=== PATIENT | male | born 1975 | race American Indian/Alaskan Native ===

== ENCOUNTER 2016-06-18 02:22 | Emergency (ER) | payer MEDICAID ==
[2016-06-18 02:50] VITALS: BP 146/101
[2016-06-18] MEDS ORDERED: BENADRYL PO ONE (02:50)
[2016-06-18] MEDS ORDERED: MORPHINE ONE (09:57)
[2016-06-18] MEDS ORDERED: ZOFRAN ONE (09:57)
[2016-06-18] MEDS ORDERED: NACL 0.9% 1000 ML 1,000 ML ONE (09:57)
--- NOTE | 2016-06-19 18:13 | ED Elopement Review ---
ED Pt Elopement review - Call Back decision Pt Call Back Decision: No action required
== END 2016-06-18 16:20 | disposition left against medical advice (07) ==
LOC: ED 02:22
DX: R07.9 Chest pain, unspecified (principal); L29.9 Pruritus, unspecified; Z53.21 Procedure and treatment not carried out due to patient leaving prior to being seen by health care provider
CPT/HCPCS: 93005; 93010; J2270; J2405; J7030

== ENCOUNTER 2016-07-05 02:45 | Inpatient (IN) | payer MEDICAID ==
[2016-07-05 03:46] LABS: Eosinophils % (Auto) 3.3 % (0.0-4.3); Hematocrit 22.4 % (35.5-45.6); Hemoglobin 7.4 gm/dl (11.8-15.2); Mean Corpuscular HGB Conc 33 % (32-34); Mean Corpuscular Hemoglobin 31 pg (28-32); Mean Corpuscular Volume 93 fl (84-94); Platelet Count 126 K/mm3 (140-440); Red Blood Count 2.41 M/mm3 (3.65-5.03); White Blood Count 7.5 K/mm3 (4.5-11.0)
[2016-07-05 03:52] LABS: Red Cell Distribution Width 21.1 % (13.2-15.2)
[2016-07-05 04:12] LABS: Albumin 3.9 g/dL (3.9-5); Albumin/Globulin Ratio 1.5 %; BUN/Creatinine Ratio 4.38; Bilirubin,Total 0.4 mg/dL (0.1-1.2); Calcium 9.3 mg/dL (8.4-10.2); Chloride 104.6 mmol/L (98-107); Potassium 4.4 mmol/L (3.6-5.0); Total Protein 6.5 g/dL (6.3-8.2)
[2016-07-05] MEDS ORDERED: MORPHINE IV ONE ×2 (04:21→05:06)
[2016-07-05] MEDS ORDERED: ZOFRAN ONE (04:32)
[2016-07-05] MEDS ORDERED: ZOFRAN IV ONE (04:41)
[2016-07-05 05:09] LABS: Anisocytosis 1+; Blastocytes % (Manual) 0 %; Eosinophils % (Manual) 0 % (0.0-4.3)
[2016-07-05 05:10] LABS: Microcytosis 2+
[2016-07-05 05:11] LABS: Diff Status Complete; Platelet Estimate Consistent w Auto; Tear Drop Cells 1+
--- NOTE | 2016-07-05 05:11 | Emergency Department Report ---
ED General Adult HPI - General Chief complaint: Dyspnea/Respdistress Stated complaint: CHEST PAIN Time Seen by Provider: 07/05/16 03:49 Source: patient, EMS Mode of arrival: Stretcher Limitations: Physical Limitation - History of Present Illness Initial comments: Patient reports missing dialysis on Wednesday. He states the last time he was dialyzed was on Wednesday. He reports feeling puffy and his legs. He describes pressure in his chest as well. Mostly on the right side. He denies cough he denies fever he states he tried to tough it out at home until Wednesday when he was supposed to be dialyzed again but feels that he cannot make it until Wednesday. Patient reports he still does produce some urine with going to the restroom approximately twice daily. Onset/Timin -: Gradual, days(s) Location: chest Radiation: non-radiation Severity scale (0 -10): 10 Quality: aching Consistency: constant Improves with: none Worsens with: none Associated Symptoms: other (edema) Treatments Prior to Arrival: none - Related Data Home Medications Medication Instructions Recorded Confirmed Last Taken Minoxidil [Loniten] 2.5 mg PO BID 05/20/16 05/20/16 1 Day Ago 2.5 Previous Rx's Medication Instructions Recorded Last Taken Type Carvedilol [Coreg] 25 mg PO BID #60 tablet 02/17/16 1 Day Ago Rx 25 cloNIDine [Catapres] 0.2 mg PO Q8HR #90 tablet 02/17/16 1 Day Ago Rx 0.2 hydrALAZINE [Apresoline TAB] 100 mg PO TID #90 tab 02/17/16 1 Day Ago Rx 100 Allergies Allergy/AdvReac Type Severity Reaction Status Date / Time No Known Allergies Allergy Unverified 05/26/15 13:53 ED Review of Systems ROS: Stated complaint: CHEST PAIN Other details as noted in HPI Constitutional: denies: chills, fever Eyes: denies: eye pain, eye discharge, vision change ENT: denies: ear pain, throat pain Respiratory: denies: cough, shortness of breath, wheezing Cardiovascular: chest pain, dyspnea on exertion. denies: palpitations Endocrine: no symptoms reported Gastrointestinal: denies: abdominal pain, nausea, diarrhea Genitourinary: denies: urgency, dysuria Musculoskeletal: denies: back pain, joint swelling, arthralgia Skin: denies: rash, lesions Neurological: denies: headache, weakness, paresthesias Psychiatric: denies: anxiety, depression Hematological/Lymphatic: denies: easy bleeding, easy bruising ED Past Medical Hx - Past Medical History Previous Medical History?: Yes Hx Hypertension: Yes Hx Congestive Heart Failure: No Hx Diabetes: No Hx Renal Disease: Yes (dialysis) Hx Asthma: No Hx COPD: No - Surgical History Past Surgical History?: Yes Additional Surgical History: Hernia, vas cath - Social History Smoking Status: Current Some Day Smoker Substance Use Type: Marijuana - Medications Home Medications: Home Medications Medication Instructions Recorded Confirmed Last Taken Type Carvedilol [Coreg] 25 mg PO BID #60 tablet 02/17/16 05/20/16 1 Day Ago Rx 25 cloNIDine [Catapres] 0.2 mg PO Q8HR #90 tablet 02/17/16 05/20/16 1 Day Ago Rx 0.2 hydrALAZINE [Apresoline TAB] 100 mg PO TID #90 tab 02/17/16 05/20/16 1 Day Ago Rx 100 Minoxidil [Loniten] 2.5 mg PO BID 05/20/16 05/20/16 1 Day Ago History 2.5 ED Physical Exam - General Limitations: Physical Limitation General appearance: alert, in distress (mild) - Head Head exam: Present: atraumatic, normocephalic - Eye Eye exam: Present: normal appearance, PERRL - ENT ENT exam: Present: normal orophraynx, mucous membranes moist - Neck Neck exam: Present: normal inspection. Absent: meningismus, lymphadenopathy - Respiratory Respiratory exam: Present: wheezes (mild occasional), decreased breath sounds ( mild diffusely). Absent: respiratory distress, rhonchi - Cardiovascular Cardiovascular Exam: Present: regular rate, normal rhythm. Absent: systolic murmur, diastolic murmur, rubs, gallop - GI/Abdominal GI/Abdominal exam: Present: soft, normal bowel sounds. Absent: tenderness - Rectal Rectal exam: Present: deferred - Extremities Exam Extremities exam: Present: normal inspection, pedal edema (1+ bilat. Equal distal pedal pulses bilat.) - Back Exam Back exam: Present: normal inspection. Absent: tenderness, muscle spasm - Neurological Exam Neurological exam: Present: alert, oriented X3 - Psychiatric Psychiatric exam: Present: normal affect, normal mood - Skin Skin exam: Present: warm, dry, intact, normal color. Absent: rash ED Course Vital Signs 07/05/16 03:16 Temperature 98.8 F Pulse Rate 83 Respiratory 20 Rate Blood Pressure 181/124 [Left] O2 Sat by Pulse 100 Oximetry - Reevaluation(s) Reevaluation #1: 07/05/16 05:17 Patient noted to be somewhat uncomfortable appearing here. His main pain is in his right chest area he feels inspiration. X-ray do not appreciate any specific Pathology. He does have some mild vascular congestion and clear cardiomegaly noted. ECG does not demonstrate anything that appears acute despite his coronary syndrome. Suspect either. The to be edematous and somewhat diffusely. His condition is consistent with azotemia. I do feel he needs urgent/emergent dialysis. I do not feel it would be safe for him to try to wait until Wednesday to accomplish this. Labs are noted. Will admit to the hospitalist service with likely nephrology consultation for dialysis today. ED Medical Decision Making - Lab Data Result diagrams: 07/05/16 03:35 07/05/16 03:35 - EKG Data -: EKG Interpreted by Me (left axis deviation nonspecific ST and T waves noted similar to prior ecg ) EKG shows normal: sinus rhythm Rate: normal - Radiology Data Radiology results: image reviewed interpreted by me: Cardiomegaly with mild vascular congestion. Right-sided dialysis catheter noted. Critical care attestation.: If time is entered above; I have spent that time in minutes in the direct care of this critically ill patient, excluding procedure time. ED Disposition Clinical Impression: Renal azotemia, Pedal edema Chest pain Qualifiers: Chest pain type: pleurodynia Qualified Code(s): R07.81 - Pleurodynia Dyspnea Qualifiers: Dyspnea type: unspecified Qualified Code(s): R06.00 - Dyspnea, unspecified Disposition: OP ADMITTED IP TO THIS HOSP Is pt being admited?: Yes Does the pt Need Aspirin: No Condition: Stable Instructions: Chest Pain (ED) Referrals: PRIMARY CARE, [Primary Care Provider] - 3-5 Days
[2016-07-05] MEDS ORDERED: BENADRYL ONE (06:26)
[2016-07-05] MEDS ORDERED: BENADRYL IV ONE (07:05)
--- NOTE | 2016-07-05 08:32 | History and Physical Report ---
History of Present Illness Date of admission: 07/05/16 05:14 Medications and Allergies Allergies Allergy/AdvReac Type Severity Reaction Status Date / Time No Known Allergies Allergy Unverified 05/26/15 13:53 Home Medications Medication Instructions Recorded Confirmed Last Taken Type Carvedilol [Coreg] 25 mg PO BID #60 tablet 02/17/16 07/05/16 1 Day Ago Rx 25 cloNIDine [Catapres] 0.2 mg PO Q8HR #90 tablet 02/17/16 07/05/16 1 Day Ago Rx 0.2 hydrALAZINE [Apresoline TAB] 100 mg PO TID #90 tab 02/17/16 07/05/16 1 Day Ago Rx 100 Minoxidil [Loniten] 2.5 mg PO BID 05/20/16 07/05/16 1 Day Ago History 2.5 Exam - Constitutional Vitals: Temp Pulse Resp BP Pulse Ox 98.8 F 83 21 176/119 98 07/05/16 03:16 07/05/16 08:21 07/05/16 08:21 07/05/16 08:21 07/05/16 08:21 Results - Labs CBC & Chem 7: 07/05/16 03:35 07/05/16 03:35
[2016-07-05] MEDS ORDERED: ZOFRAN IV PRN (08:33)
[2016-07-05] MEDS ORDERED: DUONEB 0.5 MG-3 MG/3 ML SOLN IH PRN (08:33)
[2016-07-05] MEDS ORDERED: DULCOLAX PR PRN (08:33)
[2016-07-05] MEDS ORDERED: MILK OF MAGNESIA PO PRN (08:33)
[2016-07-05] MEDS ORDERED: TYLENOL PO PRN (08:33)
[2016-07-05] MEDS ORDERED: APRESOLINE IV PRN (08:37)
[2016-07-05] MEDS ORDERED: PROVENTIL IH PRN (09:02)
--- NOTE | 2016-07-05 09:14 | XRay Report ---
Single view chest: History: Shortness of breath. Findings: Marked cardiomegaly. Trachea is midline. Stable right large bore venous catheter. Pulmonary vascular congestion. No consolidation or pleural effusion. Impression: Probable early CHF.
[2016-07-05] MEDS: PERCOCET 5/325 PO PRN ×2 (09:17→18:09)
[2016-07-05] MEDS: LONITEN PO SCH ×2 (10:31→22:07)
[2016-07-05] MEDS: BENADRYL PO PRN ×2 (10:31→20:21)
[2016-07-05] MEDS: COREG PO SCH ×2 (10:31→22:07)
[2016-07-05] MEDS ORDERED: PROCRIT IV PRN (13:25)
[2016-07-05] MEDS ORDERED: NACL 0.9% 1000 ML 100 ML IV PRN (13:25)
[2016-07-05] MEDS: CATAPRES PO SCH ×4 (16:00→22:07)
[2016-07-05] MEDS: APRESOLINE PO SCH ×2 (16:00→20:21)
[2016-07-05] MEDS ORDERED: APRESOLINE ONE (16:06)
--- NOTE | 2016-07-05 16:09 | History and Physical Report ---
History of Present Illness Date of examination: 07/05/16 Date of admission: 07/05/16 05:14 Chief complaint: Shortness of breath, chest pain - 1 day History of present illness: Patient that 10-year-old gentleman who has a history of hypertension and end- stage renal disease on hemodialysis on Wednesdays and Fridays, missed his dialysis on Wednesday which was 2 days ago. Started having shortness of breath orthopnea proximal nocturnal dyspnea and also this morning I. Has associated dull chest pain with cough. Cough is dry and. Nonproductive. Denies any fever. Denies any diaphoresis. Chest pain is nonradiating. Came to the emergency department where he was found to be 50 and creatinine was 11.4. H&H she is able to was 7.4 hematocrit was 22.4. Blood pressure was 176/ 119 in the emergency department. Chest x-ray shows pulmonary congestion mild cardiomegaly and aearly congestive heart failure. Admission was therefore requested. [employer] consulted by the emergency room doctor who is arranging for hemodialysis. Past History Past Medical History: ESRD, hypertension Past Surgical History: Other (AV fistula for hemodialysis) Social history: smoking, alcohol abuse. denies: prescription drug abuse, IV drug use Family history: hypertension Medications and Allergies Allergies Allergy/AdvReac Type Severity Reaction Status Date / Time No Known Allergies Allergy Unverified 05/26/15 13:53 Home Medications Medication Instructions Recorded Confirmed Last Taken Type Carvedilol [Coreg] 25 mg PO BID #60 tablet 02/17/16 07/05/16 1 Day Ago Rx 25 cloNIDine [Catapres] 0.2 mg PO Q8HR #90 tablet 02/17/16 07/05/16 1 Day Ago Rx 0.2 hydrALAZINE [Apresoline TAB] 100 mg PO TID #90 tab 02/17/16 07/05/16 1 Day Ago Rx 100 Minoxidil [Loniten] 2.5 mg PO BID 05/20/16 07/05/16 1 Day Ago History 2.5 Active Meds: Active Medications Acetaminophen (Tylenol) 650 mg PO Q4H PRN PRN Reason: Pain MILD(1-3)/Fever >100.5/WOOD Albuterol (Proventil) 2.5 mg IH Q4HRT PRN PRN Reason: Shortness Of Breath Bisacodyl (Dulcolax) 10 mg DC QDAY PRN PRN Reason: Constipation unrelieved by MOM Carvedilol (Coreg) 25 mg PO BID [facility] Last Admin: 07/05/16 10:31 Dose: 25 mg Clonidine HCl (Catapres) 0.2 mg PO Q8HR [facility] Last Admin: 07/05/16 16:01 Dose: Not Given Diphenhydramine HCl (Benadryl) 25 mg PO Q6H PRN PRN Reason: Itching Last Admin: 07/05/16 10:31 Dose: 25 mg Epoetin Michael (Procrit) 10,000 unit IV SYLVAIN PRN PRN Reason: hemodialysis Heparin Sodium (Porcine) (Heparin) 5,000 unit IV SYLVAIN PRN PRN Reason: hemodialysis Hydralazine HCl (Apresoline) 100 mg PO TID [facility] Last Admin: 07/05/16 16:00 Dose: Not Given Hydralazine HCl (Apresoline) 10 mg IV Q6HR PRN PRN Reason: Hypertension Sodium Chloride (Nacl 0.9% 1000 Ml) 100 mls @ 999 mls/hr IV SYLVAIN PRN PRN Reason: Hypotension Magnesium Hydroxide (Milk Of Magnesia) 30 ml PO Q4H PRN PRN Reason: Constipation Minoxidil (Loniten) 2.5 mg PO BID [facility] Last Admin: 07/05/16 10:31 Dose: 2.5 mg Ondansetron HCl (Zofran) 4 mg IV Q8H PRN PRN Reason: N/V unrelieved by Reglan Oxycodone/Acetaminophen (Percocet 5/325) 1 tab PO Q6H PRN PRN Reason: Pain, Moderate (4-6) Last Admin: 07/05/16 09:17 Dose: 1 tab Review of system Constitutional: Well Nouridhed and Well developed. Head: NC/ AT Eyes: Denies any visual impairments. No discharge from the eyes Nose: Denies any rhinorrhea or epistaxis Throats: Denies any post nasal drainage. Ears: Denies any hearing deficits Cardiovascular system: Has chest pain, shortness of breath, orthopnea, paroxysmal nocturnal dyspnea. Respiratory system: Denies any cough, difficulty breathing, wheezing, pleuritic chest pain, Gastrointestinal system: Denies any abdominal pain, nausea vomiting, hematemesis or melena. Neurological system: Denies any headache, slurred speech, facial droop, lateralizing weakness Genitalia system: Denies any dysuria, urinary frequency or urgency, urethral discharge Skin: No rashes, hyperpigmented spots. Hematological: Denies any cervical tenderness hemorrhages or petechia. Immunological: Denies any multiple septic spots, Lymphatic: Denies any generalized lymphadenopathy. Endocrine: Denies any polyuria, polydipsia, polyphagia. No heat or cold intolerance. Exam - Constitutional Vitals: Temp Pulse Resp BP Pulse Ox 97.7 F 70 24 164/106 99 07/05/16 13:55 07/05/16 14:33 07/05/16 13:55 07/05/16 14:33 07/05/16 13:00 General appearance: Present: no acute distress, well-nourished - EENT Eyes: Present: PERRL ENT: hearing intact, clear oral mucosa - Neck Neck: Present: supple, normal ROM - Respiratory Respiratory effort: normal Respiratory: bilateral: CTA - Cardiovascular Heart Sounds: Present: S1 & S2. Absent: rub, click - Extremities Extremities: pulses symmetrical, No edema Peripheral Pulses: within normal limits - Abdominal General gastrointestinal: Present: soft, non-tender, non-distended, normal bowel sounds Male genitourinary: Present: normal - Integumentary Integumentary: Present: clear, warm, dry - Musculoskeletal Musculoskeletal: gait normal, strength equal bilaterally - Psychiatric Psychiatric: appropriate mood/affect, intact judgment & insight - Neurologic Neurologic: CNII-XII intact, moves all extremities Results - Labs CBC & Chem 7: 07/05/16 03:35 07/05/16 03:35 Assessment and Plan 1. Shortness of breath was likely secondary to acute pulmonary edema from missed dialysis. Anticipate resolution with hemodialysis. 2. End-stage renal disease hemodialysis Wednesdays and Fridays: [employer] Dr. Araujo already consulted. He has seen patient and ordered hemodialysis. 3. Anemia of chronic disease from chronic renal failure: And that workup with iron TIBC B12 folic acid. 4. Accelerated hypertension: Optimize blood pressure control with 80s beta yasmin. 5. Tobacco use disorder: Smoking cessation counseling done for 3 minutes. 6. DVT prophylaxis weights Lovenox, GI Proflex with omeprazole. Spent 32 minutes in direct patient care, elevation laboratory and radiological data as well as explanation of management plan to the patient during this admission process
[2016-07-05] MEDS: HEPARIN IV PRN (16:16)
[2016-07-05] MEDS ORDERED: CATAPRES ONE (16:23)
[2016-07-05] MEDS ORDERED: BENADRYL IV PRN (23:01)
[2016-07-06] MEDS: CATAPRES PO SCH ×2 (05:38→18:29)
--- NOTE | 2016-07-06 09:21 | Consultation ---
History of Present Illness - Reason for Consult Consult date: 07/06/16 - History of Present Illness pt was seen and examined. consult dictated Past History Past Medical History: ESRD, hypertension Past Surgical History: Other (AV fistula for hemodialysis) Social history: smoking, alcohol abuse. denies: prescription drug abuse, IV drug use Family history: hypertension Medications and Allergies Allergies Allergy/AdvReac Type Severity Reaction Status Date / Time No Known Allergies Allergy Unverified 05/26/15 13:53 Home Medications Medication Instructions Recorded Confirmed Last Taken Type Carvedilol [Coreg] 25 mg PO BID #60 tablet 02/17/16 07/05/16 1 Day Ago Rx 25 cloNIDine [Catapres] 0.2 mg PO Q8HR #90 tablet 02/17/16 07/05/16 1 Day Ago Rx 0.2 hydrALAZINE [Apresoline TAB] 100 mg PO TID #90 tab 02/17/16 07/05/16 1 Day Ago Rx 100 Minoxidil [Loniten] 2.5 mg PO BID 05/20/16 07/05/16 1 Day Ago History 2.5 oxyCODONE /ACETAMINOPHEN [Percocet 1 tab PO Q6HR PRN #10 tablet 07/06/16 Unknown Rx 5/325] Active Meds: Active Medications Acetaminophen (Tylenol) 650 mg PO Q4H PRN PRN Reason: Pain MILD(1-3)/Fever >100.5/WOOD Albuterol (Proventil) 2.5 mg IH Q4HRT PRN PRN Reason: Shortness Of Breath Bisacodyl (Dulcolax) 10 mg DC QDAY PRN PRN Reason: Constipation unrelieved by MOM Carvedilol (Coreg) 25 mg PO BID [facility] Last Admin: 07/05/16 22:07 Dose: 25 mg Clonidine HCl (Catapres) 0.2 mg PO Q8HR [facility] Last Admin: 07/06/16 05:38 Dose: 0.2 mg Diphenhydramine HCl (Benadryl) 25 mg IV Q6H PRN PRN Reason: Itching Last Admin: 07/05/16 23:17 Dose: 25 mg Epoetin Michael (Procrit) 10,000 unit IV SYLVAIN PRN PRN Reason: hemodialysis Heparin Sodium (Porcine) (Heparin) 5,000 unit IV SYLVAIN PRN PRN Reason: hemodialysis Last Admin: 07/05/16 16:16 Dose: 5,000 unit Hydralazine HCl (Apresoline) 100 mg PO TID [facility] Last Admin: 07/05/16 20:21 Dose: 100 mg Hydralazine HCl (Apresoline) 10 mg IV Q6HR PRN PRN Reason: Hypertension Last Admin: 07/05/16 16:00 Dose: 10 mg Sodium Chloride (Nacl 0.9% 1000 Ml) 100 mls @ 999 mls/hr IV SYLVAIN PRN PRN Reason: Hypotension Magnesium Hydroxide (Milk Of Magnesia) 30 ml PO Q4H PRN PRN Reason: Constipation Minoxidil (Loniten) 2.5 mg PO BID [facility] Last Admin: 07/05/16 22:07 Dose: 2.5 mg Ondansetron HCl (Zofran) 4 mg IV Q8H PRN PRN Reason: N/V unrelieved by Reglan Oxycodone/Acetaminophen (Percocet 5/325) 1 tab PO Q6H PRN PRN Reason: Pain, Moderate (4-6) Last Admin: 07/05/16 18:09 Dose: 1 tab Exam - Constitutional Vitals: Temp Pulse Resp BP Pulse Ox 98.4 F 73 18 164/96 98 07/06/16 06:28 07/06/16 06:28 07/06/16 06:28 07/06/16 06:28 07/06/16 06:28 Results - Labs CBC & Chem 7: 07/05/16 03:35 07/05/16 03:35
--- NOTE | 2016-07-06 09:53 | Admit Criteria Form ---
Admission Criteria Documentation: RENAL FAILURE, CHRONIC Clinical Indications for Admission to Inpatient Care (Place 'X' for any and all applicable criteria): Admission is indicated for ANY ONE of the following (1)(2)(3)(4)(5): [X]I. Inpatient admission required rather than observation care (Use Renal Failure, Chronic: Observation Care Criteria as appropriate) because of ANY ONE of the following: [X]a) Volume overload or uremic symptoms (eg, clinically significant pulmonary edema, hypertension, pericarditis, acidosis) too severe for, or not responsive (eg, for over 24 hours) to emergency department or observation care dialysis or treatment regimen (11) [ ]b) Hemodynamic instability that is severe or persistent []c) Respiratory distress that is severe or persistent (11) [ ]d) Clinically significant electrolyte abnormality that requires inpatient care (eg,hyperkalemia with severe ECG findings)[B] [X]e) Supplement O2 or respiratory therapy for over 24hrs that is performable only in acute inpatient setting [ ]f) Continuous IV infusion of anticoagulation, platelet inhibitor, vasoactive, or Antiarrhythmic medication (15), [ ]g) Pulmonary artery catheter monitoring [ ]h) Temporary pacemaker placement [ ]i) Emergent pericardiocentesis [X]j) Other condition, treatment or monitoring requiring inpatient admission [ ]II. Unexplained syncope [A] [ ]III. Recurrent seizures [ ]IV. Severe infections not treatable in outpatient setting (eg, peritonitis)(9 ) [ ]V. Cardiac arrhythmias of immediate concern [ ]. Encephalopathy [ ]VII.Bleeding abnormalities (eg, platelet dysfunction) with active (eg, gastrointestinal) bleeding Extended stay beyond goal length of stay may be needed for (3)(4)(35)(36): [ ]a) Continuing uremic complications [ ]b) Comorbidities or complications The original [employer] content created by [employer] has been revised. The portions of the content which have been revised are identified through the use of italic text or in bold, and [email or web address] has neither reviewed nor approved the modified material. All other unmodified content is copyright [employer]. Please see references footnoted in the original [email or web address] edition 2016 Admission Criteria Met: Yes
[2016-07-06] MEDS: LONITEN PO SCH ×2 (10:15→13:29)
[2016-07-06] MEDS: PERCOCET 5/325 PO PRN ×2 (10:15→18:34)
[2016-07-06] MEDS: COREG PO SCH ×2 (10:16→11:00)
[2016-07-06] MEDS: APRESOLINE PO SCH ×3 (10:17→13:35)
[2016-07-06] MEDS ORDERED: NACL 0.9% 500 ML 500 ML IV ONE (11:36)
[2016-07-06] MEDS ORDERED: APRESOLINE IV PRN (12:00)
[2016-07-06] MEDS: HEPARIN IV PRN (17:14)
[2016-07-06 18:34] VITALS: BP 175/107
--- NOTE | 2016-07-06 19:54 | Discharge Summary ---
Providers - Providers Date of Admission: 07/05/16 05:14 Attending physician: FLOYD FISHER 07/05/16 07:26 Consult to Physician [CONS] Routine Consulting Provider: SHENG CHERRY Reason For Exam: ESRD Place consult to:: answering service Notified:: yes Phone number called:: [phone] Was contact made?: Yes If yes, spoke with:: Patience Time called:: 11:21 Primary care physician: WELLNESS ASSISTANT Hospitalization Condition: Stable Disposition: STILL A PATIENT Core Measure Documentation - Palliative Care Palliative Care/ Comfort Measures: Not Applicable Exam - Constitutional Vitals: Temp Pulse Resp BP Pulse Ox 98.7 F 74 20 175/107 100 07/06/16 17:30 07/06/16 17:30 07/06/16 17:30 07/06/16 18:29 07/06/16 09:40 Plan Follow up with: [facility] [Outside] - 07/21/16 10:30 am PRIMARY CARE, [Primary Care Provider] - 3-5 Days Prescriptions: oxyCODONE /ACETAMINOPHEN [Percocet 5/325] 1 tab PO Q6HR PRN #10 tablet PRN Reason: Pain
--- NOTE | 2016-07-07 02:01 | Consultation ---
REASON FOR CONSULTATION: Renal failure and accelerated hypertension. HISTORY OF PRESENT ILLNESS: This 40-year-old -[place] male with end-stage renal disease, hypertension, presented to the Emergency Room for having chest pain and shortness of breath. He was noted to have a blood pressure of 176/119 in the ER. Chest x-ray was reported to have probable early CHF. He underwent a short dialysis treatment following admission. [facility], and Wednesday. He was reported to have missed his dialysis treatment on Wednesday. PAST MEDICAL HISTORY: End-stage renal disease, hypertension, on hemodialysis for about 1-1/2 years. PERSONAL HISTORY: Denies alcohol or drug abuse. The patient gives history of smoking cigarettes. FAMILY HISTORY: Most of the family members have high blood pressure. No family history of kidney failure. ALLERGIES: None. HOME MEDICATIONS: Carvedilol 25 mg twice a day, clonidine 0.2 mg 3 times a day, hydralazine 100 mg 3 times a day, minoxidil 2.5 mg twice a day. REVIEW OF SYSTEMS: The patient complains of headache, complains of soreness in the chest, not radiating, not associated with nausea or vomiting, requests pain medication, complaints of itching. Denies abdomen pain, nausea, vomiting, or diarrhea. Denies GI bleeding. Denies dysuria or hematuria. Complains of swelling around the ankles. Other review of systems reviewed and negative. PHYSICAL EXAMINATION: GENERAL: The patient is alert, oriented, well nourished male, not in acute distress. VITAL SIGNS: Blood pressure 170/100, pulse 75, afebrile. EYES: Pupils reactive. Lips noncyanotic. NECK: No JVD. No thyroid enlargement. No carotid bruit. LUNGS: Diminished breath sounds in bases. HEART: S1, S2 regular. No pericardial rub. No palpable thrills. ABDOMEN: Soft, bowel sounds present, nontender. No abdomen bruit. No masses palpable. EXTREMITIES: 1+ edema. The patient has right internal jugular Perm-A-Cath in place. Able to move all extremities. LABORATORY DATA: WBC 7.5, hemoglobin 7.4, hematocrit 22.4, platelets 126,000. Sodium 146, potassium 4.4, chloride 104, CO2 25, BUN 50, creatinine 11.4, glucose 86, albumin 3.9. ASSESSMENT AND PLAN: 1. End-stage renal disease. 2. Atypical chest pain. 3. Shortness of breath with fluid overload, reported to be missing dialysis treatments and nonadherence to medications. 3. Accelerated hypertension. 4. Anemia with chronic kidney disease. 5. History of smoking. Hemodialysis as ordered. Ultrafiltration as tolerated. Renal diet and fluid restriction emphasized. Optimize blood pressure medications. The patient is unable to get Epogen with dialysis as his blood pressures are high. Consider packed RBC transfusion. Adjust medications per renal function. Thank you for the consultation. JOB# [id number] MARÍA/NTS
--- NOTE | 2016-07-09 08:20 | Query- General ---
Wanda Ramsay Date:_07/09/16 Rail Switchman/CDS:Jeff/ Romaine Myers Phone#:_[phone] Exercise your independent professional judgment when responding to this query. Questions asked do not imply a particular answer is desired or expected. We greatly appreciate your clarification on this issue. Clinical Documentation States: 40 Y/O male admitted on 07/05/16 with history of HTN and ESRD missed dialysis 2 days ago, presenting with increasing shortness of breath. Alcohol abuse in the history Clinical Findings Show (include reference to source document): Counseled on tobacco dependancy per H&P Given the above clinical scenario can you please provide an appropriate diagnosis based on your knowledge of the patient: PHYSICIAN RESPONSE: [ x ] Counseled on Alcohol use [ ] Other [ ] Unable to determine Present on Admission: [x ] Yes (Y) [ ] Clinically undeterminable (W) [ ]No(N) Please also document response in your Progress Notes and/or Discharge Summary and indicate if the condition was present on admission. MOLINAD
== END 2016-07-06 19:05 | disposition home or self-care (01) | DRG 682 ==
LOC: ED 02:45 → 4A 05:14
PROVIDERS: ADMIT Internal Medicine; ATTEND Internal Medicine
PROC: 5A1D60Z (ICD-10-PCS; principal; 2016-07-05)
PROC: HZ34ZZZ Individual Counseling for Substance Abuse Treatment, Interpersonal (ICD-10-PCS; principal; 2016-07-05)
DX: I12.0 Hypertensive chronic kidney disease with stage 5 chronic kidney disease or end stage renal disease (principal); J81.0 Acute pulmonary edema; N18.6 End stage renal disease; E87.70 Fluid overload, unspecified; D63.1 Anemia in chronic kidney disease; E11.22 Type 2 diabetes mellitus with diabetic chronic kidney disease; R07.81 Pleurodynia; F17.200 Nicotine dependence, unspecified, uncomplicated; F10.10 Alcohol abuse, uncomplicated; F12.90 Cannabis use, unspecified, uncomplicated; Z99.2 Dependence on renal dialysis; Z82.49 Family history of ischemic heart disease and other diseases of the circulatory system; Z71.6 Tobacco abuse counseling; Z91.15 Patient's noncompliance with renal dialysis; Z91.14 Patient's other noncompliance with medication regimen; Z71.41 Alcohol abuse counseling and surveillance of alcoholic
CPT/HCPCS: 36415; 71010; 80053; 84484; 85007; 85025; 86850; 86900; 86901; 86920; 93005; 93010; 94760; 96374; 96375; 96376; 99406; J0360; J0885; J1200; J1644; J2270; J2405; J7030

== ENCOUNTER 2016-10-12 01:58 | Inpatient (IN) | payer MEDICAID ==
[2016-10-12 03:10] LABS: Basophils % (Auto) 0.4 % (0.0-1.8); Eosinophils % (Auto) 3.4 % (0.0-4.3); Hematocrit 28.6 % (35.5-45.6); Hemoglobin 9.5 gm/dl (11.8-15.2); Mean Corpuscular HGB Conc 33 % (32-34); Mean Corpuscular Hemoglobin 30 pg (28-32); Mean Corpuscular Volume 90 fl (84-94); Platelet Count 152 K/mm3 (140-440); Red Blood Count 3.18 M/mm3 (3.65-5.03); White Blood Count 8.5 K/mm3 (4.5-11.0)
[2016-10-12 03:23] LABS: BUN/Creatinine Ratio 3.87; Calcium 10.1 mg/dL (8.4-10.2); Chloride 99.3 mmol/L (98-107); Potassium 3.9 mmol/L (3.6-5.0)
--- NOTE | 2016-10-12 07:18 | XRay Report ---
Chest 2 views: Compared to 07/05/16. History: Shortness of breath. Findings: Cardiomegaly. Trachea is midline. Stable support system and no consolidation, pneumothorax or pleural effusion. Impression: Cardiomegaly. No definite acute lung changes.
[2016-10-12] MEDS ORDERED: ZOFRAN IV ONE (08:45)
[2016-10-12] MEDS ORDERED: MORPHINE IV ONE (08:45)
--- NOTE | 2016-10-12 08:53 | Emergency Department Report ---
HPI - General Chief Complaint: Chest Pain Time Seen by Provider: 10/12/16 08:38 - HPI HPI: Room 6 The patient is a 40-year-old male presenting with a chief complaint of chest pain. The patient states he awakened last night at 23:00 with coughing. The patient states he went bathroom and felt hemoptysis. Patient states he then developed left chest pain described as a tightness associated with shortness of breath and nausea. Patient denies vomiting. The patient states she had a stress test and cardiac catheterization several months ago [facility] however when [facility] was contacted there is no history of a cardiac catheterization being performed only a stress test. Location: Left chest Duration: Constant since 23:00 Quality: Tightness Severity: Moderate Modifying factors: [see above] Context: [see above] Mode of transportation: [not driving] ED Past Medical Hx - Past Medical History Previous Medical History?: Yes Hx Hypertension: Yes Hx Renal Disease: Yes (dialysis MWF) - Surgical History Past Surgical History?: Yes Additional Surgical History: Hernia, vas cath - Family History Family history: no significant - Social History Smoking Status: Current Every Day Smoker (1/2) Substance Use Type: Marijuana - Medications Home Medications: Home Medications Medication Instructions Recorded Confirmed Last Taken Type Carvedilol [Coreg] 25 mg PO BID #60 tablet 02/17/16 07/05/16 1 Day Ago Rx 25 cloNIDine [Catapres] 0.2 mg PO Q8HR #90 tablet 02/17/16 07/05/16 1 Day Ago Rx 0.2 hydrALAZINE [Apresoline TAB] 100 mg PO TID #90 tab 02/17/16 07/05/16 1 Day Ago Rx 100 Ibuprofen [Advil 100 MG tab] 200 mg PO Q6H PRN 10/12/16 10/12/16 10/11/16 History ED Review of Systems ROS: Stated complaint: CHEST PAIN Other details as noted in HPI Comment: All other systems reviewed and negative Constitutional: denies: chills, fever Eyes: denies: eye pain, eye discharge, vision change ENT: denies: ear pain, throat pain Respiratory: shortness of breath, other (hemoptysis) Cardiovascular: chest pain Endocrine: no symptoms reported Gastrointestinal: nausea. denies: vomiting Genitourinary: denies: urgency, dysuria Musculoskeletal: denies: back pain, joint swelling, arthralgia Skin: denies: rash, lesions Neurological: denies: headache, weakness, paresthesias Psychiatric: denies: anxiety, depression Hematological/Lymphatic: denies: easy bleeding, easy bruising Physical Exam - Physical Exam Vital Signs: Vital Signs 10/12/16 02:05 Temperature 98.3 F Pulse Rate 87 Respiratory 22 Rate Blood Pressure 166/110 O2 Sat by Pulse 98 Oximetry Physical Exam: GENERAL: The patient is well-developed well-nourished male lying on stretcher not appearing to be in acute distress. [] HEENT: Normocephalic. Atraumatic. Extraocular motions are intact. Patient has moist mucous membranes. NECK: Supple. No meningitic signs are noted. There is no adenopathy noted. CHEST/LUNGS: Clear to auscultation. There is no respiratory distress noted. HEART/CARDIOVASCULAR: Regular. There is no tachycardia. There is no gallop rub or murmur. ABDOMEN: Abdomen is soft, mild discomfort to palpation of the left upper quadrant. There is no rebound or guarding. Patient has normal bowel sounds. There is no abdominal distention. SKIN: There is no rash. There is no edema. There is no diaphoresis. NEURO: The patient is awake, alert, and oriented. The patient is cooperative. The patient has normal speech MUSCULOSKELETAL: There is no evidence of acute injury. ED Course Vital Signs 10/12/16 02:05 Temperature 98.3 F Pulse Rate 87 Respiratory 22 Rate Blood Pressure 166/110 O2 Sat by Pulse 98 Oximetry ED Medical Decision Making - Lab Data Result diagrams: 10/12/16 02:39 10/12/16 02:39 Laboratory Tests 10/12/16 10/12/16 10/12/16 02:39 02:39 02:39 WBC 8.5 RBC 3.18 L Hgb 9.5 L Hct 28.6 L MCV 90 MCH 30 MCHC 33 RDW 18.0 H Plt Count 152 Lymph % (Auto) 6.8 L [place] % (Auto) 7.9 H Eos % (Auto) 3.4 Baso % (Auto) 0.4 Lymph # 0.6 L [place] # 0.7 Eos # 0.3 Baso # 0.0 Seg Neutrophils % 81.5 H Seg Neutrophils # 6.9 Sodium 142 Potassium 3.9 Chloride 99.3 Carbon Dioxide 24 Anion Gap 23 BUN 50 H Creatinine 12.9 H Estimated GFR 5 BUN/Creatinine Ratio 3.87 Glucose 99 Calcium 10.1 Troponin T 0.047 H NT-Pro-B Natriuret Pep 06423 H Triglycerides 73 Cholesterol 109 LDL Cholesterol Direct 38 L HDL Cholesterol 57 Cholesterol/HDL Ratio 1.91 10/12/16 05:02 WBC RBC Hgb Hct MCV MCH MCHC RDW Plt Count Lymph % (Auto) [place] % (Auto) Eos % (Auto) Baso % (Auto) Lymph # [place] # Eos # Baso # Seg Neutrophils % Seg Neutrophils # Sodium Potassium Chloride Carbon Dioxide Anion Gap BUN Creatinine Estimated GFR BUN/Creatinine Ratio Glucose Calcium Troponin T 0.055 H NT-Pro-B Natriuret Pep Triglycerides Cholesterol LDL Cholesterol Direct HDL Cholesterol Cholesterol/HDL Ratio - EKG Data -: EKG Interpreted by Me EKG shows normal: sinus rhythm Rate: normal - EKG Data When compared to previous EKG there are: no significant change Interpretation: unchanged when compared t (07/05/2016) - Radiology Data Radiology results: report reviewed (VQ scan), image reviewed (chest x-ray, VQ scan) interpreted by me: Chest x-ray-no definite focal infiltrates, no pneumothorax VQ scan (read by radiologist)-normal study - Differential Diagnosis ACS, PE, pericarditis, GERD Critical care attestation.: If time is entered above; I have spent that time in minutes in the direct care of this critically ill patient, excluding procedure time. ED Disposition Clinical Impression: Chest pain, Hemoptysis, unspecified, ESRD (end stage renal disease) Disposition: OP ADMITTED IP TO THIS HOSP Is pt being admited?: Yes Does the pt Need Aspirin: Yes Condition: Fair Instructions: Chest Pain (ED) Referrals: PRIMARY CARE, [Primary Care Provider] - 3-5 Days Time of Disposition: 10:32 (hospitalist paged)
--- NOTE | 2016-10-12 09:51 | Nuclear Medicine Report ---
LUNG SCAN, VENTILATION AND PERFUSION: History: Chest pain, hemoptysis. Findings: Inhalation of Xenon gas demonstrates a normal distribution of the activity throughout both lungs. The wash out phases show no focal retention of activity. After injection of Technetium 99m macroaggregated albumin gamma camera imaging of the lungs in multiple projections demonstrates normal pulmonary contours with a homogeneous distribution of activity. No focal areas of perfusion deficiency are identified. IMPRESSION: Normal study.
[2016-10-12] MEDS ORDERED: CATAPRES PO ONE (10:35)
[2016-10-12] MEDS ORDERED: ASPIRIN PO ONE (10:37)
--- NOTE | 2016-10-12 10:49 | Admit Criteria Form ---
Admission Criteria Documentation: CHEST PAIN Clinical Indications for Admission to Inpatient Care (Place 'X' for any and all applicable criteria): Admission is indicated for chest pain and ANY ONE of the following(1)(2)(3)(4)(5 ): [ ]I. Angina with acute coronary syndrome (Also use Myocardial Infarction or Angina guideline) [ ]II. Hemodynamic instability [X ]III. Angina needing acute intervention as indicated by ALL of the following (11)(12): [X ]a) Unstable angina is present as indicated by angina that is ANY ONE of the following: [ ]i) New onset [ X]ii) Nocturnal [ ]iii) Prolonged at rest [ ]iv) Progressive [X ]b) Angina warrants acute intervention as indicated by ANY ONE of the following: [ ]i) Recurrent angina (e.g, not responding as previously to treatment) [ ]ii) Angina at rest or with low-level activities despite initial medical therapy [ ]iii) New or presumably new ST-segment depression on ECG [ ]iv) Signs or symptoms of heart failure (eg, dyspnea, pulmonary edema) [ ]v) New or worsening mitral regurgitation [ ]vi) Hemodynamic instability [ ]vii) Dangerous arrhythmia (eg, sustained ventricular tachycardia) [ ]viii) History of percutaneous coronary intervention within 6 months [ ]ix) History of coronary artery bypass graft surgery [ ]x) SANDEEP risk score of 2 or greater[A] [ ]xi) History of Diabetes(14) [ ]xii) High-risk cardiac ischemia findings on noninvasive testing (e.g, echocardiogram, treadmill testing, nuclear scan) [X ]xiii) Chronic renal insufficiency (ie, estimated GFR less than 60 mL/min/1.732m) [ ]xiv) Left ventricular ejection fraction less than 40% [ ]IV. Evidence of LA (eg, cardiac biomarkers positive, ST-segment elevation on ECG) also use Myocardial Infarction Criteria Form. [ ]V. Pulmonary edema [ ]. Respiratory distress [ ]VII. Chest pain indicative of serious diagnosis other than coronary artery disease (eg, aortic dissection) [ ]VIII. Contraindications and/or Inappropriate clinical situations for Observational Care in patients with Chest Pain, when ANY ONE of the following is required: [ ]a) Patient with risk factor for pulmonary embolism, acute coronary syndrome and myocardial infarction (18) [ ]b) Patient with Pulmonary embolism require an average LOS of 4.3 days, therefore emergency department observation management is inappropriate 18,23 [ ]c) Painful condition/s in the elderly, have the highest rate of recidivism after emergency department observation management (10.8%) 20,21,22 [ ]d) Elevated cardiac biomarker requires intensive and exhaustive care (19) [X ]IX. General contraindications and/or Inappropriate clinical situations for Observational Care in patients with Chest Pain, when ANY ONE of the following is required: [ X]a) Prediction of prolongation of LOS based on ANY ONE of the following may be considered as a contraindication for observational care 2, 3, 4, 5, 6, 7, 8, 9, 10, 11 [ ]i) Age > 65 yrs. [X ]ii) Patient arriving by ambulance [ ]iii) Patient with high acuity [ ]iv) Patient requiring vital sign monitoring [ ]v) Patient on IV medication [ ]b) Systolic blood pressures 180mmHg 3,12 [ ]c) Patient with altered mental status including delirium and other alteration of consciousness, (3) [ ]d) Patient whose discharge disposition will be to a [facility] home or rehabilitation home should not be managed in Emergency Department Observation Unit. CMS rule requires 3 days hospital stay before such placement. 3,13 [ ]e) Patient with failure to thrive due to broad array of etiologies 3,16,17 [ ]f) Inability to ambulate 3,14 Extended stay beyond goal length of stay may be needed for (1)(28): [ ]a) Specific condition diagnosed after evaluation (eg, pulmonary embolism, aortic dissection) [ ]b) Unstable angina [ ]c) Continued suspicion of acute coronary syndrome with inability to complete needed cardiac evaluation (eg, patient clinically unable to undergo stress testing) [ ]d) Myocardial infarction (Contents from ANGINA and CHEST PAIN clinical indications for admission to inpatient care have been integrated in this form) The original [employer] content created by [employer] has been revised. The portions of the content which have been revised are identified through the use of italic text or in bold, and [email or web address] has neither reviewed nor approved the modified material. All other unmodified content is copyright [id number]. Please see references footnoted in the original [id number] edition 2016 Admission Criteria Met: Yes
[2016-10-12] MEDS ORDERED: NORMODYNE PO SCH (14:00)
[2016-10-12] MEDS ORDERED: DULCOLAX PR PRN (14:00)
[2016-10-12] MEDS ORDERED: TYLENOL PO PRN (14:00)
[2016-10-12] MEDS: MORPHINE IV PRN ×3 (14:07→22:38)
[2016-10-12] MEDS: ASPIRIN PO SCH (14:07)
[2016-10-12] MEDS: PROCARDIA XL PO SCH ×2 (14:52→22:30)
[2016-10-12] MEDS: NORMODYNE PO SCH ×5 (14:52→21:17)
[2016-10-12] MEDS: NITRO-BID 2% TP SCH (14:52)
[2016-10-12] MEDS ORDERED: MILK OF MAGNESIA PO PRN (15:00)
[2016-10-12] MEDS: HYDROMET PO PRN ×3 (15:29→21:16)
[2016-10-12] MEDS ORDERED: APRESOLINE IV PRN (15:51)
[2016-10-12] MEDS: ZOFRAN IV PRN ×2 (17:36→20:12)
[2016-10-12] MEDS: COREG PO SCH (22:39)
[2016-10-12] MEDS: CATAPRES PO SCH (22:39)
[2016-10-12] MEDS: APRESOLINE PO SCH (22:39)
--- NOTE | 2016-10-12 23:46 | History and Physical Report ---
History of Present Illness Date of examination: 10/12/16 Date of admission: 10/12/16 10:36 Chief complaint: Chest pain, history of hypertension. History of present illness: Patient is a 40-year-old gentleman was a history of end stage renal disease hemodialysis on Wednesday was as of Fridays started having left-sided chest pain today at rest after a bout of cough at about 2300 hours yesterday. Endorses shortness of breath. Denies any diaphoresis. Pain was nonradiating, intermittent, with the severity of 7/10. Patient had some slight blood stained sputum. Denies any fever. No no chills. No weight loss. No prior history of hemoptysis or any positive contact. Patient denies any headache. No blurred vision. Admission to the emergency department, blood pressure was found to be 166/110. Troponin was elevated. BUN was 50, crit was 2.9. Troponin T was 0.047. ProBNP was 35,000. Patient stated that he had had cardiac workup at [facility] however on contacting them systolic patient had a stress test. No cardiac catheterization. Admission was therefore requested for further evaluation and treatment Past History Past Medical History: ESRD, hypertension Past Surgical History: Other (AV fistula in the left arm) Social history: smoking, other (marijuana). denies: alcohol abuse Family history: no significant family history Medications and Allergies Allergies Allergy/AdvReac Type Severity Reaction Status Date / Time No Known Allergies Allergy Unverified 05/26/15 13:53 Home Medications Medication Instructions Recorded Confirmed Last Taken Type Carvedilol [Coreg] 25 mg PO BID #60 tablet 02/17/16 10/12/16 10/11/16 Rx cloNIDine [Catapres] 0.2 mg PO Q8HR #90 tablet 02/17/16 10/12/16 10/11/16 Rx hydrALAZINE [Apresoline TAB] 100 mg PO TID #90 tab 02/17/16 10/12/16 10/11/16 Rx Ibuprofen [Advil 100 MG tab] 200 mg PO Q6H PRN 10/12/16 10/12/16 10/11/16 History Active Meds: Active Medications Acetaminophen (Tylenol) 650 mg PO Q4H PRN PRN Reason: Pain MILD(1-3)/Fever >100.5/WOOD Aspirin (Aspirin) 325 mg PO QDAY JOANN Last Admin: 10/12/16 14:07 Dose: 325 mg Bisacodyl (Dulcolax) 10 mg [place] QDAY PRN PRN Reason: Constipation unrelieved by MOM Carvedilol (Coreg) 25 mg PO BID [facility] Last Admin: 10/12/16 22:39 Dose: 25 mg Clonidine HCl (Catapres) 0.2 mg PO Q8HR [facility] Last Admin: 10/12/16 22:39 Dose: 0.2 mg Hydralazine HCl (Apresoline) 10 mg IV Q6H PRN PRN Reason: Blood Pressure SYS>170 Last Admin: 10/12/16 16:05 Dose: 10 mg Hydralazine HCl (Apresoline) 100 mg PO TID [facility] Last Admin: 10/12/16 22:39 Dose: 100 mg Hydrocodone Bit/Homatropine Methylb (Hydromet) 5 ml PO BID PRN PRN Reason: Cough Last Admin: 10/12/16 21:16 Dose: 5 ml Magnesium Hydroxide (Milk Of Magnesia) 30 ml PO Q4H PRN PRN Reason: Constipation Morphine Sulfate (Morphine) 2 mg IV Q4H PRN PRN Reason: Pain, Moderate (4-6) Last Admin: 10/12/16 22:38 Dose: 2 mg Nifedipine (Procardia Xl) 60 mg PO Q12HR [facility] Last Admin: 10/12/16 22:30 Dose: Not Given Nitroglycerin (Nitro-Bid 2%) 1 inch TP DAILY [facility] PRN Reason: Protocol Last Admin: 10/12/16 14:52 Dose: 1 inch Ondansetron HCl (Zofran) 4 mg IV Q8H PRN PRN Reason: N/V unrelieved by Reglan Last Admin: 10/12/16 20:12 Dose: 4 mg Review of systems Constitutional: Well Nouridhed and Well developed. Head: NC/ AT Eyes: Denies any visual impairments. No discharge from the eyes Nose: Denies any rhinorrhea or epistaxis Throats: Denies any post nasal drainage. Ears: Denies any hearing deficits Cardiovascular system: Has chest pain, shortness of breath, orthopnea, paroxysmal nocturnal dyspnea, or palpitation. Respiratory system: Denies any cough, difficulty breathing, wheezing, pleuritic chest pain, Gastrointestinal system: Denies any abdominal pain, nausea vomiting, hematemesis or melena. Neurological system: Denies any headache, slurred speech, facial droop, lateralizing weakness Genitalia system: Denies any dysuria, urinary frequency or urgency, urethral discharge Skin: No rashes, hyperpigmented spots. Hematological: Denies any cervical tenderness hemorrhages or petechia. Immunological: Denies any multiple septic spots, Lymphatic: Denies any generalized lymphadenopathy. Endocrine: Denies any polyuria, polydipsia, polyphagia. No heat or cold intolerance. Musculoskeletal system: No joint pain or swelling. Psych: No visual, tactile, auditory or hallucination Exam - Constitutional Vitals: Temp Pulse Resp BP Pulse Ox 98.2 F 108 H 18 187/97 95 10/12/16 21:06 10/12/16 22:39 10/12/16 21:06 10/12/16 22:39 10/12/16 21:06 General appearance: Present: no acute distress, well-nourished - EENT Eyes: Present: PERRL ENT: hearing intact, clear oral mucosa - Neck Neck: Present: supple, normal ROM - Respiratory Respiratory effort: normal Respiratory: bilateral: CTA - Cardiovascular Heart Sounds: Present: S1 & S2. Absent: rub, click - Extremities Extremities: pulses symmetrical, No edema Peripheral Pulses: within normal limits - Abdominal General gastrointestinal: Present: soft, non-tender, non-distended, normal bowel sounds - Integumentary Integumentary: Present: clear, warm, dry - Musculoskeletal Musculoskeletal: gait normal, strength equal bilaterally - Psychiatric Psychiatric: appropriate mood/affect, intact judgment & insight - Neurologic Neurologic: CNII-XII intact, moves all extremities Results - Labs CBC & Chem 7: 10/12/16 02:39 10/12/16 02:39 Assessment and Plan Assessment Chest pain likely secondary to pleurisy Elevated cardiac enzymes from end-stage renal disease. However will worked up to rule out any cardiac origin. Cardiology consult Malignant hypertension End-stage renal disease hemodialysis Tobacco abuse Anemia of chronic disease Plan Serial cardiac enzymes, commence patient on oxygen nitroglycerin aspirin and morphine. Nephrology consult to continue with hemodialysis Optimize blood pressure control with increased beta yasmin dose Anemia workup Tobacco cessation counseling done DVT prophylaxis with heparin and GI with Pepcid Spent 35 minutes and his admission process
[2016-10-13] MEDS: TESSALON PERLES PO PRN ×2 (00:53→13:54)
[2016-10-13] MEDS: MORPHINE IV PRN ×5 (05:28→23:32)
[2016-10-13] MEDS: CATAPRES PO SCH ×3 (05:28→21:24)
--- NOTE | 2016-10-13 09:28 | Progress Note ---
Assessment and Plan Patient is a 40-year-old gentleman was a history of end stage renal disease on hemodialysis MWF presented with left-sided chest pain. In the emergency department, blood pressure was found to be 166/110. Troponin was elevated. BUN was 50, Cr was 2.9. Troponin T was 0.047. ProBNP was 35,000. Patient stated that he had had cardiac workup at [facility] however on contacting them showed patient had a stress test. No h/o cardiac catheterization. Chest pain with elevated troponin - trend troponin - get 2d echo - cont aspirin, statin and beta yasmin - consulted cardiology Malignant hypertension - better control today - cont current meds End-stage renal disease hemodialysis - nephrology following Tobacco abuse - counselled for cessation Anemia of chronic disease - monitor H and H - likely due to ESRD and underlying vit and iron deficiency - replace iron, b12 and folate Subjective Date of service: 10/13/16 Interval history: Patient seen and examined. Medical records and medication list reviewed. No acute event overnight noted by the RN. Patient denies any chest pain or difficulty breathing. Patient is tolerating diet. Discussed plan of care at bedside with patient. Objective - Exam Narrative Exam: GENERAL: well-developed and well-nourished lying on bed appeared to be in no discomfort. HEENT: Normocephalic. Atraumatic. No conjunctival congestion or icterus. Patient has moist mucous membranes. NECK: Supple. Trachea midline. CHEST/LUNGS: Clear to auscultated bilaterally, breathing nonlabored. No wheezes crackles or rhonchi. HEART/CARDIOVASCULAR: Regular in rate and rhythm. S1 and S2 positive. ABDOMEN: Abdomen is soft, nontender. Patient has normal bowel sounds. SKIN: There is no rash. Warm and dry. NEURO: No focal motor deficit. Follows command. MUSCULOSKELETAL: No joint effusion or tenderness. EXTRIMITY: No edema, no cyanosis or clubbing. PSYCH: Cooperative. - Constitutional Vitals: Vital Signs - 12hr 10/12/16 10/13/16 10/13/16 22:39 01:39 05:28 Temperature 100.2 F H Pulse Rate 108 H Pulse Rate [ 111 H Right Radial] Respiratory 16 Rate Blood Pressure 187/97 172/103 Blood Pressure 199/113 [Right Arm] O2 Sat by Pulse 91 Oximetry 10/13/16 10/13/16 06:19 09:00 Temperature 98.8 F Pulse Rate Pulse Rate [ 107 H Right Radial] Respiratory 16 Rate Blood Pressure Blood Pressure 172/103 [Right Arm] O2 Sat by Pulse 95 Oximetry - Labs CBC & Chem 7: 10/13/16 20:33 10/13/16 20:33
[2016-10-13] MEDS: ASPIRIN PO SCH (09:43)
[2016-10-13] MEDS: NITRO-BID 2% TP SCH (09:44)
[2016-10-13] MEDS: APRESOLINE PO SCH ×2 (09:44→13:52)
[2016-10-13] MEDS: PROCARDIA XL PO SCH ×2 (09:44→21:25)
[2016-10-13] MEDS: COREG PO SCH ×2 (09:44→21:25)
[2016-10-13] MEDS ORDERED: PEPCID IV SCH (10:00)
--- NOTE | 2016-10-13 11:43 | Consultation ---
History of Present Illness - Reason for Consult Consult date: 10/13/16 end stage renal disease, accelerated hypertension Requesting physician: DILIP FIGUEREDO - History of Present Illness Patient is a 40-year-old gentleman was a history of end stage renal disease hemodialysis on Wednesday WED Fridays started having left-sided chest pain. Endorses shortness of breath. Denies any diaphoresis. Pain was nonradiating, intermittent, with the severity of 7/10. Patient had some slight blood stained sputum. Denies any fever. No no chills. No weight loss. No prior history of hemoptysis or any positive contact. Patient denies any headache. No blurred vision. Admission to the emergency department, blood pressure was found to be 166/110. Troponin was elevated Troponin T was 0.047. ProBNP was 35,000. Patient stated that he had had cardiac workup at [facility] however on contacting them systolic patient had a stress test. No cardiac catheterization. Past History Past Medical History: anemia, dialysis, ESRD, hypertension, renal failure Past Surgical History: Other (AV fistula in the left arm) Social history: smoking, other (marijuana). denies: alcohol abuse Family history: hypertension Medications and Allergies Allergies Allergy/AdvReac Type Severity Reaction Status Date / Time No Known Allergies Allergy Unverified 05/26/15 13:53 Home Medications Medication Instructions Recorded Confirmed Last Taken Type Carvedilol [Coreg] 25 mg PO BID #60 tablet 02/17/16 10/12/16 10/11/16 Rx cloNIDine [Catapres] 0.2 mg PO Q8HR #90 tablet 02/17/16 10/12/16 10/11/16 Rx hydrALAZINE [Apresoline TAB] 100 mg PO TID #90 tab 02/17/16 10/12/16 10/11/16 Rx Ibuprofen [Advil 100 MG tab] 200 mg PO Q6H PRN 10/12/16 10/12/16 10/11/16 History Active Meds: Active Medications Acetaminophen (Tylenol) 650 mg PO Q4H PRN PRN Reason: Pain MILD(1-3)/Fever >100.5/WOOD Aspirin (Aspirin) 325 mg PO QDAY JOANN Last Admin: 10/13/16 09:43 Dose: 325 mg Atorvastatin Calcium (Lipitor) 20 mg PO QHS JOANN Benzonatate (Tessalon Perles) 100 mg PO Q6H PRN PRN Reason: Cough Last Admin: 10/13/16 00:53 Dose: 100 mg Bisacodyl (Dulcolax) 10 mg [place] QDAY PRN PRN Reason: Constipation unrelieved by MOM Carvedilol (Coreg) 25 mg PO BID [facility] Last Admin: 10/13/16 09:44 Dose: 25 mg Clonidine HCl (Catapres) 0.2 mg PO Q8HR [facility] Last Admin: 10/13/16 05:28 Dose: 0.2 mg Famotidine (Pepcid) 20 mg PO QDAY [facility] Hydralazine HCl (Apresoline) 10 mg IV Q6H PRN PRN Reason: Blood Pressure SYS>170 Last Admin: 10/12/16 16:05 Dose: 10 mg Hydralazine HCl (Apresoline) 100 mg PO TID [facility] Last Admin: 10/13/16 09:44 Dose: 100 mg Hydrocodone Bit/Homatropine Methylb (Hydromet) 5 ml PO BID PRN PRN Reason: Cough Last Admin: 10/12/16 21:16 Dose: 5 ml Magnesium Hydroxide (Milk Of Magnesia) 30 ml PO Q4H PRN PRN Reason: Constipation Morphine Sulfate (Morphine) 2 mg IV Q4H PRN PRN Reason: Pain, Moderate (4-6) Last Admin: 10/13/16 09:41 Dose: 2 mg Nifedipine (Procardia Xl) 60 mg PO Q12HR [facility] Last Admin: 10/13/16 09:44 Dose: 60 mg Nitroglycerin (Nitro-Bid 2%) 1 inch TP DAILY [facility] PRN Reason: Protocol Last Admin: 10/13/16 09:44 Dose: Not Given Ondansetron HCl (Zofran) 4 mg IV Q8H PRN PRN Reason: N/V unrelieved by Reglan Last Admin: 10/12/16 20:12 Dose: 4 mg Review of Systems Constitutional: fatigue, weakness, malaise Cardiovascular: chest pain, shortness of breath, dyspnea on exertion, paroxysmal nocturnal dyspnea Respiratory: cough, cough with sputum, shortness of breath, dyspnea on exertion Exam - Vital Signs Vital signs: Vital Signs Temp Pulse Resp BP Pulse Ox 98.3 F 87 22 166/110 98 10/12/16 02:05 10/12/16 02:05 10/12/16 02:05 10/12/16 02:05 10/12/16 02:05 - Physical Exam Narrative exam: General appearance: Present: no acute distress, well-nourished - EENT Eyes: Present: PERRL ENT: hearing intact, clear oral mucosa - Neck Neck: Present: supple, normal ROM - Respiratory Respiratory effort: normal Respiratory: bilateral: CTA - Cardiovascular Heart Sounds: Present: S1 & S2. Absent: rub, click - Extremities Extremities: pulses symmetrical, No edema Peripheral Pulses: within normal limits - Abdominal General gastrointestinal: Present: soft, non-tender, non-distended, normal bowel sounds - Integumentary Integumentary: Present: clear, warm, dry - Musculoskeletal Musculoskeletal: gait normal, strength equal bilaterally - Psychiatric Psychiatric: appropriate mood/affect, intact judgment & insight - Neurologic Neurologic: CNII-XII intact, moves all extremities Results - Lab Results 10/12/16 02:39 10/12/16 02:39 Most recent lab results Calcium 10.1 mg/dL (8.4-10.2) 10/12/16 02:39 Assessment and Plan Assessment: * End stage renal disease on HD MWF * Accelerated hypertension * chest pain * Anemia secondary to ESRD * Secondary hyperparathyroidism * volume overload Plan: * Hemodialysis MWF and today * Continue current BP medication regimen * stress compliance with hemodialysis and medical regimen * Aggressive ultrafiltration with dialysis today * Renal diet * Epogen with dialysis
[2016-10-13] MEDS ORDERED: NACL 0.9% 100 ML IV PRN (13:03)
--- NOTE | 2016-10-13 17:03 | Consultation ---
History of Present Illness Consult date: 10/13/16 Consult reason: chest pain, elevated troponin History of present illness: 40yr old man with a history of ESRD on dialysis, Hypertension and Anemia. Patient reports he had cardiac workup at [facility] 4 months ago with a stress thallium he reports as normal. An echocardiogram done a year ago shows a normal systolic function, EF 50-55%. He presented with chest pain. He also complains of shortness of breath and lower extremity edema. His presenting ECG shows a sinus rhythm with nonspecific Twave abnormality. Pulmonary perfusion scan negative for pulmonary embolism. Labs notable for a proBNP of 35,000. Mild elevated troponin of 0.04 likely in the setting of renal disease. Creatinine of 12.9. Cardiology consultation requested for further evaluation. Past History Past Medical History: anemia, dialysis, ESRD, hypertension, renal failure Past Surgical History: Other (AV fistula in the left arm) Social history: smoking, other (marijuana). denies: alcohol abuse Family history: hypertension Medications and Allergies Allergies Allergy/AdvReac Type Severity Reaction Status Date / Time No Known Allergies Allergy Unverified 05/26/15 13:53 Home Medications Medication Instructions Recorded Confirmed Last Taken Type Carvedilol [Coreg] 25 mg PO BID #60 tablet 02/17/16 10/12/16 10/11/16 Rx cloNIDine [Catapres] 0.2 mg PO Q8HR #90 tablet 02/17/16 10/12/16 10/11/16 Rx hydrALAZINE [Apresoline TAB] 100 mg PO TID #90 tab 02/17/16 10/12/16 10/11/16 Rx Ibuprofen [Advil 100 MG tab] 200 mg PO Q6H PRN 10/12/16 10/12/16 10/11/16 History Active Meds: Active Medications Acetaminophen (Tylenol) 650 mg PO Q4H PRN PRN Reason: Pain MILD(1-3)/Fever >100.5/WOOD Aspirin (Aspirin) 325 mg PO QDAY JOANN Last Admin: 10/13/16 09:43 Dose: 325 mg Atorvastatin Calcium (Lipitor) 20 mg PO QHS JOANN Benzonatate (Tessalon Perles) 100 mg PO Q6H PRN PRN Reason: Cough Last Admin: 10/13/16 13:54 Dose: 100 mg Bisacodyl (Dulcolax) 10 mg [place] QDAY PRN PRN Reason: Constipation unrelieved by MOM Carvedilol (Coreg) 25 mg PO BID [facility] Last Admin: 10/13/16 09:44 Dose: 25 mg Clonidine HCl (Catapres) 0.2 mg PO Q8HR [facility] Last Admin: 10/13/16 13:53 Dose: 0.2 mg Famotidine (Pepcid) 20 mg PO QDAY [facility] Hydralazine HCl (Apresoline) 10 mg IV Q6H PRN PRN Reason: Blood Pressure SYS>170 Last Admin: 10/12/16 16:05 Dose: 10 mg Hydralazine HCl (Apresoline) 100 mg PO TID [facility] Last Admin: 10/13/16 13:52 Dose: 100 mg Hydrocodone Bit/Homatropine Methylb (Hydromet) 5 ml PO BID PRN PRN Reason: Cough Last Admin: 10/12/16 21:16 Dose: 5 ml Sodium Chloride (Nacl 0.9%) 100 mls @ 999 mls/hr IV SYLVAIN PRN PRN Reason: Hypotension Magnesium Hydroxide (Milk Of Magnesia) 30 ml PO Q4H PRN PRN Reason: Constipation Morphine Sulfate (Morphine) 2 mg IV Q4H PRN PRN Reason: Pain, Moderate (4-6) Last Admin: 10/13/16 13:54 Dose: 2 mg Nifedipine (Procardia Xl) 60 mg PO Q12HR [facility] Last Admin: 10/13/16 09:44 Dose: 60 mg Nitroglycerin (Nitro-Bid 2%) 1 inch TP DAILY [facility] PRN Reason: Protocol Last Admin: 10/13/16 09:44 Dose: Not Given Ondansetron HCl (Zofran) 4 mg IV Q8H PRN PRN Reason: N/V unrelieved by Reglan Last Admin: 10/12/16 20:12 Dose: 4 mg Physical Examination Vital Signs Temp Pulse Resp BP Pulse Ox 98.3 F 87 22 166/110 98 10/12/16 02:05 10/12/16 02:05 10/12/16 02:05 10/12/16 02:05 10/12/16 02:05 General appearance: no acute distress HEENT: Positive: PERRL Neck: Positive: trachea midline Cardiac: Positive: Reg Rate and Rhythm Lungs: Positive: Decreased Breath Sounds Results 10/12/16 02:39 10/12/16 02:39 Assessment and Plan CHF with preserved EF 50-55% on echo 2015 ESRD on HD Hypertension Anemia Nonspecific elevated troponin Recommendations: Obtain recent cardiac records from [facility] [place]. Optimal BP control. IV diuresis, afterload reduction and beta yasmin for heart failure with a preserved EF.
[2016-10-13 21:10] LABS: Basophils % (Auto) 0.4 % (0.0-1.8); Eosinophils % (Auto) 2.5 % (0.0-4.3); Hematocrit 25.6 % (35.5-45.6); Hemoglobin 8.6 gm/dl (11.8-15.2); Mean Corpuscular HGB Conc 34 % (32-34); Mean Corpuscular Hemoglobin 30 pg (28-32); Mean Corpuscular Volume 90 fl (84-94); Platelet Count 107 K/mm3 (140-440); Red Blood Count 2.86 M/mm3 (3.65-5.03); Red Cell Distribution Width 18.1 % (13.2-15.2); White Blood Count 10.3 K/mm3 (4.5-11.0)
[2016-10-13] MEDS: DIOVAN PO SCH (21:25)
[2016-10-13 21:32] LABS: Creatine Kinase 96 units/L (55-170)
[2016-10-13 21:38] LABS: Creatine Kinase MB < 1.0 ng/mL (0.0-4.0)
[2016-10-13 21:58] LABS: Albumin/Globulin Ratio 1.4 %; BUN/Creatinine Ratio 4.14; Bilirubin,Total 1.3 mg/dL (0.1-1.2); Calcium 9.4 mg/dL (8.4-10.2); Chloride 93.2 mmol/L (98-107); Potassium 3.6 mmol/L (3.6-5.0); Total Protein 6.8 g/dL (6.3-8.2)
[2016-10-13 21:59] LABS: Iron 13 ug/dL (49-181); Total Iron Binding Capacity 160 mcg/dL (250-450)
[2016-10-13] MEDS ORDERED: APRESOLINE PO SCH (22:11)
--- NOTE | 2016-10-14 09:41 | Discharge Summary ---
Providers - Providers Date of Admission: 10/12/16 10:36 Date of discharge: 10/14/16 Attending physician: BENNY SAAVEDRA 10/12/16 13:18 Consult to Physician [CONS] Routine Consulting Provider: SHENG CHERRY Reason For Exam: ESRD Notified:: PLEASE CALL MD IN AM 10/12/16 14:50 Physical Therapy Evaluation and Treat [CONS] Routine Comment: Reason For Exam: SKILL LEVEL FOR SNF 10/13/16 00:50 Consult to Physician [CONS] Routine Consulting Provider: BERTHA ELY Reason For Exam: chest pain and elevated cardiac enzymes Place consult to:: Shikha Notified:: PLEASE CALL MD IN AM Phone number called:: no Was contact made?: No Primary care physician: [employer] Hospitalization Condition: Fair Hospital course: Patient is a 40-year-old gentleman was a history of end stage renal disease on hemodialysis MWF presented with left-sided chest pain. In the emergency department, blood pressure was found to be 166/110. Troponin was elevated. BUN was 50, Cr was 2.9. Troponin T was 0.047. ProBNP was 35,000. Patient stated that he had had cardiac workup at [facility] however on contacting them showed patient had a stress test which was normal. No h/o cardiac catheterization. Cardiology was consulted for further evaluation and recommended no further intervention. Her symptom improved after HD. She was discharged home in stable condition. Discharge Diagnosis: Chest pain with elevated troponin - likely from volume overload - trended troponin - continued aspirin, statin and beta yasmin - consulted cardiology - Well-preserved left ventricular systolic function, ejection fraction 50-55% on echocardiogram 08/2015. - A recent thallium stress test at [facility] was also reported negative. Malignant hypertension - cont current meds End-stage renal disease on hemodialysis - nephrology following for HD Tobacco abuse - counselled for cessation Anemia of chronic disease - monitored H and H - likely due to ESRD and underlying vit and iron deficiency - started replacement for iron, b12 and folate Disposition: DISCHARGED TO HOME OR SELFCARE Time spent for discharge: 32 minutes Core Measure Documentation - Palliative Care Palliative Care/ Comfort Measures: Not Applicable - Core Measures Any of the following diagnoses?: none Exam - Physical Exam Narrative exam: GENERAL: well-developed male lying on bed appeared to be in no discomfort. HEENT: Normocephalic. Atraumatic. No conjunctival congestion or icterus. Patient has moist mucous membranes. NECK: Supple. Trachea midline. CHEST/LUNGS: Clear to auscultated bilaterally, breathing nonlabored. No wheezes crackles or rhonchi. HEART/CARDIOVASCULAR: Regular in rate and rhythm. S1 and S2 positive. ABDOMEN: Abdomen is soft, nontender. Patient has normal bowel sounds. SKIN: There is no rash. Warm and dry. NEURO: No focal motor deficit. Follows command. MUSCULOSKELETAL: No joint effusion or tenderness. EXTRIMITY: No edema, no cyanosis or clubbing. PSYCH: Cooperative. - Constitutional Vitals: Temp Pulse Resp BP Pulse Ox 98.8 F 78 20 127/80 96 10/14/16 08:15 10/14/16 08:15 10/14/16 08:15 10/14/16 08:15 10/14/16 08:46 Plan Activity: advance as tolerated Weight Bearing Status: Weight Bear as Tolerated Diet: renal Follow up with: PRIMARY CAREMD [Primary Care Provider] - 3-5 Days
[2016-10-14] MEDS: PROCARDIA XL PO SCH (09:56)
[2016-10-14] MEDS: ASPIRIN PO SCH (09:56)
[2016-10-14] MEDS: COREG PO SCH (09:57)
[2016-10-14] MEDS: DIOVAN PO SCH (09:57)
[2016-10-14] MEDS: MORPHINE IV PRN (09:58)
[2016-10-14] MEDS: NITRO-BID 2% TP SCH (09:58)
[2016-10-14] MEDS ORDERED: FEOSOL PO SCH (10:00)
[2016-10-14] MEDS ORDERED: VITAMIN B-12 PO SCH (10:00)
[2016-10-14] MEDS ORDERED: FOLVITE PO SCH (10:00)
[2016-10-14] MEDS ORDERED: PEPCID PO SCH (10:00)
[2016-10-14 10:30] LABS: Basophils % (Auto) 0.5 % (0.0-1.8); Eosinophils % (Auto) 4.1 % (0.0-4.3); Hematocrit 25.1 % (35.5-45.6); Hemoglobin 8.3 gm/dl (11.8-15.2); Mean Corpuscular HGB Conc 33 % (32-34); Mean Corpuscular Hemoglobin 30 pg (28-32); Mean Corpuscular Volume 90 fl (84-94); Platelet Count 105 K/mm3 (140-440); Red Cell Distribution Width 17.6 % (13.2-15.2); White Blood Count 6.6 K/mm3 (4.5-11.0)
--- NOTE | 2016-10-14 11:29 | Progress Note ---
Assessment and Plan Volume overload low probability for PE by V\Q scan CHF with preserved EF 50-55% on echo 2015 ESRD on HD Hypertension Anemia Nonspecific elevated troponin Well-preserved left ventricular systolic function, ejection fraction 50-55% on echocardiogram 08/2015. A recent thallium stress test at [facility] was also reported negative. Recommendations: Hemodialysis for fluid management. Restricted salt diet. Optimal control of patient's blood pressure. Subjective Date of service: 10/14/16 Interval history: Patient is resting in bed comfortably. No reported cardiac events overnight. Objective Vital Signs Temp Pulse Pulse Resp BP BP Pulse Ox 10/14/16 09:58 20 10/14/16 08:46 96 10/14/16 08:15 98.8 F 78 20 127/80 95 10/14/16 01:10 101.9 F H 99 H 23 162/83 97 10/13/16 22:29 99.1 F 105 H 20 158/92 93 10/13/16 21:25 99 H 161/88 10/13/16 21:24 99 H 161/88 10/13/16 20:24 95 10/13/16 19:40 20 10/13/16 17:56 99.2 F 91 H 20 154/85 10/13/16 17:30 91 H 152/88 10/13/16 17:15 90 151/83 10/13/16 17:00 90 145/84 10/13/16 16:45 92 H 137/87 10/13/16 16:30 92 H 130/80 10/13/16 16:15 92 H 148/77 10/13/16 16:00 92 H 129/75 10/13/16 15:45 92 H 127/80 10/13/16 15:30 94 H 136/80 10/13/16 15:23 98.2 F 93 H 18 160/95 10/13/16 15:15 94 H 139/87 10/13/16 15:00 95 H 145/93 10/13/16 14:45 96 H 147/96 10/13/16 14:30 95 H 150/96 10/13/16 14:15 91 H 158/94 10/13/16 14:05 91 H 154/91 10/13/16 12:00 95 H - Physical Examination General: No Apparent Distress HEENT: Positive: PERRL Neck: Positive: trachea midline Cardiac: Positive: Reg Rate and Rhythm, S4, Gallop Lungs: Positive: Decreased Breath Sounds - Labs and Meds Cardiac Enzymes 10/13/16 10/13/16 Range/Units 20:33 20:33 AST 14 (5-40) units/L CK-MB (CK-2) < 1.0 (0.0-4.0) ng/mL CBC 10/13/16 Range/Units 20:33 WBC 10.3 (4.5-11.0) K/mm3 RBC 2.86 L (3.65-5.03) M/mm3 Hgb 8.6 L (11.8-15.2) gm/dl Hct 25.6 L (35.5-45.6) % Plt Count 107 L (140-440) K/mm3 Lymph # 0.2 L (1.2-5.4) K/mm3 Murray # 0.7 (0.0-0.8) K/mm3 Eos # 0.3 (0.0-0.4) K/mm3 Baso # 0.0 (0.0-0.1) K/mm3 Comprehensive Metabolic Panel 10/13/16 Range/Units 20:33 Sodium 136 L (137-145) mmol/L Potassium 3.6 (3.6-5.0) mmol/L Chloride 93.2 L (98-107) mmol/L Carbon Dioxide 26 (22-30) mmol/L BUN 29 H (9-20) mg/dL Creatinine 7.0 H (0.8-1.5) mg/dL Glucose 116 H (75-100) mg/dL Calcium 9.4 (8.4-10.2) mg/dL AST 14 (5-40) units/L ALT 9 (7-56) units/L Alkaline Phosphatase 61 (35-129) units/L Total Protein 6.8 (6.3-8.2) g/dL Albumin 4.0 (3.9-5) g/dL
--- NOTE | 2016-10-14 11:30 | Progress Note ---
Assessment and Plan physical examination General; no acute distress HEENT: Mild pallor no icterus oral mucosa moist Neck: Supple soft no jugular venous distention Chest: Bilateral clear to auscultation anteriorly posteriorly a few faint basilar crackles at the lung bases no wheezes Cardiovascular: S1-S2 heart no S3-S4 Abdomen: Soft nontender no voluntary guarding rigidity rebound no organomegaly no masses no suprapubic fullness no CVA tenderness Extremity: Minimal edema dry skin no tenderness Derm: Dry skin ESRD , doing ok HD 2 hour to keep on schedule ,At this time Hb dropped in my opinion patient may benefit from GI evaluation, did discuss with nurse to inform the hospital medicine the patient may benefit from GI evaluation nurse assured me that she is going to talk with Dr arelis FRANK MWF, normally was dialyzed here already May need EGD freq GI bleed known to me for quite some time non compliant patient , he was to leave the hospital and wants to see gastroenterology in outpatient setting I've advised him to use Prilosec [id number] 20 mg twice a day and to use any form of nonsteroidal drugs Subjective Interval history: seen today for follow-up feels much better no complaints and abdominal pain nausea vomiting or chest pain Patient normally dialyzes on Wednesday Say that occasionally he does cough up blood but currently doing well Objective - Vital Signs Vital signs: Vital Signs - 12hr 10/14/16 10/14/16 10/14/16 01:10 08:15 08:46 Temperature 101.9 F H 98.8 F Pulse Rate [ 99 H 78 Right Radial] Respiratory 23 20 Rate Blood Pressure 162/83 127/80 [Right Arm] O2 Sat by Pulse 97 95 96 Oximetry 10/14/16 09:58 Temperature Pulse Rate [ Right Radial] Respiratory 20 Rate Blood Pressure [Right Arm] O2 Sat by Pulse Oximetry - Lab 10/14/16 08:26 10/14/16 08:26 Most recent lab results Calcium 9.4 mg/dL (8.4-10.2) 10/13/16 20:33
[2016-10-14 11:35] LABS: Albumin 3.4 g/dL (3.9-5); Albumin/Globulin Ratio 1.3 %; BUN/Creatinine Ratio 4.36; Calcium 9.1 mg/dL (8.4-10.2); Chloride 96.5 mmol/L (98-107); Potassium 3.7 mmol/L (3.6-5.0); Total Protein 6.1 g/dL (6.3-8.2)
[2016-10-14] MEDS ORDERED: NACL 0.9% 100 ML IV PRN (12:00)
[2016-10-14 13:31] VITALS: BP 135/76
[2016-10-14 14:25] LABS: Bilirubin,Total 1.1 mg/dL (0.1-1.2)
== END 2016-10-14 13:57 | disposition home or self-care (01) | DRG 291 ==
LOC: ED 01:58 → 4A 10:36
PROVIDERS: ADMIT Family Medicine; ATTEND Internal Medicine
PROC: 5A1D60Z (ICD-10-PCS; principal; 2016-10-13)
DX: I13.2 Hypertensive heart and chronic kidney disease with heart failure and with stage 5 chronic kidney disease, or end stage renal disease (principal); N18.6 End stage renal disease; F17.200 Nicotine dependence, unspecified, uncomplicated; F12.10 Cannabis abuse, uncomplicated; N25.81 Secondary hyperparathyroidism of renal origin; E87.70 Fluid overload, unspecified; I50.9 Heart failure, unspecified; Z71.6 Tobacco abuse counseling; Z82.49 Family history of ischemic heart disease and other diseases of the circulatory system; Z91.19 Patient's noncompliance with other medical treatment and regimen; D63.1 Anemia in chronic kidney disease
CPT/HCPCS: 36415; 71020; 78582; 80048; 80053; 80061; 82550; 82553; 82607; 82747; 83550; 83880; 84484; 85025; 87040; 93005; 93010; 94760; 96374; 96375; A9270-GY; A9540; A9558; J0360; J2270; J2405

== ENCOUNTER 2016-10-28 11:14 | Inpatient (IN) | payer MEDICAID ==
[2016-10-28 11:52] LABS: Basophils % (Auto) 0.7 % (0.0-1.8); Eosinophils % (Auto) 2.1 % (0.0-4.3); Hematocrit 22.4 % (35.5-45.6); Hemoglobin 7.4 gm/dl (11.8-15.2); Mean Corpuscular HGB Conc 33 % (32-34); Mean Corpuscular Hemoglobin 30 pg (28-32); Mean Corpuscular Volume 91 fl (84-94); Platelet Count 147 K/mm3 (140-440); Red Blood Count 2.46 M/mm3 (3.65-5.03); White Blood Count 8.6 K/mm3 (4.5-11.0)
[2016-10-28 11:53] LABS: Red Cell Distribution Width 20.1 % (13.2-15.2)
[2016-10-28 12:03] LABS: Urine Drugs of Abuse Note Disclamer
[2016-10-28 12:04] LABS: BUN/Creatinine Ratio 4.78; Calcium 9.7 mg/dL (8.4-10.2); Chloride 98.6 mmol/L (98-107); Potassium 5.3 mmol/L (3.6-5.0)
--- NOTE | 2016-10-28 12:14 | XRay Report ---
AP CHEST: HISTORY: Chest pain, shortness of breath There is increased cardiomegaly and pulmonary venous congestion since 10/17/16. Trace bilateral pleural effusions have developed. No consolidation or pneumothorax. Right IJ dialysis catheter remains in good position terminating in the cavoatrial junction. IMPRESSION: CHF.
[2016-10-28 12:15] LABS: Bilirubin,Urine NEG (Negative); Blood,Urine SM (Negative); Ketones,Urine TR mg/dL (Negative); Leukocyte Esterase,Urine NEG (Negative); Nitrite,Urine NEG (Negative); Urobilinogen,Urine < 2.0 mg/dL (<2.0)
[2016-10-28] MEDS ORDERED: ZOFRAN IV ONE (12:29)
[2016-10-28] MEDS ORDERED: NACL 0.9% 500 ML 500 ML IV ONE (12:29)
[2016-10-28] MEDS ORDERED: MORPHINE IV ONE (12:29)
[2016-10-28] MEDS ORDERED: TORADOL IV ONE (12:29)
--- NOTE | 2016-10-28 12:36 | Emergency Department Report ---
ED Abdominal Pain HPI - General Chief Complaint: Chest Pain Stated Complaint: ABD PAIN/VOMITING BLOOD Time Seen by Provider: 10/28/16 11:35 Source: patient, EMS Mode of arrival: Stretcher Limitations: No Limitations - History of Present Illness MD Complaint: abdominal pain -: Gradual Location: diffuse Radiation: none Severity: moderate Severity scale (0 -10): 5 Quality: cramping, fullness, sharp Consistency: constant Improves With: nothing Worsens With: nothing Associated Symptoms: nausea. denies: vomiting, diarrhea, fever, constipation, dysuria, hematemesis, melena, hematuria, anorexia - Related Data Home Medications Medication Instructions Recorded Confirmed Last Taken hydrALAZINE [Apresoline TAB] 100 mg PO TID 10/28/16 10/28/16 Unknown Previous Rx's Medication Instructions Recorded Last Taken Type Carvedilol [Coreg] 25 mg PO BID tablet 10/14/16 Unknown Rx cloNIDine [Catapres] 0.3 mg PO Q8HR 30 Days 10/21/16 Unknown Rx Allergies Allergy/AdvReac Type Severity Reaction Status Date / Time No Known Allergies Allergy Unverified 05/26/15 13:53 ED Review of Systems ROS: Stated complaint: ABD PAIN/VOMITING BLOOD Other details as noted in HPI Comment: All other systems reviewed and negative ED Past Medical Hx - Past Medical History Previous Medical History?: Yes Hx Hypertension: Yes Hx Congestive Heart Failure: No Hx Diabetes: No Hx Renal Disease: Yes (HD today through right permacath) Hx Seizures: No Hx Asthma: No Hx COPD: No Hx HIV: No - Surgical History Past Surgical History?: Yes Additional Surgical History: Hernia, vas cath - Social History Smoking Status: Current Every Day Smoker Substance Use Type: None - Medications Home Medications: Home Medications Medication Instructions Recorded Confirmed Last Taken Type Carvedilol [Coreg] 25 mg PO BID tablet 10/14/16 10/17/16 Unknown Rx cloNIDine [Catapres] 0.3 mg PO Q8HR 30 Days 10/21/16 Unknown Rx hydrALAZINE [Apresoline TAB] 100 mg PO TID 10/28/16 10/28/16 Unknown History ED Physical Exam - General Limitations: No Limitations General appearance: alert, in no apparent distress - Head Head exam: Present: atraumatic, normocephalic - Eye Eye exam: Present: normal appearance, PERRL, EOMI - ENT ENT exam: Present: mucous membranes moist - Neck Neck exam: Present: normal inspection - Respiratory Respiratory exam: Present: normal lung sounds bilaterally, rales (lower bases). Absent: respiratory distress, wheezes - Cardiovascular Cardiovascular Exam: Present: regular rate, normal rhythm, other (he has a vasc cath in right chest). Absent: systolic murmur, diastolic murmur, rubs, gallop - GI/Abdominal GI/Abdominal exam: Present: soft, normal bowel sounds - Rectal Rectal exam: Present: deferred - Extremities Exam Extremities exam: Present: normal inspection - Back Exam Back exam: Present: normal inspection - Neurological Exam Neurological exam: Present: alert, oriented X3 - Psychiatric Psychiatric exam: Present: normal affect, normal mood - Skin Skin exam: Present: warm, dry, intact, normal color. Absent: rash ED Course Vital Signs 10/28/16 10/28/16 11:42 14:34 Temperature 98.4 F Pulse Rate 102 H 103 H Respiratory 20 26 H Rate Blood Pressure 195/117 183/113 [Right] O2 Sat by Pulse 93 93 Oximetry ED Medical Decision Making - Lab Data Result diagrams: 10/28/16 11:30 10/28/16 11:30 - EKG Data -: EKG Interpreted by Me EKG shows normal: sinus rhythm - EKG Data When compared to previous EKG there are: no significant change - Radiology Data Radiology results: report reviewed, image reviewed - Medical Decision Making patieht with florid pulmonary edema on ESRD, missing dialysis, will need admission for this issue, chest pain is resolved at this time spoke to hospitalist and agree with plan for admission. Critical care attestation.: If time is entered above; I have spent that time in minutes in the direct care of this critically ill patient, excluding procedure time. ED Disposition Clinical Impression: Hypertension, ESRD (end stage renal disease), Pulmonary edema Disposition: OP ADMITTED IP TO THIS HOSP Is pt being admited?: Yes Does the pt Need Aspirin: No Condition: Good Instructions: Hypertension (ED), Pulmonary Edema (ED) Referrals: PRIMARY CARE, [Primary Care Provider] - 3-5 Days Time of Disposition: 16:43
--- NOTE | 2016-10-28 13:57 | Admit Criteria Form ---
Admission Criteria Documentation: PULMONARY EDEMA Clinical Indications for Admission to Inpatient Care (Place 'X' for any and all applicable criteria): Admission is indicated by ANY ONE of the following(1)(2)(3)(4): [ ]I. Severe electrolyte abnormalities requiring inpatient care(9) [ ]II. Hemodynamic instability [ ]III. Anasarca [ ]IV. Acute cardiac ischemia causing or associated with failure (Also use Angina or Myocardial Infarction as appropriate) [ ]V. Cardiac arrhythmias of immediate concern [ ]. Precipitating cause for acute decompensation (eg, pneumonia, pulmonary embolism) requires inpatient care [ ]VII. Pulmonary edema that is very severe (eg, mechanical ventilation needed, imminent or likely, need for 100% oxygen to keep oxygen saturation above 90%) [X ]VIII. Inpatient admission required rather than observation care (Also use Heart Failure: Observation Care as appropriate) because of ANY ONE of the following: [ ]a) Pulmonary edema that is severe or worsening as indicated by ALL of the following: [ ]i) New need for oxygen therapy to keep oxygen saturation above 90% (or increased FiO2 need from baseline) [ ]ii) Has not improved sufficiently with emergency department or observation care IV diuretics or other heart failure treatments[C] [ ]b) Cognitive impairment that is severe or persistent [ ]c) Increased creatinine (new on laboratory test) with reduction of more than 50% in estimated glomerular filtration rate from baseline. [ ]d) Acute renal insufficiency (progressively (ongoing) rising creatinine (known from past laboratory test) with reduction of more than 25% in estimated glomerular filtration rate from baseline) [ ]e) Acute peripheral ischemia (eg, pulseless, cool, mottled, or cyanotic extremity) [ ]f) Acute renal failure [ ]g) Supplemental O2 or respiratory treatment for >24 hr that are performable only in acute inpatient setting [ ]h) Pulmonary artery catheter monitoring [X ]i) Other condition, treatment or monitoring requiring inpatient admission Extended stay beyond goal length of stay may be needed for(1)(3)(21)(25): [ ]a) Cardiac ischemia, confirmed or suspected as precipitant [ ]b) Cardiogenic shock or refractory pulmonary edema [ ]c) Acute kidney injury or renal failure [ ]d) Respiratory failure (eg, need for noninvasive or invasive mechanical ventilation) (23) [ ]e) Concomitant pneumonia or significant electrolyte abnormality (eg, severe hyponatremia) [ ]f) Newly diagnosed (new onset) atrial fibrillation [ ]g) Stage IV chronic kidney disease (estimated glomerular filtration rate of less than 30 mL/min/1.73m2 (0.50 mL/sec/1.73m2), and not previously on chronic dialysis (Contents from HEART FAILURE clinical indications for admission to inpatient care have been integrated in this form) The original [facility] content created by [facility] has been revised. The portions of the content which have been revised are identified through the use of italic text or in bold, and [facility] has neither reviewed nor approved the modified material. All other unmodified content is copyright [facility] Please see references footnoted in the original [facility] edition 2016 Admission Criteria Met: Yes
[2016-10-28 14:16] LABS: Albumin 4.1 g/dL (3.9-5); Albumin/Globulin Ratio 1.4 %; BUN/Creatinine Ratio 4.55; Bilirubin,Total 1.1 mg/dL (0.1-1.2); Calcium 9.8 mg/dL (8.4-10.2); Chloride 100.8 mmol/L (98-107); Potassium 5.3 mmol/L (3.6-5.0); Total Protein 7.1 g/dL (6.3-8.2)
[2016-10-28] MEDS ORDERED: DILAUDID ONE (15:51)
[2016-10-28] MEDS ORDERED: DILAUDID IV ONE (16:12)
--- NOTE | 2016-10-28 16:22 | Cat Scan Report ---
CT ABDOMEN AND PELVIS WITHOUT CONTRAST INDICATION: Abdominal pain. COMPARISON: 02/15/2016 FINDINGS: Noncontrast abdomen and pelvis CT performed. LUNG BASES: Cardiomegaly again noted. Small pericardial effusion with maximum thickness of approximately 1 cm adjacent to the right heart as on axial image 2, series 2. Anemia suspected. New small right pleural effusion and bibasilar hazy opacities/infiltrates. Subtle left pleural fluid also not entirely excluded. Right hemidiaphragm now slightly elevated. Nonspecific distal esophageal wall prominence/thickening, not excluded for gastroesophageal reflux and/or hiatal hernia, amongst others. ABDOMEN: Please note that sensitivity to detect small visceral lesions is limited due to the absence of intravenous or oral contrast. Approximately 1.6 cm right upper renal cortical cyst now slightly hyperdense/hemorrhagic. Otherwise stable nonhydronephrotic kidneys with renal lengths approximately 8 cm on the right and 9.3 cm on the left. No radiopaque renal or gallbladder calculi. Some motion artifact. Right hepatic lobe again approximately 18 cm in midclavicular length. Otherwise grossly unremarkable unenhanced liver, spleen, pancreas, adrenals, nonaneurysmal abdominal aorta with few atherosclerotic calcifications and IVC. No ascites or significant adenopathy. Nonopacified GI tract evaluation limited, though grossly nonobstructive. Normal appendix. Mild colonic stool/possible constipation. Small fat containing umbilical hernia with a transverse neck of approximately 1 cm again noted. PELVIS: Subtle pelvic fat haziness/edema not entirely excluded without significant free fluid clearly identified. Grossly unremarkable non-opacified urinary bladder, seminal vesicles, prostate and rectosigmoid. Unremarkable bones. CONCLUSION: 1. New bibasilar opacities and small pleural effusions/CHF. Cardiomegaly again noted with few other lung base findings, as described. 2. No acute significant abdomen or pelvic CT abnormality with few incidental findings, including interval right upper renal cortical cyst hemorrhagic transformation, possible constipation and stable fat containing umbilical hernia, amongst others, as above. Thank you for the opportunity to participate in this patient's care.
[2016-10-28] MEDS ORDERED: TYLENOL PO PRN (16:56)
[2016-10-28] MEDS ORDERED: DUONEB 0.5 MG-3 MG/3 ML SOLN IH PRN (16:56)
--- NOTE | 2016-10-28 16:56 | History and Physical Report ---
History of Present Illness Chief complaint: I missed my dialysis History of present illness: 40 YO Male ESRD on HD(M,W,F) HTN, Nicotine Dependence, Respiratory Failure with recurrent hemoptysis presents to ED for evaluation. Pt states that he missed dialysis today because he was feeling sick. Pt acknowledges shortness of breath for the past 2 days with worsening symptoms over the past 6 hours, and productive cough of blood tinged sputum. Pt denies fever, chills, CP, Palpitations, NVD, Hematemesis, BRBPR, melena, hematuria, unintentional weight loss, night sweats, calf pain, leg swelling, prolonged immobility/travel, individual/family history of DVT/PE. Past History Past Medical History: ESRD, hypertension Past Surgical History: hernia repair, Other (Vas cath placement) Social history: single, smoking Family history: diabetes, hypertension Medications and Allergies Allergies Allergy/AdvReac Type Severity Reaction Status Date / Time No Known Allergies Allergy Unverified 05/26/15 13:53 Home Medications Medication Instructions Recorded Confirmed Last Taken Type Carvedilol [Coreg] 25 mg PO BID tablet 10/14/16 10/28/16 Unknown Rx cloNIDine [Catapres] 0.3 mg PO Q8HR 30 Days 10/21/16 10/28/16 Unknown Rx hydrALAZINE [Apresoline TAB] 100 mg PO TID 10/28/16 10/28/16 Unknown History Review of Systems All systems: negative Respiratory: cough with sputum, shortness of breath Exam - Constitutional Vitals: Temp Pulse Resp BP Pulse Ox 98.4 F 103 H 26 H 183/113 93 10/28/16 11:42 10/28/16 14:34 10/28/16 14:34 10/28/16 14:34 10/28/16 14:34 General appearance: Present: no acute distress, well-nourished - EENT Eyes: Present: PERRL ENT: hearing intact, clear oral mucosa - Neck Neck: Present: supple, normal ROM - Respiratory Respiratory effort: normal Respiratory: bilateral: CTA - Cardiovascular Heart Sounds: Present: S1 & S2. Absent: rub, click - Extremities Extremities: pulses symmetrical, No edema Peripheral Pulses: within normal limits - Abdominal General gastrointestinal: Present: soft, non-tender, non-distended, normal bowel sounds Male genitourinary: Present: normal - Integumentary Integumentary: Present: clear, warm, dry - Musculoskeletal Musculoskeletal: gait normal, strength equal bilaterally - Psychiatric Psychiatric: appropriate mood/affect, intact judgment & insight - Neurologic Neurologic: CNII-XII intact, moves all extremities Results - Labs CBC & Chem 7: 10/28/16 11:30 10/28/16 11:30 Labs: Abnormal lab results 10/28/16 10/28/16 10/28/16 Range/Units 11:30 11:30 11:30 RBC 2.46 L (3.65-5.03) M/mm3 Hgb 7.4 L (11.8-15.2) gm/dl Hct 22.4 L (35.5-45.6) % RDW 20.1 H (13.2-15.2) % Lymph % (Auto) 5.3 L (13.4-35.0) % Lymph # 0.5 L (1.2-5.4) K/mm3 Seg Neutrophils % 84.9 H (40.0-70.0) % Potassium 5.3 H (3.6-5.0) mmol/L Carbon Dioxide 19 L (22-30) mmol/L BUN 67 H (9-20) mg/dL Creatinine 14.0 H (0.8-1.5) mg/dL Troponin T 0.044 H (0.00-0.029) ng/mL NT-Pro-B Natriuret Pep 76165 H (0-450) pg/mL LDL Cholesterol Direct 49 L (50-130) mg/dL Urine pH (5.0-7.0) 10/28/16 10/28/16 10/28/16 Range/Units 11:30 12:01 15:13 RBC (3.65-5.03) M/mm3 Hgb (11.8-15.2) gm/dl Hct (35.5-45.6) % RDW (13.2-15.2) % Lymph % (Auto) (13.4-35.0) % Lymph # (1.2-5.4) K/mm3 Seg Neutrophils % (40.0-70.0) % Potassium 5.3 H (3.6-5.0) mmol/L Carbon Dioxide 20 L (22-30) mmol/L BUN 66 H (9-20) mg/dL Creatinine 14.5 H (0.8-1.5) mg/dL Troponin T 0.045 H (0.00-0.029) ng/mL NT-Pro-B Natriuret Pep (0-450) pg/mL LDL Cholesterol Direct (50-130) mg/dL Urine pH 8.0 H (5.0-7.0) Assessment and Plan - Patient Problems (1) ESRD (end stage renal disease) Current Visit: Yes Status: Chronic Plan to address problem: Dialysis as per renal service. (2) Accelerated hypertension Current Visit: Yes Status: Acute Plan to address problem: resume home medication, monitor BP q shift, hydralazine prn (3) Acute respiratory failure with hypoxia Current Visit: No Status: Acute Plan to address problem: supplemental oxygen, nebs, aspiration precautions, supportive care, dialysis today as per renal service. (4) Fluid overload Current Visit: No Status: Acute Qualifiers: Hypervolemia type: H Plan to address problem: Nephrology consulted in ED for dialysis (5) DVT prophylaxis Current Visit: No Status: Acute
[2016-10-28] MEDS ORDERED: APRESOLINE ONE (17:44)
[2016-10-28] MEDS ORDERED: APRESOLINE IV ONE (17:49)
[2016-10-28] MEDS: APRESOLINE IV PRN (20:12)
[2016-10-28] MEDS: MORPHINE IV PRN (23:04)
[2016-10-28] MEDS: ROBITUSSIN DM PO PRN (23:06)
[2016-10-28] MEDS: CATAPRES PO SCH (23:07)
[2016-10-28] MEDS: APRESOLINE PO SCH (23:09)
[2016-10-28] MEDS: BENADRYL PO PRN (23:10)
[2016-10-29] MEDS: APRESOLINE IV PRN (02:45)
[2016-10-29] MEDS: MORPHINE IV PRN ×3 (06:19→18:42)
[2016-10-29] MEDS: ZOFRAN IV PRN ×2 (06:19→18:42)
[2016-10-29] MEDS: APRESOLINE PO SCH ×3 (07:12→21:00)
[2016-10-29] MEDS: ROBITUSSIN DM PO PRN ×2 (07:46→21:01)
--- NOTE | 2016-10-29 08:16 | Progress Note ---
Assessment and Plan Assessment and plan: --Malignant hypertension Resume home antihypertensives, when necessary medications, hemodialysis --End-stage renal disease on hemodialysis; Noncompliant with HD, stat hemodialysis, nephrology following --Acute on chronic hypoxic respiratory failure Secondary to fluid overload, secondary to missed hemodialysis Stat hemodialysis nephrology following --Chronic anemia secondary to end-stage renal disease; Closely monitor H&H transfuse as needed, Epogen during dialysis when necessary --Medical noncompliance; Counseling done patient strongly advised to adhere to the treatment and dialysis Verbalized understanding --DVT prophylaxis; with heparin --Ongoing tobacco use :smoking cessation counseling done strongly advised to quit tobacco use Advised nicotine patch as needed; closely monitor the patient and adjust the management as needed Disposition possible discharge in 1-2 days if stable On of care discussed with the patient as well as his nurse History Interval history: Patient seen and evaluated in his room this morning medical records reviewed Patient complaints of shortness of breath secondary to fluid overload Blood pressure is uncontrolled Denies chest pain or palpitations Alert awake oriented 3 not in acute distress Vital signs reviewed Hospitalist Physical - Constitutional Vitals: Temp Pulse Resp BP Pulse Ox 98.3 F 106 H 20 182/112 100 10/29/16 08:08 10/29/16 08:08 10/29/16 08:08 10/29/16 08:08 10/29/16 08:08 General appearance: Present: no acute distress, well-nourished - EENT Eyes: Present: PERRL, EOM intact - Neck Neck: Present: supple, normal ROM - Respiratory Respiratory effort: normal Respiratory: bilateral: diminished, rales, negative: rhonchi, wheezing - Cardiovascular Rhythm: regular Heart Sounds: Present: S1 & S2 - Extremities Extremities: no ischemia, pulses intact, pulses symmetrical Extremity abnormal: edema - Abdominal General gastrointestinal: soft, non-tender, non-distended, normal bowel sounds - Integumentary Integumentary: Present: clear, warm - Psychiatric Psychiatric: appropriate mood/affect, cooperative - Neurologic Neurologic: CNII-XII intact, moves all extremities Results - Labs CBC & Chem 7: 10/28/16 11:30 10/28/16 11:30 Labs: Laboratory Last Values WBC 8.6 K/mm3 (4.5-11.0) 10/28/16 11:30 RBC 2.46 M/mm3 (3.65-5.03) L 10/28/16 11:30 Hgb 7.4 gm/dl (11.8-15.2) L 10/28/16 11:30 Hct 22.4 % (35.5-45.6) L 10/28/16 11:30 MCV 91 fl (84-94) 10/28/16 11:30 MCH 30 pg (28-32) 10/28/16 11:30 MCHC 33 % (32-34) 10/28/16 11:30 RDW 20.1 % (13.2-15.2) H 10/28/16 11:30 Plt Count 147 K/mm3 (140-440) 10/28/16 11:30 Lymph % (Auto) 5.3 % (13.4-35.0) L 10/28/16 11:30 [place] % (Auto) 7.0 % (0.0-7.3) 10/28/16 11:30 Eos % (Auto) 2.1 % (0.0-4.3) 10/28/16 11:30 Baso % (Auto) 0.7 % (0.0-1.8) 10/28/16 11:30 Lymph # 0.5 K/mm3 (1.2-5.4) L 10/28/16 11:30 [place] # 0.6 K/mm3 (0.0-0.8) 10/28/16 11:30 Eos # 0.2 K/mm3 (0.0-0.4) 10/28/16 11:30 Baso # 0.1 K/mm3 (0.0-0.1) 10/28/16 11:30 Seg Neutrophils % 84.9 % (40.0-70.0) H 10/28/16 11:30 Seg Neutrophils # 7.3 K/mm3 (1.8-7.7) 10/28/16 11:30 Sodium 141 mmol/L (137-145) 10/28/16 11:30 Potassium 5.3 mmol/L (3.6-5.0) H 10/28/16 11:30 Chloride 100.8 mmol/L (98-107) 10/28/16 11:30 Carbon Dioxide 20 mmol/L (22-30) L 10/28/16 11:30 Anion Gap 26 mmol/L 10/28/16 11:30 BUN 66 mg/dL (9-20) H 10/28/16 11:30 Creatinine 14.5 mg/dL (0.8-1.5) H 10/28/16 11:30 Estimated GFR 5 ml/min 10/28/16 11:30 BUN/Creatinine Ratio 4.55 % 10/28/16 11:30 Glucose 84 mg/dL (75-100) 10/28/16 11:30 Calcium 9.8 mg/dL (8.4-10.2) 10/28/16 11:30 Total Bilirubin 1.10 mg/dL (0.1-1.2) 10/28/16 11:30 AST 17 units/L (5-40) 10/28/16 11:30 ALT 10 units/L (7-56) 10/28/16 11:30 Alkaline Phosphatase 65 units/L (35-129) 10/28/16 11:30 Troponin T 0.040 ng/mL (0.00-0.029) H 10/28/16 17:00 NT-Pro-B Natriuret Pep 60632 pg/mL (0-450) H 10/28/16 11:30 Total Protein 7.1 g/dL (6.3-8.2) 10/28/16 11:30 Albumin 4.1 g/dL (3.9-5) 10/28/16 11:30 Albumin/Globulin Ratio 1.4 % 10/28/16 11:30 Triglycerides 71 mg/dL (2-149) 10/28/16 11:30 Cholesterol 114 mg/dL (50-199) 10/28/16 11:30 LDL Cholesterol Direct 49 mg/dL (50-130) L 10/28/16 11:30 HDL Cholesterol 51 mg/dL (40-59) 10/28/16 11:30 Cholesterol/HDL Ratio 2.23 % 10/28/16 11:30 Urine Color Straw (Yellow) 10/28/16 12:01 Urine Turbidity Clear (Clear) 10/28/16 12:01 Urine pH 8.0 (5.0-7.0) H 10/28/16 12:01 Ur Specific [place] 1.010 (1.003-1.030) 10/28/16 12:01 Urine Protein 100 mg/dl mg/dL (Negative) 10/28/16 12:01 Urine Glucose (UA) 150 mg/dL (Negative) 10/28/16 12:01 Urine Ketones Tr mg/dL (Negative) 10/28/16 12:01 Urine Blood Sm (Negative) 10/28/16 12:01 Urine Nitrite Neg (Negative) 10/28/16 12:01 Urine Bilirubin Neg (Negative) 10/28/16 12:01 Urine Urobilinogen < 2.0 mg/dL (<2.0) 10/28/16 12:01 Ur Leukocyte Esterase Neg (Negative) 10/28/16 12:01 Urine WBC (Auto) 2.0 /HPF (0.0-6.0) 10/28/16 12:01 Urine RBC (Auto) 4.0 /HPF (0.0-6.0) 10/28/16 12:01 Urine Opiates Screen Presumptive negative 10/28/16 11:56 Urine Methadone Screen Presumptive negative 10/28/16 11:56 Ur Barbiturates Screen Presumptive negative 10/28/16 11:56 Ur Phencyclidine Scrn Presumptive negative 10/28/16 11:56 Ur Amphetamines Screen Presumptive negative 10/28/16 11:56 U Benzodiazepines Scrn Presumptive negative 10/28/16 11:56 Urine Cocaine Screen Presumptive negative 10/28/16 11:56 U Marijuana (THC) Screen Presumptive negative 10/28/16 11:56 Drugs of Abuse Note Disclamer 10/28/16 11:56
[2016-10-29] MEDS: CATAPRES PO SCH ×2 (09:21→21:01)
[2016-10-29] MEDS ORDERED: NACL 0.9% 100 ML IV PRN (12:46)
--- NOTE | 2016-10-29 13:13 | Consultation ---
History of Present Illness - Reason for Consult Consult date: 10/29/16 - History of Present Illness pt was seen and examined during dialysis. Alert, oriented. Last HD last Wednesday. BP-170/101,P-93 , afebrile on dialysis. Lungs- diminished breath sounds in bases , Heart- regular S1,S2, 2/6 syst murmur,no rub. Ext- no edema. Optimise BP meds. UF as tolerated with dialysis. Hb-low-but hold Epogen till BP is controlled. Past History Past Medical History: ESRD, hypertension Past Surgical History: hernia repair, Other (Vas cath placement) Social history: single, smoking Family history: diabetes, hypertension Medications and Allergies Allergies Allergy/AdvReac Type Severity Reaction Status Date / Time No Known Allergies Allergy Unverified 05/26/15 13:53 Home Medications Medication Instructions Recorded Confirmed Last Taken Type Carvedilol [Coreg] 25 mg PO BID tablet 10/14/16 10/28/16 Unknown Rx cloNIDine [Catapres] 0.3 mg PO Q8HR 30 Days 10/21/16 10/28/16 Unknown Rx hydrALAZINE [Apresoline TAB] 100 mg PO TID 10/28/16 10/28/16 Unknown History Active Meds: Active Medications Acetaminophen (Tylenol) 650 mg PO Q4H PRN PRN Reason: Pain MILD(1-3)/Fever >100.5/WOOD Last Admin: 10/29/16 07:46 Dose: 650 mg Albuterol/Ipratropium (Duoneb 0.5 Mg-3 Mg/3 Ml Soln) 1 ampul IH Q6HRT PRN PRN Reason: Wheezing Carvedilol (Coreg) 25 mg PO BID JOANN Clonidine HCl (Catapres) 0.3 mg PO Q12HR JOANN Last Admin: 10/29/16 09:21 Dose: 0.3 mg Diphenhydramine HCl (Benadryl) 25 mg PO Q6H PRN PRN Reason: Itching Last Admin: 10/28/16 23:10 Dose: 25 mg Guaifenesin (Robitussin Dm) 10 ml PO Q4H PRN PRN Reason: Cough Last Admin: 10/29/16 07:46 Dose: 10 ml Heparin Sodium (Porcine) (Heparin) 5,000 unit IV SYLVAIN PRN PRN Reason: hemodialysis Hydralazine HCl (Apresoline) 10 mg IV Q4HR PRN PRN Reason: HTN SYS >150 Last Admin: 10/29/16 02:45 Dose: 10 mg Hydralazine HCl (Apresoline) 100 mg PO TID JOANN Last Admin: 10/29/16 07:12 Dose: 100 mg Sodium Chloride (Nacl 0.9%) 100 mls @ 999 mls/hr IV SYLVAIN PRN PRN Reason: Hypotension Morphine Sulfate (Morphine) 2 mg IV Q4H PRN PRN Reason: Pain, Moderate (4-6) Last Admin: 10/29/16 12:08 Dose: 2 mg Ondansetron HCl (Zofran) 4 mg IV Q8H PRN PRN Reason: N/V unrelieved by [place] Last Admin: 10/29/16 06:19 Dose: 4 mg Exam - Constitutional Vitals: Temp Pulse Resp BP Pulse Ox 98.1 F 94 H 20 167/94 99 10/29/16 12:48 10/29/16 12:48 10/29/16 12:48 10/29/16 12:48 10/29/16 12:48 Results - Labs CBC & Chem 7: 10/28/16 11:30 10/28/16 11:30 Labs: Abnormal lab results 10/28/16 Range/Units 17:00 Troponin T 0.040 H (0.00-0.029) ng/mL
[2016-10-29] MEDS: HEPARIN IV PRN (16:45)
[2016-10-29] MEDS: COREG PO SCH (23:14)
[2016-10-30] MEDS: MORPHINE IV PRN ×4 (03:26→20:05)
[2016-10-30] MEDS: ZOFRAN IV PRN (03:26)
--- NOTE | 2016-10-30 08:20 | Progress Note ---
Assessment and Plan Assessment and plan: --Severe anemia/acute on chronic Secondary to end-stage renal disease, type and cross transfuse 2 units of PRBC during dialysis Rule out GI causes, in view of patient's alcohol history, stool for occult blood --Malignant hypertension Resume home antihypertensives, when necessary medications, hemodialysis --End-stage renal disease on hemodialysis; Noncompliant with HD, stat hemodialysis, nephrology following --Acute on chronic hypoxic respiratory failure Secondary to fluid overload, secondary to missed hemodialysis Stat hemodialysis nephrology following --Chronic anemia secondary to end-stage renal disease; Closely monitor H&H transfuse as needed, Epogen during dialysis when necessary --Medical noncompliance; Counseling done patient strongly advised to adhere to the treatment and dialysis Verbalized understanding --DVT prophylaxis; with heparin --Ongoing tobacco use :smoking cessation counseling done strongly advised to quit tobacco use Advised nicotine patch as needed; closely monitor the patient and adjust the management as needed Consults recommendations noted and appreciated Plan of care discussed with the patient is nurse and the case management History Interval history: Patient seen and evaluated medical records reviewed Complains of generalized weakness, denies chest pain or shortness of breath Significant drop in H&H, no external evidence of bleeding Alert awake oriented 3 not in acute distress Vital signs reviewed Hospitalist Physical - Constitutional Vitals: Temp Pulse Resp BP Pulse Ox 99.7 F H 96 H 18 173/90 98 10/29/16 23:58 10/29/16 23:58 10/29/16 23:58 10/29/16 23:58 10/29/16 23:58 General appearance: Present: no acute distress, well-nourished - EENT Eyes: Present: PERRL, EOM intact - Neck Neck: Present: supple, normal ROM - Respiratory Respiratory effort: normal Respiratory: bilateral: diminished, negative: rales, rhonchi, wheezing - Cardiovascular Rhythm: regular Heart Sounds: Present: S1 & S2 - Extremities Extremities: no ischemia, pulses intact, pulses symmetrical Peripheral Pulses: within normal limits - Abdominal General gastrointestinal: soft, non-tender, non-distended, normal bowel sounds - Integumentary Integumentary: Present: clear, warm - Psychiatric Psychiatric: appropriate mood/affect, cooperative - Neurologic Neurologic: CNII-XII intact, moves all extremities Results - Labs CBC & Chem 7: 10/30/16 07:51 10/30/16 07:51 Labs: Laboratory Last Values WBC 8.6 K/mm3 (4.5-11.0) 10/28/16 11:30 RBC 2.46 M/mm3 (3.65-5.03) L 10/28/16 11:30 Hgb 7.4 gm/dl (11.8-15.2) L 10/28/16 11:30 Hct 22.4 % (35.5-45.6) L 10/28/16 11:30 MCV 91 fl (84-94) 10/28/16 11:30 MCH 30 pg (28-32) 10/28/16 11:30 MCHC 33 % (32-34) 10/28/16 11:30 RDW 20.1 % (13.2-15.2) H 10/28/16 11:30 Plt Count 147 K/mm3 (140-440) 10/28/16 11:30 Lymph % (Auto) 5.3 % (13.4-35.0) L 10/28/16 11:30 [place] % (Auto) 7.0 % (0.0-7.3) 10/28/16 11:30 Eos % (Auto) 2.1 % (0.0-4.3) 10/28/16 11:30 Baso % (Auto) 0.7 % (0.0-1.8) 10/28/16 11:30 Lymph # 0.5 K/mm3 (1.2-5.4) L 10/28/16 11:30 [place] # 0.6 K/mm3 (0.0-0.8) 10/28/16 11:30 Eos # 0.2 K/mm3 (0.0-0.4) 10/28/16 11:30 Baso # 0.1 K/mm3 (0.0-0.1) 10/28/16 11:30 Seg Neutrophils % 84.9 % (40.0-70.0) H 10/28/16 11:30 Seg Neutrophils # 7.3 K/mm3 (1.8-7.7) 10/28/16 11:30 Sodium 141 mmol/L (137-145) 10/28/16 11:30 Potassium 5.3 mmol/L (3.6-5.0) H 10/28/16 11:30 Chloride 100.8 mmol/L (98-107) 10/28/16 11:30 Carbon Dioxide 20 mmol/L (22-30) L 10/28/16 11:30 Anion Gap 26 mmol/L 10/28/16 11:30 BUN 66 mg/dL (9-20) H 10/28/16 11:30 Creatinine 14.5 mg/dL (0.8-1.5) H 10/28/16 11:30 Estimated GFR 5 ml/min 10/28/16 11:30 BUN/Creatinine Ratio 4.55 % 10/28/16 11:30 Glucose 84 mg/dL (75-100) 10/28/16 11:30 Calcium 9.8 mg/dL (8.4-10.2) 10/28/16 11:30 Total Bilirubin 1.10 mg/dL (0.1-1.2) 10/28/16 11:30 AST 17 units/L (5-40) 10/28/16 11:30 ALT 10 units/L (7-56) 10/28/16 11:30 Alkaline Phosphatase 65 units/L (35-129) 10/28/16 11:30 Troponin T 0.040 ng/mL (0.00-0.029) H 10/28/16 17:00 NT-Pro-B Natriuret Pep 72843 pg/mL (0-450) H 10/28/16 11:30 Total Protein 7.1 g/dL (6.3-8.2) 10/28/16 11:30 Albumin 4.1 g/dL (3.9-5) 10/28/16 11:30 Albumin/Globulin Ratio 1.4 % 10/28/16 11:30 Triglycerides 71 mg/dL (2-149) 10/28/16 11:30 Cholesterol 114 mg/dL (50-199) 10/28/16 11:30 LDL Cholesterol Direct 49 mg/dL (50-130) L 10/28/16 11:30 HDL Cholesterol 51 mg/dL (40-59) 10/28/16 11:30 Cholesterol/HDL Ratio 2.23 % 10/28/16 11:30 Urine Color Straw (Yellow) 10/28/16 12:01 Urine Turbidity Clear (Clear) 10/28/16 12:01 Urine pH 8.0 (5.0-7.0) H 10/28/16 12:01 Ur Specific [place] 1.010 (1.003-1.030) 10/28/16 12:01 Urine Protein 100 mg/dl mg/dL (Negative) 10/28/16 12:01 Urine Glucose (UA) 150 mg/dL (Negative) 10/28/16 12:01 Urine Ketones Tr mg/dL (Negative) 10/28/16 12:01 Urine Blood Sm (Negative) 10/28/16 12:01 Urine Nitrite Neg (Negative) 10/28/16 12:01 Urine Bilirubin Neg (Negative) 10/28/16 12:01 Urine Urobilinogen < 2.0 mg/dL (<2.0) 10/28/16 12:01 Ur Leukocyte Esterase Neg (Negative) 10/28/16 12:01 Urine WBC (Auto) 2.0 /HPF (0.0-6.0) 10/28/16 12:01 Urine RBC (Auto) 4.0 /HPF (0.0-6.0) 10/28/16 12:01 Urine Opiates Screen Presumptive negative 10/28/16 11:56 Urine Methadone Screen Presumptive negative 10/28/16 11:56 Ur Barbiturates Screen Presumptive negative 10/28/16 11:56 Ur Phencyclidine Scrn Presumptive negative 10/28/16 11:56 Ur Amphetamines Screen Presumptive negative 10/28/16 11:56 U Benzodiazepines Scrn Presumptive negative 10/28/16 11:56 Urine Cocaine Screen Presumptive negative 10/28/16 11:56 U Marijuana (THC) Screen Presumptive negative 10/28/16 11:56 Drugs of Abuse Note Disclamer 10/28/16 11:56
[2016-10-30 08:23] LABS: Basophils % (Auto) 0.5 % (0.0-1.8); Eosinophils % (Auto) 5.5 % (0.0-4.3); Hemoglobin 6.2 gm/dl (11.8-15.2); Mean Corpuscular HGB Conc 33 % (32-34); Mean Corpuscular Hemoglobin 30 pg (28-32); Mean Corpuscular Volume 90 fl (84-94); Red Blood Count 2.06 M/mm3 (3.65-5.03)
[2016-10-30 08:27] LABS: Hematocrit 18.5 % (35.5-45.6); Platelet Count 93 K/mm3 (140-440); Red Cell Distribution Width 20.2 % (13.2-15.2)
[2016-10-30 08:28] LABS: BUN/Creatinine Ratio 3.93; Calcium 8.9 mg/dL (8.4-10.2); Chloride 100.8 mmol/L (98-107); Potassium 4.8 mmol/L (3.6-5.0)
[2016-10-30] MEDS: BENADRYL PO PRN ×3 (08:40→20:04)
[2016-10-30] MEDS: APRESOLINE PO SCH ×2 (08:48→20:04)
[2016-10-30] MEDS ORDERED: NACL 0.9% 500 ML 500 ML IV ONE (10:58)
[2016-10-30] MEDS: CATAPRES PO SCH ×2 (12:23→23:11)
[2016-10-30] MEDS: COREG PO SCH ×2 (12:24→23:11)
[2016-10-30] MEDS ORDERED: NACL 0.9% 100 ML IV PRN (12:46)
--- NOTE | 2016-10-30 12:46 | Progress Note ---
Assessment and Plan Impression * End-stage renal disease on maintenance hemodialysis * Congestive heart failure * severe anemia * Hypertension * Abdominal pain * Diabetes Recommendations * Patient clinically still appears to be volume overloaded * Shall dialyze him today and remove fluid as tolerated * His outpatient dialysis days are also Mondays, Wednesdays and Fridays * His blood pressure is under better control today * Hold binders for now because of his abdominal pain * Procrit with dialysis * Transfuse packed RBC with dialysis today Subjective Date of service: 10/30/16 Interval history: Shall still complains of a cough and shortness of breath. Requesting another dialysis treatment today. He did have a dialysis session yesterday, however he had missed dialysis for almost a week prior to that. Continues to have some abdominal pain. Objective - Vital Signs Vital signs: Vital Signs - 12hr 10/30/16 10/30/16 08:00 09:12 Temperature 98.9 F Pulse Rate [ 83 Right Radial] Respiratory 19 Rate Blood Pressure 137/81 [Right Arm] O2 Sat by Pulse 99 98 Oximetry - General Appearance General appearance: well-developed, well-nourished, appears stated age EENT: PERRL, mucous membranes moist Neck: no JVD, no thyromegaly, no carotid bruit, supple, other (right IJ PermCath in place) Respiratory: Present: Rales (bibasal crackles) Cardiology: regular, normal heart rate Gastrointestinal: normoactive bowel sounds, tenderness (mild diffuse tenderness) Integumentary: no rash, other (no edema. AV fistula in his left upper arm. Not mature yet) - Lab 10/30/16 07:51 10/30/16 07:51 Most recent lab results Calcium 8.9 mg/dL (8.4-10.2) 10/30/16 07:51
[2016-10-30] MEDS ORDERED: NACL 0.9 (PRIMING MACHINE ONLY DIALYSIS) MC ONE (15:33)
[2016-10-30] MEDS: HEPARIN IV PRN (18:52)
[2016-10-31] MEDS: MORPHINE IV PRN ×4 (00:12→18:21)
[2016-10-31] MEDS: BENADRYL PO PRN ×2 (06:20→18:21)
[2016-10-31] MEDS: CATAPRES PO SCH (06:20)
--- NOTE | 2016-10-31 10:42 | Progress Note ---
Assessment and Plan Assessment and plan: --Malignant hypertension Well-controlled, continue Coreg and clonidine hydralazine And when necessary hydralazine --Severe anemia/acute on chronic Secondary to end-stage renal disease, s/p 2 units of PRBC infusion , mild improvement in H&H Epogen during dialysis ,Rule out GI causes, in view of patient's alcohol history , stool for occult blood --End-stage renal disease on hemodialysis; Noncompliant with HD, hemodialysis per scheduled ,nephrology following --Acute on chronic hypoxic respiratory failure Secondary to fluid overload, secondary to missed hemodialysis, Improved --Medical noncompliance; Counseling done patient strongly advised to adhere to the treatment and dialysis Verbalized understanding --DVT prophylaxis; with heparin --Ongoing tobacco use :smoking cessation counseling done strongly advised to quit tobacco use Advised nicotine patch as needed; closely monitor the patient and adjust the management as needed Consults recommendations noted and appreciated Plan of care discussed with 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 is nurse and the case management History Interval history: Patient seen and evaluated medical records reviewed Patient feels better no new complaints Scheduled for hemodialysis today Alert awake oriented 3 not in acute distress Vital signs reviewed Hospitalist Physical - Constitutional Vitals: Temp Pulse Resp BP Pulse Ox 99.5 F 71 15 146/90 96 10/31/16 07:45 10/31/16 07:45 10/31/16 07:45 10/31/16 07:45 10/31/16 07:45 General appearance: Present: no acute distress, well-nourished - EENT Eyes: Present: PERRL, EOM intact - Neck Neck: Present: supple, normal ROM - Respiratory Respiratory effort: normal Respiratory: bilateral: diminished, negative: rales, rhonchi, wheezing - Cardiovascular Rhythm: regular Heart Sounds: Present: S1 & S2 - Extremities Extremities: no ischemia, pulses intact, pulses symmetrical Peripheral Pulses: within normal limits - Abdominal General gastrointestinal: soft, non-tender, non-distended, normal bowel sounds - Integumentary Integumentary: Present: clear, warm - Psychiatric Psychiatric: appropriate mood/affect, cooperative - Neurologic Neurologic: CNII-XII intact, moves all extremities Results - Labs CBC & Chem 7: 10/31/16 12:30 10/31/16 12:30 Labs: Laboratory Last Values WBC 7.0 K/mm3 (4.5-11.0) 10/30/16 07:51 RBC 2.06 M/mm3 (3.65-5.03) L 10/30/16 07:51 Hgb 6.2 gm/dl (11.8-15.2) L 10/30/16 07:51 Hct 18.5 % (35.5-45.6) L* 10/30/16 07:51 MCV 90 fl (84-94) 10/30/16 07:51 MCH 30 pg (28-32) 10/30/16 07:51 MCHC 33 % (32-34) 10/30/16 07:51 RDW 20.2 % (13.2-15.2) H 10/30/16 07:51 Plt Count 93 K/mm3 (140-440) L 10/30/16 07:51 Lymph % (Auto) 7.3 % (13.4-35.0) L 10/30/16 07:51 [place] % (Auto) 7.8 % (0.0-7.3) H 10/30/16 07:51 Eos % (Auto) 5.5 % (0.0-4.3) H 10/30/16 07:51 Baso % (Auto) 0.5 % (0.0-1.8) 10/30/16 07:51 Lymph # 0.5 K/mm3 (1.2-5.4) L 10/30/16 07:51 [place] # 0.5 K/mm3 (0.0-0.8) 10/30/16 07:51 Eos # 0.4 K/mm3 (0.0-0.4) 10/30/16 07:51 Baso # 0.0 K/mm3 (0.0-0.1) 10/30/16 07:51 Seg Neutrophils % 78.9 % (40.0-70.0) H 10/30/16 07:51 Seg Neutrophils # 5.5 K/mm3 (1.8-7.7) 10/30/16 07:51 Sodium 139 mmol/L (137-145) 10/30/16 07:51 Potassium 4.8 mmol/L (3.6-5.0) 10/30/16 07:51 Chloride 100.8 mmol/L (98-107) 10/30/16 07:51 Carbon Dioxide 27 mmol/L (22-30) D 10/30/16 07:51 Anion Gap 16 mmol/L 10/30/16 07:51 BUN 37 mg/dL (9-20) H 10/30/16 07:51 Creatinine 9.4 mg/dL (0.8-1.5) H 10/30/16 07:51 Estimated GFR 8 ml/min 10/30/16 07:51 BUN/Creatinine Ratio 3.93 % 10/30/16 07:51 Glucose 90 mg/dL (75-100) 10/30/16 07:51 Calcium 8.9 mg/dL (8.4-10.2) 10/30/16 07:51 Total Bilirubin 1.10 mg/dL (0.1-1.2) 10/28/16 11:30 AST 17 units/L (5-40) 10/28/16 11:30 ALT 10 units/L (7-56) 10/28/16 11:30 Alkaline Phosphatase 65 units/L (35-129) 10/28/16 11:30 Troponin T 0.040 ng/mL (0.00-0.029) H 10/28/16 17:00 NT-Pro-B Natriuret Pep 36790 pg/mL (0-450) H 10/28/16 11:30 Total Protein 7.1 g/dL (6.3-8.2) 10/28/16 11:30 Albumin 4.1 g/dL (3.9-5) 10/28/16 11:30 Albumin/Globulin Ratio 1.4 % 10/28/16 11:30 Triglycerides 71 mg/dL (2-149) 10/28/16 11:30 Cholesterol 114 mg/dL (50-199) 10/28/16 11:30 LDL Cholesterol Direct 49 mg/dL (50-130) L 10/28/16 11:30 HDL Cholesterol 51 mg/dL (40-59) 10/28/16 11:30 Cholesterol/HDL Ratio 2.23 % 10/28/16 11:30 Urine Color Straw (Yellow) 10/28/16 12:01 Urine Turbidity Clear (Clear) 10/28/16 12:01 Urine pH 8.0 (5.0-7.0) H 10/28/16 12:01 Ur Specific [place] 1.010 (1.003-1.030) 10/28/16 12:01 Urine Protein 100 mg/dl mg/dL (Negative) 10/28/16 12:01 Urine Glucose (UA) 150 mg/dL (Negative) 10/28/16 12:01 Urine Ketones Tr mg/dL (Negative) 10/28/16 12:01 Urine Blood Sm (Negative) 10/28/16 12:01 Urine Nitrite Neg (Negative) 10/28/16 12:01 Urine Bilirubin Neg (Negative) 10/28/16 12:01 Urine Urobilinogen < 2.0 mg/dL (<2.0) 10/28/16 12:01 Ur Leukocyte Esterase Neg (Negative) 10/28/16 12:01 Urine WBC (Auto) 2.0 /HPF (0.0-6.0) 10/28/16 12:01 Urine RBC (Auto) 4.0 /HPF (0.0-6.0) 10/28/16 12:01 Urine Opiates Screen Presumptive negative 10/28/16 11:56 Urine Methadone Screen Presumptive negative 10/28/16 11:56 Ur Barbiturates Screen Presumptive negative 10/28/16 11:56 Ur Phencyclidine Scrn Presumptive negative 10/28/16 11:56 Ur Amphetamines Screen Presumptive negative 10/28/16 11:56 U Benzodiazepines Scrn Presumptive negative 10/28/16 11:56 Urine Cocaine Screen Presumptive negative 10/28/16 11:56 U Marijuana (THC) Screen Presumptive negative 10/28/16 11:56 Drugs of Abuse Note Disclamer 10/28/16 11:56 Blood Type O POSITIVE 10/30/16 12:45 Antibody Screen TNR 10/30/16 12:45 MACARIO Antibody Screen Negative 10/30/16 12:45 Crossmatch See Detail 10/30/16 12:45
[2016-10-31] MEDS ORDERED: NACL 0.9% 100 ML IV PRN (11:35)
--- NOTE | 2016-10-31 11:35 | Progress Note ---
Assessment and Plan Impression * End-stage renal disease on maintenance hemodialysis * Congestive heart failure * severe anemia * Hypertension * Abdominal pain * Diabetes Recommendations * Patient clinically still appears to be volume overloaded but much improved * Shall dialyze him today and remove fluid as tolerated * His outpatient dialysis days are also Mondays, Wednesdays and Fridays * His blood pressure is under better control today * Hold binders for now because of his abdominal pain * Procrit with dialysis * Patient received 2 units of packed RBC with dialysis yesterday. Need to check his labs again today Subjective Date of service: 10/31/16 Interval history: Patient's cough is better. He still has some shortness of breath. Denies any nausea or vomiting Objective - Vital Signs Vital signs: Vital Signs - 12hr 10/31/16 10/31/16 10/31/16 00:12 00:42 06:20 Temperature Pulse Rate 71 Pulse Rate [ Right Radial] Respiratory 16 16 Rate Blood Pressure 153/92 Blood Pressure [Right Arm] O2 Sat by Pulse Oximetry 10/31/16 10/31/16 10/31/16 06:21 06:51 07:45 Temperature 99.5 F Pulse Rate Pulse Rate [ 71 Right Radial] Respiratory 17 4 L 15 Rate Blood Pressure Blood Pressure 146/90 [Right Arm] O2 Sat by Pulse 96 Oximetry 10/31/16 10:00 Temperature Pulse Rate Pulse Rate [ Right Radial] Respiratory Rate Blood Pressure Blood Pressure [Right Arm] O2 Sat by Pulse 98 Oximetry - General Appearance General appearance: well-developed, well-nourished, appears stated age EENT: PERRL, mucous membranes moist Neck: no JVD, no thyromegaly, no carotid bruit, supple, other (IJ PermCath on the right side) Respiratory: Present: Rales (fine basal crackles) Cardiology: regular, normal heart rate Gastrointestinal: normoactive bowel sounds, tenderness (mild diffuse tenderness. No rebound or guarding) Integumentary: no rash, other (AV fistula in his left upper arm. Good bruit and thrill. Not mature yet) - Lab 10/30/16 07:51 10/30/16 07:51 Most recent lab results Calcium 8.9 mg/dL (8.4-10.2) 10/30/16 07:51
[2016-10-31] MEDS: COREG PO SCH (11:45)
[2016-10-31 12:55] LABS: Eosinophils % (Auto) 6.1 % (0.0-4.3); Hematocrit 23.9 % (35.5-45.6); Hemoglobin 8.1 gm/dl (11.8-15.2); Mean Corpuscular HGB Conc 34 % (32-34); Mean Corpuscular Hemoglobin 30 pg (28-32); Mean Corpuscular Volume 90 fl (84-94); Platelet Count 103 K/mm3 (140-440); Red Blood Count 2.66 M/mm3 (3.65-5.03); Red Cell Distribution Width 18.8 % (13.2-15.2); White Blood Count 6.1 K/mm3 (4.5-11.0)
[2016-10-31] MEDS ORDERED: NACL 0.9 (PRIMING MACHINE ONLY DIALYSIS) MC ONE (13:28)
[2016-10-31 13:43] LABS: BUN/Creatinine Ratio 3.47; Calcium 9.3 mg/dL (8.4-10.2); Chloride 98.5 mmol/L (98-107); Potassium 4.1 mmol/L (3.6-5.0)
[2016-10-31] MEDS: HEPARIN IV PRN (15:05)
[2016-10-31 18:45] VITALS: BP 123/72
[2016-10-31] MEDS: APRESOLINE PO SCH (21:10)
[2016-10-31] MEDS ORDERED: COLACE PO SCH (22:00)
--- NOTE | 2016-11-01 07:20 | Discharge Summary ---
Providers - Providers Date of Admission: 10/28/16 16:56 Date of discharge: 10/31/16 Attending physician: ASYA ALVARES 10/28/16 16:59 Consult to Physician [CONS] Routine Consulting Provider: MIGUEL LIVINGSTON Reason For Exam: ESRD on HD Place consult to:: Nephrology Notified:: Y Was contact made?: Yes If yes, spoke with:: A/S Time called:: 17:20 Primary care physician: HEIDE ENAMORADO MD Hospitalization Condition: Good Disposition: LEFT AGAINST MEDICAL ADVICE Exam - Constitutional Vitals: Temp Pulse Resp BP Pulse Ox 98.3 F 66 17 123/72 95 10/31/16 16:25 10/31/16 16:25 10/31/16 18:51 10/31/16 16:25 10/31/16 22:00 Plan Follow up with: HEIDE ENAMORADO MD [Primary Care Provider] - 3-5 Days
== END 2016-10-31 20:45 | disposition left against medical advice (07) | DRG 640 ==
LOC: ED 11:14 → 3A 16:56 → UNDODISIN 10-31 17:00
PROVIDERS: ADMIT Internal Medicine; ATTEND Internal Medicine
PROC: 5A1D60Z (ICD-10-PCS; 2016-10-29)
PROC: 30233N1 Transfusion of Nonautologous Red Blood Cells into Peripheral Vein, Percutaneous Approach (ICD-10-PCS; principal; 2016-10-30)
DX: E87.70 Fluid overload, unspecified (principal); N18.6 End stage renal disease; J96.21 Acute and chronic respiratory failure with hypoxia; F17.200 Nicotine dependence, unspecified, uncomplicated; R04.2 Hemoptysis; J81.1 Chronic pulmonary edema; D63.1 Anemia in chronic kidney disease; E11.22 Type 2 diabetes mellitus with diabetic chronic kidney disease; I50.9 Heart failure, unspecified; I13.2 Hypertensive heart and chronic kidney disease with heart failure and with stage 5 chronic kidney disease, or end stage renal disease; Z99.2 Dependence on renal dialysis; Z91.19 Patient's noncompliance with other medical treatment and regimen; Z82.49 Family history of ischemic heart disease and other diseases of the circulatory system; Z83.3 Family history of diabetes mellitus; Z91.15 Patient's noncompliance with renal dialysis; Z71.6 Tobacco abuse counseling
CPT/HCPCS: 36415; 71010; 74176; 80048; 80053; 80061; 80307; 81001; 83880; 84484; 85025; 86850; 86900; 86901; 86920; 93005; 93010; 94760; 96361; 96374; 96375; J0360; J0885; J1170; J1644; J1885; J2270; J2405; J7030; J7040; P9016

== ENCOUNTER 2016-12-11 09:53 | Inpatient (IN) | payer MEDICAID ==
[2016-12-11 10:42] LABS: Hematocrit 26.5 % (35.5-45.6); Hemoglobin 8.6 gm/dl (11.8-15.2); Mean Corpuscular HGB Conc 32 % (32-34); Mean Corpuscular Hemoglobin 30 pg (28-32); Mean Corpuscular Volume 93 fl (84-94); Platelet Count 112 K/mm3 (140-440); Red Blood Count 2.85 M/mm3 (3.65-5.03); Red Cell Distribution Width 18.1 % (13.2-15.2); White Blood Count 7.6 K/mm3 (4.5-11.0)
[2016-12-11 10:43] LABS: Basophils % (Auto) 0.6 % (0.0-1.8); Eosinophils % (Auto) 4.2 % (0.0-4.3)
[2016-12-11 10:46] LABS: BUN/Creatinine Ratio 4.55; Calcium 9.2 mg/dL (8.4-10.2); Chloride 100.5 mmol/L (98-107); Potassium 4.1 mmol/L (3.6-5.0)
--- NOTE | 2016-12-11 10:48 | XRay Report ---
PORTABLE CHEST INDICATION: Chest pain. COMPARISON: 10/28/2016 FINDINGS: Portable, frontal chest radiograph demonstrates interval right-sided dual-lumen catheter removal. Mild cardiomegaly and increased congestive bronchovascular haziness throughout both lungs again noted. No large pleural effusions however. Unremarkable bones. CONCLUSION: Cardiomegaly and pulmonary congestion with interval right-sided catheter removal, as described. Thank you for the opportunity to participate in this patient's care.
[2016-12-11] MEDS ORDERED: MORPHINE IV ONE (11:24)
[2016-12-11] MEDS ORDERED: APRESOLINE IV ONE (11:24)
--- NOTE | 2016-12-11 11:26 | Emergency Department Report ---
ED General Adult HPI - General Chief complaint: Chest Pain Stated complaint: CHEST PAIN/N/V Time Seen by Provider: 12/11/16 10:55 Source: patient, EMS (ems notes not available at time of chart dictation), RN notes reviewed, old records reviewed Mode of arrival: Stretcher Limitations: No Limitations - History of Present Illness Initial comments: This is a 40-year-old male. He is previously unknown to me. His pairer is Dr. Justice/Dr. Araujo. The patient typically has dialysis on Wednesday, Wednesday, Wednesday. His last dialysis was this past Wednesday. It was of normal length and duration. He reports that he had a vas cath removed from his right anterior thoracic chest wall yesterday. He comes to the ER today complaining of headache, hemoptysis, and right superior anterior chest wall pain. Headache is global and throbbing. It is not sudden or thunderclap in nature. It did not reach maximal intensity within an hour. There is no neck pain or neck stiffness. Hemoptysis is constant. No fevers. No chills. Positive chronic stress of breath. Patient has right superior anterior chest wall pain where his vas cath was removed. The chest pain is not related to the back, arms and neck. There is no vomiting or diaphoresis. -: Gradual Location: head, chest Severity scale (0 -10): 8 Quality: aching Consistency: constant Improves with: none Worsens with: movement Associated Symptoms: chest pain, headaches, loss of appetite, shortness of breath, weakness - Related Data Home Medications Medication Instructions Recorded Confirmed Last Taken hydrALAZINE [Apresoline TAB] 100 mg PO TID 10/28/16 12/11/16 12/11/16 Previous Rx's Medication Instructions Recorded Last Taken Type Carvedilol [Coreg] 25 mg PO BID tablet 10/14/16 12/11/16 Rx cloNIDine [Catapres] 0.3 mg PO Q8HR 30 Days 10/21/16 12/11/16 Rx Allergies Allergy/AdvReac Type Severity Reaction Status Date / Time No Known Allergies Allergy Unverified 05/26/15 13:53 ED Review of Systems ROS: Stated complaint: CHEST PAIN/N/V Other details as noted in HPI Constitutional: malaise, weakness. denies: fever Eyes: denies: vision change ENT: denies: epistaxis Respiratory: shortness of breath Cardiovascular: chest pain Gastrointestinal: denies: abdominal pain Genitourinary: as per HPI Musculoskeletal: myalgia Skin: denies: lesions Neurological: headache, weakness ED Past Medical Hx - Past Medical History Hx Hypertension: Yes Hx Congestive Heart Failure: No Hx Diabetes: No Hx Renal Disease: Yes (HD today through right permacath) Hx Seizures: No Hx Asthma: No Hx COPD: No Hx HIV: No - Surgical History Additional Surgical History: Hernia, vas cath - Social History Smoking Status: Never Smoker - Medications Home Medications: Home Medications Medication Instructions Recorded Confirmed Last Taken Type Carvedilol [Coreg] 25 mg PO BID tablet 10/14/16 12/11/16 12/11/16 Rx cloNIDine [Catapres] 0.3 mg PO Q8HR 30 Days 10/21/16 12/11/16 12/11/16 Rx hydrALAZINE [Apresoline TAB] 100 mg PO TID 10/28/16 12/11/16 12/11/16 History ED Physical Exam - General Limitations: No Limitations General appearance: alert, in distress - Head Head exam: Present: atraumatic, normocephalic - Eye Eye exam: Present: normal appearance, EOMI. Absent: nystagmus - ENT ENT exam: Present: normal exam, normal orophraynx, mucous membranes moist, normal external ear exam - Neck Neck exam: Present: normal inspection, full ROM - Respiratory Respiratory exam: Present: normal lung sounds bilaterally, chest wall tenderness (there is reproducible anterior superior chest wall tenderness where the Vas-Cath was extracted. There is a covering to the surgical site. There is no redness, pus or streaking). Absent: respiratory distress, wheezes, rales , rhonchi, stridor - Cardiovascular Cardiovascular Exam: Present: regular rate, normal rhythm, normal heart sounds. Absent: systolic murmur, diastolic murmur, rubs, gallop - GI/Abdominal GI/Abdominal exam: Present: soft, normal bowel sounds. Absent: distended, tenderness, guarding, rebound, rigid, pulsatile mass - Rectal Rectal exam: Present: deferred - Extremities Exam Extremities exam: Present: normal inspection, full ROM, normal capillary refill , other (there is a left upper extremity AV fistula with an appropriate thrill. There is no redness, pus or streaking). Absent: pedal edema, joint swelling, calf tenderness - Back Exam Back exam: Present: normal inspection, full ROM, CVA tenderness (L). Absent: muscle spasm, paraspinal tenderness, vertebral tenderness - Neurological Exam Neurological exam: Present: alert, oriented X3, other (Extraocular movements intact. Tongue midline. No facial droop. Facial sensation intact to light touch in the V1, V2, V3 distribution bilaterally. 5 and 5 strength in 4 extremities.. Sensation is intact to light touch in 4 extremities.). Absent: motor sensory deficit - Psychiatric Psychiatric exam: Present: normal affect, normal mood, anxious - Skin Skin exam: Present: warm, dry, intact, normal color. Absent: rash ED Course Vital Signs 12/11/16 12/11/16 12/11/16 10:31 11:00 11:14 Temperature 98.8 F Pulse Rate 90 85 Respiratory 22 14 16 Rate Blood Pressure Blood Pressure 194/122 [Left] O2 Sat by Pulse 97 98 Oximetry 12/11/16 12/11/16 12/11/16 11:31 12:00 12:01 Temperature Pulse Rate 91 H 87 Respiratory 13 12 16 Rate Blood Pressure 185/122 188/121 Blood Pressure [Left] O2 Sat by Pulse 100 Oximetry 12/11/16 12/11/16 12/11/16 12:30 12:31 13:01 Temperature Pulse Rate 99 H 112 H Respiratory 16 16 10 L Rate Blood Pressure 213/125 188/121 Blood Pressure [Left] O2 Sat by Pulse Oximetry 12/11/16 12/11/16 12/11/16 13:16 13:30 15:35 Temperature 99.0 F Pulse Rate 90 83 Respiratory 11 L 20 Rate Blood Pressure 213/125 176/111 206/119 Blood Pressure [Left] O2 Sat by Pulse Oximetry ED Medical Decision Making - Lab Data Result diagrams: 12/11/16 10:14 12/11/16 10:14 Vital Signs 12/11/16 12/11/16 12/11/16 10:31 11:00 11:14 Temperature 98.8 F Pulse Rate 90 85 Respiratory 22 14 16 Rate Blood Pressure Blood Pressure 194/122 [Left] O2 Sat by Pulse 97 98 Oximetry 12/11/16 12/11/16 12/11/16 11:31 12:00 12:01 Temperature Pulse Rate 91 H 87 Respiratory 13 12 16 Rate Blood Pressure 185/122 188/121 Blood Pressure [Left] O2 Sat by Pulse 100 Oximetry 12/11/16 12:30 Temperature Pulse Rate 99 H Respiratory 16 Rate Blood Pressure 213/125 Blood Pressure [Left] O2 Sat by Pulse Oximetry Lab Results 12/11/16 12/11/16 Range/Units 10:14 10:14 WBC 7.6 (4.5-11.0) K/mm3 RBC 2.85 L (3.65-5.03) M/mm3 Hgb 8.6 L (11.8-15.2) gm/dl Hct 26.5 L (35.5-45.6) % MCV 93 (84-94) fl MCH 30 (28-32) pg MCHC 32 (32-34) % RDW 18.1 H (13.2-15.2) % Plt Count 112 L (140-440) K/mm3 Lymph % (Auto) 3.7 L (13.4-35.0) % [place] % (Auto) 7.2 (0.0-7.3) % Eos % (Auto) 4.2 (0.0-4.3) % Baso % (Auto) 0.6 (0.0-1.8) % Lymph # 0.3 L (1.2-5.4) K/mm3 [place] # 0.5 (0.0-0.8) K/mm3 Eos # 0.3 (0.0-0.4) K/mm3 Baso # 0.0 (0.0-0.1) K/mm3 Seg Neutrophils % 84.3 H (40.0-70.0) % Seg Neutrophils # 6.4 (1.8-7.7) K/mm3 Sodium 142 (137-145) mmol/L Potassium 4.1 (3.6-5.0) mmol/L Chloride 100.5 (98-107) mmol/L Carbon Dioxide 24 (22-30) mmol/L Anion Gap 22 mmol/L BUN 46 H (9-20) mg/dL Creatinine 10.1 H (0.8-1.5) mg/dL Estimated GFR 7 ml/min BUN/Creatinine Ratio 4.55 % Glucose 108 H (75-100) mg/dL Calcium 9.2 (8.4-10.2) mg/dL Troponin T 0.017 (0.00-0.029) ng/mL - EKG Data -: EKG Interpreted by Me EKG shows normal: sinus rhythm - EKG Data When compared to previous EKG there are: changes noted 12/11/16 13:14 Normal sinus, 90 bpm, left axis deviation, atrial enlargement, T-wave inversions V5 and V6, abnormal EKG, not morphologically consistent with STEMI, QTC 421 ms, when compared to prior EKG from 10/28/2016, lateral T-wave inversions are new, otherwise appears unchanged - Radiology Data Radiology results: report reviewed, image reviewed Noncontrast CT scan of the brain is negative. X-ray demonstrates pulmonary vascular congestion, cardiomegaly. CT scan of the chest demonstrates ill-defined mass and confluent infiltrate, in the upper lobe, differential diagnosis includes bilateral diffuse pneumonia, pulmonary hemorrhage or pulmonary edema, among others - Medical Decision Making Differential diagnosis: Hypertensive urgency/emergency, congestive heart failure ,, pneumonitis, pneumothorax, hemothorax,, migraine headache, tension headache, cluster headache acute coronary syndrome Assessment and plan: The 89-year-old male who complains of generalized headache , has hypertension, chest wall pain were a Vas-Cath was recently removed, and a complaint of hemoptysis. He is afebrile with marked hypertension and required hydralazine and labetalol. He has a GCS of 15, with an NIH score of 0, and his clinical history and exam are not consistent with subarachnoid hemorrhage. A noncontrast CT scan of the brain was negative, EKG demonstrated nonspecific changes in the lateral leads. Has chronic anemia, and chronic renal insufficiency, with an appropriate potassium level. The case was discussed with the pairer on-call, Dr. Berger, who is going to arrange for emergent dialysis. The CT scan of the chest demonstrates pneumonitis versus pulmonary edema versus pneumonia. By clinical history and exam, I suspect the patient is volume overloaded, and I clinically do not suspect pneumonia at this time. The patient is going to get dialysis quite shortly, then he can be reexamined after his dialysis. The case was discussed with the hospital physician, Dr. Correa, who accepts the patient to his service. , Critical care attestation.: If time is entered above; I have spent that time in minutes in the direct care of this critically ill patient, excluding procedure time. ED Disposition Clinical Impression: ESRD (end stage renal disease), Accelerated hypertension, Fluid overload, T wave inversion in EKG, Headache Pulmonary edema Qualifiers: Chronicity: acute Qualified Code(s): J81.0 - Acute pulmonary edema Disposition: 09 OP ADMIT IP TO THIS HOSP Is pt being admited?: Yes Does the pt Need Aspirin: Yes Condition: Stable
--- NOTE | 2016-12-11 11:59 | Admit Criteria Form ---
Admission Criteria Documentation: HYPERTENSION Clinical Indications for Admission to Inpatient Care ( pitka's point/check or initial the applicable condition/criteria) Admission is indicated for 1 or more of the following(1)(2)(3)(4)(5)(6)(7)(8)(9) (10): [ X]I. Hypertensive emergency, with evidence of acute and progressing target organ disease as indicated by 1 or more of the following: [ ]a) Hypertensive encephalopathy (e.g., confusion, altered mental status) (11) [ ]b) Cerebral infarction [ ]c) Intracranial hemorrhage [ ]d) Myocardial ischemia or infarction [X ]e) Heart failure (eg. Pulmonary edema) [ ]f) Aortic dissection [ ]g) Increased creatinine (new) with reduction of more than 50% in estimated glomerular filtration rate from baseline [ ]h) Seizure [ ]i) Papilledema [ ]j) Retinal hemorrhage [ ]k) Microangiopathic hemolytic anemia [ ]l) Other significant finding secondary to hypertension [ ]II. Adrenergic or sympathomimetic crisis (e.g., severe hypertension due to pheochromocytoma crisis, cocaine, phencyclindine, or amphetamine intoxication, or clonidine withdrawal) [ ]III. Severe hypertension (SBP greater than 180 mmHg or DBP greater than 110 mmHg or greater than the 95th percentile for age, gender, and height in pediatric patients) that cannot be controlled (e.g., to SBP less than 160 mmHg and DBP less than 100 mmHg in adults) by treatment with oral medication in emergency department or observation care (12) Extended stay beyond goal length of staymay be needed for(21)(22): [ ]a) Persistent hypertensive encephalopathy [ ]b) Continuation of pulmonary edema [ ]c) Recurring or persistent severe hypertension [ ]d) Target organ damage (eg, angina, stroke, aortic dissection) The original [employer] content created by [employer] has been revised. The portions of the content which have been revised are identified through the use of italic text or in bold, and [employer] has neither reviewed nor approved the modified material. All other unmodified content is copyright [employer]. Please see references footnoted in the original [employer] edition 2016 Admission Criteria Met: Yes
--- NOTE | 2016-12-11 12:53 | Consultation ---
History of Present Illness - Reason for Consult Consult date: 12/11/16 end stage renal disease, hyperkalemia Requesting physician: TWIN IQBAL - History of Present Illness 40 yo with ESRD, HTN on hd q mwf presents to ed with SOB, [place], chest discomfort and discolored sputum Past History Past Medical History: anemia, dialysis, ESRD, hypertension, renal failure Past Surgical History: Other (dialysis access placement) Social history: denies: IV drug use Family history: hypertension Medications and Allergies Allergies Allergy/AdvReac Type Severity Reaction Status Date / Time No Known Allergies Allergy Unverified 05/26/15 13:53 Home Medications Medication Instructions Recorded Confirmed Last Taken Type Carvedilol [Coreg] 25 mg PO BID tablet 10/14/16 12/11/16 12/11/16 Rx cloNIDine [Catapres] 0.3 mg PO Q8HR 30 Days 10/21/16 12/11/16 12/11/16 Rx hydrALAZINE [Apresoline TAB] 100 mg PO TID 10/28/16 12/11/16 12/11/16 History Active Meds: Active Medications Sodium Chloride (Nacl 0.9%) 100 mls @ 999 mls/hr IV SYLVAIN PRN PRN Reason: Hypotension Review of Systems Constitutional: fatigue, weakness, malaise Respiratory: cough, cough with sputum, excessive sputum, hemoptysis, shortness of breath, dyspnea on exertion, congestion, pleurisy Exam - Vital Signs Vital signs: Vital Signs Temp Pulse Resp BP Pulse Ox 98.8 F 90 22 194/122 97 12/11/16 10:31 12/11/16 10:31 12/11/16 10:31 12/11/16 10:31 12/11/16 10:31 - Physical Exam Narrative exam: General appearance: well-developed, well-nourished, appears stated age EENT: PERRL, mucous membranes moist Neck: no JVD, no thyromegaly, no carotid bruit, supple Respiratory: Present: Rales (fine basal crackles) Cardiology: regular, normal heart rate Gastrointestinal: normoactive bowel sounds, tenderness (mild diffuse tenderness. No rebound or guarding) Integumentary: no rash, other (AV fistula in his left upper arm. Good bruit and thrill.) Results - Lab Results 12/11/16 10:12/11/16 10:14 Most recent lab results Calcium 9.2 mg/dL (8.4-10.2) 12/11/16 10:14 Assessment and Plan Assessment: * End stage renal disease on HD MWF * chest pain * sob * Pleurtic pain * Hypertension * Anemia secondary to ESRD * Secondary hyperparathyroidism Plan: * Continue hemodialysis MWF - UF as tolerated * Empiric abx; cough suppressant ordered * CXR reviewed--vascular congestion * Await blood cx * Resume home antiHTN medications * Renal diet * Epogen with dialysis
[2016-12-11] MEDS ORDERED: NACL 0.9% 100 ML IV PRN ×2 (13:00→17:01)
--- NOTE | 2016-12-11 13:05 | Cat Scan Report ---
CT HEAD WITHOUT CONTRAST INDICATION: Headache, hypertension. COMPARISON: 05/20/2016. FINDINGS: Noncontrast head CT demonstrates normal ventricles and sulci without acute or recent infarct, hemorrhage, mass effect or midline shift. 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 No abnormal extra-axial fluid collections. Posterior fossa structures and basilar cisterns appear within normal limits. Symmetric eye globes. Some motion artifact. Slight right maxillary and ethmoid sinus mucosal thickening. Clear remainder imaged paranasal sinuses and mastoid air cells. Intact calvarium. Normal overlying scalp soft tissues. CONCLUSION: No acute intracranial CT abnormality, as described. Thank you for the opportunity to participate in this patient's care.
[2016-12-11] MEDS ORDERED: ZOFRAN ONE (13:09)
[2016-12-11] MEDS ORDERED: ZOFRAN IV ONE (13:09)
[2016-12-11] MEDS ORDERED: NORMODYNE IV ONE ×2 (13:09)
--- NOTE | 2016-12-11 13:13 | Cat Scan Report ---
CT scan of chest without IV contrast: History: Chest pain. Findings: No endobronchial mass identified. No mediastinal mass or adenopathy. No pleural or precordial effusion. Pleural thickening bilaterally. There is ill-defined mass/confluent infiltrate measuring 2.7 cm in diameter noted at the left upper lobe. Seen in series 2 image 113. Bilateral diffuse groundglass lungs with patchy airspace opacities. Impression: Bilateral diffuse pneumonia, pulmonary hemorrhage or pulmonary edema among others.
[2016-12-11] MEDS ORDERED: BABY ASPIRIN PO ONE (13:18)
[2016-12-11] MEDS ORDERED: DILAUDID ONE (13:31)
[2016-12-11] MEDS ORDERED: DILAUDID IV ONE (13:54)
[2016-12-11] MEDS ORDERED: NACL 0.9 (PRIMING MACHINE ONLY DIALYSIS) MC ONE (16:40)
[2016-12-11] MEDS ORDERED: APRESOLINE IV PRN ×2 (16:54→17:37)
--- NOTE | 2016-12-11 17:18 | History and Physical Report ---
History of Present Illness Date of examination: 12/11/16 Date of admission: 12/11/16 13:18 Chief complaint: Blood in sputum Increasing SOB History of present illness: [place]: 40 y/o male comes in for Rt side chest pain increasing SOB and Blood in sputum which has resolved.No fwver or chills.Had HD on regular basis.Orthopnea present.Had vascath removed recently from Rt chest Past Medical Hx - Past Medical History Hx Hypertension: Yes Hx Congestive Heart Failure: No Hx Diabetes: No Hx Renal Disease: Yes (HD today through right permacath) Surgical History Additional Surgical History: Hernia, vas cath - Social History Smoking Status: Never Smoker Famm history Htn - Medications Home Medications: Home Medications Medication Instructions Recorded Confirmed Last Taken Type Carvedilol [Coreg] 25 mg PO BID tablet 10/14/16 12/11/16 12/11/16 Rx cloNIDine [Catapres] 0.3 mg PO Q8HR 30 Days 10/21/16 12/11/16 12/11/16 Rx hydrALAZINE [Apresoline TAB] 100 mg PO TID 10/28/16 12/11/16 12/11/16 History Past History Past Medical History: anemia, dialysis, ESRD, hypertension, renal failure Past Surgical History: Other (dialysis access placement) Social history: denies: IV drug use Family history: hypertension Medications and Allergies Allergies Allergy/AdvReac Type Severity Reaction Status Date / Time No Known Allergies Allergy Unverified 05/26/15 13:53 Home Medications Medication Instructions Recorded Confirmed Last Taken Type Carvedilol [Coreg] 25 mg PO BID tablet 10/14/16 12/11/16 12/11/16 Rx cloNIDine [Catapres] 0.3 mg PO Q8HR 30 Days 10/21/16 12/11/16 12/11/16 Rx hydrALAZINE [Apresoline TAB] 100 mg PO TID 10/28/16 12/11/16 12/11/16 History Active Meds: Active Medications Clonidine HCl (Catapres) 0.1 mg PO SYLVAIN ONE Stop: 12/11/16 18:01 Hydralazine HCl (Apresoline) 10 mg IV Q3H PRN PRN Reason: Hypertension Sodium Chloride (Nacl 0.9%) 100 mls @ 999 mls/hr IV SYLVAIN PRN PRN Reason: Hypotension Levofloxacin/Dextrose (Levaquin 250mg/50ml) 250 mg in 50 mls @ 50 mls/hr IV Q48H JOANN PRN Reason: Protocol Sodium Chloride (Nacl 0.9%) 100 mls @ 999 mls/hr IV SYLVAIN PRN PRN Reason: Hypotension Review of Systems All systems: negative Exam - Constitutional Vitals: Temp Pulse Resp BP Pulse Ox 99.0 F 78 20 189/112 100 12/11/16 15:35 12/11/16 17:00 12/11/16 16:00 12/11/16 17:00 12/11/16 11:31 General appearance: Present: no acute distress, well-nourished - EENT Eyes: Present: PERRL ENT: hearing intact, clear oral mucosa - Neck Neck: Present: supple, normal ROM - Respiratory Respiratory effort: normal Respiratory: bilateral: CTA - Cardiovascular Heart Sounds: Present: S1 & S2. Absent: rub, click - Extremities Extremities: pulses symmetrical, No edema Peripheral Pulses: within normal limits - Abdominal General gastrointestinal: Present: soft, non-tender, non-distended, normal bowel sounds Male genitourinary: Present: normal - Integumentary Integumentary: Present: clear, warm, dry - Musculoskeletal Musculoskeletal: gait normal, strength equal bilaterally - Psychiatric Psychiatric: appropriate mood/affect, intact judgment & insight - Neurologic Neurologic: CNII-XII intact, moves all extremities Results - Labs CBC & Chem 7: 12/11/16 10:14 12/11/16 10:14 Labs: Laboratory Last Values WBC 7.6 K/mm3 (4.5-11.0) 12/11/16 10:14 RBC 2.85 M/mm3 (3.65-5.03) L 12/11/16 10:14 Hgb 8.6 gm/dl (11.8-15.2) L 12/11/16 10:14 Hct 26.5 % (35.5-45.6) L 12/11/16 10:14 MCV 93 fl (84-94) 12/11/16 10:14 MCH 30 pg (28-32) 12/11/16 10:14 MCHC 32 % (32-34) 12/11/16 10:14 RDW 18.1 % (13.2-15.2) H 12/11/16 10:14 Plt Count 112 K/mm3 (140-440) L 12/11/16 10:14 Lymph % (Auto) 3.7 % (13.4-35.0) L 12/11/16 10:14 [place] % (Auto) 7.2 % (0.0-7.3) 12/11/16 10:14 Eos % (Auto) 4.2 % (0.0-4.3) 12/11/16 10:14 Baso % (Auto) 0.6 % (0.0-1.8) 12/11/16 10:14 Lymph # 0.3 K/mm3 (1.2-5.4) L 12/11/16 10:14 B[place] # 0.5 K/mm3 (0.0-0.8) 12/11/16 10:14 Eos # 0.3 K/mm3 (0.0-0.4) 12/11/16 10:14 Baso # 0.0 K/mm3 (0.0-0.1) 12/11/16 10:14 Seg Neutrophils % 84.3 % (40.0-70.0) H 12/11/16 10:14 Seg Neutrophils # 6.4 K/mm3 (1.8-7.7) 12/11/16 10:14 Sodium 142 mmol/L (137-145) 12/11/16 10:14 Potassium 4.1 mmol/L (3.6-5.0) 12/11/16 10:14 Chloride 100.5 mmol/L (98-107) 12/11/16 10:14 Carbon Dioxide 24 mmol/L (22-30) 12/11/16 10:14 Anion Gap 22 mmol/L 12/11/16 10:14 BUN 46 mg/dL (9-20) H 12/11/16 10:14 Creatinine 10.1 mg/dL (0.8-1.5) H 12/11/16 10:14 Estimated GFR 7 ml/min 12/11/16 10:14 BUN/Creatinine Ratio 4.55 % 12/11/16 10:14 Glucose 108 mg/dL (75-100) H 12/11/16 10:14 Calcium 9.2 mg/dL (8.4-10.2) 12/11/16 10:14 Troponin T 0.020 ng/mL (0.00-0.029) 12/11/16 15:40 NT-Pro-B Natriuret Pep 18299 pg/mL (0-450) H 12/11/16 10:14 Short CBC 12/11/16 Range/Units 10:14 WBC 7.6 (4.5-11.0) K/mm3 Hgb 8.6 L (11.8-15.2) gm/dl Hct 26.5 L (35.5-45.6) % Plt Count 112 L (140-440) K/mm3 BMP 12/11/16 10:14 Sodium 142 Potassium 4.1 Chloride 100.5 Carbon Dioxide 24 BUN 46 H Creatinine 10.1 H Glucose 108 H Calcium 9.2 Cardiac Enzymes 12/11/16 12/11/16 Range/Units 10:14 15:40 Troponin T 0.017 0.020 (0.00-0.029) ng/mL - Imaging and Cardiology EKG: report reviewed Chest x-ray: report reviewed (Pulmonary vascular congestion) Assessment and Plan Advance Directives: Yes (Full code) VTE prophylaxis?: Chemical Plan of care discussed with patient/family: Yes - Patient Problems (1) Hypertensive emergency Current Visit: Yes Status: Acute Plan to address problem: BP very high. Added Losartan 100 mg po qd Suspect Non compliance sec to excess fluid intake. PAtient to be counselled about Limited fluid intakeAlso IV Hydralazine 10 mg qh prn (2) Pulmonary edema Current Visit: Yes Status: Acute Qualifiers: Chronicity: acute Qualified Code(s): J81.0 - Acute pulmonary edema Plan to address problem: [place] sputum maybe explained [place] [id number] Will get ECHO for EF Also patient to limit his Fluid intake Increase ultrafiltration (3) ESRD (end stage renal disease) Current Visit: Yes Status: Chronic Plan to address problem: Cont HD (4) DVT prophylaxis Current Visit: Yes Status: Acute Plan to address problem: on heparin
[2016-12-11] MEDS ORDERED: DILAUDID IV PRN (17:24)
[2016-12-11] MEDS ORDERED: MILK OF MAGNESIA PO PRN (17:24)
[2016-12-11] MEDS ORDERED: TYLENOL PO PRN (17:24)
[2016-12-11] MEDS ORDERED: DULCOLAX PR PRN (17:24)
[2016-12-11] MEDS ORDERED: PERCOCET 5/325 PO PRN (17:24)
[2016-12-11] MEDS ORDERED: ZOFRAN IV PRN (17:24)
[2016-12-11] MEDS ORDERED: CATAPRES PO ONE (18:00)
[2016-12-11] MEDS ORDERED: APRESOLINE PO SCH (18:00)
[2016-12-11] MEDS: APRESOLINE PO SCH (19:42)
[2016-12-11] MEDS: CATAPRES PO SCH (19:42)
[2016-12-11] MEDS: LEVAQUIN 250MG/50ML 250 MG/50 ML BAG IV SCH (21:16)
[2016-12-11] MEDS: APRESOLINE IV PRN ×2 (21:17→23:26)
[2016-12-11] MEDS: DILAUDID IV PRN (21:17)
[2016-12-11] MEDS: COREG PO SCH (22:02)
[2016-12-11] MEDS: BENADRYL IV PRN (22:27)
[2016-12-12] MEDS: DILAUDID IV PRN ×4 (01:28→22:52)
[2016-12-12] MEDS: APRESOLINE IV PRN (01:29)
[2016-12-12] MEDS: BENADRYL IV PRN ×3 (04:41→22:52)
[2016-12-12] MEDS: CATAPRES PO SCH ×3 (06:23→22:51)
[2016-12-12] MEDS: APRESOLINE PO SCH ×3 (06:24→22:52)
--- NOTE | 2016-12-12 10:45 | Progress Note ---
Assessment and Plan Assessment: * End stage renal disease on HD MWF * chest pain * sob * Pleurtic pain * Hypertension * Anemia secondary to ESRD * Secondary hyperparathyroidism Plan: * Continue hemodialysis MWF - UF as tolerated * CXR reviewed--vascular congestion * hd again today * Resume home antiHTN medications * Renal diet * Epogen with dialysis Subjective Date of service: 12/12/16 Principal diagnosis: esrd Interval history: resting well in bed today Objective - Exam Narrative Exam: General appearance: well-developed, well-nourished, appears stated age EENT: PERRL, mucous membranes moist Neck: no JVD, no thyromegaly, no carotid bruit, supple Respiratory: Present: Rales (fine basal crackles) Cardiology: regular, normal heart rate Gastrointestinal: normoactive bowel sounds, tenderness (mild diffuse tenderness. No rebound or guarding) Integumentary: no rash, other (AV fistula in his left upper arm. Good bruit and thrill.) - Vital Signs Vital signs: Vital Signs - 12hr 12/11/16 12/11/16 12/12/16 23:26 23:51 03:03 Temperature 99.1 F 99.1 F Pulse Rate 87 Pulse Rate [ 70 80 Left] Respiratory 20 20 Rate Blood Pressure 195/124 Blood Pressure 196/124 186/113 [Left Arm] O2 Sat by Pulse 94 Oximetry 12/12/16 12/12/16 04:38 05:40 Temperature 98.8 F Pulse Rate 80 Pulse Rate [ 78 Left] Respiratory 18 Rate Blood Pressure Blood Pressure 165/97 [Left Arm] O2 Sat by Pulse 99 Oximetry - Lab 12/11/16 10:14 12/11/16 10:14 Most recent lab results Calcium 9.2 mg/dL (8.4-10.2) 12/11/16 10:14
[2016-12-12] MEDS: COREG PO SCH ×2 (13:23→22:51)
[2016-12-12] MEDS: COZAAR PO SCH ×2 (13:23→13:26)
--- NOTE | 2016-12-12 14:17 | Progress Note ---
Assessment and Plan Assessment and plan: Acute respiratory failure due to pulmonary edema, fluid overload from ESRD. Started on Oxygen. CT Chest shows pulmonary edema versus hemorrhage. questionable left upper lobe mass/infiltrate. Will consult [employer]. Oxygen saturation 98% on 2 L per minute oxygen Acute pulmonary edema/Fluid overload. ESRD on hemodialysis. Nephrology managing. Had dialysis here yesterday. Hemoptysis. may be due to pulmonary edema. Pulmonology consulted DVT prophylaxis with SCDs. No anticaogulation because of hemoptysis. Full code History Interval history: Shortness of breath Hemoptysis Hospitalist Physical - Physical exam Narrative exam: Gen Appearance: Not in acute distress, HEENT: normocephalic, atraumatic Neck: supple, no JVD Lungs: Bilateral crackles, no wheezes Heart: S1 and S2 regular, no murmurs or gallop Abdomen: Soft, non tender, non distended normal bowel sounds, Extremity: No edema, no clubbing or cyanosis Neuro : Awake,alert,oriented, moves all ext Psych : normal mood - Constitutional Vitals: Temp Pulse Resp BP Pulse Ox 99.0 F 76 20 178/113 98 12/12/16 12:00 12/12/16 12:00 12/12/16 12:00 12/12/16 12:00 12/12/16 12:00 General appearance: Present: no acute distress, well-nourished Results - Labs CBC & Chem 7: 12/11/16 10:14 12/11/16 10:14 Labs: Laboratory Last Values WBC 7.6 K/mm3 (4.5-11.0) 12/11/16 10:14 RBC 2.85 M/mm3 (3.65-5.03) L 12/11/16 10:14 Hgb 8.6 gm/dl (11.8-15.2) L 12/11/16 10:14 Hct 26.5 % (35.5-45.6) L 12/11/16 10:14 MCV 93 fl (84-94) 12/11/16 10:14 MCH 30 pg (28-32) 12/11/16 10:14 MCHC 32 % (32-34) 12/11/16 10:14 RDW 18.1 % (13.2-15.2) H 12/11/16 10:14 Plt Count 112 K/mm3 (140-440) L 12/11/16 10:14 Lymph % (Auto) 3.7 % (13.4-35.0) L 12/11/16 10:14 [place] % (Auto) 7.2 % (0.0-7.3) 12/11/16 10:14 Eos % (Auto) 4.2 % (0.0-4.3) 12/11/16 10:14 Baso % (Auto) 0.6 % (0.0-1.8) 12/11/16 10:14 Lymph # 0.3 K/mm3 (1.2-5.4) L 12/11/16 10:14 [place] # 0.5 K/mm3 (0.0-0.8) 12/11/16 10:14 Eos # 0.3 K/mm3 (0.0-0.4) 12/11/16 10:14 Baso # 0.0 K/mm3 (0.0-0.1) 12/11/16 10:14 Seg Neutrophils % 84.3 % (40.0-70.0) H 12/11/16 10:14 Seg Neutrophils # 6.4 K/mm3 (1.8-7.7) 12/11/16 10:14 Sodium 142 mmol/L (137-145) 12/11/16 10:14 Potassium 4.1 mmol/L (3.6-5.0) 12/11/16 10:14 Chloride 100.5 mmol/L (98-107) 12/11/16 10:14 Carbon Dioxide 24 mmol/L (22-30) 12/11/16 10:14 Anion Gap 22 mmol/L 12/11/16 10:14 BUN 46 mg/dL (9-20) H 12/11/16 10:14 Creatinine 10.1 mg/dL (0.8-1.5) H 12/11/16 10:14 Estimated GFR 7 ml/min 12/11/16 10:14 BUN/Creatinine Ratio 4.55 % 12/11/16 10:14 Glucose 108 mg/dL (75-100) H 12/11/16 10:14 Calcium 9.2 mg/dL (8.4-10.2) 12/11/16 10:14 Troponin T 0.020 ng/mL (0.00-0.029) 12/11/16 15:40 NT-Pro-B Natriuret Pep 96073 pg/mL (0-450) H 12/11/16 10:14
--- NOTE | 2016-12-12 15:54 | Consultation ---
History of Present Illness Consult date: 12/12/16 Requesting physician: TWIN ROJO Reason for consult: pneumonia, abnormal CXR/CT History of present illness: PULMONARY/CCM CONSULT NOTE (Full dictation # [id number]) Please see dictated notes for full details Past History Past Medical History: anemia, dialysis, ESRD, hypertension, renal failure Past Surgical History: Other (dialysis access placement) Social history: denies: IV drug use Family history: hypertension Medications and Allergies Allergies Allergy/AdvReac Type Severity Reaction Status Date / Time No Known Allergies Allergy Unverified 05/26/15 13:53 Home Medications Medication Instructions Recorded Confirmed Last Taken Type Carvedilol [Coreg] 25 mg PO BID #60 tablet 12/13/16 Unknown Rx Losartan [Cozaar] 100 mg PO QDAY #30 tablet 12/13/16 Unknown Rx cloNIDine [Catapres] 0.3 mg PO Q8HR 30 Days 12/13/16 Unknown Rx hydrALAZINE [Apresoline TAB] 100 mg PO TID #90 tab 12/13/16 Unknown Rx Active Meds: Active Medications Acetaminophen (Tylenol) 650 mg PO Q4H PRN PRN Reason: Pain MILD(1-3)/Fever >100.5/WOOD Bisacodyl (Dulcolax) 10 mg AK QDAY PRN PRN Reason: Constipation unrelieved by MOM Carvedilol (Coreg) 25 mg PO BID JOANN Last Admin: 12/12/16 13:23 Dose: 25 mg Clonidine HCl (Catapres) 0.3 mg PO Q8HR JOANN Last Admin: 12/12/16 13:23 Dose: 0.3 mg Diphenhydramine HCl (Benadryl) 25 mg IV Q6H PRN PRN Reason: Itching Last Admin: 12/12/16 09:25 Dose: 25 mg Hydralazine HCl (Apresoline) 100 mg PO Q8HR JOANN Last Admin: 12/12/16 13:23 Dose: 100 mg Hydralazine HCl (Apresoline) 10 mg IV Q2H PRN PRN Reason: Hypertension Last Admin: 12/12/16 01:29 Dose: 10 mg Hydromorphone HCl (Dilaudid) 1 mg IV Q3H PRN PRN Reason: Pain , Severe (7-10) Last Admin: 12/12/16 09:25 Dose: 1 mg Sodium Chloride (Nacl 0.9%) 100 mls @ 999 mls/hr IV SYLVAIN PRN PRN Reason: Hypotension Levofloxacin/Dextrose (Levaquin 250mg/50ml) 250 mg in 50 mls @ 50 mls/hr IV Q48H JOANN PRN Reason: Protocol Last Admin: 12/11/16 21:16 Dose: 50 mls/hr Sodium Chloride (Nacl 0.9%) 100 mls @ 999 mls/hr IV SYLVAIN PRN PRN Reason: Hypotension Losartan Potassium (Cozaar) 100 mg PO QDAY [facility] Last Admin: 12/12/16 13:26 Dose: Not Given Magnesium Hydroxide (Milk Of Magnesia) 30 ml PO Q4H PRN PRN Reason: Constipation Ondansetron HCl (Zofran) 4 mg IV Q8H PRN PRN Reason: N/V unrelieved by [place]win Last Admin: 12/11/16 22:37 Dose: 4 mg Oxycodone/Acetaminophen (Percocet 5/325) 1 tab PO Q6H PRN PRN Reason: Pain, Moderate (4-6) Last Admin: 12/11/16 19:58 Dose: 1 tab Physical Examination Vital signs: Vital Signs Temp Pulse Resp BP Pulse Ox 98.8 F 90 22 194/122 97 12/11/16 10:31 12/11/16 10:31 12/11/16 10:31 12/11/16 10:31 12/11/16 10:31 Results - Laboratory Findings CBC and BMP: 12/11/16 10:14 12/11/16 10:14
[2016-12-13] MEDS: CATAPRES PO SCH ×4 (05:16→22:20)
[2016-12-13] MEDS: APRESOLINE PO SCH ×3 (05:17→22:02)
--- NOTE | 2016-12-13 10:10 | XRay Report ---
AP CHEST: HISTORY: Shortness of breath, followup congestive changes. Pulmonary venous congestion has essentially resolved since 12/11/16. Mild to moderate cardiomegaly is stable. Pleural effusions have resolved or decreased in size. No evidence for pneumonia, CHF or pneumothorax. IMPRESSION: Persistent cardiomegaly. Resolved pulmonary venous congestion and small pleural effusions since the exam 2 days ago.
[2016-12-13] MEDS: COZAAR PO SCH (10:30)
[2016-12-13] MEDS: COREG PO SCH ×2 (10:31→22:01)
--- NOTE | 2016-12-13 11:11 | Discharge Summary ---
Providers - Providers Date of Admission: 12/11/16 13:18 Date of discharge: 12/13/16 Attending physician: MADISYN BAUGH MD 12/12/16 11:49 Consult to Physician [CONS] Routine Consulting Provider: DAVID DOW Reason For Exam: Shortness of brath, abnormal CT chest Place consult to:: Dr. Dow Notified:: Savita SALAZAR Phone number called:: Was contact made?: Yes If yes, spoke with:: Voicemail with consult infl left through automated service Time called:: 12:42 Primary care physician: FILM NUMBERER Hospitalization Reason for admission: SHORTNESS OF BREATH Condition: Stable Hospital course: Patient is a 40 y/o male comes in for Rt side chest pain increasing SOB and Blood in sputum which has resolved. Patient has had recent admissions for the same and on admission this time was also noted to have elevated blood pressure. I'll follow discussion with the patient reports that he has been out of his medication since Wednesday preceding the day of admission which is about 3 days he denied any fever, chills. He reports compliance with his hemodialysis. He did have orthopnea. Her Vas-Cath which was recently removed from the right chest. Imaging studies were concerning for pulmonary edema which following dialysis this resolved. There was also concern of possible hemorrhage about patient's clinical symptoms that improved significantly his hemoglobin has remained stable no other ptosis was noted. Pulmonary was consulted. There was no indication for cardiology consultation on echocardiogram is pending. 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 His symptoms are significantly improved and his stable for discharge. He reports resolution of chest pain. * Hypertensive emergency * Acute on chronic respiratory failure secondary to pulmonary edema * Pulmonary edema * Acute decompensation of diastolic congestive heart failure * Anemia of chronic kidney disease * Atypical chest pain * Secondary hyperparathyroidism Disposition: [id number] HOME UNDER [facility] Time spent for discharge: 35 MINS Core Measure Documentation - Palliative Care Palliative Care/ Comfort Measures: Not Applicable - Core Measures Any of the following diagnoses?: heart failure - VTE Discharge Requirements Deep Vein Thrombosis/Pulmonary Embolism Present on Admission: No - Heart Failure Discharge Requirements JOSE/ARB for LVSD if EF <40%: Yes Beta yasmin at discharge: Yes Exam - Physical Exam Narrative exam: VITAL SIGNS: Reviewed. GENERAL: The patient appeared well nourished and normally developed. Vital signs as documented. HEAD: No signs of head trauma. EYES: Pupils are equal. Extraocular motions intact. EARS: Hearing grossly intact. MOUTH: Oropharynx is normal. NECK: No adenopathy, no JVD. CHEST: Chest with diminished breath sounds bilaterally. No wheezes, rales, or rhonchi. CARDIAC: Regular rate and rhythm. S1 and S2, without murmurs, gallops, or rubs. VASCULAR: No Edema. Peripheral pulses normal and equal in all extremities. ABDOMEN: Soft, without detectable tenderness. No sign of distention. No rebound or guarding, and no masses palpated. Bowel Sounds normal. MUSCULOSKELETAL: Good range of motion of all major joints. Extremities without clubbing, cyanosis or edema. NEUROLOGIC EXAM: Alert and oriented x 3. No focal sensory or strength deficits. Speech normal. Follows commands. PSYCHIATRIC: Mood normal. SKIN: No rash or lesions. - Constitutional Vitals: Temp Pulse Resp BP Pulse Ox 99.1 F 72 20 144/92 100 12/13/16 10:04 12/13/16 10:04 12/13/16 10:04 12/13/16 10:04 12/13/16 10:56 Plan Activity: advance as tolerated, fall precautions Diet: low salt, renal Special Instructions: record daily BP diary, other (MUST BE COMPLIANT WITH MEDS) Additional Instructions: FOLLOW WITH PRIMARY TURNAROUND ENGINEER AND NO STRENOUS ACTIVITY UNTIL SEEN BY TURNAROUND ENGINEER Follow up with: KATIE PAIZ MD [Staff Physician] - 7 Days BASILIA DELGADO MD [Staff Physician] - 7 Days PRIMARY MD KELSEA [Primary Care Provider] - 3-5 Days BERTHA ELY MD [Staff Physician] - 7 Days Prescriptions: Carvedilol [Coreg] 25 mg PO BID #60 tablet cloNIDine [Catapres] 0.3 mg PO Q8HR 30 Days hydrALAZINE [Apresoline TAB] 100 mg PO TID #90 tab Losartan [Cozaar] 100 mg PO QDAY #30 tablet
--- NOTE | 2016-12-13 13:16 | Progress Note ---
Assessment and Plan Assessment: * End stage renal disease on HD MWF * chest pain * sob * Pleurtic pain * Hypertension * Anemia secondary to ESRD * Secondary hyperparathyroidism Plan: * Continue hemodialysis MWF - UF as tolerated * CXR reviewed--vascular congestion * Resume home antiHTN medications * Renal diet * Epogen with dialysis * ok to dc home from renal standpoint Subjective Date of service: 12/13/16 Principal diagnosis: esrd Interval history: resting well in bed today Objective - Exam Narrative Exam: General appearance: well-developed, well-nourished, appears stated age EENT: PERRL, mucous membranes moist Neck: no JVD, no thyromegaly, no carotid bruit, supple Respiratory: Present: Rales (fine basal crackles) Cardiology: regular, normal heart rate Gastrointestinal: normoactive bowel sounds, tenderness (mild diffuse tenderness. No rebound or guarding) Integumentary: no rash, other (AV fistula in his left upper arm. Good bruit and thrill.) - Vital Signs Vital signs: Vital Signs - 12hr 12/13/16 12/13/16 12/13/16 04:53 05:00 10:04 Temperature 99.7 F H 99.1 F Pulse Rate 60 Pulse Rate [ 73 72 Left] Respiratory 20 20 Rate Blood Pressure 150/73 144/92 [Left Arm] O2 Sat by Pulse 98 99 Oximetry 12/13/16 10:56 Temperature Pulse Rate Pulse Rate [ Left] Respiratory Rate Blood Pressure [Left Arm] O2 Sat by Pulse 100 Oximetry - Lab 12/11/16 10:14 12/11/16 10:14 Most recent lab results Calcium 9.2 mg/dL (8.4-10.2) 12/11/16 10:14
--- NOTE | 2016-12-13 15:31 | Progress Note ---
Subjective Date of service: 12/13/16 Principal diagnosis: esrd Interval history: Seen and examined at bedside; 24 hour events reviewed; nursing and respiratory care staff consulted; no adverse overnight events reported to me; Objective Vital Signs - 12hr 12/13/16 12/13/16 12/13/16 04:53 05:00 10:04 Temperature 99.7 F H 99.1 F Pulse Rate 60 Pulse Rate [ 73 72 Left] Respiratory 20 20 Rate Blood Pressure 150/73 144/92 [Left Arm] O2 Sat by Pulse 98 99 Oximetry 12/13/16 10:56 Temperature Pulse Rate Pulse Rate [ Left] Respiratory Rate Blood Pressure [Left Arm] O2 Sat by Pulse 100 Oximetry CBC and BMP: 12/11/16 10:14 12/11/16 10:14
[2016-12-13] MEDS: BENADRYL IV PRN ×2 (16:04→22:08)
[2016-12-13] MEDS: DILAUDID IV PRN ×2 (16:04→22:09)
[2016-12-13] MEDS: LEVAQUIN 250MG/50ML 250 MG/50 ML BAG IV SCH (16:24)
--- NOTE | 2016-12-13 17:27 | Progress Note ---
Assessment and Plan - Patient Problems (1) Acute on chronic respiratory failure with hypoxemia Current Visit: Yes Status: Acute Plan to address problem: - CXR and clinically much improved - continue HD/UF for control of pulmonary edema - send sputum for C&S - wean oxygen to keep O2 Sats > 94% - prn BIPAP (2) Bacteremia due to coagulase-negative Staphylococcus Current Visit: Yes Status: Acute Plan to address problem: - 1 of 2 bottles however in the setting of possible SBE and recent tona-cath removal as well as a CT chest that may suggest hematogenous spread we need to review CXR report - get ID opinion re: treatment - follow sputum culture result (3) End-stage renal disease on hemodialysis Onset Date: 09/04/15 Current Visit: No Status: Chronic Plan to address problem: - continue M/W/F and per technical professional - may benefit from pulling more fluid during sessions as he is retaining a lot of fluid in his lungs despite the absence of pulmonary edema Subjective Date of service: 12/13/16 Principal diagnosis: Acute on Chronic Hypoxemic Respiratory Failure; Hemoptysis Interval history: Seen and examined at bedside; 24 hour events reviewed; nursing and respiratory care staff consulted; no adverse overnight events reported to me; still appears a little uncomfortable but overall improved; denies acute chest pains or increased SOB but still with intermittent left upper chest wall pain Objective Vital Signs - 12hr 12/13/16 12/13/16 12/13/16 10:04 10:56 16:07 Temperature 99.1 F Pulse Rate 70 Pulse Rate [ 72 Left] Respiratory 20 Rate Blood Pressure 129/83 Blood Pressure 144/92 [Left Arm] O2 Sat by Pulse 99 100 Oximetry Constitutional: alert, appears uncomfortable Eyes: non-icteric ENT: oropharynx moist Neck: supple, no lymphadenopathy Effort: mildly labored Ascultation: Bilateral: rales (bases) Cardiovascular: regular rate and rhythm Gastrointestinal: normoactive bowel sounds, soft, non-tender, non-distended Integumentary: normal Extremities: no cyanosis, no edema, pulses normal, no ischemia or petechiae Neurologic: normal mental status, non-focal exam, pupils equal and round, motor strength normal and Psychiatric: mood appropriate, affect normal CBC and BMP: 12/11/16 10:14 12/11/16 10:14 Chest x-ray: image reviewed
--- NOTE | 2016-12-13 17:37 | Progress Note ---
Assessment and Plan Assessment and plan: Patient is a 40 y/o male comes in for Rt side chest pain increasing SOB and Blood in sputum which has resolved. Patient has had recent admissions for the same and on admission this time was also noted to have elevated blood pressure. I'll follow discussion with the patient reports that he has been out of his medication since Wednesday preceding the day of admission which is about 3 days he denied any fever, chills. He reports compliance with his hemodialysis. He did have orthopnea. His Vas-Cath which was recently removed from the right chest. Imaging studies were concerning for pulmonary edema which following dialysis this resolved. There was also concern of possible hemorrhage and also some hematogenous spreed and an ill defined mass, ID and pulmonary were consulted. Patient does not have any fever. echocardiogram is pending to ensure no endocarditis. 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 Plan was for discharge but after review by Pulmonary it was agreed that patient be monitored overnigt till we get the ECHO and ID consult His symptoms are significantly improved He reports resolution of chest pain. * Hypertensive emergency * Possible underlying Pneumonitis vs pulmonary mass * Acute on chronic respiratory failure secondary to pulmonary edema * Pulmonary edema * Acute decompensation of diastolic congestive heart failure * Anemia of chronic kidney disease * Atypical chest pain * Secondary hyperparathyroidism Plan Continue current treatment plan Continue abx Await ECHO ID consult dvt/gi PROPHY PLAN DISCUSSED WITH THE PATIENT. History Interval history: Patient seen and exmained, in no acute distress, no fever, no nausea or vomiting , reports improvement. Hospitalist Physical - Physical exam Narrative exam: VITAL SIGNS: Reviewed. GENERAL: The patient appeared well nourished and normally developed. Vital signs as documented. HEAD: No signs of head trauma. EYES: Pupils are equal. Extraocular motions intact. EARS: Hearing grossly intact. MOUTH: Oropharynx is normal. NECK: No adenopathy, no JVD. CHEST: Chest with diminished breath sounds bilaterally. No wheezes, rales, or rhonchi. CARDIAC: Regular rate and rhythm. S1 and S2, without murmurs, gallops, or rubs. VASCULAR: No Edema. Peripheral pulses normal and equal in all extremities. ABDOMEN: Soft, without detectable tenderness. No sign of distention. No rebound or guarding, and no masses palpated. Bowel Sounds normal. MUSCULOSKELETAL: Good range of motion of all major joints. Extremities without clubbing, cyanosis or edema. NEUROLOGIC EXAM: Alert and oriented x 3. No focal sensory or strength deficits. Speech normal. Follows commands. PSYCHIATRIC: Mood normal. SKIN: No rash or lesions. - Constitutional Vitals: Temp Pulse Resp BP Pulse Ox 99.1 F 70 20 129/83 100 12/13/16 10:04 12/13/16 16:07 12/13/16 10:04 12/13/16 16:07 12/13/16 10:56 General appearance: Present: no acute distress, well-nourished Results - Labs CBC & Chem 7: 12/11/16 10:14 12/11/16 10:14 Labs: Laboratory Last Values WBC 7.6 K/mm3 (4.5-11.0) 12/11/16 10:14 RBC 2.85 M/mm3 (3.65-5.03) L 12/11/16 10:14 Hgb 8.6 gm/dl (11.8-15.2) L 12/11/16 10:14 Hct 26.5 % (35.5-45.6) L 12/11/16 10:14 MCV 93 fl (84-94) 12/11/16 10:14 MCH 30 pg (28-32) 12/11/16 10:14 MCHC 32 % (32-34) 12/11/16 10:14 RDW 18.1 % (13.2-15.2) H 12/11/16 10:14 Plt Count 112 K/mm3 (140-440) L 12/11/16 10:14 Lymph % (Auto) 3.7 % (13.4-35.0) L 12/11/16 10:14 Catron % (Auto) 7.2 % (0.0-7.3) 12/11/16 10:14 Eos % (Auto) 4.2 % (0.0-4.3) 12/11/16 10:14 Baso % (Auto) 0.6 % (0.0-1.8) 12/11/16 10:14 Lymph # 0.3 K/mm3 (1.2-5.4) L 12/11/16 10:14 Catron # 0.5 K/mm3 (0.0-0.8) 12/11/16 10:14 Eos # 0.3 K/mm3 (0.0-0.4) 12/11/16 10:14 Baso # 0.0 K/mm3 (0.0-0.1) 12/11/16 10:14 Seg Neutrophils % 84.3 % (40.0-70.0) H 12/11/16 10:14 Seg Neutrophils # 6.4 K/mm3 (1.8-7.7) 12/11/16 10:14 Sodium 142 mmol/L (137-145) 12/11/16 10:14 Potassium 4.1 mmol/L (3.6-5.0) 12/11/16 10:14 Chloride 100.5 mmol/L (98-107) 12/11/16 10:14 Carbon Dioxide 24 mmol/L (22-30) 12/11/16 10:14 Anion Gap 22 mmol/L 12/11/16 10:14 BUN 46 mg/dL (9-20) H 12/11/16 10:14 Creatinine 10.1 mg/dL (0.8-1.5) H 12/11/16 10:14 Estimated GFR 7 ml/min 12/11/16 10:14 BUN/Creatinine Ratio 4.55 % 12/11/16 10:14 Glucose 108 mg/dL (75-100) H 12/11/16 10:14 Calcium 9.2 mg/dL (8.4-10.2) 12/11/16 10:14 Troponin T 0.020 ng/mL (0.00-0.029) 12/11/16 15:40 NT-Pro-B Natriuret Pep 58658 pg/mL (0-450) H 12/11/16 10:14 - Imaging and Cardiology Chest x-ray: image reviewed (IMPROVED Congestion)
[2016-12-14] MEDS: DILAUDID IV PRN ×4 (04:36→19:12)
[2016-12-14] MEDS: BENADRYL IV PRN ×3 (04:36→19:12)
[2016-12-14] MEDS: CATAPRES PO SCH ×2 (05:54→14:24)
[2016-12-14] MEDS: APRESOLINE PO SCH ×2 (05:54→14:24)
--- NOTE | 2016-12-14 09:40 | Progress Note ---
Assessment and Plan Assessment: * End stage renal disease on HD MWF * chest pain * sob * Pleurtic pain * Hypertension * Anemia secondary to ESRD * Secondary hyperparathyroidism Plan: * Continue hemodialysis MWF - UF as tolerated * CXR reviewed--vascular congestion * Resume home antiHTN medications * Renal diet * Epogen with dialysis * ok to dc home from renal standpoint Subjective Date of service: 12/14/16 Principal diagnosis: Acute on Chronic Hypoxemic Respiratory Failure; Hemoptysis Interval history: resting well in bed today Objective - Exam Narrative Exam: General appearance: well-developed, well-nourished, appears stated age EENT: PERRL, mucous membranes moist Neck: no JVD, no thyromegaly, no carotid bruit, supple Respiratory: Present: Rales (fine basal crackles) Cardiology: regular, normal heart rate Gastrointestinal: normoactive bowel sounds, tenderness (mild diffuse tenderness. No rebound or guarding) Integumentary: no rash, other (AV fistula in his left upper arm. Good bruit and thrill.) - Vital Signs Vital signs: Vital Signs - 12hr 12/13/16 12/13/16 12/14/16 22:01 22:16 00:33 Temperature 98.1 F Pulse Rate 65 65 Pulse Rate [ 69 Left] Respiratory 24 Rate Blood Pressure 135/80 135/80 Blood Pressure 139/65 [Left Arm] O2 Sat by Pulse 95 Oximetry 12/14/16 12/14/16 12/14/16 04:41 05:00 05:54 Temperature 98.4 F Pulse Rate 62 61 Pulse Rate [ 61 Left] Respiratory 20 Rate Blood Pressure 125/76 Blood Pressure 125/76 [Left Arm] O2 Sat by Pulse 100 Oximetry 12/14/16 12/14/16 08:39 08:53 Temperature 99.3 F Pulse Rate Pulse Rate [ 60 Left] Respiratory 18 Rate Blood Pressure Blood Pressure 136/77 [Left Arm] O2 Sat by Pulse 98 100 Oximetry - Lab 12/11/16 10:14 12/11/16 10:14 Most recent lab results Calcium 9.2 mg/dL (8.4-10.2) 12/11/16 10:14
[2016-12-14] MEDS: COREG PO SCH (10:40)
[2016-12-14] MEDS: COZAAR PO SCH (11:13)
--- NOTE | 2016-12-14 11:49 | Discharge Summary ---
Providers - Providers Date of Admission: 12/11/16 13:18 Date of discharge: 12/14/16 Attending physician: MADISYN BAUGH MD 12/12/16 11:49 Consult to Physician [CONS] Routine Consulting Provider: DAVID DOW Reason For Exam: Shortness of brath, abnormal CT chest Place consult to:: Dr. Dow Notified:: Savita SALAZAR Phone number called:: Was contact made?: Yes If yes, spoke with:: Voicemail with consult infl left through automated service Time called:: 12:42 12/13/16 17:29 Consult to Physician [CONS] Routine Consulting Provider: ALIYA MARTÍNEZ Reason For Exam: Pneumonia Place consult to:: Dr. 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 [employer] Hospitalization Condition: Stable Disposition: [id number]-06 HOME UNDER [facility] Time spent for discharge: 35 mins Core Measure Documentation - Palliative Care Palliative Care/ Comfort Measures: Not Applicable Exam - Constitutional Vitals: Temp Pulse Resp BP Pulse Ox 99.3 F 60 18 136/77 100 12/14/16 08:53 12/14/16 08:53 12/14/16 08:53 12/14/16 08:53 12/14/16 08:53 Plan Follow up with: KATIE PAIZ MD [Staff Physician] - 7 Days BERTHA ELY MD [Staff Physician] - 7 Days BASILIA DELGADO MD [Staff Physician] - 7 Days HEIDE ENAMORADO MD [Primary Care Provider] - 3-5 Days Prescriptions: Carvedilol [Coreg] 25 mg PO BID #60 tablet cloNIDine [Catapres] 0.3 mg PO Q8HR 30 Days hydrALAZINE [Apresoline TAB] 100 mg PO TID #90 tab Levofloxacin [Levaquin] 750 mg PO QDAY #7 tablet Losartan [Cozaar] 100 mg PO QDAY #30 tablet
--- NOTE | 2016-12-14 14:28 | Consultation ---
History of Present Illness - Reason for Consult Consult date: 12/14/16 Pneumonia Requesting physician: MADISYN BAUGH - History of Present Illness Mr. Shaikh is a 40-year-old man with ESRD on HD who presented with shortness of breath, cough and questionable hemoptysis. He says that he has had a right subclavian permcath since ~2014 and this was removed within the past 1-2 weeks. He is now dialyzed via a left arm AV fistula. He has no localizing symptoms to his right chest, but says he has had left-sided chest/ chest wall pain. A chest radiograph on admission showed diffuse infiltrates questionable for pneumonia vs. pulmonary edema or hemorrhage. He denies missed HD sessions. With dialysis and empiric Levaquin, his symptoms have improved and a repeat chest radiograph shows clearing of the previously seen infiltrates. A sputum sample was collected , but was discarded as being unsuitable for culture. He remains on oral Levaquin monotherapy. ID consultation is requested for further treatment recommendations. Past History Past Medical History: anemia, dialysis, ESRD, hypertension, renal failure Past Surgical History: Other (dialysis access placement) Social history: denies: IV drug use Family history: hypertension Medications and Allergies Allergies Allergy/AdvReac Type Severity Reaction Status Date / Time No Known Allergies Allergy Unverified 05/26/15 13:53 Home Medications Medication Instructions Recorded Confirmed Last Taken Type Carvedilol [Coreg] 25 mg PO BID #60 tablet 12/13/16 Unknown Rx Levofloxacin [Levaquin] 750 mg PO QDAY #7 tablet 12/13/16 Unknown Rx Losartan [Cozaar] 100 mg PO QDAY #30 tablet 12/13/16 Unknown Rx cloNIDine [Catapres] 0.3 mg PO Q8HR 30 Days 12/13/16 Unknown Rx hydrALAZINE [Apresoline TAB] 100 mg PO TID #90 tab 12/13/16 Unknown Rx Active Meds: Active Medications Acetaminophen (Tylenol) 650 mg PO Q4H PRN PRN Reason: Pain MILD(1-3)/Fever >100.5/WOOD Bisacodyl (Dulcolax) 10 mg [place] QDAY PRN PRN Reason: Constipation unrelieved by MOM Carvedilol (Coreg) 25 mg PO BID [facility] Last Admin: 12/14/16 10:40 Dose: 25 mg Clonidine HCl (Catapres) 0.3 mg PO Q8HR [facility] Last Admin: 12/14/16 05:54 Dose: Not Given Diphenhydramine HCl (Benadryl) 25 mg IV Q6H PRN PRN Reason: Itching Last Admin: 12/14/16 11:00 Dose: 25 mg Hydralazine HCl (Apresoline) 100 mg PO Q8HR [facility] Last Admin: 12/14/16 05:54 Dose: Not Given Hydralazine HCl (Apresoline) 10 mg IV Q2H PRN PRN Reason: Hypertension Last Admin: 12/12/16 01:29 Dose: 10 mg Hydromorphone HCl (Dilaudid) 1 mg IV Q3H PRN PRN Reason: Pain , Severe (7-10) Last Admin: 12/14/16 11:12 Dose: 1 mg Sodium Chloride (Nacl 0.9%) 100 mls @ 999 mls/hr IV SYLVAIN PRN PRN Reason: Hypotension Sodium Chloride (Nacl 0.9%) 100 mls @ 999 mls/hr IV SYLVAIN PRN PRN Reason: Hypotension Levofloxacin (Levaquin) 250 mg PO Q48H [facility] Losartan Potassium (Cozaar) 100 mg PO QDAY [facility] Last Admin: 12/14/16 11:13 Dose: Not Given Magnesium Hydroxide (Milk Of Magnesia) 30 ml PO Q4H PRN PRN Reason: Constipation Ondansetron HCl (Zofran) 4 mg IV Q8H PRN PRN Reason: N/V unrelieved by Reglan Last Admin: 12/11/16 22:37 Dose: 4 mg Oxycodone/Acetaminophen (Percocet 5/325) 1 tab PO Q6H PRN PRN Reason: Pain, Moderate (4-6) Last Admin: 12/11/16 19:58 Dose: 1 tab Review of Systems All systems: negative Constitutional: sweats, malaise, no fever, no chills Cardiovascular: chest pain, shortness of breath, no palpitations Respiratory: cough, cough with sputum, hemoptysis, no wheezing Gastrointestinal: no abdominal pain, no nausea, no vomiting, no diarrhea Integumentary: no rash, no pruritis Physical Examination - Constitutional Vitals: Vital Signs Temp Pulse Resp BP Pulse Ox 98.8 F 61 16 131/82 97 12/14/16 13:18 12/14/16 13:18 12/14/16 13:18 12/14/16 13:18 12/14/16 13:18 Temperature -Last 24 Hours Temperature 98.8 F Temperature 99.3 F Temperature 98.4 F Temperature 98.1 F Temperature 98.2 F Temperature 98.2 F General appearance: Present: no acute distress, well-nourished, other (watching TV in HD unit) - EENT Eyes: Absent: scleral icterus, conjunctival injection - Neck Neck: Present: supple - Respiratory Respiratory: bilateral: rales (trace), negative: rhonchi - Cardiovascular Rhythm: regular Heart Sounds: Present: S1 & S2 - Extremities Extremities: No edema - Abdominal General gastrointestinal: Present: soft, non-tender, non-distended - Integumentary Integumentary: Present: clear. Absent: rash - Psychiatric Psychiatric: appropriate mood/affect - Neurologic Neurologic: no focal deficits, moves all extremities Results - Labs CBC & Chem 7: 12/11/16 10:14 12/11/16 10:14 Labs: Microbiology 12/11/16 15:40 Peripheral/Venous Blood Culture - Final Coag Negative Staphylococcus - Imaging and Cardiology Chest x-ray: report reviewed (bilateral diffuse pneumonia vs. pulmonary hemorrhage vs. pulmonary edema) Assessment and Plan - Patient Problems (1) Pneumonia Current Visit: Yes Status: Acute Qualifiers: Pneumonia type: due to unspecified organism Aspiration pneumonia type: A Laterality: bilateral Lung location: unspecified part of lung Qualified Code (s): J18.9 - Pneumonia, unspecified organism Plan to address problem: 1. Possible pneumonia, but expect symptoms are related more to pulmonary edema. 2. Complete total 5-7 days of empiric Levaquin. 3. Will try to obtain a sputum sample for culture, which may help to guide any necessary treatment adjustments. (2) Positive blood culture Current Visit: Yes Status: Acute Plan to address problem: Specimen contaminant. No further treatment is recommended. (3) Pulmonary edema Current Visit: Yes Status: Acute Qualifiers: Chronicity: acute Qualified Code(s): J81.0 - Acute pulmonary edema Plan to address problem: 1. Improved with HD.
[2016-12-14] MEDS ORDERED: NACL 0.9 (PRIMING MACHINE ONLY DIALYSIS) MC ONE (16:56)
[2016-12-14 19:57] VITALS: BP 133/87
[2016-12-15] MEDS ORDERED: LEVAQUIN PO SCH (10:00)
== END 2016-12-14 19:56 | disposition home health service (06) | DRG 291 ==
LOC: ED 09:53 → 4A 13:18
PROVIDERS: ADMIT Internal Medicine; ATTEND Internal Medicine
PROC: 5A1D60Z (ICD-10-PCS; principal; 2016-12-11)
DX: I13.2 Hypertensive heart and chronic kidney disease with heart failure and with stage 5 chronic kidney disease, or end stage renal disease (principal); N18.6 End stage renal disease; J18.9 Pneumonia, unspecified organism; I50.33 Acute on chronic diastolic (congestive) heart failure; J96.21 Acute and chronic respiratory failure with hypoxia; I16.1 Hypertensive emergency; D63.1 Anemia in chronic kidney disease; B95.7 Other staphylococcus as the cause of diseases classified elsewhere; Z79.899 Other long term (current) drug therapy; Z82.49 Family history of ischemic heart disease and other diseases of the circulatory system; Z99.2 Dependence on renal dialysis
CPT/HCPCS: 36415; 70450; 71010; 71250; 80048; 83880; 84484; 85025; 87040; 93005; 93010; 93306; 94760; 96374; 96375; 99406; J0360; J1170; J1200; J1956; J2270; J2405; J7030

== ENCOUNTER 2017-01-04 12:46 | Inpatient (IN) | payer MEDICAID ==
--- NOTE | 2017-01-04 14:21 | Emergency Department Report ---
ED Chest Pain HPI - General Chief Complaint: Chest Pain Stated Complaint: CHEST PAIN Time Seen by Provider: 01/04/17 13:51 Source: EMS Mode of arrival: Stretcher Limitations: No Limitations - History of Present Illness Initial Comments: 41-year-old male with a history of end-stage renal disease presents to the emergency department with left arm and chest pain after having a stent placed in his dialysis access. Patient states he developed pain about 15 minutes after the procedure. Is now here with complaints of left arm and chest pain along with significant itching. -: Sudden Onset: other (15 minutes after procedure) Pain Location: left chest Pain Radiation: LUE, other (left chest) Severity: moderate Severity scale (0 -10): 10 Quality: tightness Consistency: constant Worsens With: movement Context: recent surgery re: denies: nausea, vomting, diaphoresis - Related Data Previous Rx's Medication Instructions Recorded Last Taken Type Carvedilol [Coreg] 25 mg PO BID #60 tablet 12/13/16 Unknown Rx Levofloxacin [Levaquin] 750 mg PO QDAY #7 tablet 12/13/16 Unknown Rx Losartan [Cozaar] 100 mg PO QDAY #30 tablet 12/13/16 Unknown Rx cloNIDine [Catapres] 0.3 mg PO Q8HR 30 Days 12/13/16 Unknown Rx hydrALAZINE [Apresoline TAB] 100 mg PO TID #90 tab 12/13/16 Unknown Rx Allergies Allergy/AdvReac Type Severity Reaction Status Date / Time No Known Allergies Allergy Unverified 05/26/15 13:53 Heart Score - HEART Score History: Slightly suspicious EKG: Non-specific Age: < 45 Risk factors: 1-2 risk factors Troponin: < normal limit HEART Score: 2 - Critical Actions Critical Actions: 0-3 pts:0.9-1.7%risk of adverse cardiac event.Candidate for discharge ED Review of Systems ROS: Stated complaint: CHEST PAIN Other details as noted in HPI Comment: All other systems reviewed and negative Constitutional: denies: chills, fever Eyes: denies: eye pain, eye discharge, vision change ENT: denies: ear pain, throat pain Respiratory: denies: cough, shortness of breath, wheezing Cardiovascular: chest pain. denies: palpitations Endocrine: no symptoms reported Gastrointestinal: denies: abdominal pain, nausea, diarrhea Genitourinary: denies: urgency, dysuria Musculoskeletal: other (left arm swelling). denies: back pain, joint swelling, arthralgia Skin: denies: rash, lesions Neurological: denies: headache, weakness, paresthesias Psychiatric: denies: anxiety, depression Hematological/Lymphatic: denies: easy bleeding, easy bruising ED Past Medical Hx - Past Medical History Hx Hypertension: Yes Hx Congestive Heart Failure: No Hx Diabetes: No Hx Renal Disease: Yes (HD today through right permacath) Hx Seizures: No Hx Asthma: No Hx COPD: No Hx HIV: No - Surgical History Additional Surgical History: Hernia, vas cath - Family History Family history: renal disease - Social History Smoking Status: Unknown if ever smoked Substance Use Type: None - Medications Home Medications: Home Medications Medication Instructions Recorded Confirmed Last Taken Type Carvedilol [Coreg] 25 mg PO BID #60 tablet 12/13/16 Unknown Rx Levofloxacin [Levaquin] 750 mg PO QDAY #7 tablet 12/13/16 Unknown Rx Losartan [Cozaar] 100 mg PO QDAY #30 tablet 12/13/16 Unknown Rx cloNIDine [Catapres] 0.3 mg PO Q8HR 30 Days 12/13/16 Unknown Rx hydrALAZINE [Apresoline TAB] 100 mg PO TID #90 tab 12/13/16 Unknown Rx ED Physical Exam - General Limitations: No Limitations General appearance: alert, in no apparent distress - Head Head exam: Present: atraumatic, normocephalic - Eye Eye exam: Present: normal appearance - ENT ENT exam: Present: mucous membranes moist - Neck Neck exam: Present: normal inspection - Respiratory Respiratory exam: Present: normal lung sounds bilaterally. Absent: respiratory distress - Cardiovascular Cardiovascular Exam: Present: regular rate, normal rhythm, other (left chest wall with tenderness and swelling). Absent: systolic murmur, diastolic murmur, rubs, gallop - GI/Abdominal GI/Abdominal exam: Present: soft, normal bowel sounds - Rectal Rectal exam: Present: deferred - Extremities Exam Extremities exam: Present: normal inspection, full ROM, other - Expanded Upper Extremity Exam Left Shoulder Exam: Present: normal inspection, tenderness, swelling Upper Arm exam: Present: tenderness, swelling, other (significant thrill in the left upper arm) Elbow exam: Present: normal inspection Forearm Wrist exam: Present: normal inspection Vascular: Present: normal capillary refill - Back Exam Back exam: Present: normal inspection - Neurological Exam Neurological exam: Present: alert, oriented X3 - Psychiatric Psychiatric exam: Present: normal affect, normal mood - Skin Skin exam: Present: warm, dry, intact, normal color. Absent: rash ED Course Vital Signs 01/04/17 01/04/17 01/04/17 13:28 13:30 13:44 Temperature 98.8 F Pulse Rate 74 72 Respiratory 16 18 Rate Blood Pressure 187/122 O2 Sat by Pulse 99 100 Oximetry 01/04/17 01/04/17 01/04/17 13:45 14:00 14:15 Temperature Pulse Rate 71 76 71 Respiratory 17 18 11 L Rate Blood Pressure 190/121 190/128 192/123 O2 Sat by Pulse 97 97 97 Oximetry 01/04/17 01/04/17 01/04/17 15:35 15:45 16:00 Temperature Pulse Rate 75 71 73 Respiratory 14 16 16 Rate Blood Pressure 192/123 192/123 195/124 O2 Sat by Pulse 100 100 100 Oximetry ED Medical Decision Making - Lab Data Result diagrams: 01/04/17 15:14 01/04/17 15:19 Laboratory Results - last 24 hr 01/04/17 01/04/17 01/04/17 15:14 15:19 15:19 WBC 5.9 RBC 2.76 L Hgb 8.7 L Hct 26.9 L MCV 97 H MCH 31 MCHC 32 RDW 20.0 H Plt Count 98 L Lymph % (Auto) 7.4 L [place] % (Auto) 6.0 Eos % (Auto) 5.2 H Baso % (Auto) 0.5 Lymph # 0.4 L [place] # 0.4 Eos # 0.3 Baso # 0.0 Seg Neutrophils % 80.9 H Seg Neutrophils # 4.8 PT 16.8 H INR 1.29 H Sodium 141 Potassium 5.1 H Chloride 103.4 Carbon Dioxide 20 L Anion Gap 23 BUN 72 H Creatinine 12.9 H Estimated GFR 5 BUN/Creatinine Ratio 5.58 Glucose 81 Calcium 9.3 Total Bilirubin 0.80 AST 24 ALT 26 Alkaline Phosphatase 70 Total Protein 6.9 Albumin 4.0 Albumin/Globulin Ratio 1.4 - EKG Data -: EKG Interpreted by Ia - EKG Data 01/04/17 14:21 Sinus 73 left axis deviation and T wave inversion in 1 and aVL and V6 no ST segment changes. - Medical Decision Making 41-year-old male with recent placement of stent in his dialysis access here with sudden onset of pain. He has some swelling and tenderness around the site. This is likely due to bleeding. He has palpable thrills my suspicion is that the axis is open. Plan to discuss case with IR or vascular and will reassess. Vascular surgery assessed patient and does not feel that he has an occlusion. The ultrasound finding is likely due to the device that was implanted itself. I discussed the case with the patient outpatient dialysis surgeon twice. He is comfortable with the plan. Dr. Love evaluated the patient in the emergency department. I discussed case with hospitalist and will admit the patient to the hospitalist service. Nephrology will be consulted. 6:01 PM discussed case with Dr. Ferguson from nephrology. I advised her that I do not feel the patient needs emergent dialysis. Although he requires some slight oxygen he is not clinically volume overloaded to the point that he needs emergent dialysis. Portions of this chart were dictated with dictation software. There may be dictation errors contained within this note. Critical care attestation.: If time is entered above; I have spent that time in minutes in the direct care of this critically ill patient, excluding procedure time. ED Disposition Clinical Impression: Hypertension, ESRD (end stage renal disease) Disposition: -09 OP ADMIT IP TO THIS HOSP Is pt being admited?: Yes Condition: Stable Instructions: Hypertension (ED) Referrals: PRIMARY CARE, [Primary Care Provider] - 3-5 Days
[2017-01-04] MEDS ORDERED: BENADRYL IV ONE (14:24)
[2017-01-04] MEDS ORDERED: MORPHINE IV ONE ×2 (14:24→18:25)
--- NOTE | 2017-01-04 15:29 | XRay Report ---
Portable chest: Chest pain. The heart is big. There is mild vascular congestion and what may represent mild perivascular edema in the right chest. There are no effusions and no infiltrates noted. Compared to prior study of December 13 the vascular pattern appears slightly more prominent. Impression: Probable mild CHF.
[2017-01-04 15:34] LABS: Hematocrit 26.9 % (35.5-45.6); Hemoglobin 8.7 gm/dl (11.8-15.2); Mean Corpuscular HGB Conc 32 % (32-34); Mean Corpuscular Hemoglobin 31 pg (28-32); Mean Corpuscular Volume 97 fl (84-94); Red Blood Count 2.76 M/mm3 (3.65-5.03); White Blood Count 5.9 K/mm3 (4.5-11.0)
[2017-01-04 15:37] LABS: Platelet Count 98 K/mm3 (140-440)
[2017-01-04 15:38] LABS: Eosinophils % (Auto) 5.2 % (0.0-4.3)
[2017-01-04 15:39] LABS: Basophils % (Auto) 0.5 % (0.0-1.8)
[2017-01-04 15:43] LABS: INR 1.29 (0.87-1.13)
[2017-01-04 15:49] LABS: Albumin/Globulin Ratio 1.4 %; BUN/Creatinine Ratio 5.58; Bilirubin,Total 0.8 mg/dL (0.1-1.2); Calcium 9.3 mg/dL (8.4-10.2); Total Protein 6.9 g/dL (6.3-8.2)
[2017-01-04 15:50] LABS: Chloride 103.4 mmol/L (98-107); Potassium 5.1 mmol/L (3.6-5.0)
[2017-01-04] MEDS ORDERED: VISTARIL ONE (16:00)
[2017-01-04] MEDS ORDERED: ATARAX PO ONE ×2 (16:05→17:00)
--- NOTE | 2017-01-04 17:44 | Consultation ---
History of Present Illness - Reason for Consult Consult date: 01/04/17 Chest pain after Fistulagram with stent Requesting physician: ROBIN ORTEGA - History of Present Illness The patient is a 41 yo male with a history of ESRD on HD through a Left Brachiocephalic AVF. He was having difficulty with access and underwent a fistulagram with stent placement in the cephalic arch. He states that he had pain at the site of the stent immediately after the procedure and was told that this would improve. He also complains of shortness of breath however he states that this was present prior to the procedure as he is on home oexygen and has not had dialysis in over 5 days. He has no other complaints at this time. Past History Past Medical History: COPD, ESRD, heart failure, hypertension Past Surgical History: Other (Left AVF, FGA, Permacath) Social history: no significant social history Family history: no significant family history Medications and Allergies Allergies Allergy/AdvReac Type Severity Reaction Status Date / Time No Known Allergies Allergy Unverified 05/26/15 13:53 Home Medications Medication Instructions Recorded Confirmed Last Taken Type Carvedilol [Coreg] 25 mg PO BID #60 tablet 12/13/16 Unknown Rx Levofloxacin [Levaquin] 750 mg PO QDAY #7 tablet 12/13/16 Unknown Rx Losartan [Cozaar] 100 mg PO QDAY #30 tablet 12/13/16 Unknown Rx cloNIDine [Catapres] 0.3 mg PO Q8HR 30 Days 12/13/16 Unknown Rx hydrALAZINE [Apresoline TAB] 100 mg PO TID #90 tab 12/13/16 Unknown Rx Review of Systems All systems: negative Exam - Constitutional Vitals: Temp Pulse Resp BP Pulse Ox 98.8 F 73 16 195/124 100 01/04/17 13:44 01/04/17 16:00 01/04/17 16:00 01/04/17 16:00 01/04/17 16:00 General appearance: Present: no acute distress - Neck Neck: Present: supple - Respiratory Respiratory effort: normal, other (on nasal cannula) - Cardiovascular Rhythm: regular - Extremities Extremities: no ischemia, pulses intact (palpable left radial pulse) Extremity abnormal: other (left avf with palpable thrill, no evidenceof pseudoaneurysm) - Abdominal General gastrointestinal: Present: soft, non-distended Male genitourinary: Present: deferred - Rectal Rectal Exam: deferred - Integumentary Integumentary: Present: clear - Musculoskeletal Musculoskeletal: strength equal bilaterally Results - Labs CBC & Chem 7: 01/04/17 15:14 01/04/17 15:19 Labs: Abnormal lab results 01/04/17 01/04/17 01/04/17 Range/Units 15:14 15:19 15:19 RBC 2.76 L (3.65-5.03) M/mm3 Hgb 8.7 L (11.8-15.2) gm/dl Hct 26.9 L (35.5-45.6) % MCV 97 H (84-94) fl RDW 20.0 H (13.2-15.2) % Plt Count 98 L (140-440) K/mm3 Lymph % (Auto) 7.4 L (13.4-35.0) % Eos % (Auto) 5.2 H (0.0-4.3) % Lymph # 0.4 L (1.2-5.4) K/mm3 Seg Neutrophils % 80.9 H (40.0-70.0) % PT 16.8 H (12.2-14.9) Sec. INR 1.29 H (0.87-1.13) Potassium 5.1 H (3.6-5.0) mmol/L Carbon Dioxide 20 L (22-30) mmol/L BUN 72 H (9-20) mg/dL Creatinine 12.9 H (0.8-1.5) mg/dL - Imaging and Cardiology Venous US: other (Fistula duplex reviewed) Assessment and Plan The patient presented with chest pain at the site of a recently deployed Stent Graft. Pain is likely due to the procedure and will improve with time. The ultrasound demonstrates adequate flow in the fistula. There appears to be a flow void in the cephalic arch however this is due to the placement of s stent graft that is covered with PTFE. The PTFE (polytetrafluoroethylene) graft in unable to transmit the transmit the ultrasound beam secondary to air within the wall of the material. Once this fills with blood the flow within the graft is detect. This typically takes about a week. The flow both proximal to and distal to the graft is normal suggesting that the stent graft is widely patent. The patient is able to continue to receive dialysis through his current AVF with complications.
--- NOTE | 2017-01-04 18:13 | Admit Criteria Form ---
Admission Criteria Documentation: CHEST PAIN Clinical Indications for Admission to Inpatient Care (Place 'X' for any and all applicable criteria): Admission is indicated for chest pain and ANY ONE of the following(1)(2)(3)(4)(5 ): [ ]I. Angina with acute coronary syndrome (Also use Myocardial Infarction or Angina guideline) [ ]II. Hemodynamic instability [ ]III. Angina needing acute intervention as indicated by ALL of the following( 11)(12): [ ]a) Unstable angina is present as indicated by angina that is ANY ONE of the following: [ ]i) New onset [ ]ii) Nocturnal [ ]iii) Prolonged at rest [ ]iv) Progressive [ ]b) Angina warrants acute intervention as indicated by ANY ONE of the following: [ ]i) Recurrent angina (e.g, not responding as previously to treatment) [ ]ii) Angina at rest or with low-level activities despite initial medical therapy [ ]iii) New or presumably new ST-segment depression on ECG [ ]iv) Signs or symptoms of heart failure (eg, dyspnea, pulmonary edema) [ ]v) New or worsening mitral regurgitation [ ]vi) Hemodynamic instability [ ]vii) Dangerous arrhythmia (eg, sustained ventricular tachycardia) [ ]viii) History of percutaneous coronary intervention within 6 months [ ]ix) History of coronary artery bypass graft surgery [ ]x) SANDEEP risk score of 2 or greater[A] [ ]xi) History of Diabetes(14) [ ]xii) High-risk cardiac ischemia findings on noninvasive testing (e.g, echocardiogram, treadmill testing, nuclear scan) [ ]xiii) Chronic renal insufficiency (ie, estimated GFR less than 60 mL/min/1.732m) [ ]xiv) Left ventricular ejection fraction less than 40% [ ]IV. Evidence of MN (eg, cardiac biomarkers positive, ST-segment elevation on ECG) also use Myocardial Infarction Criteria Form. [ ]V. Pulmonary edema [ ]. Respiratory distress [ ]VII. Chest pain indicative of serious diagnosis other than coronary artery disease (eg, aortic dissection) [ ]VIII. Contraindications and/or Inappropriate clinical situations for Observational Care in patients with Chest Pain, when ANY ONE of the following is required: [ ]a) Patient with risk factor for pulmonary embolism, acute coronary syndrome and myocardial infarction (18) [ ]b) Patient with Pulmonary embolism require an average LOS of 4.3 days, therefore emergency department observation management is inappropriate 18,23 [ ]c) Painful condition/s in the elderly, have the highest rate of recidivism after emergency department observation management (10.8%) 20,21,22 [ ]d) Elevated cardiac biomarker requires intensive and exhaustive care (19) [ X]IX. General contraindications and/or Inappropriate clinical situations for Observational Care in patients with Chest Pain, when ANY ONE of the following is required: [X ]a) Prediction of prolongation of LOS based on ANY ONE of the following may be considered as a contraindication for observational care 2, 3, 4, 5, 6, 7, 8, 9, 10, 11 [ ]i) Age > 65 yrs. [X ]ii) Patient arriving by ambulance [ ]iii) Patient with high acuity [ ]iv) Patient requiring vital sign monitoring [ ]v) Patient on IV medication [X ]b) Systolic blood pressures 180mmHg 3,12 [ ]c) Patient with altered mental status including delirium and other alteration of consciousness, (3) [ ]d) Patient whose discharge disposition will be to a group home home or rehabilitation home should not be managed in Emergency Department Observation Unit. CMS rule requires 3 days hospital stay before such placement. 3,13 [ ]e) Patient with failure to thrive due to broad array of etiologies 3,16,17 [ ]f) Inability to ambulate 3,14 Extended stay beyond goal length of stay may be needed for (1)(28): [ ]a) Specific condition diagnosed after evaluation (eg, pulmonary embolism, aortic dissection) [ ]b) Unstable angina [ ]c) Continued suspicion of acute coronary syndrome with inability to complete needed cardiac evaluation (eg, patient clinically unable to undergo stress testing) [ ]d) Myocardial infarction (Contents from ANGINA and CHEST PAIN clinical indications for admission to inpatient care have been integrated in this form) The original [employer] content created by [employer] has been revised. The portions of the content which have been revised are identified through the use of italic text or in bold, and [email or web address] has neither reviewed nor approved the modified material. All other unmodified content is copyright [employer]. Please see references footnoted in the original [facility] ([employer] Limited edition 2016 Admission Criteria Met: Yes
[2017-01-04] MEDS ORDERED: PROVENTIL IH PRN (18:21)
[2017-01-04] MEDS ORDERED: DULCOLAX PR PRN (18:21)
[2017-01-04] MEDS ORDERED: ZOFRAN IV PRN (18:21)
[2017-01-04] MEDS ORDERED: ZOFRAN ONE (18:22)
[2017-01-04] MEDS ORDERED: MORPHINE ONE (18:22)
[2017-01-04] MEDS ORDERED: ZOFRAN IV ONE (18:26)
--- NOTE | 2017-01-04 19:25 | History and Physical Report ---
History of Present Illness Date of admission: 01/04/17 18:21 Chief complaint: My chest hurts History of present illness: 41 YO Male with ESRD on HD, HTN, presents to ED for evaluation. Pt states that he has experienced pain in his arm and chest. Pt states that symptoms begin 15 minutes after having dialysis access stent placed. Pain is 10/10, localized to left chest, worse with movement or arm or chest wall, relieved with non movement. Pt denies fever, chills, CP, Palpitations, NVD, Syncope, recent ill contacts, arm weakness, Trauma, leg swelling, calf pain, prolonged travel/ immobility, individual/family history of DVT/PE. Past History Past Medical History: COPD, ESRD, heart failure, hypertension Past Surgical History: Other (Left AVF, FGA, Permacath) Social history: single. denies: smoking, alcohol abuse, prescription drug abuse Family history: other (renal disease) Medications and Allergies Allergies Allergy/AdvReac Type Severity Reaction Status Date / Time No Known Allergies Allergy Unverified 05/26/15 13:53 Home Medications Medication Instructions Recorded Confirmed Last Taken Type Carvedilol [Coreg] 25 mg PO BID #60 tablet 12/13/16 Unknown Rx Levofloxacin [Levaquin] 750 mg PO QDAY #7 tablet 12/13/16 Unknown Rx Losartan [Cozaar] 100 mg PO QDAY #30 tablet 12/13/16 Unknown Rx cloNIDine [Catapres] 0.3 mg PO Q8HR 30 Days 12/13/16 Unknown Rx hydrALAZINE [Apresoline TAB] 100 mg PO TID #90 tab 12/13/16 Unknown Rx Active Meds: Active Medications Acetaminophen (Tylenol) 650 mg PO Q4H PRN PRN Reason: Pain MILD(1-3)/Fever >100.5/WOOD Albuterol (Proventil) 2.5 mg IH Q4HRT PRN PRN Reason: Shortness Of Breath Bisacodyl (Dulcolax) 10 mg MI QDAY PRN PRN Reason: Constipation unrelieved by MOM Magnesium Hydroxide (Milk Of Magnesia) 30 ml PO Q4H PRN PRN Reason: Constipation Ondansetron HCl (Zofran) 4 mg IV Q8H PRN PRN Reason: N/V unrelieved by Reglan Review of Systems All systems: negative Constitutional: no weight loss, no weight gain Ears, nose, mouth and throat: no ear pain, no ear discharge Cardiovascular: chest pain, no syncope, no lightheadedness, no shortness of breath Respiratory: no cough, no cough with sputum, no excessive sputum Gastrointestinal: no abdominal pain, no nausea, no vomiting Genitourinary Male: no hematuria, no flank pain Rectal: no pain Musculoskeletal: no neck stiffness, no neck pain Integumentary: no rash Neurological: no head injury, no paralysis Psychiatric: no anxiety, no memory loss Endocrine: no cold intolerance, no heat intolerance Hematologic/Lymphatic: no easy bruising, no easy bleeding Allergic/Immunologic: no urticaria Exam - Constitutional Vitals: Temp Pulse Resp BP Pulse Ox 98.8 F 73 16 195/124 100 01/04/17 13:44 01/04/17 16:00 01/04/17 16:00 01/04/17 16:00 01/04/17 16:00 General appearance: Present: mild distress - EENT Eyes: Present: PERRL ENT: hearing intact, clear oral mucosa - Neck Neck: Present: supple, normal ROM - Respiratory Respiratory effort: normal Respiratory: bilateral: CTA - Cardiovascular Heart Sounds: Present: S1 & S2. Absent: rub, click - Extremities Extremities: pulses symmetrical, No edema Extremity abnormal: edema (LUE edema, palpable thrill) Peripheral Pulses: within normal limits - Abdominal General gastrointestinal: Present: soft, non-tender, non-distended, normal bowel sounds Male genitourinary: Present: normal - Integumentary Integumentary: Present: clear, warm, dry - Musculoskeletal Musculoskeletal: gait normal, strength equal bilaterally - Psychiatric Psychiatric: appropriate mood/affect, intact judgment & insight - Neurologic Neurologic: CNII-XII intact, moves all extremities Results - Labs CBC & Chem 7: 01/04/17 15:14 01/04/17 15:19 Assessment and Plan - Patient Problems (1) Acute respiratory failure Current Visit: Yes Status: Acute Qualifiers: Respiratory failure complication: R Plan to address problem: Supplemental oxygen, nebulizer therapy, aspiration precautions, pulmonary toilet , NIPPV as clinically indicated, (2) Metabolic acidosis Current Visit: Yes Status: Acute Plan to address problem: supportive care, dialysis as per renal team (3) Anemia in ESRD (end-stage renal disease) Current Visit: Yes Status: Acute Plan to address problem: Epogen as per renal team, (4) ESRD (end stage renal disease) on dialysis Current Visit: No Status: Acute Plan to address problem: Nephrology consulted for dialysis, s/p access evaluated by vascular surgery (5) Hypertensive urgency Current Visit: No Status: Acute Plan to address problem: Monitor BP q shift, resume home medication, hydralazine prn, goal systolic overnight 150-165 (6) DVT prophylaxis Current Visit: No Status: Acute
[2017-01-04] MEDS: PERCOCET 5/325 PO PRN (21:28)
[2017-01-04] MEDS ORDERED: APRESOLINE IV ONE (22:55)
[2017-01-04] MEDS: BENADRYL IV PRN (23:18)
[2017-01-05] MEDS ORDERED: CATAPRES PO ONE (01:30)
[2017-01-05] MEDS ORDERED: NITRO-BID 2% TP ONE (01:31)
[2017-01-05] MEDS ORDERED: MORPHINE IV ONE (02:58)
[2017-01-05] MEDS: TYLENOL PO PRN ×2 (08:07→17:25)
[2017-01-05] MEDS: PERCOCET 5/325 PO PRN (08:08)
[2017-01-05] MEDS: APRESOLINE IV PRN ×3 (08:08→15:10)
[2017-01-05] MEDS: BENADRYL IV PRN ×2 (08:09→18:23)
[2017-01-05] MEDS ORDERED: NACL 0.9% 100 ML IV PRN (08:40)
--- NOTE | 2017-01-05 08:40 | Consultation ---
History of Present Illness - Reason for Consult Consult date: 01/05/17 end stage renal disease - History of Present Illness Mr. Shaikh is a 41yo with ESRD on HD MWF via CESAR AVF who presented to the ED with left arm pain following fistulogram/stent placement. In addition, he also reported shortness of breath. He last dialyzed on Dec 30. Past History Past Medical History: COPD, ESRD, heart failure, hypertension Past Surgical History: Other (Left AVF, FGA, Permacath) Social history: single. denies: smoking, alcohol abuse, prescription drug abuse Family history: other (renal disease) Medications and Allergies Allergies Allergy/AdvReac Type Severity Reaction Status Date / Time No Known Allergies Allergy Unverified 05/26/15 13:53 Home Medications Medication Instructions Recorded Confirmed Last Taken Type Carvedilol [Coreg] 25 mg PO BID #60 tablet 12/13/16 01/04/17 Unknown Rx cloNIDine [Catapres] 0.3 mg PO Q8HR 30 Days 12/13/16 01/04/17 Unknown Rx hydrALAZINE [Apresoline TAB] 100 mg PO TID #90 tab 12/13/16 01/04/17 Unknown Rx Active Meds: Active Medications Acetaminophen (Tylenol) 650 mg PO Q4H PRN PRN Reason: Pain MILD(1-3)/Fever >100.5/WOOD Last Admin: 01/05/17 08:07 Dose: 650 mg Albuterol (Proventil) 2.5 mg IH Q4HRT PRN PRN Reason: Shortness Of Breath Bisacodyl (Dulcolax) 10 mg MD QDAY PRN PRN Reason: Constipation unrelieved by MOM Diphenhydramine HCl (Benadryl) 25 mg IV Q6H PRN PRN Reason: Itching Last Admin: 01/05/17 08:09 Dose: 25 mg Hydralazine HCl (Apresoline) 10 mg IV Q6HR PRN PRN Reason: Hypertension Last Admin: 01/05/17 08:08 Dose: 10 mg Magnesium Hydroxide (Milk Of Magnesia) 30 ml PO Q4H PRN PRN Reason: Constipation Ondansetron HCl (Zofran) 4 mg IV Q8H PRN PRN Reason: N/V unrelieved by Reglan Last Admin: 01/05/17 02:03 Dose: 4 mg Oxycodone/Acetaminophen (Percocet 5/325) 1 tab PO Q8H PRN PRN Reason: Pain, Moderate (4-6) Last Admin: 01/05/17 08:08 Dose: 1 tab Review of Systems Constitutional: no fever, no chills, no sweats Cardiovascular: chest pain, no orthopnea, no shortness of breath Respiratory: no cough, no shortness of breath, no dyspnea on exertion Gastrointestinal: no abdominal pain, no nausea, no vomiting, no diarrhea Integumentary: no rash Exam - Vital Signs Vital signs: Vital Signs Pulse Resp Pulse Ox 74 16 99 01/04/17 13:28 01/04/17 13:28 01/04/17 13:28 - General Appearance General appearance: well-developed, well-nourished EENT: ATNC Neck: Present: neck supple Respiratory: Clear to Ascultation Heart: regular, normal heart rate, S1S2 Gastrointestinal: Present: normal. Absent: tenderness, distended Integumentary: no rash Neurologic: alert and oriented x3 Musculoskeletal: Present: other (no edema) Psychiatric: cooperative Results - Lab Results 01/04/17 15:14 01/06/17 06:23 Most recent lab results Calcium 9.3 mg/dL (8.4-10.2) 01/04/17 15:19 Assessment and Plan Impression: * End stage renal disease * Malfunctioning AV access s/p fistulogram * Hypertension * Anemia secondary to ESRD * Secondary hyperparathryoidism Plan: * Hemodialysis today * Resume MWF schedule tomorrow * UF as tolerated * Continue home antiHTN medications * Pain management per primary team * Epogen for Hb 10-12 * Renal diet
[2017-01-05] MEDS ORDERED: CATAPRES PO PRN (10:54)
--- NOTE | 2017-01-05 10:56 | Vascular Lab Report ---
UPPER EXTREMITY ARTERIAL DUPLEX: REASON FOR EXAM: Peripheral arterial disease. COMMENTS ON THE LEFT: Monophasic waveforms are seen proximally. Monophasic waveforms are seen distally. No significant velocity gradients are identified. No significant plaque is identified. Findings are consistent with normal perfusion with patent dialysis graft. Poor Visualization of flow in the stent and graft. IMPRESSION: LEFT:Essentially normal arterial flow. Patent AV graft. Clinical correlation is recommended
[2017-01-05] MEDS: MORPHINE IV PRN ×3 (11:16→22:16)
--- NOTE | 2017-01-05 12:04 | Progress Note ---
Assessment and Plan Acute respiratory failure - likely from pulmonary edema - cont Supplemental oxygen as needed - improved following HD Metabolic acidosis - due to ESRD - dialysis as per renal team Anemia in ESRD (end-stage renal disease) - Epogen as per renal team, ESRD (end stage renal disease) on dialysis - Nephrology consulted for dialysis, s/p access evaluated by vascular surgery - s/p HD today hyperkalemia - cont to monitor, repeat BMP Hypertensive urgency - Monitor BP q shift, resume home medication, hydralazine prn, goal systolic overnight 150-165 - added procardia DVT prophylaxis Current Visit: No Status: Acute - heparin Subjective Date of service: 01/05/17 Interval history: Pt seen and examined after HD denies chest pain or SOB BP elevated following HD Objective - Exam Narrative Exam: General appearance: Present: mild distress - EENT Eyes: Present: PERRL ENT: hearing intact, clear oral mucosa - Neck Neck: Present: supple, normal ROM - Respiratory Respiratory effort: normal Respiratory: bilateral: CTA - Cardiovascular Heart Sounds: Present: S1 & S2. Absent: rub, click - Extremities Extremities: pulses symmetrical, No edema Extremity abnormal: edema (LUE edema, palpable thrill) Peripheral Pulses: within normal limits - Abdominal General gastrointestinal: Present: soft, non-tender, non-distended, normal bowel sounds Male genitourinary: Present: normal - Integumentary Integumentary: Present: clear, warm, dry - Musculoskeletal Musculoskeletal: gait normal, strength equal bilaterally - Psychiatric Psychiatric: appropriate mood/affect, intact judgment & insight - Neurologic Neurologic: CNII-XII intact, moves all extremities - Constitutional Vitals: Vital Signs - 12hr 01/05/17 01/05/17 01/05/17 01:52 01:53 08:05 Temperature 98.9 F Pulse Rate 81 81 74 Respiratory 16 Rate Blood Pressure 203/124 203/124 190/110 O2 Sat by Pulse 95 Oximetry O2 Sat by Pulse Oximetry [ Anterior Bilateral Throughout] 01/05/17 01/05/17 01/05/17 08:08 10:00 11:05 Temperature 99.1 F Pulse Rate 77 76 76 Respiratory 16 Rate Blood Pressure 190/110 170/106 177/116 O2 Sat by Pulse Oximetry O2 Sat by Pulse 2 L Oximetry [ Anterior Bilateral Throughout] 08/08/17 08/08/17 08/08/17 11:15 11:16 11:30 Temperature Pulse Rate 74 73 Respiratory 16 Rate Blood Pressure 179/116 187/119 O2 Sat by Pulse Oximetry O2 Sat by Pulse Oximetry [ Anterior Bilateral Throughout] - Labs CBC & Chem 7: 01/04/17 15:14 01/04/17 15:19
[2017-01-05] MEDS ORDERED: APRESOLINE ONE (14:20)
[2017-01-05] MEDS ORDERED: COREG ONE (14:40)
[2017-01-05] MEDS: CATAPRES PO SCH ×2 (14:46→21:42)
[2017-01-05] MEDS ORDERED: APRESOLINE IV PRN ×2 (15:14→15:36)
[2017-01-05] MEDS ORDERED: PROCARDIA XL PO ONE (15:42)
[2017-01-05] MEDS: COREG PO SCH ×2 (16:40→21:43)
[2017-01-05] MEDS: APRESOLINE PO SCH ×2 (16:41→20:31)
[2017-01-05] MEDS: PROCARDIA XL PO SCH (21:45)
[2017-01-06] MEDS: BENADRYL IV PRN ×3 (00:21→18:56)
[2017-01-06] MEDS: MORPHINE IV PRN ×4 (04:59→23:44)
[2017-01-06] MEDS: CATAPRES PO SCH ×3 (06:20→21:58)
[2017-01-06 07:06] LABS: BUN/Creatinine Ratio 5.8; Calcium 9.3 mg/dL (8.4-10.2); Chloride 100.1 mmol/L (98-107); Potassium 4.9 mmol/L (3.6-5.0)
[2017-01-06] MEDS: APRESOLINE PO SCH ×3 (08:04→20:38)
[2017-01-06] MEDS: TYLENOL PO PRN ×2 (08:15→22:04)
--- NOTE | 2017-01-06 09:46 | Progress Note ---
Assessment and Plan Impression: * End stage renal disease * Malfunctioning AV access s/p fistulogram/stent * Hypertension * Anemia secondary to ESRD * Secondary hyperparathryoidism Plan: * Patient is s/p HD yesterday. Resume MWF schedule today * UF as tolerated * Continue home antiHTN medications - increase Coreg to 25mg BID (takes this dose at home) * Pain management per primary team * Epogen for Hb 10-12 * Renal diet Subjective Date of service: 01/06/17 Interval history: Patient without complaint today. Objective - Vital Signs Vital signs: Vital Signs - 12hr 01/05/17 01/06/17 01/06/17 23:52 00:25 04:25 Temperature 98.6 F 98.0 F Pulse Rate 85 74 Respiratory 20 20 Rate Blood Pressure 181/113 162/103 O2 Sat by Pulse 100 97 95 Oximetry 01/06/17 01/06/17 06:20 08:00 Temperature 100.1 F H Pulse Rate 74 77 Respiratory 18 Rate Blood Pressure 162/103 163/101 O2 Sat by Pulse 98 Oximetry - General Appearance General appearance: well-developed, well-nourished EENT: ATNC Respiratory: Present: Clear to Ascultation Cardiology: regular, S1S2 Gastrointestinal: normal, no tenderness, no distended Integumentary: no rash, warm and dry Neurologic: no focal deficit Musculoskeletal: other (no edema) Psychiatric: cooperative - Lab 01/04/17 15:14 01/06/17 06:23 Most recent lab results Calcium 9.3 mg/dL (8.4-10.2) 01/06/17 06:23
[2017-01-06] MEDS ORDERED: NACL 0.9% 100 ML IV PRN (10:00)
[2017-01-06] MEDS: COREG PO SCH ×2 (10:39→22:04)
[2017-01-06] MEDS: PROCARDIA XL PO SCH ×2 (10:39→22:00)
[2017-01-06] MEDS: ROCEPHIN/NS 1 GM/50 ML 1 GM/50 ML BAG IV SCH (10:44)
--- NOTE | 2017-01-06 14:24 | Progress Note ---
Assessment and Plan Acute respiratory failure - likely from pulmonary edema - cont Supplemental oxygen as needed - improved following HD Metabolic acidosis - due to ESRD - dialysis as per renal team on MWF Anemia in ESRD (end-stage renal disease) - Epogen as per renal team, ESRD (end stage renal disease) on dialysis - Nephrology consulted for dialysis, s/p access evaluated by vascular surgery - tolerating HD Malfunctioning AV access s/p fistulogram/stent - s/p access evaluated by vascular surgery and cleared to use for HD hyperkalemia - cont to monitor, resolved with HD Hypertensive urgency - Monitor BP q shift, resumed home medication, hydralazine prn, goal systolic overnight 150-165 - improved with procardia, incresaed the dose of coreg Fever - will get blood cx, empiric abx DVT prophylaxis Current Visit: No Status: Acute - heparin Subjective Date of service: 01/06/17 Interval history: Pt seen and examined after HD denies chest pain or SOB BP still elevated today, spiked fever last night Objective - Exam Narrative Exam: General appearance: Present: mild distress - EENT Eyes: Present: PERRL ENT: hearing intact, clear oral mucosa - Neck Neck: Present: supple, normal ROM - Respiratory Respiratory effort: normal Respiratory: bilateral: CTA - Cardiovascular Heart Sounds: Present: S1 & S2. Absent: rub, click - Extremities Extremities: pulses symmetrical, No edema Extremity abnormal: edema (LUE edema, palpable thrill) Peripheral Pulses: within normal limits - Abdominal General gastrointestinal: Present: soft, non-tender, non-distended, normal bowel sounds Male genitourinary: Present: normal - Integumentary Integumentary: Present: clear, warm, dry - Musculoskeletal Musculoskeletal: gait normal, strength equal bilaterally - Psychiatric Psychiatric: appropriate mood/affect, intact judgment & insight - Neurologic Neurologic: CNII-XII intact, moves all extremities - Constitutional Vitals: Vital Signs - 12hr 01/06/17 01/06/17 01/06/17 04:25 06:20 08:00 Temperature 98.0 F 100.1 F H Pulse Rate 74 74 77 Respiratory 20 18 Rate Blood Pressure 162/103 162/103 163/101 O2 Sat by Pulse 95 98 Oximetry 01/06/17 01/06/17 01/06/17 10:00 10:39 13:00 Temperature 99.1 F Pulse Rate 64 Respiratory 18 Rate Blood Pressure 158/100 165/104 O2 Sat by Pulse 96 96 Oximetry 01/06/17 13:08 Temperature Pulse Rate Respiratory Rate Blood Pressure 165/104 O2 Sat by Pulse Oximetry - Labs CBC & Chem 7: 01/04/17 15:14 01/06/17 06:23 Labs: Abnormal lab results 01/06/17 Range/Units 06:23 BUN 58 H (9-20) mg/dL Creatinine 10.0 H (0.8-1.5) mg/dL Glucose 107 H (75-100) mg/dL
[2017-01-06] MEDS ORDERED: NACL 0.9 (PRIMING MACHINE ONLY DIALYSIS) MC ONE (15:03)
[2017-01-07] MEDS: BENADRYL IV PRN ×4 (01:58→22:21)
[2017-01-07] MEDS: CATAPRES PO SCH ×3 (05:47→22:19)
[2017-01-07] MEDS: MORPHINE IV PRN ×5 (05:51→23:22)
[2017-01-07] MEDS ORDERED: VANCOMYCIN/NS 1 GM/250 ML 1 GM/250 ML BAG IV ONE (08:47)
--- NOTE | 2017-01-07 08:48 | Progress Note ---
Assessment and Plan Impression: * End stage renal disease * Malfunctioning AV access s/p fistulogram/stent * Fever * Chest pain * Hypertension * Anemia secondary to ESRD * Secondary hyperparathryoidism Plan: * Blood cx pending * Will give empiric Vanco * CTA chest today w/ HD to follow * Continue HD MWF schedule * UF as tolerated * Continue home antiHTN medications * Pain management per primary team * Epogen for Hb 10-12 * Renal diet Subjective Date of service: 01/07/17 Interval history: Patient continues to c/o chest pain and SOB. Low grade fever persists. Objective - Vital Signs Vital signs: Vital Signs - 12hr 01/06/17 01/06/17 01/07/17 21:58 22:04 00:00 Temperature 100.7 F H Pulse Rate 77 77 74 Respiratory 20 Rate Blood Pressure 169/99 169/99 142/88 O2 Sat by Pulse 96 Oximetry 01/07/17 01/07/17 04:15 05:47 Temperature 98.8 F Pulse Rate 68 68 Respiratory 20 Rate Blood Pressure 147/89 148/79 O2 Sat by Pulse 97 Oximetry - General Appearance General appearance: well-developed, well-nourished EENT: ATNC Respiratory: Present: Decreased Breath Sounds Cardiology: regular, S1S2 Gastrointestinal: normal, no tenderness, no distended Integumentary: no rash Musculoskeletal: other (no edema) Psychiatric: cooperative - Lab 01/04/17 15:14 01/06/17 06:23 Most recent lab results Calcium 9.3 mg/dL (8.4-10.2) 01/06/17 06:23
[2017-01-07] MEDS: APRESOLINE PO SCH ×3 (09:22→20:39)
[2017-01-07] MEDS: ROCEPHIN/NS 1 GM/50 ML 1 GM/50 ML BAG IV SCH (09:23)
[2017-01-07] MEDS: PROCARDIA XL PO SCH ×2 (09:23→22:19)
[2017-01-07] MEDS: COREG PO SCH ×2 (10:14→22:20)
[2017-01-07] MEDS ORDERED: NACL 0.9% 100 ML IV PRN (11:39)
[2017-01-07] MEDS ORDERED: NACL ONE ×2 (15:06→15:18)
[2017-01-07] MEDS: TYLENOL PO PRN (15:14)
--- NOTE | 2017-01-07 16:06 | Progress Note ---
Assessment and Plan Acute respiratory failure - suspected from pulmonary edema on admission - cont Supplemental oxygen as needed - improved following HD - ordered HD Metabolic acidosis - due to ESRD - dialysis as per renal team on MWF Anemia in ESRD (end-stage renal disease) - Epogen as per renal team, ESRD (end stage renal disease) on dialysis - Nephrology consulted for dialysis, s/p access evaluated by vascular surgery - tolerating HD Malfunctioning AV access s/p fistulogram/stent - s/p access evaluated by vascular surgery and cleared to use for HD hyperkalemia - cont to monitor, resolved with HD Hypertensive urgency - Monitor BP q shift, resumed home medication, hydralazine prn, goal systolic overnight 150-165 - improved with procardia, incresaed the dose of coreg Fever - will follow blood cx report, cont empiric abx - CTA ordered will follow result DVT prophylaxis Current Visit: No Status: Acute - heparin Subjective Date of service: 01/07/17 Interval history: Pt seen and examined after HD denies any N/V BP improved today, still spiking fever Objective - Exam Narrative Exam: General appearance: Present: mild distress - EENT Eyes: Present: PERRL ENT: hearing intact, clear oral mucosa - Neck Neck: Present: supple, normal ROM - Respiratory Respiratory effort: normal Respiratory: bilateral: CTA - Cardiovascular Heart Sounds: Present: S1 & S2. Absent: rub, click - Extremities Extremities: pulses symmetrical, No edema Extremity abnormal: edema (LUE edema, palpable thrill) Peripheral Pulses: within normal limits - Abdominal General gastrointestinal: Present: soft, non-tender, non-distended, normal bowel sounds Male genitourinary: Present: normal - Integumentary Integumentary: Present: clear, warm, dry - Musculoskeletal Musculoskeletal: gait normal, strength equal bilaterally - Psychiatric Psychiatric: appropriate mood/affect, intact judgment & insight - Neurologic Neurologic: CNII-XII intact, moves all extremities - Constitutional Vitals: Vital Signs - 12hr 01/07/17 01/07/17 01/07/17 04:15 05:47 08:00 Temperature 98.8 F 98.2 F Pulse Rate 68 68 67 Respiratory 20 22 Rate Blood Pressure 147/89 148/79 144/88 O2 Sat by Pulse 97 99 Oximetry 01/07/17 01/07/17 01/07/17 12:00 14:55 15:00 Temperature 98.0 F 100.6 F H Pulse Rate 68 72 72 Respiratory 22 20 Rate Blood Pressure 138/87 157/94 157/94 O2 Sat by Pulse 99 98 Oximetry - Labs CBC & Chem 7: 01/04/17 15:14 01/06/17 06:23
--- NOTE | 2017-01-07 16:36 | Cat Scan Report ---
CTA chest: Fever, chest pain, shortness of breath. IV contrast was injected followed by transverse images through the chest according to PE protocol. Coronal and sagittal 2-D reformatted images are included as well as a 3-D MIPP image. Comparison is made to a noncontrasted CT on December 11, 2016. There is a large degree of collateral flow around the right shoulder and upper chest from the right-sided injection. There appears to be a subclavian stenosis. The pulmonary vessels are inhomogeneously opacified but there are no focal defects of suspicion are identified. The opacified cardiac chambers have no filling defects. The diameter of the ascending aorta is poor centimeters which is borderline enlarged. The diameter of the descending aorta is 2.9 cm which is also borderline enlarged. There is no hilar or mediastinal adenopathy appreciated. The central airways are patent. The upper lobes are well aerated and clear. There are bilateral pulmonary consolidations in both lower lobes. Air bronchograms are present. No significant pleural effusion identified. On the patient's prior scan there were diffuse pulmonary opacities throughout both lungs but no dense consolidations as currently noted. Impressions: 1. No pulmonary embolus identified. 2. Bilateral lower lobe pneumonia. 3. Right subclavian stenosis.
[2017-01-08] MEDS: MORPHINE IV PRN ×4 (03:38→19:55)
[2017-01-08] MEDS: CATAPRES PO SCH ×3 (05:43→22:26)
[2017-01-08] MEDS: PERCOCET 5/325 PO PRN ×3 (05:44→22:24)
[2017-01-08] MEDS: BENADRYL IV PRN ×3 (05:44→19:55)
[2017-01-08] MEDS: APRESOLINE PO SCH ×3 (08:17→22:26)
[2017-01-08] MEDS: PROCARDIA XL PO SCH ×2 (09:27→22:26)
[2017-01-08] MEDS: COREG PO SCH ×2 (09:27→22:26)
[2017-01-08] MEDS: ROCEPHIN/NS 1 GM/50 ML 1 GM/50 ML BAG IV SCH ×2 (09:27→14:59)
[2017-01-08] MEDS ORDERED: NACL 0.9 (PRIMING MACHINE ONLY DIALYSIS) MC ONE (11:54)
--- NOTE | 2017-01-08 13:51 | Progress Note ---
Assessment and Plan Impression: * End stage renal disease * Malfunctioning AV access s/p fistulogram/stent * Bilateral PNA * Hypertension * Anemia secondary to ESRD * Secondary hyperparathryoidism Plan: * Continue HD MWF schedule; patient refused HD after CTA yesterday * Continues to have low grade fever - change Rocephin to Levaquin * UF as tolerated * Continue home antiHTN medications * Pain management per primary team * Epogen for Hb 10-12 * Renal diet Subjective Date of service: 01/08/17 Interval history: No acute events overnight. Yesterday, patient refused HD after CT w/ contrast Objective - Vital Signs Vital signs: Vital Signs - 12hr 01/08/17 01/08/17 01/08/17 03:38 04:07 04:08 Temperature 98.6 F Pulse Rate 77 Respiratory 18 14 20 Rate Blood Pressure 152/102 O2 Sat by Pulse 98 Oximetry 01/08/17 01/08/17 01/08/17 05:43 05:44 07:00 Temperature 98.7 F Pulse Rate 77 80 Respiratory 20 20 Rate Blood Pressure 152/102 161/101 O2 Sat by Pulse 99 Oximetry 01/08/17 01/08/17 01/08/17 10:00 10:10 10:15 Temperature 98.4 F Pulse Rate 74 71 Respiratory 16 Rate Blood Pressure 142/72 139/76 O2 Sat by Pulse 97 Oximetry 01/08/17 01/08/17 01/08/17 10:30 10:45 11:00 Temperature Pulse Rate 70 71 71 Respiratory Rate Blood Pressure 126/74 141/78 128/84 O2 Sat by Pulse Oximetry 01/08/17 01/08/17 01/08/17 11:15 11:30 11:45 Temperature Pulse Rate 70 72 68 Respiratory Rate Blood Pressure 133/79 134/81 130/76 O2 Sat by Pulse Oximetry 01/08/17 01/08/17 01/08/17 12:00 12:15 12:30 Temperature Pulse Rate 67 68 69 Respiratory Rate Blood Pressure 132/80 135/75 136/89 O2 Sat by Pulse Oximetry 01/08/17 12:45 Temperature Pulse Rate 67 Respiratory Rate Blood Pressure 138/81 O2 Sat by Pulse Oximetry - General Appearance General appearance: well-developed, well-nourished EENT: ATNC Respiratory: Present: Decreased Breath Sounds Cardiology: regular, S1S2 Gastrointestinal: normal, no tenderness, no distended Integumentary: no rash Musculoskeletal: other (no edema) Psychiatric: cooperative - Lab 01/04/17 15:14 01/06/17 06:23 Most recent lab results Calcium 9.3 mg/dL (8.4-10.2) 01/06/17 06:23
--- NOTE | 2017-01-08 16:33 | Progress Note ---
Assessment and Plan Acute respiratory failure - likely from b/l PNA - suspected from pulmonary edema on admission - cont Supplemental oxygen as needed - improved following HD and abx B/L PNA - likely community acquired - will cont coverage for gm negative and possible MRSA as he is a chronic HD patient Metabolic acidosis - due to ESRD - dialysis as per renal team on MWF Anemia in ESRD (end-stage renal disease) - Epogen as per renal team, ESRD (end stage renal disease) on dialysis - Nephrology consulted for dialysis, s/p access evaluated by vascular surgery - tolerating HD Malfunctioning AV access s/p fistulogram/stent - s/p access evaluated by vascular surgery and cleared to use for HD hyperkalemia - cont to monitor, resolved with HD Hypertensive urgency - Monitor BP q shift, resumed home medication, hydralazine prn, goal systolic overnight 150-165 - improved with procardia, incresaed the dose of coreg Fever due to b/l PNA - will follow blood cx report, cont empiric abx to cover for gm negative and MRSA - CTA ordered showed b/l PNA Right subclavian stenosis - will reconsult vascular for any further intervention DVT prophylaxis - heparin Subjective Date of service: 01/08/17 Interval history: Pt seen and examined after HD denies any N/V BP improved today, CTA chest showed subclavian stenosis and b/l PNA Objective - Exam Narrative Exam: General appearance: Present: mild distress - EENT Eyes: Present: PERRL ENT: hearing intact, clear oral mucosa - Neck Neck: Present: supple, normal ROM - Respiratory Respiratory effort: normal Respiratory: bilateral: CTA - Cardiovascular Heart Sounds: Present: S1 & S2. Absent: rub, click - Extremities Extremities: pulses symmetrical, No edema Extremity abnormal: edema (LUE edema, palpable thrill) Peripheral Pulses: within normal limits - Abdominal General gastrointestinal: Present: soft, non-tender, non-distended, normal bowel sounds Male genitourinary: Present: normal - Integumentary Integumentary: Present: clear, warm, dry - Musculoskeletal Musculoskeletal: gait normal, strength equal bilaterally - Psychiatric Psychiatric: appropriate mood/affect, intact judgment & insight - Neurologic Neurologic: CNII-XII intact, moves all extremities - Constitutional Vitals: Vital Signs - 12hr 01/08/17 01/08/17 01/08/17 05:43 05:44 07:00 Temperature 98.7 F Pulse Rate 77 80 Respiratory 20 20 Rate Blood Pressure 152/102 161/101 O2 Sat by Pulse 99 Oximetry 01/08/17 01/08/17 01/08/17 10:00 10:10 10:15 Temperature 98.4 F Pulse Rate 74 71 Respiratory 16 Rate Blood Pressure 142/72 139/76 O2 Sat by Pulse 97 Oximetry 01/08/17 01/08/17 01/08/17 10:30 10:45 11:00 Temperature Pulse Rate 70 71 71 Respiratory Rate Blood Pressure 126/74 141/78 128/84 O2 Sat by Pulse Oximetry 01/08/17 01/08/17 01/08/17 11:15 11:30 11:45 Temperature Pulse Rate 70 72 68 Respiratory Rate Blood Pressure 133/79 134/81 130/76 O2 Sat by Pulse Oximetry 01/08/17 01/08/17 01/08/17 12:00 12:15 12:30 Temperature Pulse Rate 67 68 69 Respiratory Rate Blood Pressure 132/80 135/75 136/89 O2 Sat by Pulse Oximetry 01/08/17 01/08/17 01/08/17 12:45 13:00 13:15 Temperature Pulse Rate 67 66 66 Respiratory Rate Blood Pressure 138/81 129/80 134/79 O2 Sat by Pulse Oximetry 01/08/17 01/08/17 01/08/17 13:30 13:40 13:50 Temperature 98.6 F Pulse Rate 71 70 74 Respiratory 18 Rate Blood Pressure 129/79 126/72 125/70 O2 Sat by Pulse Oximetry 01/08/17 01/08/17 14:52 16:00 Temperature 100.1 F H Pulse Rate 81 73 Respiratory 20 Rate Blood Pressure 122/82 135/85 O2 Sat by Pulse Oximetry - Labs CBC & Chem 7: 01/04/17 15:14 01/06/17 06:23
[2017-01-08] MEDS ORDERED: LEVAQUIN 500MG/100ML 500 MG/100 ML BAG IV SCH (17:00)
--- NOTE | 2017-01-08 17:12 | Event Note ---
Date: 01/08/17 Patient has already been evaluated. He is status post intervention and stent placement on outpatient facility with resultant chest pain. CT scan reviewed. Subclavian stenosis noted in report. This would be subclavian vein stenosis and is chronic in nature.
[2017-01-09] MEDS: MILK OF MAGNESIA PO PRN (00:32)
[2017-01-09] MEDS: MORPHINE IV PRN ×5 (00:32→23:52)
[2017-01-09] MEDS: TYLENOL PO PRN (00:37)
[2017-01-09] MEDS: BENADRYL IV PRN ×4 (03:50→23:52)
[2017-01-09] MEDS: CATAPRES PO SCH ×2 (06:24→22:00)
[2017-01-09] MEDS: APRESOLINE PO SCH ×2 (08:24→19:52)
[2017-01-09] MEDS: COREG PO SCH ×2 (12:00→21:45)
[2017-01-09] MEDS: PROCARDIA XL PO SCH ×2 (12:00→21:45)
--- NOTE | 2017-01-09 12:37 | Progress Note ---
Assessment and Plan Impression: * End stage renal disease * Malfunctioning AV access s/p fistulogram/stent * Bilateral PNA * Persistent fever * Hypertension * Anemia secondary to ESRD * Secondary hyperparathryoidism Plan: * Continue HD MWF schedule * Recommend ID consult as patient w/ persistent fever despite abx * Will order UE ultrasound * UF as tolerated * Continue home antiHTN medications * Pain management per primary team * Epogen for Hb 10-12 * Renal diet Subjective Date of service: 01/09/17 Interval history: Patient continue to c/o left arm pain, swelling Objective - Vital Signs Vital signs: Vital Signs - 12hr 01/09/17 01/09/17 01/09/17 06:24 08:10 10:00 Temperature 98.7 F Pulse Rate 105 H 68 Respiratory 20 Rate Blood Pressure 139/81 132/83 O2 Sat by Pulse 100 100 Oximetry - General Appearance General appearance: well-developed, well-nourished EENT: ATNC Respiratory: Present: Clear to Ascultation Cardiology: regular, S1S2 Gastrointestinal: normal Integumentary: no rash Musculoskeletal: other (no LE edema; CESAR +edema) Psychiatric: cooperative - Lab 01/04/17 15:14 01/06/17 06:23 Most recent lab results Calcium 9.3 mg/dL (8.4-10.2) 01/06/17 06:23
--- NOTE | 2017-01-09 13:53 | Progress Note ---
Assessment and Plan Fever due to b/l PNA - will repeat blood cx, cont empiric abx to cover for gm negative and MRSA - CTA ordered showed b/l PNA - abx was changed to levaquin yesterday - will consult ID Acute respiratory failure - likely from b/l PNA - suspected from pulmonary edema on admission - cont Supplemental oxygen as needed - improved following HD and abx B/L PNA - likely community acquired - will cont coverage for gm negative and possible MRSA as he is a chronic HD patient Metabolic acidosis - due to ESRD - dialysis as per renal team on F Anemia in ESRD (end-stage renal disease) - Epogen as per renal team, ESRD (end stage renal disease) on dialysis - Nephrology consulted for dialysis, s/p access evaluated by vascular surgery - tolerating HD Malfunctioning AV access s/p fistulogram/stent - s/p access evaluated by vascular surgery and cleared to use for HD hyperkalemia - cont to monitor, resolved with HD Hypertensive urgency - Monitor BP q shift, resumed home medication, hydralazine prn, goal systolic overnight 150-165 - improved with procardia, incresaed the dose of coreg Right subclavian stenosis - He is status post intervention and stent placement on outpatient facility with resultant chest pain. - Subclavian stenosis is chronic in nature per vascular, no further intervention. DVT prophylaxis - heparin Subjective Date of service: 01/09/17 Interval history: Pt seen and examined denies any N/V persistently spiking fever Objective - Exam Narrative Exam: General appearance: Present: mild distress - EENT Eyes: Present: PERRL ENT: hearing intact, clear oral mucosa - Neck Neck: Present: supple, normal ROM - Respiratory Respiratory effort: normal Respiratory: bilateral: CTA - Cardiovascular Heart Sounds: Present: S1 & S2. Absent: rub, click - Extremities Extremities: pulses symmetrical, No edema Extremity abnormal: edema (LUE edema, palpable thrill) Peripheral Pulses: within normal limits - Abdominal General gastrointestinal: Present: soft, non-tender, non-distended, normal bowel sounds Male genitourinary: Present: normal - Integumentary Integumentary: Present: clear, warm, dry - Musculoskeletal Musculoskeletal: gait normal, strength equal bilaterally - Psychiatric Psychiatric: appropriate mood/affect, intact judgment & insight - Neurologic Neurologic: CNII-XII intact, moves all extremities - Constitutional Vitals: Vital Signs - 12hr 01/09/17 01/09/17 01/09/17 06:24 08:10 10:00 Temperature 98.7 F Pulse Rate 105 H 68 Respiratory 20 Rate Blood Pressure 139/81 132/83 O2 Sat by Pulse 100 100 Oximetry 01/09/17 12:00 Temperature 98.9 F Pulse Rate 70 Respiratory 20 Rate Blood Pressure 134/84 O2 Sat by Pulse 99 Oximetry - Labs CBC & Chem 7: 01/04/17 15:14 01/06/17 06:23
[2017-01-09 16:02] LABS: HIV-1 Antigen p24 Non React (Non React); HIVR-1/2 Ab Non React (Non React)
--- NOTE | 2017-01-09 19:41 | Consultation ---
History of Present Illness - Reason for Consult Consult date: 01/09/17 Fever Requesting physician: BENNY SAAVEDRA - History of Present Illness Mr. Shaikh is a 41-year-old man with ESRD on HD and HTN who is being treated for CAP. He had a fever over the past 24 hours to 101.2 deg F. A chest CTA showed no PE, but bilateral RLL pneumonia. He is on Levaquin empirically. HIV screening is negative. He describes recent interrogation and vascular stenting near his AV fistula at his left arm. He now complains of swelling over his AV fistula site, however doppler studies indicated patent access. He continues to have local pain in the area. He denies significant respiratory complaints. ID consultation is requested for further fever evaluation. Past History Past Medical History: COPD, ESRD, heart failure, hypertension Past Surgical History: Other (Left AVF, FGA, Permacath) Social history: single. denies: smoking, alcohol abuse, prescription drug abuse Family history: other (renal disease) Medications and Allergies Allergies Allergy/AdvReac Type Severity Reaction Status Date / Time No Known Allergies Allergy Unverified 05/26/15 13:53 Home Medications Medication Instructions Recorded Confirmed Last Taken Type Carvedilol [Coreg] 25 mg PO BID #60 tablet 12/13/16 01/04/17 Unknown Rx cloNIDine [Catapres] 0.3 mg PO Q8HR 30 Days 12/13/16 01/04/17 Unknown Rx hydrALAZINE [Apresoline TAB] 100 mg PO TID #90 tab 12/13/16 01/04/17 Unknown Rx Active Meds: Active Medications Acetaminophen (Tylenol) 650 mg PO Q4H PRN PRN Reason: Pain MILD(1-3)/Fever >100.5/WOOD Last Admin: 01/09/17 00:37 Dose: 650 mg Albuterol (Proventil) 2.5 mg IH Q4HRT PRN PRN Reason: Shortness Of Breath Bisacodyl (Dulcolax) 10 mg [place] QDAY PRN PRN Reason: Constipation unrelieved by MOM Carvedilol (Coreg) 25 mg PO BID [facility] Last Admin: 01/09/17 12:00 Dose: 25 mg Clonidine HCl (Catapres) 0.3 mg PO Q8HR [facility] Last Admin: 01/09/17 06:24 Dose: 0.3 mg Clonidine HCl (Catapres) 0.2 mg PO Q4H PRN PRN Reason: hemodialysis Last Admin: 01/05/17 12:07 Dose: 0.2 mg Diphenhydramine HCl (Benadryl) 25 mg IV Q6H PRN PRN Reason: Itching Last Admin: 01/09/17 17:57 Dose: 25 mg Epoetin Michael (Epogen) 20,000 unit IV SYLVAIN PRN PRN Reason: hemodialysis Last Admin: 01/08/17 12:18 Dose: 20,000 unit Hydralazine HCl (Apresoline) 100 mg PO TID JOANN Last Admin: 01/09/17 08:24 Dose: 100 mg Hydralazine HCl (Apresoline) 10 mg IV ONCE PRN PRN Reason: hemodialysis Hydralazine HCl (Apresoline) 5 mg IV Q30MIN PRN PRN Reason: Hypertension Last Admin: 01/07/17 23:40 Dose: 5 mg Sodium Chloride (Nacl 0.9%) 100 mls @ 999 mls/hr IV SYLVAIN PRN PRN Reason: Hypotension Levofloxacin/Dextrose (Levaquin 500mg/100ml) 500 mg in 100 mls @ 100 mls/hr IV Q48H JOANN PRN Reason: Protocol Magnesium Hydroxide (Milk Of Magnesia) 30 ml PO Q4H PRN PRN Reason: Constipation Last Admin: 01/09/17 00:32 Dose: 30 ml Morphine Sulfate (Morphine) 4 mg IV Q4H PRN PRN Reason: Pain , Severe (7-10) Last Admin: 01/09/17 13:36 Dose: 4 mg Nifedipine (Procardia Xl) 30 mg PO Q12HR [facility] Last Admin: 01/09/17 12:00 Dose: 30 mg Ondansetron HCl (Zofran) 4 mg IV Q8H PRN PRN Reason: N/V unrelieved by Reglan Last Admin: 01/05/17 02:03 Dose: 4 mg Oxycodone/Acetaminophen (Percocet 5/325) 1 tab PO Q8H PRN PRN Reason: Pain, Moderate (4-6) Last Admin: 01/08/17 22:24 Dose: 1 tab Review of Systems All systems: negative Constitutional: fever, no chills, no sweats Cardiovascular: chest pain, no shortness of breath Respiratory: cough, cough with sputum Gastrointestinal: no abdominal pain, no nausea, no vomiting, no diarrhea Integumentary: no rash, no pruritis Physical Examination - Constitutional Vitals: Vital Signs Temp Pulse Resp BP Pulse Ox 98.3 F 73 20 142/84 99 01/09/17 14:50 01/09/17 14:50 01/09/17 14:50 01/09/17 14:50 01/09/17 14:50 Temperature -Last 24 Hours Temperature 98.3 F Temperature 98.9 F Temperature 98.7 F Temperature 100.1 F Temperature 101.2 F General appearance: Present: mild distress (due to left arm pain), well- nourished - EENT Eyes: Absent: scleral icterus, conjunctival injection - Neck Neck: Present: supple - Respiratory Respiratory effort: normal Respiratory: bilateral: CTA, rales (lower lung tamayo), negative: rhonchi, wheezing - Cardiovascular Rhythm: regular Heart Sounds: Present: S1 & S2 - Extremities Extremity abnormal: edema (AV fistula at left arm with overlying erythema and cord-like induration at the left deltoid with increased warmth) - Abdominal General gastrointestinal: Present: soft, non-tender, non-distended - Integumentary Integumentary: Absent: jaundice, rash - Psychiatric Psychiatric: appropriate mood/affect - Neurologic Neurologic: no focal deficits Results - Labs CBC & Chem 7: 01/04/17 15:14 01/06/17 06:23 Labs: Microbiology 01/09/17 15:59 Peripheral/Venous Blood Culture - Preliminary Culture in Progress 01/09/17 16:04 Peripheral/Venous Blood Culture - Preliminary Culture in Progress 01/06/17 10:15 Peripheral/Venous Blood Culture - Preliminary NO GROWTH AFTER 72 HOURS 01/06/17 10:53 Peripheral/Venous Blood Culture - Preliminary NO GROWTH AFTER 72 HOURS - Imaging and Cardiology Chest x-ray: report reviewed (probable mild CHF) Assessment and Plan - Patient Problems (1) Fever Current Visit: Yes Status: Acute Qualifiers: Fever type: F Encounter type: E Plan to address problem: 1. Left arm septic thrombophlebitis vs. abscess vs. PNA (other pathogens) vs. drug fever. 2. Sputum culture, then will change Levaquin therapy to Cefepime/ Azithromycin. 3. CT left arm to rule out thrombus, etc. Will add empiric Vancomycin. 4. Follow outstanding blood cultures. (2) ESRD (end stage renal disease) on dialysis Current Visit: No Status: Acute
[2017-01-09] MEDS ORDERED: VANCOMYCIN/NS 1 GM/250 ML 1 GM/250 ML BAG IV ONE (21:00)
[2017-01-09] MEDS: ZITHROMAX 500 MG in NACL 0.9% 250ML 250 ML IV SCH (21:44)
[2017-01-09] MEDS: MAXIPIME 0.5 GM in NACL 0.9% 100 ML IV SCH (21:44)
[2017-01-10] MEDS: MORPHINE IV PRN ×4 (04:08→18:50)
[2017-01-10] MEDS: CATAPRES PO SCH ×3 (05:32→21:48)
[2017-01-10] MEDS: BENADRYL IV PRN ×3 (06:40→21:47)
[2017-01-10] MEDS ORDERED: NACL ONE (09:03)
[2017-01-10] MEDS: APRESOLINE PO SCH ×3 (09:41→20:57)
--- NOTE | 2017-01-10 10:03 | Progress Note ---
Assessment and Plan Impression: * End stage renal disease * Malfunctioning AV access s/p fistulogram/stent * Bilateral PNA * Persistent fever * Hypertension * Anemia secondary to ESRD * Secondary hyperparathryoidism Plan: * Continue HD MWF schedule * ID recommendations reviewed * Imaging studies pending * UF as tolerated * Continue home antiHTN medications * Pain management per primary team * Epogen for Hb 10-12 * Renal diet Subjective Date of service: 01/10/17 Interval history: Patient reports arm pain improved Objective - Vital Signs Vital signs: Vital Signs - 12hr 01/10/17 01/10/17 01/10/17 00:05 04:08 04:15 Temperature 99.9 F H 99.7 F H Pulse Rate 75 73 Respiratory 20 20 17 Rate Blood Pressure 147/95 136/87 O2 Sat by Pulse 100 92 Oximetry 01/10/17 01/10/17 05:32 08:00 Temperature 98.7 F Pulse Rate 76 70 Respiratory 20 Rate Blood Pressure 134/83 135/85 O2 Sat by Pulse 98 Oximetry - General Appearance General appearance: well-developed, well-nourished EENT: ATNC Neck: no JVD Respiratory: Present: Clear to Ascultation Cardiology: regular, S1S2 Gastrointestinal: normal, no tenderness, no distended Integumentary: no rash Musculoskeletal: other (no edema; left upper arm swelling) Psychiatric: cooperative - Lab 01/04/17 15:14 01/06/17 06:23 Most recent lab results Calcium 9.3 mg/dL (8.4-10.2) 01/06/17 06:23
--- NOTE | 2017-01-10 10:20 | Cat Scan Report ---
FINAL REPORT EXAM: CT UPPER EXTREM LT W CON HISTORY: Left Shoulder Pain; Fever; ESRD TECHNIQUE: CT scan of the left shoulder with IV contrast. Multiplanar reformations. PRIORS: None FINDINGS: Unfused acromion, a normal variant. Normal glenohumeral joint. No acute bone destruction. Venous limb of a forearm AV fistula shows a patent appearing stent in the axillary region. There is subcutaneous edema throughout the chest wall, axillary region, and visualized portions of the left arm, but no abscess is seen. Mild axillary adenopathy. IMPRESSION: 1. Subcutaneous edema may be related to cellulitis. Mild axillary adenopathy, clinical follow-up recommended. No abscess seen. No acute bone destruction.
[2017-01-10] MEDS: PROCARDIA XL PO SCH ×2 (11:16→21:49)
[2017-01-10] MEDS: COREG PO SCH ×2 (11:16→21:49)
--- NOTE | 2017-01-10 13:30 | Progress Note ---
Assessment and Plan Persistent Fever - likely Left arm septic thrombophlebitis vs. abscess vs. PNA (other pathogens) vs. drug fever - will follow repeat blood cx, cont empiric abx to cover for gm negative and MRSA - CTA ordered showed b/l PNA - consulted ID and recommended following: . Sputum culture, change Levaquin therapy to Cefepime/ Azithromycin. . CT left arm for possible thrombus, etc. added empiric Vancomycin. Acute respiratory failure - likely from b/l PNA - suspected from pulmonary edema on admission - cont Supplemental oxygen as needed - improved following HD and abx B/L PNA - likely community acquired - will cont coverage for gm negative and possible MRSA as he is a chronic HD patient Metabolic acidosis - due to ESRD - dialysis as per renal team on MWF Anemia in ESRD (end-stage renal disease) - Epogen as per renal team, ESRD (end stage renal disease) on dialysis - Nephrology consulted for dialysis, s/p access evaluated by vascular surgery - tolerating HD Malfunctioning AV access s/p fistulogram/stent - s/p access evaluated by vascular surgery and cleared to use for HD hyperkalemia - cont to monitor, resolved with HD Hypertensive urgency - Monitor BP q shift, resumed home medication, hydralazine prn, goal systolic overnight 150-165 - improved with procardia, incresaed the dose of coreg Right subclavian stenosis - He is status post intervention and stent placement on outpatient facility with resultant chest pain. - Subclavian stenosis is chronic in nature per vascular, no further intervention. DVT prophylaxis - heparin Subjective Date of service: 01/10/17 Interval history: Pt seen and examined denies any N/V having low grade fever Objective - Exam Narrative Exam: General appearance: Present: mild distress - EENT Eyes: Present: PERRL ENT: hearing intact, clear oral mucosa - Neck Neck: Present: supple, normal ROM - Respiratory Respiratory effort: normal Respiratory: bilateral: CTA - Cardiovascular Heart Sounds: Present: S1 & S2. Absent: rub, click - Extremities Extremities: pulses symmetrical, No edema Extremity abnormal: edema (LUE edema, tenderness, palpable thrill) Peripheral Pulses: within normal limits - Abdominal General gastrointestinal: Present: soft, non-tender, non-distended, normal bowel sounds Male genitourinary: Present: normal - Integumentary Integumentary: Present: clear, warm, dry - Musculoskeletal Musculoskeletal: gait normal, strength equal bilaterally - Psychiatric Psychiatric: appropriate mood/affect, intact judgment & insight - Neurologic Neurologic: CNII-XII intact, moves all extremities - Constitutional Vitals: Vital Signs - 12hr 01/10/17 01/10/17 01/10/17 04:08 04:15 05:32 Temperature 99.7 F H Pulse Rate 73 76 Respiratory 20 17 Rate Blood Pressure 136/87 134/83 O2 Sat by Pulse 92 Oximetry 01/10/17 08:00 Temperature 98.7 F Pulse Rate 70 Respiratory 20 Rate Blood Pressure 135/85 O2 Sat by Pulse 98 Oximetry - Labs CBC & Chem 7: 01/04/17 15:14 01/06/17 06:23
[2017-01-10] MEDS: PERCOCET 5/325 PO PRN (20:56)
[2017-01-10] MEDS: MAXIPIME 0.5 GM in NACL 0.9% 100 ML IV SCH (20:57)
[2017-01-10] MEDS: ZITHROMAX 500 MG in NACL 0.9% 250ML 250 ML IV SCH (21:47)
[2017-01-11 02:05] LABS: Hematocrit 26.7 % (35.5-45.6); Hemoglobin 8.8 gm/dl (11.8-15.2); Mean Corpuscular HGB Conc 33 % (32-34); Mean Corpuscular Hemoglobin 31 pg (28-32); Mean Corpuscular Volume 93 fl (84-94); Platelet Count 145 K/mm3 (140-440); Red Blood Count 2.88 M/mm3 (3.65-5.03)
[2017-01-11 02:28] LABS: BUN/Creatinine Ratio 4.95; Calcium 9.3 mg/dL (8.4-10.2); Chloride 94.4 mmol/L (98-107); Potassium 4.7 mmol/L (3.6-5.0)
[2017-01-11] MEDS: MORPHINE IV PRN ×4 (03:25→20:22)
[2017-01-11] MEDS: CATAPRES PO SCH ×3 (06:18→21:04)
[2017-01-11] MEDS: BENADRYL IV PRN ×3 (06:19→18:15)
--- NOTE | 2017-01-11 07:58 | Progress Note ---
Assessment and Plan Impression: * End stage renal disease * Malfunctioning AV access s/p fistulogram/stent * Bilateral PNA * Persistent fever * Hypertension * Anemia secondary to ESRD * Secondary hyperparathryoidism Plan: * Continue HD MWF schedule * ID recommendations reviewed * UF as tolerated * Continue home antiHTN medications * Pain management per primary team * Epogen for Hb 10-12 * Renal diet Subjective Date of service: 01/11/17 Principal diagnosis: esrd Interval history: resting in bed today Objective - Exam Narrative Exam: General appearance: well-developed, well-nourished EENT: ATNC Neck: no JVD Respiratory: Present: Clear to Ascultation Cardiology: regular, S1S2 Gastrointestinal: normal, no tenderness, no distended Integumentary: no rash Musculoskeletal: other (no edema; left upper arm swelling) Psychiatric: cooperativ - Vital Signs Vital signs: Vital Signs - 12hr 01/10/17 01/10/17 01/10/17 20:00 20:56 21:48 Temperature Pulse Rate 82 Respiratory 22 Rate Respiratory 18 Rate [Chest] Respiratory 18 Rate [headache] Blood Pressure 167/100 O2 Sat by Pulse Oximetry 01/10/17 01/10/17 01/10/17 21:49 21:56 23:25 Temperature 99.2 F Pulse Rate 82 88 Respiratory 18 20 Rate Respiratory Rate [Chest] Respiratory Rate [headache] Blood Pressure 167/100 135/70 O2 Sat by Pulse 98 Oximetry 01/11/17 01/11/17 01/11/17 03:25 03:55 04:00 Temperature 98.0 F Pulse Rate 74 Respiratory 17 17 20 Rate Respiratory Rate [Chest] Respiratory Rate [headache] Blood Pressure 144/98 O2 Sat by Pulse 100 Oximetry 01/11/17 06:18 Temperature Pulse Rate 74 Respiratory Rate Respiratory Rate [Chest] Respiratory Rate [headache] Blood Pressure 144/96 O2 Sat by Pulse Oximetry - Lab 01/11/17 01:25 01/11/17 01:25 Most recent lab results Calcium 9.3 mg/dL (8.4-10.2) 01/11/17 01:25
--- NOTE | 2017-01-11 09:17 | Ultrasound Report ---
ULTRASOUND EXTREMITY NONVASCULAR LEFT ARM INDICATION: Left arm and shoulder pain, swelling, fever. AV access. COMPARISON: 01/04/2017 arterial duplex. FINDINGS: Longitudinal and transverse grayscale and color flow sonographic evaluation of the area of concern from the left shoulder to the antecubital fossa demonstrates diffuse subcutaneous edema. No focal suspicious mass or fluid collection. Fistula appears patent with a stent noted near the left shoulder. CONCLUSION: Diffuse imaged left upper arm edema and few iatrogenic changes, as described. Thank you for the opportunity to participate in this patient's care.
--- NOTE | 2017-01-11 11:04 | Progress Note ---
Assessment and Plan - Patient Problems (1) Fever Current Visit: Yes Status: Acute Qualifiers: Fever type: F Encounter type: E Plan to address problem: 1. Remains afebrile for > 48 hours, whether drug fever vs. PNA vs. cellulitis. 2. Recommended total 7-day course of Vancomycin 1.5g and Ceftazidime 1g with HD (through January 16, 2017). Ceftazidime is not on formulary, therefore continue Cefepime while here. 3. Will discontinue Azithromycin. 4. I will sign off. Please call again if there are further questions or concerns. (2) ESRD (end stage renal disease) on dialysis Current Visit: No Status: Acute Plan to address problem: Antibiotics are renally adjusted. Subjective Date of service: 01/11/17 Principal diagnosis: esrd Interval history: Afebrile. Focal area of fullness at left shoulder with decreased pain. No new complaints. Objective - Constitutional Vitals: Vital Signs Temp Pulse Resp BP Pulse Ox 99.5 F 74 18 140/86 97 01/11/17 08:00 01/11/17 08:00 01/11/17 08:00 01/11/17 08:00 01/11/17 08:00 Temperature -Last 24 Hours Temperature 99.5 F Temperature 98.0 F Temperature 99.2 F Temperature 98.9 F Temperature 98.8 F General appearance: Present: no acute distress, other (non-toxic appearance.) - EENT Eyes: no conjunctival injection (muddy sclerae) - Neck Neck: supple - Respiratory Respiratory effort: normal Respiratory: bilateral: CTA - Cardiovascular Rhythm: regular Heart Sounds: Present: S1 & S2 Extremity abnormal: edema (decreased edema, erythema and warmth over left shoulder; a focal area of induration/ fullness remains at anterior deltoid region, not cord-like) - Gastrointestinal General gastrointestinal: Present: soft, non-distended - Integumentary Integumentary: clear, no rash - Neurologic Neurologic: moves all extremities - Psychiatric Psychiatric: appropriate mood/affect - Additional findings Additional findings: AV fistula left arm without surrounding inflammation - Labs CBC & Chem 7: 01/11/17 01:25 01/11/17 01:25 Labs: Abnormal lab results 01/11/17 01/11/17 Range/Units 01:25 01:25 RBC 2.88 L (3.65-5.03) M/mm3 Hgb 8.8 L (11.8-15.2) gm/dl Hct 26.7 L (35.5-45.6) % RDW 18.0 H (13.2-15.2) % Sodium 133 L (137-145) mmol/L Chloride 94.4 L (98-107) mmol/L BUN 50 H (9-20) mg/dL Creatinine 10.1 H (0.8-1.5) mg/dL Microbiology 01/09/17 15:59 Peripheral/Venous Blood Culture - Preliminary NO GROWTH AFTER 24 HOURS 01/09/17 16:04 Peripheral/Venous Blood Culture - Preliminary NO GROWTH AFTER 24 HOURS 01/06/17 10:15 Peripheral/Venous Blood Culture - Preliminary NO GROWTH AFTER 4 DAYS 01/06/17 10:53 Peripheral/Venous Blood Culture - Preliminary NO GROWTH AFTER 4 DAYS - Imaging and cardiology Other: report reviewed (CT Left Upper Ext (01/09/17) - subcutaneous edema consistent with cellulitis with mild left axillary adenopathy, NO ABSCESS is seen), other (Ultrasound Left Arm - subcutaneous edema; no abscess or focal collection is seen)
[2017-01-11] MEDS: COREG PO SCH ×3 (11:29→21:59)
[2017-01-11] MEDS: APRESOLINE PO SCH ×3 (11:29→20:22)
[2017-01-11] MEDS: PROCARDIA XL PO SCH ×2 (11:30→21:04)
[2017-01-11] MEDS ORDERED: NACL 0.9 (PRIMING MACHINE ONLY DIALYSIS) MC ONE (11:57)
--- NOTE | 2017-01-11 14:07 | Query- Pneumonia Documented ---
Wanda Schwarz___Yousif Date:_01/11/2017 [employer] Officer/CDS:__Tavia Phone#:__[phone] Exercise your independent professional judgment when responding to query. Questions asked do not imply a particular answer is desired or expected. We greatly appreciate your clarification on this issue. Clinical Documentation States: 41 Year old Male was admitted on 01/04/2017. The IM progress note on 01/10/2017 states "Acute respiratory failure - likely from b/l PNA - suspected from pulmonary edema on admission - cont Supplemental oxygen as needed - improved following HD and abx B/L PNA - likely community acquired - will cont coverage for gm negative and possible MRSA as he is a chronic HD patient." Clinical Findings Show: Antibiotics: IV Levaquin IV Vancomycin Chest Imaging: CTA on 01/07/2017 Bilateral lower lobe pneumonia. Please further specify known or suspected Etiology: [ ] Aspiration Pneumonia [x ] Gram Negative Pneumonia, likely [ ] Gram Positive Pneumonia [ ] Pseudomonas Pneumonia [ ] MRSA - related Pneumonia [ ] Viral Pneumonia [ ] Candidal Pneumonia [ ] Other: [ ] Unable to determine Present on Admission: [ x] Yes (Y) [ ] Clinically undeterminable (W) [ ] No (N) / Please also document response in your Progress Notes and/or Discharge Summary and indicate if the condition was present on admission. [facility]
--- NOTE | 2017-01-11 18:23 | Progress Note ---
Assessment and Plan Mr. Shaikh is a 41yo with ESRD on HD MWF via [facility] who presented to the ED with left arm pain following fistulogram/stent placement. In addition, he also reported shortness of breath. He last dialyzed on Dec 30. Persistent Fever - resolved - likely Left arm cellulitis vs. PNA (other pathogens) - will follow repeat blood cx, cont empiric abx to cover for gm negative and MRSA - CTA chest showed b/l PNA, CT left UE showed cellulitis, but no abscess - consulted ID and recommended following: total 7-day course of Vancomycin 1.5g and Ceftazidime 1g with HD (through January 16, 2017). CM notified. Acute respiratory failure - likely from b/l PNA - suspected from pulmonary edema on admission - cont Supplemental oxygen as needed - improved following HD and abx B/L PNA - likely community acquired - will cont coverage for gm negative and possible MRSA as he is a chronic HD patient Metabolic acidosis - due to ESRD - dialysis as per renal team on MWF Anemia in ESRD (end-stage renal disease) - Epogen as per renal team, ESRD (end stage renal disease) on dialysis - Nephrology consulted for dialysis, s/p access evaluated by vascular surgery - tolerating HD Malfunctioning AV access s/p fistulogram/stent - s/p access evaluated by vascular surgery and cleared to use for HD hyperkalemia - cont to monitor, resolved with HD Hypertensive urgency - Monitor BP q shift, resumed home medication, hydralazine prn, goal systolic overnight 150-165 - improved with procardia, incresaed the dose of coreg Right subclavian stenosis - He is status post intervention and stent placement on outpatient facility with resultant chest pain. - Subclavian stenosis is chronic in nature per vascular, no further intervention. DVT prophylaxis - heparin Subjective Date of service: 01/11/17 Principal diagnosis: esrd Interval history: Pt seen and examined denies any N/V did not spike fever in last 24h Objective - Exam Narrative Exam: General appearance: Present: mild distress - EENT Eyes: Present: PERRL ENT: hearing intact, clear oral mucosa - Neck Neck: Present: supple, normal ROM - Respiratory Respiratory effort: normal Respiratory: bilateral: CTA - Cardiovascular Heart Sounds: Present: S1 & S2. Absent: rub, click - Extremities Extremities: pulses symmetrical, No edema Extremity abnormal: edema (LUE edema, tenderness, palpable thrill) Peripheral Pulses: within normal limits - Abdominal General gastrointestinal: Present: soft, non-tender, non-distended, normal bowel sounds Male genitourinary: Present: normal - Integumentary Integumentary: Present: clear, warm, dry - Musculoskeletal Musculoskeletal: gait normal, strength equal bilaterally - Psychiatric Psychiatric: appropriate mood/affect, intact judgment & insight - Neurologic Neurologic: CNII-XII intact, moves all extremities - Constitutional Vitals: Vital Signs - 12hr 01/11/17 01/11/17 01/11/17 08:00 10:00 11:07 Temperature 99.5 F 98.1 F Pulse Rate 74 74 67 Respiratory 18 18 Rate Blood Pressure 140/86 149/77 158/91 O2 Sat by Pulse 97 Oximetry 01/11/17 01/11/17 01/11/17 11:15 11:30 11:45 Temperature Pulse Rate 64 64 66 Respiratory Rate Blood Pressure 149/90 155/98 154/91 O2 Sat by Pulse Oximetry 01/11/17 01/11/17 01/11/17 12:00 12:15 12:30 Temperature Pulse Rate 65 65 66 Respiratory Rate Blood Pressure 149/100 156/94 154/99 O2 Sat by Pulse Oximetry 01/11/17 01/11/17 01/11/17 12:45 13:00 13:15 Temperature Pulse Rate 65 64 64 Respiratory Rate Blood Pressure 146/65 156/100 150/91 O2 Sat by Pulse Oximetry 01/11/17 01/11/17 01/11/17 13:30 13:45 14:00 Temperature Pulse Rate 68 65 64 Respiratory Rate Blood Pressure 152/95 157/100 158/97 O2 Sat by Pulse Oximetry 01/11/17 01/11/17 01/11/17 14:15 14:53 15:38 Temperature 98.2 F Pulse Rate 66 68 69 Respiratory 18 Rate Blood Pressure 155/88 154/89 159/100 O2 Sat by Pulse Oximetry 01/11/17 01/11/17 01/11/17 15:39 15:45 17:14 Temperature 98.7 F Pulse Rate 69 70 Respiratory 18 Rate Blood Pressure 159/100 160/100 O2 Sat by Pulse 100 Oximetry - Labs CBC & Chem 7: 01/11/17 01:25 01/11/17 01:25 Labs: Abnormal lab results 01/11/17 01/11/17 Range/Units 01:25 01:25 RBC 2.88 L (3.65-5.03) M/mm3 Hgb 8.8 L (11.8-15.2) gm/dl Hct 26.7 L (35.5-45.6) % RDW 18.0 H (13.2-15.2) % Sodium 133 L (137-145) mmol/L Chloride 94.4 L (98-107) mmol/L BUN 50 H (9-20) mg/dL Creatinine 10.1 H (0.8-1.5) mg/dL
[2017-01-11] MEDS: MILK OF MAGNESIA PO PRN (20:57)
[2017-01-11] MEDS: MAXIPIME 0.5 GM in NACL 0.9% 100 ML IV SCH (20:57)
[2017-01-12] MEDS: MORPHINE IV PRN ×3 (00:40→10:38)
[2017-01-12] MEDS: BENADRYL IV PRN ×2 (00:40→10:37)
[2017-01-12] MEDS: PERCOCET 5/325 PO PRN (02:53)
[2017-01-12] MEDS: CATAPRES PO SCH (05:30)
[2017-01-12 08:05] VITALS: BP 136/84
--- NOTE | 2017-01-12 08:14 | Progress Note ---
Assessment and Plan Impression: * End stage renal disease * Malfunctioning AV access s/p fistulogram/stent * Bilateral PNA * Persistent fever * Hypertension * Anemia secondary to ESRD * Secondary hyperparathryoidism Plan: * Continue HD MWF schedule * ID recommendations reviewed * UF as tolerated * Continue home antiHTN medications * Pain management per primary team * Epogen for Hb 10-12 * Renal diet * will receive vanco/fortaz with HD * ok to dc from renal standpoint Subjective Date of service: 01/12/17 Principal diagnosis: esrd Interval history: resting in bed today Objective - Exam Narrative Exam: General appearance: well-developed, well-nourished EENT: ATNC Neck: no JVD Respiratory: Present: Clear to Ascultation Cardiology: regular, S1S2 Gastrointestinal: normal, no tenderness, no distended Integumentary: no rash Musculoskeletal: other (no edema; left upper arm swelling) Psychiatric: cooperativ - Vital Signs Vital signs: Vital Signs - 12hr 01/11/17 01/12/17 01/12/17 22:00 00:03 04:00 Temperature 100 F H 99.2 F Pulse Rate 76 72 Respiratory 14 14 Rate Blood Pressure 147/86 139/85 O2 Sat by Pulse 98 95 97 Oximetry 01/12/17 08:00 Temperature 98.3 F Pulse Rate 66 Respiratory 20 Rate Blood Pressure 136/84 O2 Sat by Pulse 97 Oximetry - Lab 01/11/17 01:25 01/11/17 01:25 Most recent lab results Calcium 9.3 mg/dL (8.4-10.2) 01/11/17 01:25
[2017-01-12] MEDS: COREG PO SCH (11:24)
[2017-01-12] MEDS: APRESOLINE PO SCH (11:24)
[2017-01-12] MEDS: PROCARDIA XL PO SCH (11:25)
--- NOTE | 2017-01-12 12:08 | Discharge Summary ---
Providers - Providers Date of Admission: 01/04/17 18:21 Date of discharge: 01/12/17 Attending physician: DEONTE IRBY MD 01/08/17 11:13 Consult to Physician [CONS] Routine Consulting Provider: RUSS MALDONADO Reason For Exam: rt subclavian steel Place consult to:: community liaison vascular Notified:: office Phone number called:: [phone] Was contact made?: Yes If yes, spoke with:: luz Time called:: 12:02 01/09/17 13:50 Consult to Physician [CONS] Routine Consulting Provider: ALIYA MADDOX Reason For Exam: persistant fever Place consult to:: dr. maddox Notified:: left message Phone number called:: [phone] Was contact made?: No Time called:: 18:56 Primary care physician: [facility] [employer] Hospitalization Reason for admission: left arm and chest pain, end-stage renal disease on hemodialysis, bilatera Condition: Stable Pertinent studies: CTA bilateral pneumonia, no PE identified CT of upper extremity soft tissue swelling, no abscess collection Hospital course: Mr. Shaikh is a 41yo with ESRD on HD MWF via [facility] who presented to the ED with left arm pain following fistulogram/stent placement. In addition, he also reported shortness of breath. He last dialyzed on Dec 30. Patient has persistent fever and ID was consulted and recommended empiric treatment with IV vancomycin and ceftazidime to be continued as an outpatient with dialysis. Blood cultures were negative. Patient's fever was resolved at the time of discharge. The patient hads bilateral pneumonia and left arm cellulitis. Nephrology was consulted and continued his hemodialysis. Patient has right subclavian stenosis status post stent placement as an outpatient. Vascular surgery was consulted and recommended to have outpatient follow-up appointment. Patient doesn't need intervention at this admission. Patient was hemodynamically stable at the time of discharge. Patient's questions and concerns were addressed at the bedside. Patient's medications were reviewed and updated. Case management contacted the dialysis center for his IV antibiotics. [facility] Time spent for discharge: 31 minutes - Discharge Diagnoses (1) Acute respiratory failure Status: Acute Qualifiers: Respiratory failure complication: R (2) Anemia in ESRD (end-stage renal disease) Status: Acute (3) Fever Status: Acute Qualifiers: Fever type: F Encounter type: E (4) HTN (hypertension) Status: Acute Qualifiers: Hypertension type: H (5) Metabolic acidosis Status: Acute (6) ESRD (end stage renal disease) Status: Chronic Core Measure Documentation - Palliative Care Palliative Care/ Comfort Measures: Not Applicable - Core Measures Any of the following diagnoses?: none Exam - Physical Exam Narrative exam: Not in cardiopulmonary distress. The patient appeared well nourished and normally developed. Vital signs as documented. Head exam is unremarkable. No scleral icterus . Neck is without jugular venous distension, thyromegaly, or carotid bruits. Lungs are clear to auscultation. Cardiac exam reveals regular rate and Rhythm. First and second heart sounds normal. No murmurs, rubs or gallops. Abdominal exam reveals normal bowel sounds, no masses, no organomegaly and no aortic enlargement. Extremities mild swelling and tenderness of the LUE. SQL DEVELOPER: Alert and oriented 3. No focal weakness. - Constitutional Vitals: Temp Pulse Resp BP Pulse Ox 98.3 F 66 20 136/84 97 01/12/17 08:00 01/12/17 11:24 01/12/17 08:00 01/12/17 11:24 01/12/17 08:00 Plan Activity: no restrictions Weight Bearing Status: Full Weight Bearing Diet: low cholesterol, low salt, renal Follow up with: PRIMARY CARE, [Primary Care Provider] - 3-5 Days Prescriptions: cefTAZidime [Fortaz] 1 gm IV 3XW #3 vial.port oxyCODONE /ACETAMINOPHEN [Percocet 5/325 mg] 1 tab PO Q8H PRN #10 tablet PRN Reason: Pain, Moderate (4-6) Vancomycin HCl in Dextrose 5 % [Vancomycin 1.5 Gram/250 ml-D5w] 1.5 gm IV 3XW # 3 plast..bag
[2017-01-12] MEDS ORDERED: VANCOMYCIN/NS 1 GM/250 ML 1 GM/250 ML BAG IV SCH (20:00)
== END 2017-01-12 13:35 | disposition short-term general hospital (02) | DRG 314 ==
LOC: ED 12:46 → 3A 18:21
PROVIDERS: ADMIT Internal Medicine; ATTEND Internal Medicine
PROC: 5A1D60Z (ICD-10-PCS; principal; 2017-01-04)
DX: T82.898A Other specified complication of vascular prosthetic devices, implants and grafts, initial encounter (principal); J96.00 Acute respiratory failure, unspecified whether with hypoxia or hypercapnia; N18.6 End stage renal disease; J15.6 Pneumonia due to other Gram-negative bacteria; E87.2 Acidosis; I16.0 Hypertensive urgency; J81.1 Chronic pulmonary edema; E87.5 Hyperkalemia; J44.9 Chronic obstructive pulmonary disease, unspecified; I13.2 Hypertensive heart and chronic kidney disease with heart failure and with stage 5 chronic kidney disease, or end stage renal disease; I50.9 Heart failure, unspecified; D63.1 Anemia in chronic kidney disease; Z99.2 Dependence on renal dialysis
CPT/HCPCS: 36415; 71010; 71275; 80048; 80053; 80202; 85025; 85027; 85610; 87040; 87806; 93005; 93010; 94760; 96374; 96375; J0360; J0456; J0692; J0696; J0885; J1200; J1956; J2270; J2405; J3370; J7030; J7050; Q0177; Q9967

== ENCOUNTER 2017-03-29 13:09 | Inpatient (IN) | payer MEDICAID ==
--- NOTE | 2017-03-29 13:49 | XRay Report ---
PORTABLE CHEST INDICATION: Chest pain. COMPARISON: 01/04/2017 FINDINGS: Portable, frontal chest radiograph again demonstrates mild cardiomegaly and left subclavian stent. Lungs now clear without pleural effusions or CHF. Stable bones. CONCLUSION: Cardiomegaly again noted with interval resolution of CHF, as described. Thank you for the opportunity to participate in this patient's care.
[2017-03-29] MEDS ORDERED: MORPHINE IV ONE (13:53)
[2017-03-29] MEDS ORDERED: BENADRYL IV ONE ×2 (13:53→17:38)
[2017-03-29 14:07] LABS: Basophils % (Auto) 0.5 % (0.0-1.8); Hematocrit 32.3 % (35.5-45.6); Hemoglobin 10.7 gm/dl (11.8-15.2); Mean Corpuscular HGB Conc 33 % (32-34); Mean Corpuscular Hemoglobin 32 pg (28-32); Mean Corpuscular Volume 96 fl (84-94); Platelet Count 138 K/mm3 (140-440); Red Blood Count 3.36 M/mm3 (3.65-5.03); Red Cell Distribution Width 18.5 % (13.2-15.2); White Blood Count 8.1 K/mm3 (4.5-11.0)
[2017-03-29 14:17] LABS: INR 1.1 (0.87-1.13); Partial Thromboplastin Time 33.6 Sec. (24.2-36.6)
[2017-03-29 14:27] LABS: Calcium 8.7 mg/dL (8.4-10.2); Chloride 95.5 mmol/L (98-107); Potassium 4.2 mmol/L (3.6-5.0)
[2017-03-29] MEDS ORDERED: MORPHINE ONE ×3 (14:33→17:44)
[2017-03-29] MEDS ORDERED: APRESOLINE IV ONE (14:33)
--- NOTE | 2017-03-29 15:11 | Emergency Department Report ---
HPI - General Chief Complaint: High BP Time Seen by Provider: 03/29/17 13:30 - HPI HPI: This is a 41-year-old male presents to the emergency department by EMS from dialysis with complaint of hypertension and some chest pain. Patient says that they would not do his dialysis today because he had a elevated blood pressure with a systolic of about 190. The chest pain is midsternal and nonradiating but worsens on inhalation and has been going on since yesterday. He thought it might be acid reflux so he tried eating some mustard but did not have any relief. He is a tobacco smoker and occasional marijuana smoker. He has not taken anything for her symptoms and presentation. He does not have a primary care physician but his brick maker is Dr. Araujo. ED Past Medical Hx - Past Medical History Previous Medical History?: Yes Hx Hypertension: Yes Hx Congestive Heart Failure: No Hx Diabetes: No Hx Renal Disease: Yes (Hemodialysis M,W,F) Hx Seizures: No Hx Asthma: No Hx COPD: Yes Hx HIV: No - Surgical History Past Surgical History?: Yes Additional Surgical History: Hernia, Fistula L upper arm - Social History Smoking Status: Never Smoker Substance Use Type: Marijuana - Medications Home Medications: Home Medications Medication Instructions Recorded Confirmed Last Taken Type Carvedilol [Coreg] 25 mg PO BID #60 tablet 12/13/16 01/04/17 Unknown Rx cloNIDine [Catapres] 0.3 mg PO Q8HR 30 Days 12/13/16 01/04/17 Unknown Rx hydrALAZINE [Apresoline TAB] 100 mg PO TID #90 tab 12/13/16 01/04/17 Unknown Rx Vancomycin HCl in Dextrose 5 % 1.5 gm IV 3XW #3 plast..bag 01/12/17 Unknown Rx [Vancomycin 1.5 Gram/250 ml-D5w] cefTAZidime [Fortaz] 1 gm IV 3XW #3 vial.port 01/12/17 Unknown Rx oxyCODONE /ACETAMINOPHEN [Percocet 1 tab PO Q8H PRN #10 tablet 01/12/17 Unknown Rx 5/325 mg] ED Review of Systems ROS: Stated complaint: HYPERTENSION/ITCHY/CP ON INHALATION Other details as noted in HPI Comment: All other systems reviewed and negative Constitutional: denies: chills, fever Eyes: denies: eye pain, eye discharge, vision change ENT: denies: ear pain, throat pain Respiratory: denies: cough, wheezing Cardiovascular: chest pain. denies: palpitations Gastrointestinal: denies: abdominal pain, nausea, diarrhea Genitourinary: denies: urgency, dysuria Musculoskeletal: denies: back pain, joint swelling, arthralgia Skin: denies: rash, lesions Neurological: denies: headache, weakness, paresthesias Physical Exam - Physical Exam Vital Signs: Vital Signs 03/29/17 03/29/17 03/29/17 13:33 13:39 13:45 Temperature 97.6 F Pulse Rate 67 65 Respiratory 10 L Rate Blood Pressure 166/110 166/110 162/101 O2 Sat by Pulse 98 100 Oximetry 03/29/17 03/29/17 03/29/17 14:00 14:15 14:30 Temperature Pulse Rate 67 71 68 Respiratory 14 17 14 Rate Blood Pressure 169/107 174/107 174/119 O2 Sat by Pulse 99 96 99 Oximetry 03/29/17 14:43 Temperature Pulse Rate 68 Respiratory Rate Blood Pressure O2 Sat by Pulse Oximetry Physical Exam: GENERAL: The patient is well-developed well-nourished. HENT: Normocephalic. Atraumatic. Patient has moist mucous membranes. EYES: Extraocular motions are intact. Pupils equal reactive to light bilaterally. NECK: Supple. Trachea is midline. CHEST/LUNGS: Clear to auscultation. There is no respiratory distress noted. HEART/CARDIOVASCULAR: Regular. There is no tachycardia. There is no gallop rub or murmur. ABDOMEN: Abdomen is soft, nontender. Patient has normal bowel sounds. There is no abdominal distention. SKIN: Skin is warm and dry. NEURO: The patient is awake, alert, and oriented. The patient is cooperative. The patient has no focal neurologic deficits. The patient has normal speech. MUSCULOSKELETAL: There is no tenderness or deformity. There is no limitation range of motion. There is no evidence of acute injury. There is a patent left upper extremity dialysis fistula. ED Course Vital Signs 03/29/17 03/29/17 03/29/17 13:33 13:39 13:45 Temperature 97.6 F Pulse Rate 67 65 Respiratory 10 L Rate Blood Pressure 166/110 166/110 162/101 O2 Sat by Pulse 98 100 Oximetry 03/29/17 03/29/17 03/29/17 14:00 14:15 14:30 Temperature Pulse Rate 67 71 68 Respiratory 14 17 14 Rate Blood Pressure 169/107 174/107 174/119 O2 Sat by Pulse 99 96 99 Oximetry 03/29/17 14:43 Temperature Pulse Rate 68 Respiratory Rate Blood Pressure O2 Sat by Pulse Oximetry - Consultations Consultation #1: I spoke with Chanelle, the nurse practitioner for Dr. Araujo, and the nephrology service is aware of the patient's presentation. I am not sure if the patient will receive dialysis this evening or tomorrow. 03/29/17 15:19 ED Medical Decision Making - Lab Data Result diagrams: 03/29/17 13:47 03/29/17 13:47 - EKG Data -: EKG Interpreted by Me EKG shows normal: sinus rhythm, axis (LAD), intervals (prolonged QT and QTC), QRS complexes (Q waves to the septal leads), ST-T waves (T-wave inversion to lead V3) Rate: normal - EKG Data When compared to previous EKG there are: no significant change Interpretation: unchanged when compared t (01/04/17) - Radiology Data Radiology results: image reviewed interpreted by me: Chest x-ray does not show any acute process. There are no pleural effusions, obvious pneumonia and there is no pneumothorax. There is some cardiomegaly. - Medical Decision Making 41-year-old male presents to the emergency department after he was unable to get dialysis secondary to his accelerated hypertension. He also has been having some chest discomfort since yesterday. EKG does not show any ST elevation SD and while it is not normal, it is unchanged from his last EKG in December. His labs do not show any hyperkalemia. Patient was given some pain medication and he still has some discomfort. Chest x-ray does not show any significant volume overload. he will be presented to the admitting hospitalist for admission. - Differential Diagnosis SD, CHF, Pneumonia, Costochondritis, GERD Critical Care Time: No Critical care attestation.: If time is entered above; I have spent that time in minutes in the direct care of this critically ill patient, excluding procedure time. ED Disposition Clinical Impression: ESRD needing dialysis, Hypertensive urgency Chest pain Qualifiers: Chest pain type: unspecified Qualified Code(s): R07.9 - Chest pain, unspecified Disposition: -09 OP ADMIT IP TO THIS HOSP Is pt being admited?: Yes Does the pt Need Aspirin: Yes Condition: Stable Instructions: Chest Pain (ED) Referrals: PRIMARY CARE,MD [Primary Care Provider] - 3-5 Days Time of Disposition: 15:21
--- NOTE | 2017-03-29 15:20 | History and Physical Report ---
History of Present Illness Chief complaint: My chest hurts, History of present illness: 41 YO Male with ESRD on HD(M,W,F), HTN,COPD, Nicotine Dependence presents to ED for evaluation. Pt states that he has experienced pain in his chest for the past 1 day with persistent symptoms during that same time period. Pt also complains of high blood pressure. Pt went to his dialysis center but was unable to receive dialysis due to elevated blood pressure. Pt systolic BP was in the 190's. Pt was instructed to come to ED for evaluation. Pt states that the pain in his chest is 5-7/10, localized to left chest, nonradiating, mid sternal, worse with movement or arm or chest wall and inhalation, relieved slightly with non movement. Pt denies fever, chills, Palpitations, NVD, Syncope, recent ill contacts,Productive cough, hemoptysis, BRBPR, Trauma, leg swelling, calf pain, prolonged travel/immobility, individual/family history of DVT/PE. Past History Past Medical History: COPD, ESRD, hypertension, other (Pulmonary Hypertension) Past Surgical History: hernia repair, Other (LUE AVF) Social history: single, smoking. denies: alcohol abuse, prescription drug abuse , IV drug use Family history: hypertension Medications and Allergies Allergies Allergy/AdvReac Type Severity Reaction Status Date / Time No Known Allergies Allergy Unverified 05/26/15 13:53 Home Medications Medication Instructions Recorded Confirmed Last Taken Type Carvedilol [Coreg] 25 mg PO BID #60 tablet 12/13/16 03/29/17 03/29/17 Rx hydrALAZINE [Apresoline TAB] 100 mg PO TID #90 tab 12/13/16 03/29/17 03/29/17 Rx Clonidine HCl [Catapres] 0.3 mg PO Q8H 03/29/17 03/29/17 03/29/17 History Review of Systems Constitutional: no weight loss, no weight gain, no fever, no chills Ears, nose, mouth and throat: no ear pain, no ear discharge, no tinnitis, no decreased hearing, no nose pain, no nasal congestion Cardiovascular: chest pain, edema, no orthopnea, no palpitations, no rapid/ irregular heart beat, no syncope, no lightheadedness Respiratory: no cough, no cough with sputum, no excessive sputum, no hemoptysis Gastrointestinal: no nausea, no vomiting, no diarrhea, no constipation, no change in bowel habits Genitourinary Male: no hematuria, no flank pain, no discharge, no urinary frequency, no urinary hesitancy, no nocturia, no incontinence Rectal: no pain, no incontinence, no bleeding Musculoskeletal: no neck stiffness, no neck pain, no shooting arm pain, no arm numbness/tingling, no low back pain, no shooting leg pain Integumentary: no rash, no pruritis, no redness, no sores, no wounds, no jaundice Neurological: no head injury, no transient paralysis, no paralysis, no weakness , no parathesias, no numbness, no tingling Psychiatric: no anxiety, no memory loss, no change in sleep habits, no sleep disturbances, no insomnia, no hypersomnia, no change in appetite, no change in libido Endocrine: no cold intolerance, no heat intolerance, no polyphagia, no excessive thirst, no polydipsia, no polyuria, no nocturia Hematologic/Lymphatic: no easy bruising, no easy bleeding Allergic/Immunologic: no urticaria, no allergic rhinitis, no wheezing Exam - Constitutional Vitals: Temp Pulse Resp BP Pulse Ox 97.6 F 68 14 174/119 99 03/29/17 13:39 03/29/17 14:43 03/29/17 14:30 03/29/17 14:30 03/29/17 14:30 General appearance: Present: mild distress - EENT Eyes: Present: PERRL ENT: hearing intact, clear oral mucosa - Neck Neck: Present: supple, normal ROM - Respiratory Respiratory effort: normal Respiratory: bilateral: CTA - Cardiovascular Heart Sounds: Present: S1 & S2. Absent: rub, click - Extremities Extremities: pulses symmetrical, No edema Extremity abnormal: edema Peripheral Pulses: within normal limits - Abdominal General gastrointestinal: Present: soft, non-tender, non-distended, normal bowel sounds Male genitourinary: Present: normal - Integumentary Integumentary: Present: clear, warm, dry - Musculoskeletal Musculoskeletal: gait normal, strength equal bilaterally - Psychiatric Psychiatric: appropriate mood/affect, intact judgment & insight - Neurologic Neurologic: CNII-XII intact, moves all extremities Results - Labs CBC & Chem 7: 03/29/17 13:47 03/29/17 13:47 Labs: Abnormal lab results 03/29/17 03/29/17 Range/Units 13:47 13:47 RBC 3.36 L (3.65-5.03) M/mm3 Hgb 10.7 L (11.8-15.2) gm/dl Hct 32.3 L (35.5-45.6) % MCV 96 H (84-94) fl RDW 18.5 H (13.2-15.2) % Plt Count 138 L (140-440) K/mm3 Lymph % (Auto) 6.5 L (13.4-35.0) % Lymph # 0.5 L (1.2-5.4) K/mm3 Seg Neutrophils % 83.8 H (40.0-70.0) % Chloride 95.5 L (98-107) mmol/L BUN 67 H (9-20) mg/dL Creatinine 13.1 H (0.8-1.5) mg/dL Assessment and Plan - Patient Problems (1) ACS (acute coronary syndrome) Current Visit: Yes Status: Suspected Plan to address problem: Admit to telemetry, serial cardiac enzymes, EKG, Echo, cardiology consult, CT chest, DDimer, Morphine, Supplemental Oxygen, Nitro tabs, Aspirin. (2) ESRD needing dialysis Current Visit: Yes Status: Acute Plan to address problem: Nephrology consulted in ED for dialysis. (3) Hypertensive urgency Current Visit: Yes Status: Acute Plan to address problem: Monitor bp q shift, IV hydralazine prn, continue medical management (4) Fluid overload Current Visit: No Status: Acute Qualifiers: Hypervolemia type: H Plan to address problem: fluid restriction, monitor uop q shift, dialysis as per renal team. (5) Pulmonary hypertension Current Visit: Yes Status: Acute Plan to address problem: supplemental oxygen, nebs, aspiration precautions, supportive care, (6) DVT prophylaxis Current Visit: No Status: Acute
[2017-03-29] MEDS ORDERED: BABY ASPIRIN PO ONE (15:21)
[2017-03-29] MEDS ORDERED: NITROSTAT SL PRN (16:15)
[2017-03-29] MEDS ORDERED: TYLENOL PO PRN (16:15)
[2017-03-29] MEDS ORDERED: PROVENTIL IH PRN (16:15)
[2017-03-29] MEDS ORDERED: SODIUM CHLORIDE FLUSH SYRINGE 10 ML IV PRN (16:15)
[2017-03-29] MEDS ORDERED: NON-FORMULARY (Clonidine Hcl [Catapres] 0.3 MG) PO SCH (16:30)
--- NOTE | 2017-03-29 16:30 | Consultation ---
History of Present Illness - Reason for Consult Consult date: 03/29/17 end stage renal disease Requesting physician: FLOYD FISHER - History of Present Illness Mr. Shaikh is a 41-year-old -[place] male with past medical history significant for hypertension and end-stage renal disease and maintenance hemodialysis presented to the emergency room with complaints of chest pain and uncontrolled hypertension. Patient undergoes hemodialysis at [facility] on Mondays, Wednesdays and Fridays schedule. His blood pressure was found to be quite elevated and he could not be dialyzed today and was sent to the emergency room for evaluation. He was also found to be 5 kg over his estimated dry weight. He also complains of generalized itching Past History Past Medical History: dialysis, hypertension, other (on compliance) Past Surgical History: Other (history of creation of AV fistula) Social history: other (patient is a smoker. Denies alcohol abuse) Family history: no significant family history Medications and Allergies Allergies Allergy/AdvReac Type Severity Reaction Status Date / Time No Known Allergies Allergy Unverified 05/26/15 13:53 Home Medications Medication Instructions Recorded Confirmed Last Taken Type Carvedilol [Coreg] 25 mg PO BID #60 tablet 12/13/16 03/29/17 03/29/17 Rx hydrALAZINE [Apresoline TAB] 100 mg PO TID #90 tab 12/13/16 03/29/17 03/29/17 Rx Clonidine HCl [Catapres] 0.3 mg PO Q8H 03/29/17 03/29/17 03/29/17 History Active Meds: Active Medications Acetaminophen (Tylenol) 650 mg PO Q4H PRN PRN Reason: Pain MILD(1-3)/Fever >100.5/WOOD Albuterol (Proventil) 2.5 mg IH Q4HRT PRN PRN Reason: Shortness Of Breath Carvedilol (Coreg) 25 mg PO BID JOANN Famotidine (Pepcid) 10 mg PO BID JOANN Hydralazine HCl (Apresoline) 100 mg PO TID JOANN Miscellaneous Medication (Clonidine Hcl [Catapres]) 0.3 mg PO Q8H JOANN Morphine Sulfate (Morphine) 2 mg IV Q8H PRN PRN Reason: Pain, Moderate (4-6) Nitroglycerin (Nitrostat) 0.4 mg SL Q5M PRN PRN Reason: Chest Pain Ondansetron HCl (Zofran) 4 mg IV Q8H PRN PRN Reason: N/V unrelieved by Reglan Sodium Chloride (Sodium Chloride Flush Syringe 10 Ml) 10 ml IV PRN PRN PRN Reason: LINE FLUSH Review of Systems All systems: negative (negative except as noted above) Exam - Vital Signs Vital signs: Vital Signs BP 166/110 03/29/17 13:33 - General Appearance General appearance: well-developed, well-nourished, appears stated age EENT: PERRL, mucous membranes moist Neck: Present: neck supple, trachea midline. Absent: JVD/HJR, Masses Respiratory: Clear to Ascultation Heart: regular, normal heart rate, S1S2, no murmurs Gastrointestinal: Present: normal, normoactive bowel sounds Integumentary: no rash, other (AV fistula in his left upper arm. Good bruit and thrill. No edema) Results - Lab Results 03/29/17 13:47 03/29/17 13:47 Most recent lab results Calcium 8.7 mg/dL (8.4-10.2) 03/29/17 13:47 Assessment and Plan Impression * Accelerated hypertension * End-stage renal disease on maintenance hemodialysis * Fluid overload * Chest pain * Pruritis * Anemia secondary to ESRD * Noncompliance with dialysis, medication and dietary and fluid restriction Recommendations * Shall schedule patient for hemodialysis today * Hopefully should improve his blood pressure and also volume control. He will most likely need an additional dialysis treatment tomorrow * Procrit with dialysis * Shall check a phosphorus level as well * No IV, BP of any function in his access arm * Adjust diet and meds for ESRD state * Thank you very much for the consultation. Shall follow along with you
[2017-03-29] MEDS ORDERED: BENADRYL ONE (17:44)
[2017-03-29] MEDS: MORPHINE IV PRN ×2 (17:48→22:54)
[2017-03-29] MEDS: CATAPRES PO SCH (20:47)
--- NOTE | 2017-03-29 22:37 | Cat Scan Report ---
FINAL REPORT EXAM: CT CHEST WO CON HISTORY: chest pain TECHNIQUE: CT chest without contrast PRIORS: Comparison is dated January 07, 2017 FINDINGS: No evidence of mediastinal pathologic lymph node enlargement. Left axillary/subclavian vascular stent noted. Heart is prominent size. The aorta is normal in caliber. There is some atelectasis at the lung bases along with some ground-glass opacity and septal thickening could reflect mild fluid overload or edema. Visualized portion of the upper abdomen demonstrates no acute change. IMPRESSION: Mild cardiomegaly Findings suggestive of mild pulmonary edema or fluid overload
[2017-03-29] MEDS: COREG PO SCH (22:55)
[2017-03-29] MEDS: PEPCID PO SCH ×2 (22:55→23:00)
[2017-03-29] MEDS: APRESOLINE PO SCH (22:56)
[2017-03-30] MEDS: BENADRYL IV PRN ×4 (00:56→22:23)
[2017-03-30] MEDS: CATAPRES PO SCH ×3 (03:00→18:08)
[2017-03-30 06:10] LABS: Calcium 8.4 mg/dL (8.4-10.2); Chloride 96.1 mmol/L (98-107); Phosphorous 7.9 mg/dL (2.5-4.5)
[2017-03-30] MEDS: APRESOLINE PO SCH ×3 (08:08→22:23)
[2017-03-30] MEDS: MORPHINE IV PRN ×2 (08:08→15:48)
[2017-03-30] MEDS: ZOFRAN IV PRN ×2 (08:09→15:47)
[2017-03-30] MEDS: COREG PO SCH ×2 (09:00→22:22)
--- NOTE | 2017-03-30 09:04 | Progress Note ---
Assessment and Plan Assessment and plan: --Accelerated hypertension; resume home antihypertensives, when necessary hydralazine --Atypical chest pain; denies chest pain at the time of my evaluation, reports negative stress test recently at a different hospital Follow up in medical records, left ventricle ejection fraction 55% in November 2016 , continue current cardiac medications, cardiology following Positive cardiac troponins probably secondary to end-stage renal disease, closely monitor --End-stage renal disease on hemodialysis; dialysis per schedule, nephrology following --Chronic anemia of end-stage renal disease; closely monitor H&H, Procrit during dialysis, transfuse if needed --Ongoing Tobacco abuse; smoking cessation counseling done, advised nicotine patch if needed --Medical noncompliance; patient strongly counseled to comply with medications and diet hemodialysis and follow-up visits Patient verbalized understanding --DVT prophylaxis with heparin Consults and recommendations noted and appreciated Plan of care discussed with the patient and his nurse History Interval history: Patient seen and examined, medical records reviewed Patient feels slightly better no new complaints No new events reported by nursing staff Alert awake oriented 3 not in acute distress Vital signs reviewed Hospitalist Physical - Constitutional Vitals: Temp Pulse Resp BP Pulse Ox 98.5 F 71 20 158/100 100 03/30/17 03:48 03/30/17 03:48 03/30/17 08:08 03/30/17 03:48 03/30/17 03:48 General appearance: Present: no acute distress, well-nourished, obese - EENT Eyes: Present: PERRL, EOM intact - Neck Neck: Present: supple, normal ROM - Respiratory Respiratory effort: normal Respiratory: negative: rales, rhonchi, wheezing - Cardiovascular Rhythm: regular Heart Sounds: Present: S1 & S2 - Extremities Extremities: no ischemia, No edema - Abdominal General gastrointestinal: soft, non-tender, non-distended, normal bowel sounds - Integumentary Integumentary: Present: clear, warm - Psychiatric Psychiatric: appropriate mood/affect, cooperative - Neurologic Neurologic: CNII-XII intact, moves all extremities Results - Labs CBC & Chem 7: 03/29/17 13:47 03/30/17 05:30 Labs: Laboratory Last Values WBC 8.1 K/mm3 (4.5-11.0) 03/29/17 13:47 RBC 3.36 M/mm3 (3.65-5.03) L 03/29/17 13:47 Hgb 10.7 gm/dl (11.8-15.2) L 03/29/17 13:47 Hct 32.3 % (35.5-45.6) L 03/29/17 13:47 MCV 96 fl (84-94) H 03/29/17 13:47 MCH 32 pg (28-32) 03/29/17 13:47 MCHC 33 % (32-34) 03/29/17 13:47 RDW 18.5 % (13.2-15.2) H 03/29/17 13:47 Plt Count 138 K/mm3 (140-440) L 03/29/17 13:47 Lymph % (Auto) 6.5 % (13.4-35.0) L 03/29/17 13:47 [place] % (Auto) 7.2 % (0.0-7.3) 03/29/17 13:47 Eos % (Auto) 2.0 % (0.0-4.3) 03/29/17 13:47 Baso % (Auto) 0.5 % (0.0-1.8) 03/29/17 13:47 Lymph # 0.5 K/mm3 (1.2-5.4) L 03/29/17 13:47 [place] # 0.6 K/mm3 (0.0-0.8) 03/29/17 13:47 Eos # 0.2 K/mm3 (0.0-0.4) 03/29/17 13:47 Baso # 0.0 K/mm3 (0.0-0.1) 03/29/17 13:47 Seg Neutrophils % 83.8 % (40.0-70.0) H 03/29/17 13:47 Seg Neutrophils # 6.8 K/mm3 (1.8-7.7) 03/29/17 13:47 PT 14.8 Sec. (12.2-14.9) 03/29/17 13:47 INR 1.10 (0.87-1.13) 03/29/17 13:47 APTT 33.6 Sec. (24.2-36.6) 03/29/17 13:47 Sodium 141 mmol/L (137-145) 03/30/17 05:30 Potassium 4.0 mmol/L (3.6-5.0) 03/30/17 05:30 Chloride 96.1 mmol/L (98-107) L 03/30/17 05:30 Carbon Dioxide 28 mmol/L (22-30) 03/30/17 05:30 Anion Gap 21 mmol/L 03/30/17 05:30 BUN 44 mg/dL (9-20) H 03/30/17 05:30 Creatinine 9.4 mg/dL (0.8-1.5) H 03/30/17 05:30 Estimated GFR 8 ml/min 03/30/17 05:30 BUN/Creatinine Ratio 5 % 03/30/17 05:30 Glucose 99 mg/dL (75-100) 03/30/17 05:30 Calcium 8.4 mg/dL (8.4-10.2) 03/30/17 05:30 Phosphorus 7.90 mg/dL (2.5-4.5) H 03/30/17 05:30 Troponin T 0.034 ng/mL (0.00-0.029) H 03/29/17 22:36 Triglycerides 79 mg/dL (2-149) 03/29/17 13:47 Cholesterol 106 mg/dL (50-199) 03/29/17 13:47 LDL Cholesterol Direct 40 mg/dL (50-130) L 03/29/17 13:47 HDL Cholesterol 51 mg/dL (40-59) 03/29/17 13:47 Cholesterol/HDL Ratio 2.07 % 03/29/17 13:47
[2017-03-30] MEDS ORDERED: NACL 0.9% 100 ML IV PRN (09:30)
--- NOTE | 2017-03-30 09:51 | Progress Note ---
Assessment and Plan Impression * Accelerated hypertension * End-stage renal disease on maintenance hemodialysis * Fluid overload * Chest pain * Pruritis * Anemia secondary to ESRD * Noncompliance with dialysis, medication and dietary and fluid restriction Recommendations * Patient had uneventful hemodialysis yesterday. * Is clinically still volume overloaded. Shall schedule patient for additional hemodialysis today * Hopefully should improve his blood pressure and also volume control. * Procrit with dialysis * His phosphorus level noted elevated. Add binders * No IV, BP of any function in his access arm * Adjust diet and meds for ESRD state Subjective Date of service: 03/30/17 Interval history: Patient still having some shortness of breath, however much improved. Still requiring oxygen. Objective - Vital Signs Vital signs: Vital Signs - 12hr 03/29/17 03/29/17 03/29/17 22:00 22:51 22:54 Temperature 99.2 F Pulse Rate 68 Respiratory 20 20 Rate Respiratory 20 Rate [Chest] Blood Pressure 162/96 Blood Pressure [Right] O2 Sat by Pulse 98 100 Oximetry 03/29/17 03/30/17 03/30/17 22:55 02:18 03:00 Temperature Pulse Rate 68 74 72 Respiratory Rate Respiratory Rate [Chest] Blood Pressure 162/96 158/100 Blood Pressure [Right] O2 Sat by Pulse Oximetry 03/30/17 03/30/17 03/30/17 03:48 08:08 09:42 Temperature 98.5 F 99.0 F Pulse Rate 71 68 Respiratory 18 20 18 Rate Respiratory Rate [Chest] Blood Pressure 158/100 Blood Pressure 171/108 [Right] O2 Sat by Pulse 100 97 Oximetry - General Appearance General appearance: well-developed, well-nourished, appears stated age EENT: PERRL, mucous membranes moist Neck: no JVD, no thyromegaly, no carotid bruit, supple Respiratory: Present: Rales (fine basal crackles) Cardiology: regular, normal heart rate, S1S2, no murmurs Gastrointestinal: normal, normoactive bowel sounds Integumentary: no rash, other (AV fistula in his left upper arm. Good bruit and thrill) - Lab 03/29/17 13:47 03/30/17 05:30 Most recent lab results Calcium 8.4 mg/dL (8.4-10.2) 03/30/17 05:30 Phosphorus 7.90 mg/dL (2.5-4.5) H 03/30/17 05:30
--- NOTE | 2017-03-30 09:53 | Consultation ---
History of Present Illness Consult date: 03/30/17 Consult reason: chest pain History of present illness: This is a 41yr old male with a history of hypertension, tobacco abuse and end- stage renal disease on hemodialysis who was sent from dialysis with uncontrolled hypertension and chest pain. Previous cardiac workup demonstrated well preserved left ventricular systolic function, ejection fraction 50-55% on echocardiogram. Patient reports a recent negative thallium stress test at an outside hospital. His ECG shows a sinus rhythm with non-specific Twave abnormalities. No acute ischemic changes. Laboratory values shows a mildly elevated troponin of 0.034, likely in the setting of renal failure. Cardiac consultation was requested. Past History Past Medical History: ESRD, hypertension Past Surgical History: hernia repair, Other (LUE AVF) Social history: single, smoking. denies: alcohol abuse, prescription drug abuse , IV drug use Family history: hypertension Medications and Allergies Allergies Allergy/AdvReac Type Severity Reaction Status Date / Time No Known Allergies Allergy Unverified 05/26/15 13:53 Home Medications Medication Instructions Recorded Confirmed Last Taken Type Carvedilol [Coreg] 25 mg PO BID #60 tablet 12/13/16 03/29/17 03/29/17 Rx hydrALAZINE [Apresoline TAB] 100 mg PO TID #90 tab 12/13/16 03/29/17 03/29/17 Rx Clonidine HCl [Catapres] 0.3 mg PO Q8H 03/29/17 03/29/17 03/29/17 History Active Meds: Active Medications Acetaminophen (Tylenol) 650 mg PO Q4H PRN PRN Reason: Pain MILD(1-3)/Fever >100.5/WOOD Albuterol (Proventil) 2.5 mg IH Q4HRT PRN PRN Reason: Shortness Of Breath Carvedilol (Coreg) 25 mg PO BID [facility] Last Admin: 03/29/17 22:55 Dose: 25 mg Clonidine HCl (Catapres) 0.3 mg PO Q8H [facility] Last Admin: 03/30/17 03:00 Dose: 0.3 mg Diphenhydramine HCl (Benadryl) 25 mg IV Q6H PRN PRN Reason: Itching Last Admin: 03/30/17 08:09 Dose: 25 mg Famotidine (Pepcid) 10 mg PO BID [facility] Last Admin: 03/29/17 23:00 Dose: Not Given Hydralazine HCl (Apresoline) 100 mg PO TID JOANN Last Admin: 03/30/17 08:08 Dose: 100 mg Sodium Chloride (Nacl 0.9%) 100 mls @ 999 mls/hr IV SYLVAIN PRN PRN Reason: Hypotension Morphine Sulfate (Morphine) 2 mg IV Q8H PRN PRN Reason: Pain, Moderate (4-6) Last Admin: 03/30/17 08:08 Dose: 2 mg Nitroglycerin (Nitrostat) 0.4 mg SL Q5M PRN PRN Reason: Chest Pain Ondansetron HCl (Zofran) 4 mg IV Q8H PRN PRN Reason: N/V unrelieved by [place] Last Admin: 03/30/17 08:09 Dose: 4 mg Sodium Chloride (Sodium Chloride Flush Syringe 10 Ml) 10 ml IV PRN PRN PRN Reason: LINE FLUSH Physical Examination Vital Signs BP 166/110 03/29/17 13:33 General appearance: no acute distress HEENT: Positive: PERRL Neck: Positive: trachea midline Cardiac: Positive: Reg Rate and Rhythm Results 03/29/17 13:47 03/30/17 05:30 Cardiac Enzymes 03/29/17 03/30/17 Range/Units 22:36 05:30 Sodium 141 (137-145) mmol/L Potassium 4.0 (3.6-5.0) mmol/L Chloride 96.1 L (98-107) mmol/L Carbon Dioxide 28 (22-30) mmol/L Anion Gap 21 mmol/L BUN 44 H (9-20) mg/dL Creatinine 9.4 H (0.8-1.5) mg/dL Estimated GFR 8 ml/min BUN/Creatinine Ratio 5 % Glucose 99 (75-100) mg/dL Calcium 8.4 (8.4-10.2) mg/dL Phosphorus 7.90 H (2.5-4.5) mg/dL Troponin T 0.034 H (0.00-0.029) ng/mL Comprehensive Metabolic Panel 03/30/17 Range/Units 05:30 Sodium 141 (137-145) mmol/L Potassium 4.0 (3.6-5.0) mmol/L Chloride 96.1 L (98-107) mmol/L Carbon Dioxide 28 (22-30) mmol/L BUN 44 H (9-20) mg/dL Creatinine 9.4 H (0.8-1.5) mg/dL Glucose 99 (75-100) mg/dL Calcium 8.4 (8.4-10.2) mg/dL Assessment and Plan Accelerated Hypertension Chest pain pt reports [place] [facility] [place]60% [place] 11/2016 ESRD on HD Thrombocytopenia Mild elevated troponin, nonspecific Tobacco abuse Recommendations: Obtain cardiac records for review. Optimal BP management.
[2017-03-30] MEDS: PEPCID PO SCH ×2 (10:00→22:23)
[2017-03-30] MEDS: RENVELA PO SCH ×2 (11:30→15:47)
[2017-03-30] MEDS ORDERED: NACL 0.9 (PRIMING MACHINE ONLY DIALYSIS) MC ONE (12:48)
[2017-03-30 22:24] LABS: Urine Drugs of Abuse Note Disclamer
[2017-03-31] MEDS: MORPHINE IV PRN ×2 (01:17→10:29)
[2017-03-31] MEDS: CATAPRES PO SCH ×3 (01:18→17:23)
[2017-03-31] MEDS: BENADRYL IV PRN (05:10)
[2017-03-31] MEDS: APRESOLINE PO SCH ×2 (08:47→13:29)
[2017-03-31] MEDS: RENVELA PO SCH ×4 (08:47→17:37)
[2017-03-31] MEDS ORDERED: BENADRYL IV PRN (09:11)
[2017-03-31] MEDS ORDERED: BENADRYL PO PRN (09:30)
--- NOTE | 2017-03-31 09:31 | Progress Note ---
Assessment and Plan Assessment and plan: --Accelerated hypertension; resume home antihypertensives, when necessary hydralazine --Atypical chest pain; no new episodes of chest pain, negative stress test recently at a different hospital left ventricle ejection fraction 55% in November 2016, continue current cardiac medications, Positive cardiac troponins probably secondary to end-stage renal disease, --End-stage renal disease on hemodialysis; dialysis per schedule, nephrology following --Chronic anemia of end-stage renal disease; closely monitor H&H, Procrit during dialysis, transfuse if needed --Ongoing Tobacco abuse; smoking cessation counseling done, advised nicotine patch if needed --Medical noncompliance; patient strongly counseled to comply with medications and diet hemodialysis and follow-up visits Patient verbalized understanding --DVT prophylaxis with heparin Consults and recommendations noted and appreciated Disposition; possible discharge in 1-2 days if stable History Interval history: Patient seen and examined medical records reviewed Feels better no new complaints Denies chest pain or shortness of breath Alert awake oriented 3 not in acute distress Hospitalist Physical - Constitutional Vitals: Temp Pulse Resp BP Pulse Ox 98.8 F 108 H 18 167/101 81 L 03/31/17 08:10 03/31/17 08:10 03/31/17 08:10 03/31/17 08:10 03/31/17 08:10 General appearance: Present: no acute distress, well-nourished, obese - EENT Eyes: Present: PERRL, EOM intact - Neck Neck: Present: supple, normal ROM - Respiratory Respiratory effort: normal Respiratory: bilateral: diminished, negative: rales, rhonchi, wheezing - Cardiovascular Rhythm: regular Heart Sounds: Present: S1 & S2 - Extremities Extremities: no ischemia, No edema - Abdominal General gastrointestinal: soft, non-tender, non-distended, normal bowel sounds - Integumentary Integumentary: Present: clear, warm - Psychiatric Psychiatric: appropriate mood/affect, cooperative - Neurologic Neurologic: CNII-XII intact, moves all extremities Results - Labs CBC & Chem 7: 03/29/17 13:47 03/30/17 05:30 Labs: Laboratory Last Values WBC 8.1 K/mm3 (4.5-11.0) 03/29/17 13:47 RBC 3.36 M/mm3 (3.65-5.03) L 03/29/17 13:47 Hgb 10.7 gm/dl (11.8-15.2) L 03/29/17 13:47 Hct 32.3 % (35.5-45.6) L 03/29/17 13:47 MCV 96 fl (84-94) H 03/29/17 13:47 MCH 32 pg (28-32) 03/29/17 13:47 MCHC 33 % (32-34) 03/29/17 13:47 RDW 18.5 % (13.2-15.2) H 03/29/17 13:47 Plt Count 138 K/mm3 (140-440) L 03/29/17 13:47 Lymph % (Auto) 6.5 % (13.4-35.0) L 03/29/17 13:47 [place] % (Auto) 7.2 % (0.0-7.3) 03/29/17 13:47 Eos % (Auto) 2.0 % (0.0-4.3) 03/29/17 13:47 Baso % (Auto) 0.5 % (0.0-1.8) 03/29/17 13:47 Lymph # 0.5 K/mm3 (1.2-5.4) L 03/29/17 13:47 [place] # 0.6 K/mm3 (0.0-0.8) 03/29/17 13:47 Eos # 0.2 K/mm3 (0.0-0.4) 03/29/17 13:47 Baso # 0.0 K/mm3 (0.0-0.1) 03/29/17 13:47 Seg Neutrophils % 83.8 % (40.0-70.0) H 03/29/17 13:47 Seg Neutrophils # 6.8 K/mm3 (1.8-7.7) 03/29/17 13:47 PT 14.8 Sec. (12.2-14.9) 03/29/17 13:47 INR 1.10 (0.87-1.13) 03/29/17 13:47 APTT 33.6 Sec. (24.2-36.6) 03/29/17 13:47 Sodium 141 mmol/L (137-145) 03/30/17 05:30 Potassium 4.0 mmol/L (3.6-5.0) 03/30/17 05:30 Chloride 96.1 mmol/L (98-107) L 03/30/17 05:30 Carbon Dioxide 28 mmol/L (22-30) 03/30/17 05:30 Anion Gap 21 mmol/L 03/30/17 05:30 BUN 44 mg/dL (9-20) H 03/30/17 05:30 Creatinine 9.4 mg/dL (0.8-1.5) H 03/30/17 05:30 Estimated GFR 8 ml/min 03/30/17 05:30 BUN/Creatinine Ratio 5 % 03/30/17 05:30 Glucose 99 mg/dL (75-100) 03/30/17 05:30 Calcium 8.4 mg/dL (8.4-10.2) 03/30/17 05:30 Phosphorus 7.90 mg/dL (2.5-4.5) H 03/30/17 05:30 Troponin T 0.034 ng/mL (0.00-0.029) H 03/29/17 22:36 Triglycerides 79 mg/dL (2-149) 03/29/17 13:47 Cholesterol 106 mg/dL (50-199) 03/29/17 13:47 LDL Cholesterol Direct 40 mg/dL (50-130) L 03/29/17 13:47 HDL Cholesterol 51 mg/dL (40-59) 03/29/17 13:47 Cholesterol/HDL Ratio 2.07 % 03/29/17 13:47 Urine Opiates Screen Presumptive negative 03/30/17 22:00 Urine Methadone Screen Presumptive negative 03/30/17 22:00 Ur Barbiturates Screen Presumptive negative 03/30/17 22:00 Ur Phencyclidine Scrn Presumptive negative 03/30/17 22:00 Ur Amphetamines Screen Presumptive negative 03/30/17 22:00 U Benzodiazepines Scrn Presumptive negative 03/30/17 22:00 Urine Cocaine Screen Presumptive negative 03/30/17 22:00 U Marijuana (THC) Screen Presumptive positive 03/30/17 22:00 Drugs of Abuse Note Disclamer 03/30/17 22:00
--- NOTE | 2017-03-31 10:08 | Progress Note ---
Assessment and Plan Impression * End-stage renal disease on maintenance hemodialysis * Accelerated hypertension * Fluid overload * Chest pain * Pruritis * Anemia secondary to ESRD * Noncompliance with dialysis, medication and dietary and fluid restriction Recommendations * Patient is s/p hemodialysis on Wednesday and Wednesday * No acute need for HD today. Hemodialysis tomorrow * Continue antiHTN medications * Epogen with dialysis * No IV, BP of any function in his access arm * Adjust diet and meds for ESRD state Subjective Date of service: 03/31/17 Interval history: Patient complains of itching. He denies SOB - slept without need for oxygen last pm Objective - Vital Signs Vital signs: Vital Signs - 12hr 03/30/17 03/31/17 03/31/17 22:22 00:00 00:24 Temperature 98.0 F Pulse Rate 69 73 68 Respiratory 18 Rate Blood Pressure 165/108 159/101 O2 Sat by Pulse 93 Oximetry 03/31/17 03/31/17 03/31/17 01:17 01:18 04:37 Temperature 98.6 F Pulse Rate 68 Respiratory 20 18 Rate Blood Pressure 159/101 148/95 O2 Sat by Pulse Oximetry 03/31/17 08:10 Temperature 98.8 F Pulse Rate 108 H Respiratory 18 Rate Blood Pressure 167/101 O2 Sat by Pulse 81 L Oximetry - General Appearance General appearance: well-developed, well-nourished EENT: ATNC Respiratory: Present: Clear to Ascultation Cardiology: regular, S1S2 Gastrointestinal: normal, no tenderness, no distended Integumentary: no rash Neurologic: alert and oriented x3 Musculoskeletal: other (no edema) Psychiatric: cooperative - Lab 03/29/17 13:47 03/30/17 05:30 Most recent lab results Calcium 8.4 mg/dL (8.4-10.2) 03/30/17 05:30 Phosphorus 7.90 mg/dL (2.5-4.5) H 03/30/17 05:30
--- NOTE | 2017-03-31 10:16 | Progress Note ---
Assessment and Plan Accelerated Hypertension Chest pain pt reports [place] [facility] [place] [facility] [place] 55[place]60% on echo 11/2016 ESRD on HD Thrombocytopenia Mild elevated troponin, nonspecific Tobacco abuse Subjective Date of service: 03/31/17 Interval history: No cardiac events. Patient denies chest pain. Objective Vital Signs Temp Pulse Resp BP BP Pulse Ox 03/31/17 08:10 98.8 F 108 H 18 167/101 81 L 03/31/17 04:37 98.6 F 18 148/95 03/31/17 01:18 68 159/101 03/31/17 01:17 20 03/31/17 00:24 98.0 F 68 18 159/101 93 03/31/17 00:00 73 03/30/17 22:22 69 165/108 03/30/17 19:52 99.1 F 69 18 165/108 93 03/30/17 18:08 72 136/78 03/30/17 17:32 69 03/30/17 16:36 99.3 F 71 18 152/99 98 03/30/17 15:48 20 03/30/17 14:46 98.9 F 63 16 174/103 03/30/17 12:30 62 153/88 03/30/17 12:15 61 145/84 03/30/17 12:00 61 156/91 03/30/17 11:45 62 156/92 03/30/17 11:30 64 153/93 03/30/17 11:15 65 159/91 03/30/17 11:00 67 148/80 03/30/17 10:45 67 154/91 03/30/17 10:30 98.2 F 70 20 158/98 - Physical Examination General: No Apparent Distress HEENT: Positive: PERRL Cardiac: Positive: Reg Rate and Rhythm Neuro: Positive: Grossly Intact Extremities: Absent: edema
[2017-03-31] MEDS: PEPCID PO SCH (10:29)
[2017-03-31] MEDS: COREG PO SCH (10:29)
[2017-03-31 12:50] VITALS: BP 172/106
[2017-03-31] MEDS ORDERED: APRESOLINE IV PRN (15:39)
--- NOTE | 2017-03-31 17:37 | Discharge Summary ---
Providers - Providers Date of Admission: 03/29/17 16:15 Date of discharge: 03/31/17 Attending physician: ASYA ALVARES 03/29/17 16:48 Consult to Physician [CONS] Routine Consulting Provider: BERTHA ELY Reason For Exam: acs Place consult to:: Dr. Ely Notified:: Yohana SALAZAR Was contact made?: Yes If yes, spoke with:: Laurie Hallman Time called:: 09:00 03/30/17 09:03 Consult to Physician [CONS] Routine Consulting Provider: PARKER BEVERLY Reason For Exam: ESRD/ Place consult to:: Dr. Beverly Notified:: Yohana SALAZAR Phone number called:: Was contact made?: Yes If yes, spoke with:: Coby-office Time called:: 10:04 Primary care physician: BROKE HANDLER Hospitalization Reason for admission: chest pain and shortness of breath Condition: Stable Pertinent studies: CT chest; mild cardiomegaly, pulmonary edema and fluid overload Chest x-ray ; fluid overload CHF Procedures: Hemodialysis per schedule Hospital course: Patient was admitted with accelerated hypertension and atypical chest pain Evaluated by cardiology nephrology, received hemodialysis per schedule. Symptoms significantly improved Today he is comfortable no new complaints, cleared by cardiology and nephrology for discharge and follow-up with them in the office Discharge diagnosis and management; --Accelerated hypertension; managed with antihypertensives, when necessary hydralazine, now stable --Atypical chest pain; cardiology evaluated, recent negative stress test, continue current medications, no workup recommended --End-stage renal disease on hemodialysis; patient had dialysis per schedule, nephrology evaluated, advised complaints --Chronic anemia of end-stage renal disease; stable, Procrit during dialysis --Ongoing Tobacco abuse; smoking cessation counseling done --Medical noncompliance; patient strongly counseled to comply with medications and diet hemodialysis and follow-up visits Patient verbalized understanding Medically stable for discharge, follow-up with primary care physician, cardiology, nephrology and hemodialysis per schedule Disposition: DC- TO HOME OR SELFCARE Time spent for discharge: 32 min Core Measure Documentation - Palliative Care Palliative Care/ Comfort Measures: Not Applicable - Core Measures Any of the following diagnoses?: none Exam - Constitutional Vitals: Temp Pulse Resp BP Pulse Ox 98.6 F 65 16 172/106 100 03/31/17 11:50 11/01/17 12:00 03/31/17 11:50 03/31/17 11:50 03/31/17 11:50 General appearance: Present: no acute distress, well-nourished - EENT Eyes: Present: PERRL, EOM intact - Neck Neck: Present: supple, normal ROM - Respiratory Respiratory effort: normal Respiratory: negative: rales, rhonchi, wheezing - Cardiovascular Rhythm: regular Heart Sounds: Present: S1 & S2 - Extremities Extremities: no ischemia, No edema Peripheral Pulses: within normal limits - Abdominal General gastrointestinal: Present: soft, non-tender, non-distended, normal bowel sounds - Integumentary Integumentary: Present: clear, warm - Musculoskeletal Musculoskeletal: strength equal bilaterally - Psychiatric Psychiatric: appropriate mood/affect, cooperative - Neurologic Neurologic: CNII-XII intact, moves all extremities Plan Activity: no restrictions Diet: renal Additional Instructions: f/u Renal/HD per schedule. Advised to comply with meds ,diet and HD Follow up with: PRIMARY CARE, [Primary Care Provider] - 3-5 Days PARKER BEVERLY MD [Staff Physician] - 7 Days JOE ESPINOZA MD [Staff Physician] - 7 Days Prescriptions: oxyCODONE /ACETAMINOPHEN [Percocet 5/325] 1 tab PO BID PRN #10 tablet PRN Reason: Pain
== END 2017-03-31 18:08 | disposition home or self-care (01) | DRG 304 ==
LOC: ED 13:09 → 4A 16:15
PROVIDERS: ADMIT Internal Medicine; ATTEND Internal Medicine
PROC: 5A1D70Z Performance of Urinary Filtration, Intermittent, Less than 6 Hours Per Day (ICD-10-PCS; principal; 2017-03-29)
PROC: 5A1D70Z Performance of Urinary Filtration, Intermittent, Less than 6 Hours Per Day (ICD-10-PCS; 2017-03-30)
DX: I16.0 Hypertensive urgency (principal); N18.6 End stage renal disease; I24.9 Acute ischemic heart disease, unspecified; I27.20 Pulmonary hypertension, unspecified; E87.70 Fluid overload, unspecified; F12.90 Cannabis use, unspecified, uncomplicated; F17.200 Nicotine dependence, unspecified, uncomplicated; D63.1 Anemia in chronic kidney disease; D69.6 Thrombocytopenia, unspecified; I12.0 Hypertensive chronic kidney disease with stage 5 chronic kidney disease or end stage renal disease; J44.9 Chronic obstructive pulmonary disease, unspecified; Z95.828 Presence of other vascular implants and grafts; Z79.899 Other long term (current) drug therapy; Z82.49 Family history of ischemic heart disease and other diseases of the circulatory system; Z71.6 Tobacco abuse counseling; R07.89 Other chest pain
CPT/HCPCS: 36415; 71010; 71250; 80048; 80061; 80307; 84100; 84484; 85025; 85610; 85730; 93005; 93010; 94760; 96374; 96375; J0360; J1200; J2270; J2405; J7030

== ENCOUNTER 2017-04-16 13:15 | Emergency (ER) | payer MEDICAID ==
[2017-04-16 14:59] LABS: Basophils % (Auto) 0.6 % (0.0-1.8); Eosinophils % (Auto) 3.1 % (0.0-4.3); Hemoglobin 8.2 gm/dl (11.8-15.2); Mean Corpuscular HGB Conc 33 % (32-34); Mean Corpuscular Hemoglobin 31 pg (28-32); Mean Corpuscular Volume 94 fl (84-94); Platelet Count 147 K/mm3 (140-440); Red Blood Count 2.66 M/mm3 (3.65-5.03); Red Cell Distribution Width 16.7 % (13.2-15.2); White Blood Count 8.2 K/mm3 (4.5-11.0)
[2017-04-16 15:07] LABS: Calcium 8.9 mg/dL (8.4-10.2); Chloride 101.5 mmol/L (98-107); Potassium 4.5 mmol/L (3.6-5.0)
[2017-04-16] MEDS ORDERED: ALUM-MAG HYDROX-SIMETH 200-200-20MG/5ML PO ONE (16:45)
[2017-04-16] MEDS ORDERED: CARAFATE PO ONE (16:45)
[2017-04-16] MEDS ORDERED: PEPCID IV ONE (16:45)
[2017-04-16] MEDS ORDERED: BENADRYL IV ONE (16:45)
[2017-04-16] MEDS ORDERED: REGLAN IV ONE (16:45)
[2017-04-16] MEDS ORDERED: TYLENOL PO ONE (16:46)
--- NOTE | 2017-04-16 16:46 | Emergency Department Report ---
ED General Adult HPI - General Chief complaint: Chest Pain Stated complaint: CHEST PAIN Time Seen by Provider: 04/16/17 16:37 Source: patient, RN notes reviewed, old records reviewed Mode of arrival: Stretcher Limitations: No Limitations - History of Present Illness Initial comments: This is a 41-year-old male who is previously known to this provider. He has a past medical history of hypertension, tobacco consumption, end-stage renal disease on dialysis, reports he was last dialyzed on Wednesday. 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 They indicated "no further cardiac workup is needed." The patient presents to the ER today with complaint of chest pain, headache, body itching and generalized malaise. The chest pain started at 6:00 in the morning. He describes it as pressure-like in nature. It does not radiate to the back, arms or neck. He denies vomiting and diaphoresis. He has chronic shortness of breath. The shortness of breath is not a new worsened or different. There is no unilateral leg swelling. Patient also complains of a headache. Headache is global and throbbing. It started this morning. It is not sudden or thunderclap in nature. The chest pain does not have exacerbating or relieving factors. The headache does not have exacerbating or relieving factors. He also missed a cough, and intermittently bringing up flecks of blood during coughing. He denies defecating blood, and he denies yosef hematemesis. -: Gradual Location: head, chest Radiation: non-radiation Severity scale (0 -10): 9 Quality: aching Consistency: constant Improves with: none Worsens with: none Associated Symptoms: chest pain, cough, headaches, shortness of breath, weakness - Related Data Home Medications Medication Instructions Recorded Confirmed Last Taken Clonidine HCl [Catapres] 0.3 mg PO Q8H 03/29/17 03/29/17 03/29/17 Previous Rx's Medication Instructions Recorded Last Taken Type Carvedilol [Coreg] 25 mg PO BID #60 tablet 12/13/16 03/29/17 Rx hydrALAZINE [Apresoline TAB] 100 mg PO TID #90 tab 12/13/16 03/29/17 Rx oxyCODONE /ACETAMINOPHEN [Percocet 1 tab PO BID PRN #10 tablet 03/31/17 Unknown Rx 5/325] Allergies Allergy/AdvReac Type Severity Reaction Status Date / Time nitroglycerin Allergy Swelling Verified 04/16/17 14:05 [From Nitroglyn] ED Review of Systems ROS: Stated complaint: CHEST PAIN Other details as noted in HPI Constitutional: malaise Eyes: denies: eye discharge ENT: denies: epistaxis Respiratory: shortness of breath Cardiovascular: chest pain Gastrointestinal: denies: vomiting Genitourinary: as per HPI Musculoskeletal: arthralgia, myalgia Neurological: headache, weakness Psychiatric: anxiety ED Past Medical Hx - Past Medical History Hx Hypertension: Yes Hx Congestive Heart Failure: No Hx Diabetes: No Hx Renal Disease: Yes (Hemodialysis M,W,F) Hx Seizures: No Hx Asthma: No Hx COPD: Yes Hx HIV: No - Surgical History Additional Surgical History: Hernia, Fistula L upper arm - Social History Smoking Status: Current Every Day Smoker Substance Use Type: Marijuana - Medications Home Medications: Home Medications Medication Instructions Recorded Confirmed Last Taken Type Carvedilol [Coreg] 25 mg PO BID #60 tablet 12/13/16 03/29/17 03/29/17 Rx hydrALAZINE [Apresoline TAB] 100 mg PO TID #90 tab 12/13/16 03/29/17 03/29/17 Rx Clonidine HCl [Catapres] 0.3 mg PO Q8H 03/29/17 03/29/17 03/29/17 History oxyCODONE /ACETAMINOPHEN [Percocet 1 tab PO BID PRN #10 tablet 03/31/17 Unknown Rx 5/325] ED Physical Exam - General Limitations: No Limitations General appearance: alert, in no apparent distress - Head Head exam: Present: atraumatic, normocephalic - Eye Eye exam: Present: normal appearance, EOMI. Absent: nystagmus - ENT ENT exam: Present: normal exam, normal orophraynx, mucous membranes moist, normal external ear exam - Neck Neck exam: Present: normal inspection, full ROM - Respiratory Respiratory exam: Present: normal lung sounds bilaterally. Absent: respiratory distress - Cardiovascular Cardiovascular Exam: Present: regular rate, normal rhythm, normal heart sounds. Absent: systolic murmur, diastolic murmur, rubs, gallop - GI/Abdominal GI/Abdominal exam: Present: soft, normal bowel sounds. Absent: distended, tenderness, guarding, rebound, rigid, pulsatile mass - Rectal Rectal exam: Present: deferred - Extremities Exam Extremities exam: Present: normal inspection, full ROM, normal capillary refill , pedal edema, other (left upper extremity AV fistula, no redness, pus or streaking). Absent: calf tenderness - Back Exam Back exam: Present: normal inspection, full ROM. Absent: tenderness, CVA tenderness (R), paraspinal tenderness, vertebral tenderness - Neurological Exam Neurological exam: Present: alert, oriented X3, other (Extraocular movements intact. Tongue midline. No facial droop. Facial sensation intact to light touch in the V1, V2, V3 distribution bilaterally. 5 and 5 strength in 4 extremities.. Sensation is intact to light touch in 4 extremities.). Absent: motor sensory deficit - Psychiatric Psychiatric exam: Present: anxious - Skin Skin exam: Present: warm, dry, intact, normal color. Absent: rash ED Course Vital Signs 04/16/17 04/16/17 04/16/17 14:05 14:11 14:12 Temperature 98.5 F Pulse Rate 78 78 Respiratory 11 L 21 20 Rate Blood Pressure 162/104 Blood Pressure 162/104 [Right] O2 Sat by Pulse 99 98 98 Oximetry 04/16/17 17:44 Temperature 99.2 F Pulse Rate 80 Respiratory 18 Rate Blood Pressure Blood Pressure 161/108 [Right] O2 Sat by Pulse 99 Oximetry - Reevaluation(s) Reevaluation #1: 04/16/17 18:38 Differential diagnosis, including but not limited to: Migraine headache, tension headache, cluster headache, intracranial hemorrhage, acute coronary syndrome, pericarditis, myocarditis, pneumonia, pulmonary and was, uremic pericarditis, GERD, gastritis Assessment and plan: 41-year-old male with multiple complaints. In terms of the chest pain, patient has been seen and evaluated by cardiology within the past month. They do not recommend additional ACS risk stratification. Troponin positive 2, although in the context of patient's renal insufficiency, this is most likely secondary to his renal insufficiency. His troponin levels today appeared to be at the same number that they have always been when compared to prior values. His EKG is morphologically abnormal, and has an isolated T-wave inversion in V5, which appears to be new when compared to prior EKG. I will discuss with the cardiology team that evaluated him. EKG unchanged 2, with the exception of isolated T-wave inversion in V5, which appears to be new. Patient is low risk by well's criteria, low risk by heart score, perc negative d-dimer is pending at this time. Reevaluation #2: 04/16/17 18:50 Case is discussed with cardiology on-call, Dr. Boyd, who recommends that the patient does not require repeat admission for coronary risk stratification, indicates a isolated T-wave abnormalities does not require inpatient evaluation , he further indicates that the patient can follow up with his outpatient group next week. Reevaluation #3: 04/16/17 19:05 Patient ambulated around the ER and had minimal desaturation to 93%. He requested to leave, and he was informed that his discharge paperwork and diagnostics were not complete or interpreted yet. Patient was instructed by staff as to the importance of waiting around for his diagnostics. Informed by nurse that patient then eloped. 04/16/17 19:06 ED Medical Decision Making - Lab Data Result diagrams: 04/16/17 14:31 04/16/17 14:31 Vital Signs 04/16/17 04/16/17 04/16/17 14:05 14:11 14:12 Temperature 98.5 F Pulse Rate 78 78 Respiratory 11 L 21 20 Rate Blood Pressure 162/104 Blood Pressure 162/104 [Right] O2 Sat by Pulse 99 98 98 Oximetry 04/16/17 17:44 Temperature 99.2 F Pulse Rate 80 Respiratory 18 Rate Blood Pressure Blood Pressure 161/108 [Right] O2 Sat by Pulse 99 Oximetry Lab Results 04/16/17 04/16/17 04/16/17 Range/Units 14:31 14:31 16:57 WBC 8.2 (4.5-11.0) K/mm3 RBC 2.66 L (3.65-5.03) M/mm3 Hgb 8.2 L (11.8-15.2) gm/dl Hct 25.0 L (35.5-45.6) % MCV 94 (84-94) fl MCH 31 (28-32) pg MCHC 33 (32-34) % RDW 16.7 H (13.2-15.2) % Plt Count 147 (140-440) K/mm3 Lymph % (Auto) 4.7 L (13.4-35.0) % [place] % (Auto) 7.1 (0.0-7.3) % Eos % (Auto) 3.1 (0.0-4.3) % Baso % (Auto) 0.6 (0.0-1.8) % Lymph # 0.4 L (1.2-5.4) K/mm3 [place] # 0.6 (0.0-0.8) K/mm3 Eos # 0.3 (0.0-0.4) K/mm3 Baso # 0.0 (0.0-0.1) K/mm3 Seg Neutrophils % 84.5 H (40.0-70.0) % Seg Neutrophils # 7.0 (1.8-7.7) K/mm3 PT 15.6 H (12.2-14.9) Sec. INR 1.18 H (0.87-1.13) APTT 35.2 (24.2-36.6) Sec. Sodium 142 (137-145) mmol/L Potassium 4.5 (3.6-5.0) mmol/L Chloride 101.5 (98-107) mmol/L Carbon Dioxide 21 L (22-30) mmol/L Anion Gap 24 mmol/L BUN 78 H (9-20) mg/dL Creatinine 13.3 H (0.8-1.5) mg/dL Estimated GFR 5 ml/min BUN/Creatinine Ratio 6 % Glucose 109 H (75-100) mg/dL Calcium 8.9 (8.4-10.2) mg/dL Total Bilirubin (0.1-1.2) mg/dL Direct Bilirubin (0-0.2) mg/dL Indirect Bilirubin mg/dL AST (5-40) units/L ALT (7-56) units/L Alkaline Phosphatase (35-129) units/L Troponin T 0.032 H (0.00-0.029) ng/mL NT-Pro-B Natriuret Pep 41353 H (0-450) pg/mL Total Protein (6.3-8.2) g/dL Albumin (3.9-5) g/dL Albumin/Globulin Ratio % Triglycerides 52 (2-149) mg/dL Cholesterol 105 (50-199) mg/dL LDL Cholesterol Direct 48 L (50-130) mg/dL HDL Cholesterol 47 (40-59) mg/dL Cholesterol/HDL Ratio 2.23 % 04/16/ Range/Units 17:11 WBC (4.5-11.0) K/mm3 RBC (3.65-5.03) M/mm3 Hgb (11.8-15.2) gm/dl Hct (35.5-45.6) % MCV (84-94) fl MCH (28-32) pg MCHC (32-34) % RDW (13.2-15.2) % Plt Count (140-440) K/mm3 Lymph % (Auto) (13.4-35.0) % [place] % (Auto) (0.0-7.3) % Eos % (Auto) (0.0-4.3) % Baso % (Auto) (0.0-1.8) % Lymph # (1.2-5.4) K/mm3 [place] # (0.0-0.8) K/mm3 Eos # (0.0-0.4) K/mm3 Baso # (0.0-0.1) K/mm3 Seg Neutrophils % (40.0-70.0) % Seg Neutrophils # (1.8-7.7) K/mm3 PT (12.2-14.9) Sec. INR (0.87-1.13) APTT (24.2-36.6) Sec. Sodium (137-145) mmol/L Potassium (3.6-5.0) mmol/L Chloride (98-107) mmol/L Carbon Dioxide (22-30) mmol/L Anion Gap mmol/L BUN (9-20) mg/dL Creatinine (0.8-1.5) mg/dL Estimated GFR ml/min BUN/Creatinine Ratio % Glucose (75-100) mg/dL Calcium (8.4-10.2) mg/dL Total Bilirubin 0.70 (0.1-1.2) mg/dL Direct Bilirubin < 0.2 (0-0.2) mg/dL Indirect Bilirubin 0.5 mg/dL AST 11 (5-40) units/L ALT 7 (7-56) units/L Alkaline Phosphatase 51 (35-129) units/L Troponin T 0.033 H (0.00-0.029) ng/mL NT-Pro-B Natriuret Pep (0-450) pg/mL Total Protein 6.8 (6.3-8.2) g/dL Albumin 4.0 (3.9-5) g/dL Albumin/Globulin Ratio 1.4 % Triglycerides (2-149) mg/dL Cholesterol (50-199) mg/dL LDL Cholesterol Direct (50-130) mg/dL HDL Cholesterol (40-59) mg/dL Cholesterol/HDL Ratio % - EKG Data -: EKG Interpreted by Me - EKG Data 04/16/17 18:41 EKG #1 demonstrates sinus, 76 bpm, left axis deviation, T-wave inversion 1, aVL , V5 and V6, motion artifact, not morphologically consistent with ST elevation myocardial infarction, appears unchanged compared to prior EKG, with the exception of T-wave inversion in V5. Repeat EKG is unchanged, with the exception of persistent isolated T-wave inversion in V5. - Radiology Data Radiology results: report reviewed, image reviewed interpreted by me: X-ray of the chest demonstrates pulmonary vascular congestion, cardiomegaly, left upper artery stent, unchanged from prior x-ray, unremarkable Noncontrast CT scan of brain negative for acute findings, chronic changes noted Critical care attestation.: If time is entered above; I have spent that time in minutes in the direct care of this critically ill patient, excluding procedure time. ED Disposition Clinical Impression: ESRD (end stage renal disease), Chest pain, Headache Disposition: [facility] Is pt being admited?: No Does the pt Need Aspirin: No Condition: Undetermined Instructions: Chest Pain (ED) Referrals: PRIMARY CARE, [Primary Care Provider] - 3-5 Days
[2017-04-16 17:45] VITALS: BP 161/108
[2017-04-16 17:46] LABS: Alanine Aminotransferase 7 units/L (7-56); Albumin/Globulin Ratio 1.4 %; Alkaline Phosphatase 51 units/L (35-129); Total Protein 6.8 g/dL (6.3-8.2)
[2017-04-16 17:52] LABS: Bilirubin,Direct < 0.2 mg/dL (0-0.2); Bilirubin,Indirect 0.5 mg/dL
[2017-04-16 18:13] LABS: INR 1.18 (0.87-1.13)
[2017-04-16 18:14] LABS: Partial Thromboplastin Time 35.2 Sec. (24.2-36.6)
--- NOTE | 2017-04-16 20:43 | Cat Scan Report ---
FINAL REPORT PROCEDURE: CT HEAD/BRAIN WO CON TECHNIQUE: Computerized tomography of the head was performed without contrast material. HISTORY: headachwe COMPARISON: No prior studies are available for comparison. FINDINGS: Examination limited by motion and streak artifact Skull and scalp: Normal. Paranasal sinuses: Normal. Ventricles and subarachnoid spaces: Normal. Cerebrum: No evidence of hemorrhage, acute infarction or mass . Cerebellum and brainstem: No evidence of hemorrhage, acute infarction or mass. Vasculature: Normal. Comments: Mild diffuse atrophy with mild periventricular microischemic change and central lacunar infarct disease. IMPRESSION: No obvious acute intracranial pathology seen at this time on limited study. If symptoms and or concern persists recommend followup
--- NOTE | 2017-04-17 10:46 | XRay Report ---
AP CHEST: HISTORY: chest pain, cough, hemoptysis No significant change since 03/29/17. Borderline to mild cardiomegaly and pulmonary venous congestion are stable. The lungs are generally clear. No evidence for pneumonia, CHF or pneumothorax. Left axillary vascular stents are unchanged. The bony structures are grossly intact. IMPRESSION: Borderline to mild cardiomegaly and pulmonary venous congestion but no CHF. No significant change since 03/29/17.
== END 2017-04-16 18:58 | disposition left against medical advice (07) ==
LOC: ED 13:15
DX: R07.9 Chest pain, unspecified (principal); I12.0 Hypertensive chronic kidney disease with stage 5 chronic kidney disease or end stage renal disease; N18.6 End stage renal disease; R51 Headache; J44.9 Chronic obstructive pulmonary disease, unspecified; F17.200 Nicotine dependence, unspecified, uncomplicated; F12.10 Cannabis abuse, uncomplicated
CPT/HCPCS: 36415; 70450; 71010; 80048; 80061; 80074; 83880; 84484; 85025; 85379; 85610; 85730; 93005; 93010; 96374; 96375; 99285; J1200; J2765

== ENCOUNTER 2017-04-30 10:31 | Inpatient (IN) | payer MEDICAID ==
[2017-04-30 11:16] LABS: Basophils % (Auto) 0.6 % (0.0-1.8); Eosinophils % (Auto) 2.1 % (0.0-4.3); Hematocrit 24.9 % (35.5-45.6); Hemoglobin 8.2 gm/dl (11.8-15.2); Mean Corpuscular HGB Conc 33 % (32-34); Mean Corpuscular Hemoglobin 31 pg (28-32); Mean Corpuscular Volume 94 fl (84-94); Platelet Count 161 K/mm3 (140-440); Red Blood Count 2.64 M/mm3 (3.65-5.03); Red Cell Distribution Width 17.8 % (13.2-15.2); White Blood Count 9.2 K/mm3 (4.5-11.0)
[2017-04-30 11:30] LABS: Calcium 9.6 mg/dL (8.4-10.2); Chloride 97.8 mmol/L (98-107); Potassium 4.2 mmol/L (3.6-5.0)
[2017-04-30] MEDS ORDERED: MORPHINE IM ONE (11:41)
[2017-04-30] MEDS ORDERED: ZOFRAN ODT PO ONE (11:41)
[2017-04-30] MEDS ORDERED: ZOFRAN IV ONE (12:27)
[2017-04-30] MEDS ORDERED: ZOFRAN ONE (12:27)
[2017-04-30] MEDS ORDERED: MORPHINE IV ONE ×3 (12:31→15:25)
--- NOTE | 2017-04-30 12:43 | XRay Report ---
AP CHEST: HISTORY: chest pain AP view of the chest demonstrates a normal mediastinal and cardiac contour with clear lungs and normal bony and soft tissue structures. IMPRESSION: No acute cardiopulmonary process.
[2017-04-30] MEDS ORDERED: BENADRYL IV ONE (12:59)
--- NOTE | 2017-04-30 13:04 | Emergency Department Report ---
HPI - General Chief Complaint: Chest Pain Time Seen by Provider: 04/30/17 11:41 - HPI HPI: The patient is a 41-year-old male whom presents for evaluation of chest pain. The patient reports9 AM, constant since onset, is sinus tenderness severity, left-sided in location, sharp in quality. The patient denies fever, trauma to the chest, cough, dyspnea, hemoptysis, unilateral leg swelling, oral contraceptive use, recent immobilization, history of DVT or PE, recent cancer. ED Past Medical Hx - Past Medical History Previous Medical History?: Yes Hx Hypertension: Yes Hx Congestive Heart Failure: No Hx Diabetes: No Hx Renal Disease: Yes (Hemodialysis M,W,F) Hx Seizures: No Hx Asthma: No Hx COPD: Yes Hx HIV: No - Surgical History Past Surgical History?: Yes Additional Surgical History: Hernia, Fistula L upper arm - Social History Smoking Status: Never Smoker Substance Use Type: None - Medications Home Medications: Home Medications Medication Instructions Recorded Confirmed Last Taken Type Carvedilol [Coreg] 25 mg PO BID #60 tablet 04/20/17 Unknown Rx Clonidine HCl [Catapres] 0.3 mg PO Q8H #60 tablet 04/20/17 Unknown Rx Losartan [Cozaar] 100 mg PO QDAY #30 tablet 04/20/17 Unknown Rx NIFEdipine XL [Procardia Xl] 60 mg PO QDAY #30 tablet 04/20/17 Unknown Rx oxyCODONE /ACETAMINOPHEN [Percocet 1 tab PO DAILY PRN #5 tablet 04/20/17 Unknown Rx 5/325 mg] traMADol [Ultram 50 MG tab] 50 mg PO Q6HR PRN #15 tablet 04/30/17 Unknown Rx ED Review of Systems ROS: Stated complaint: CHEST PAIN Other details as noted in HPI Constitutional: denies: fever ENT: denies: throat or neck pain Respiratory: denies: cough, shortness of breath Cardiovascular: reports chest pain Endocrine: denies unexplained weight loss or gain Gastrointestinal: denies: abdominal pain, nausea Genitourinary: denies: dysuria Musculoskeletal: denies: leg swelling Skin: denies: rash Neurological: denies: headache Hematological/Lymphatic: denies: easy bleeding or easy bruising Psych: denies sadness or hopelessness Physical Exam - Physical Exam Vital Signs: Vital Signs 04/30/17 04/30/17 11:04 12:35 Temperature 98.3 F Pulse Rate 80 Respiratory 20 18 Rate Blood Pressure 162/111 [Right] O2 Sat by Pulse 100 Oximetry Physical Exam: General: well-nourished, well-developed, no acute distress Head: Normocephalic, atraumatic Eyes: normal sclera ENT: Mucous membranes are pink and moist Neck: trachea midline, neck supple, No neck stiffness, no cervical adenopathy Respiratory: Breath sounds equal bilaterally, no wheezing, rales, or rhonchi Cardio: S1 and S2 present, no murmurs, rubs, gallops, capillary refill is brisk Abdomen: Normoactive bowel sounds, soft abdomen, no rigidity, no guarding or rebound tenderness Chest WALL/Back: No tenderness to palpation of the chest wall, no CVA tenderness with percussion Musc: No pitting edema Skin: No rash Neuro: no facial drooping, normal speech Psych: Normal affect ED Course Vital Signs 04/30/17 04/30/17 11:04 12:35 Temperature 98.3 F Pulse Rate 80 Respiratory 20 18 Rate Blood Pressure 162/111 [Right] O2 Sat by Pulse 100 Oximetry ED Medical Decision Making - Lab Data Result diagrams: 04/30/17 10:51 04/30/17 10:51 - Medical Decision Making The patient was seen and examined by myself. The patient is placed on a athletic monitor and continuous pulse ox. On initial evaluation, the patient was found to be in no distress. EKG was negative for findings suggestive of acute cardiac infarct. Labs and imaging are obtained. The patient is given pain medicine. Chest x-ray is negative for pneumothorax, focal consolidation, pulmonary vascular congestion, pleural effusion, or other obvious acute cardiopulmonary disease process. Lab results reveal a significantly elevated creatinine level of 11, consistent with no history of end-stage renal disease, and otherwise labs were non-concerning including normal troponin level. The patient was reevaluated and reported that their symptoms were markedly improved. As the patient has a SANDEEP risk score less than 2, and a well's score less than 2, the patient is at low risk of ACS or pulmonary emboli etiology of their symptoms. The patient is stable for discharge with outpatient follow-up. The patient is given follow-up and return instructions. The patient expressed understanding and agreed with the plan. The patient is discharged in stable condition. Critical care attestation.: If time is entered above; I have spent that time in minutes in the direct care of this critically ill patient, excluding procedure time. ED Disposition Clinical Impression: ESRD (end stage renal disease), Hypertensive urgency, Acute chest pain Disposition: TO HOME OR SELFCARE Is pt being admited?: No Does the pt Need Aspirin: No Condition: Stable Instructions: Chest Pain (ED), Chronic Kidney Disease (ED), Hypertension (ED) Referrals: PRIMARY CARE, [Primary Care Provider] - 3-5 Days Time of Disposition: 13:03
[2017-04-30] MEDS ORDERED: NORMODYNE IV ONE (15:24)
[2017-04-30] MEDS ORDERED: APRESOLINE IV ONE (15:32)
[2017-04-30] MEDS ORDERED: VISTARIL IM ONE (18:40)
[2017-04-30] MEDS ORDERED: PERCOCET 5/325 PO PRN (19:04)
--- NOTE | 2017-04-30 19:04 | History and Physical Report ---
History of Present Illness Date of examination: 04/30/17 Date of admission: 04/30/17 Chief complaint: Chest pain since AM History of present illness: KIMBERLY: 41-year-old male with past medical history of hypertension, tobacco consumption , end-stage renal disease on dialysis comes in for chest pain, seen and evaluated by cardiology, as per their documentation on 03/31/2017, patient had "a complete cardiac workup at [facility] 05/15/2016." Cardiology documentation indicates that he had a normal nuclear stress test, and an echocardiogram demonstrated normal left ejection fraction with moderate tricuspid regurg. They indicated "no further cardiac workup is needed." The patient presents to the ER today with complaint of chest pain, headache, body itching and generalized malaise. The chest pain started at 6:00 in the morning. He describes it as pressure-like in nature. It does not radiate to the back, arms or neck. He denies vomiting and diaphoresis. He has chronic shortness of breath. The shortness of breath is not a new worsened or different. There is no unilateral leg swelling. Itching all over and missed HD. High BP in ED.Says he is compliant with taking meds. Past Medical History Hx Hypertension: Yes Hx Congestive Heart Failure: No Hx Renal Disease: Yes (Hemodialysis M,W,F) Hx COPD: Yes - Surgical History Additional Surgical History: Hernia, Fistula L upper arm - Social History Smoking Status: Current Every Day Smoker Substance Use Type: Marijuana Fam hx Htn - Medications Home Medications: Home Medications Medication Instructions Recorded Confirmed Last Taken Type Carvedilol [Coreg] 25 mg PO BID #60 tablet 12/13/16 03/29/17 03/29/17 Rx hydrALAZINE [Apresoline TAB] 100 mg PO TID #90 tab 12/13/16 03/29/17 03/29/17 Rx Clonidine HCl [Catapres] 0.3 mg PO Q8H 03/29/17 03/29/17 03/29/17 History oxyCODONE /ACETAMINOPHEN [Percocet 1 tab PO BID PRN #10 tablet 03/31/17 Unknown Rx 5/325] Review of Systems Stated complaint: CHEST PAIN Other details as noted in HPI Constitutional: malaise Eyes: denies: eye discharge ENT: denies: epistaxis Respiratory: shortness of breath Cardiovascular: chest pain Gastrointestinal: denies: vomiting Genitourinary: as per HPI Musculoskeletal: arthralgia, myalgia Neurological: headache, weakness Psychiatric: anxiety Medications and Allergies Allergies Allergy/AdvReac Type Severity Reaction Status Date / Time nitroglycerin Allergy Swelling Verified 04/18/17 02:24 [From Nitroglyn] Home Medications Medication Instructions Recorded Confirmed Last Taken Type Carvedilol [Coreg] 25 mg PO BID #60 tablet 04/20/17 04/30/17 Unknown Rx Clonidine HCl [Catapres] 0.3 mg PO Q8H #60 tablet 04/20/17 04/30/17 Unknown Rx Losartan [Cozaar] 100 mg PO QDAY #30 tablet 04/20/17 04/30/17 Unknown Rx NIFEdipine XL [Procardia Xl] 60 mg PO QDAY #30 tablet 04/20/17 04/30/17 Unknown Rx oxyCODONE /ACETAMINOPHEN [Percocet 1 tab PO DAILY PRN #5 tablet 04/20/17 Unknown Rx 5/325 mg] Exam - Constitutional Vitals: Temp Pulse Resp BP Pulse Ox 98.3 F 87 18 170/112 100 04/30/17 11:04 04/30/17 15:48 04/30/17 16:10 04/30/17 15:48 04/30/17 15:31 General appearance: Present: no acute distress, well-nourished - EENT Eyes: Present: PERRL ENT: hearing intact, clear oral mucosa - Neck Neck: Present: supple, normal ROM - Respiratory Respiratory effort: normal Respiratory: bilateral: CTA - Cardiovascular Heart rate: 76 Rhythm: regular Heart Sounds: Present: S1 & S2. Absent: rub, click - Extremities Extremities: pulses symmetrical, No edema Peripheral Pulses: within normal limits - Abdominal General gastrointestinal: Present: soft, non-tender, non-distended, normal bowel sounds Male genitourinary: Present: normal - Rectal Rectal Exam: deferred - Integumentary Integumentary: Present: clear, warm, dry - Musculoskeletal Musculoskeletal: gait normal, strength equal bilaterally - Psychiatric Psychiatric: appropriate mood/affect, intact judgment & insight - Neurologic Neurologic: CNII-XII intact, moves all extremities - Allied Health Allied health notes reviewed: nursing, case management Results - Labs CBC & Chem 7: 05/01/17 03:53 05/01/17 03:53 Labs: Laboratory Last Values WBC 9.2 K/mm3 (4.5-11.0) 04/30/17 10:51 RBC 2.64 M/mm3 (3.65-5.03) L 04/30/17 10:51 Hgb 8.2 gm/dl (11.8-15.2) L 04/30/17 10:51 Hct 24.9 % (35.5-45.6) L 04/30/17 10:51 MCV 94 fl (84-94) 04/30/17 10:51 MCH 31 pg (28-32) 04/30/17 10:51 MCHC 33 % (32-34) 04/30/17 10:51 RDW 17.8 % (13.2-15.2) H 04/30/17 10:51 Plt Count 161 K/mm3 (140-440) 04/30/17 10:51 Lymph % (Auto) 5.1 % (13.4-35.0) L 04/30/17 10:51 [place] % (Auto) 10.6 % (0.0-7.3) H 04/30/17 10:51 Eos % (Auto) 2.1 % (0.0-4.3) 04/30/17 10:51 Baso % (Auto) 0.6 % (0.0-1.8) 04/30/17 10:51 Lymph # 0.5 K/mm3 (1.2-5.4) L 04/30/17 10:51 [place] # 1.0 K/mm3 (0.0-0.8) H 04/30/17 10:51 Eos # 0.2 K/mm3 (0.0-0.4) 04/30/17 10:51 Baso # 0.1 K/mm3 (0.0-0.1) 04/30/17 10:51 Seg Neutrophils % 81.6 % (40.0-70.0) H 04/30/17 10:51 Seg Neutrophils # 7.5 K/mm3 (1.8-7.7) 04/30/17 10:51 Sodium 142 mmol/L (137-145) 04/30/17 10:51 Potassium 4.2 mmol/L (3.6-5.0) 04/30/17 10:51 Chloride 97.8 mmol/L (98-107) L 04/30/17 10:51 Carbon Dioxide 24 mmol/L (22-30) 04/30/17 10:51 Anion Gap 24 mmol/L 04/30/17 10:51 BUN 54 mg/dL (9-20) H 04/30/17 10:51 Creatinine 11.9 mg/dL (0.8-1.5) H 04/30/17 10:51 Estimated GFR 6 ml/min 04/30/17 10:51 BUN/Creatinine Ratio 5 % 04/30/17 10:51 Glucose 97 mg/dL (75-100) 04/30/17 10:51 Calcium 9.6 mg/dL (8.4-10.2) 04/30/17 10:51 Troponin T 0.021 ng/mL (0.00-0.029) 04/30/17 10:51 Short CBC 04/30/17 05/01/17 Range/Units 10:51 03:53 WBC 9.2 7.4 (4.5-11.0) K/mm3 Hgb 8.2 L 8.4 L (11.8-15.2) gm/dl Hct 24.9 L 24.7 L (35.5-45.6) % Plt Count 161 178 (140-440) K/mm3 BMP 04/30/17 05/01/17 10:51 03:53 Sodium 142 141 Potassium 4.2 4.0 Chloride 97.8 L 91.5 L Carbon Dioxide 24 28 BUN 54 H 64 H Creatinine 11.9 H 12.9 H Glucose 97 79 Calcium 9.6 9.4 Cardiac Enzymes 04/30/17 04/30/17 05/01/17 Range/Units 10:51 19:29 01:21 Total Creatine Kinase 125 562 H (55-170) units/L CK-MB (CK-2) 1.3 2.0 (0.0-4.0) ng/mL Troponin T 0.021 0.033 H D 0.035 H (0.00-0.029) ng/mL Liver Function 05/01/17 Range/Units 03:53 Total Bilirubin 0.30 (0.1-1.2) mg/dL AST 21 (5-40) units/L ALT 7 (7-56) units/L Alkaline Phosphatase 66 (35-129) units/L Albumin 4.1 (3.9-5) g/dL - Imaging and Cardiology EKG: report reviewed (LVH by voltage criteria) Chest x-ray: report reviewed (NAF) Assessment and Plan Advance Directives: Yes (Full code) VTE prophylaxis?: Chemical Plan of care discussed with patient/family: Yes - Patient Problems (1) Acute chest pain Current Visit: Yes Status: Acute Plan to address problem: Patient had extensive w/u in the past including multiple ECHO with normal EF. Will trend troponin Musculoskeletal versus Reflux (2) Hypertensive urgency Current Visit: Yes Status: Acute Plan to address problem: Added Hydralazine at 25 q8 (3) ESRD (end stage renal disease) Current Visit: Yes Status: Chronic Plan to address problem: cont HD (4) Chronic pruritus Current Visit: Yes Status: Chronic Plan to address problem: Sec to Uremia Atarax added (5) DVT prophylaxis Current Visit: No Status: Acute
--- NOTE | 2017-04-30 19:04 | Event Note ---
Date: 04/30/17
[2017-04-30] MEDS ORDERED: DULCOLAX PR PRN (19:08)
[2017-04-30] MEDS ORDERED: TYLENOL PO PRN (19:08)
[2017-04-30] MEDS ORDERED: MILK OF MAGNESIA PO PRN (19:08)
[2017-04-30] MEDS ORDERED: AMBIEN PO PRN (19:08)
[2017-04-30] MEDS ORDERED: ZOFRAN IV PRN (19:08)
[2017-04-30] MEDS ORDERED: APRESOLINE IV PRN (19:14)
[2017-04-30] MEDS ORDERED: NON-FORMULARY (Clonidine Hcl [Catapres] 0.3 MG) PO SCH (19:15)
[2017-04-30 20:05] LABS: Creatine Kinase MB 1.3 ng/mL (0.0-4.0)
[2017-04-30] MEDS: PROCARDIA XL PO SCH (20:16)
[2017-04-30] MEDS: COZAAR PO SCH (20:16)
[2017-04-30] MEDS: CATAPRES PO SCH (22:11)
[2017-04-30] MEDS: APRESOLINE PO SCH (22:12)
[2017-04-30] MEDS: COREG PO SCH (22:12)
[2017-04-30] MEDS: MORPHINE IV PRN (22:12)
[2017-04-30] MEDS: HEPARIN SUB-Q SCH (22:15)
[2017-05-01 04:32] LABS: Basophils % (Auto) 0.6 % (0.0-1.8); Eosinophils % (Auto) 4.3 % (0.0-4.3); Hematocrit 24.7 % (35.5-45.6); Hemoglobin 8.4 gm/dl (11.8-15.2); Mean Corpuscular HGB Conc 34 % (32-34); Mean Corpuscular Hemoglobin 32 pg (28-32); Mean Corpuscular Volume 95 fl (84-94); Platelet Count 178 K/mm3 (140-440); Red Blood Count 2.59 M/mm3 (3.65-5.03); Red Cell Distribution Width 17.6 % (13.2-15.2); White Blood Count 7.4 K/mm3 (4.5-11.0)
[2017-05-01 05:02] LABS: Albumin 4.1 g/dL (3.9-5); Albumin/Globulin Ratio 1.6 %; Bilirubin,Total 0.3 mg/dL (0.1-1.2); Calcium 9.4 mg/dL (8.4-10.2); Chloride 91.5 mmol/L (98-107); Total Protein 6.7 g/dL (6.3-8.2)
[2017-05-01] MEDS: MORPHINE IV PRN ×3 (06:02→18:30)
[2017-05-01] MEDS: BENADRYL PO PRN ×2 (06:03→18:28)
[2017-05-01] MEDS: APRESOLINE PO SCH ×2 (06:04→16:01)
[2017-05-01] MEDS: CATAPRES PO SCH ×2 (06:05→16:01)
[2017-05-01] MEDS ORDERED: ATARAX PO PRN (07:30)
[2017-05-01] MEDS: PROCARDIA XL PO SCH (10:24)
[2017-05-01] MEDS: COREG PO SCH (10:24)
[2017-05-01] MEDS: COZAAR PO SCH (10:24)
[2017-05-01] MEDS: HEPARIN SUB-Q SCH (10:33)
--- NOTE | 2017-05-01 11:13 | Discharge Summary ---
Providers - Providers Date of Admission: 04/30/17 19:08 Attending physician: MADISYN BAUGH MD 04/30/17 19:17 Consult to Physician [CONS] Routine Consulting Provider: BASILIA DELGADO Reason For Exam: ESRD Place consult to:: Office Notified:: yes Phone number called:: [phone] Was contact made?: Yes If yes, spoke with:: Time called:: 09:16 Primary care physician: [facility]OSPITAL NURSE LIAISON Hospitalization Reason for admission: CHEST PAIN Condition: Stable Hospital course: 41-year-old male with past medical history of hypertension, tobacco consumption , end-stage renal disease on dialysis comes in for chest pain, seen and evaluated by cardiology, as per their documentation on 03/31/2017, patient had "a complete cardiac workup at [facility]. Cardiology documentation indicates that he had a normal nuclear stress test, and an echocardiogram demonstrated normal left ejection fraction with moderate tricuspid regurg. They indicated "no further cardiac workup is needed." Patient described the pain as non pressure-like in nature, reproducible. It does not radiate to the back, arms or neck. He denies vomiting and diaphoresis. He has chronic shortness of breath. The shortness of breath is not a new worsened or different. There is no unilateral leg swelling. He also reports pruritus which has improved. it appears he is on different medication, I Reviewed the medications from here and he will continue on these and keep a BP diary. He will have dialysis as he missed his wednesday dialysis and then be discharged * Atypical chest pain secondary to hypertensive urgency. 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 GENERAL: The patient appeared well nourished and normally developed. Vital signs as documented. HEAD: No signs of head trauma. EYES: Pupils are equal. Extraocular motions intact. EARS: Hearing grossly intact. MOUTH: Oropharynx is normal. NECK: No adenopathy, no JVD. CHEST: Chest with clear breath sounds bilaterally. No wheezes, rales, or rhonchi. CARDIAC: Regular rate and rhythm. S1 and S2, without murmurs, gallops, or rubs. VASCULAR: No Edema. Peripheral pulses normal and equal in all extremities. ABDOMEN: Soft, without detectable tenderness. No sign of distention. No rebound or guarding, and no masses palpated. Bowel Sounds normal. MUSCULOSKELETAL: Good range of motion of all major joints. Extremities without clubbing, cyanosis or edema. NEUROLOGIC EXAM: Alert and oriented x 3. No focal sensory or strength deficits. Speech normal. Follows commands. PSYCHIATRIC: Mood normal. SKIN: No rash or lesions. - Constitutional Vitals: Temp Pulse Resp BP Pulse Ox 98.3 F 73 18 119/74 100 05/01/17 08:44 05/01/17 08:40 05/01/17 08:40 05/01/17 08:40 05/01/17 10:00 Plan Activity: advance as tolerated, fall precautions Diet: renal Special Instructions: record daily BP diary Follow up with: PRIMARY MD KELSEA [Primary Care Provider] - 3-5 Days BASILIA DELGADO MD [Staff Physician] - 7 Days Prescriptions: hydrOXYzine HCL [Atarax] 25 mg PO Q6H PRN #10 tablet PRN Reason: Itching methOCARBAMOL [Robaxin TAB] 500 mg PO BID PRN #20 tab PRN Reason: Spasms NIFEdipine XL [Procardia Xl] 90 mg PO QDAY #30 tablet
[2017-05-01] MEDS ORDERED: BENADRYL IV ONE (11:14)
[2017-05-01] MEDS ORDERED: NACL 0.9% 100 ML IV PRN (11:54)
--- NOTE | 2017-05-01 13:33 | Consultation ---
History of Present Illness - Reason for Consult Consult date: 05/01/17 end stage renal disease Requesting physician: ANGEL LUIS HOGUE - History of Present Illness 41-year-old male with past medical history of hypertension, tobacco consumption , end-stage renal disease on dialysis comes in for chest pain, seen and evaluated by cardiology, as per their documentation on 03/31/2017, patient had "a complete cardiac workup at [facility] 05/15/2016." Cardiology documentation indicates that he had a normal nuclear stress test, and an echocardiogram demonstrated normal left ejection fraction with moderate tricuspid regurg. They indicated "no further cardiac workup is needed." The patient presented to the ER yesterday with complaint of chest pain, headache, body itching and generalized malaise. The chest pain started at 6:00 in the morning. He describes it as pressure-like in nature. It does not radiate to the back, arms or neck. He denies vomiting and diaphoresis. He has chronic shortness of breath. The shortness of breath is not a new worsened or different. There is no unilateral leg swelling. Itching all over and missed HD. High BP in ED.Says he is compliant with taking meds. He missed his dialysis yesterday. Earlier this week his treatment was also cut short Past History Past Medical History: dialysis, hypertension Past Surgical History: Other (history of creation of AV fistula) Social history: other (patient is an active smoker. Denies alcohol abuse) Family history: no significant family history (negative for kidney disease) Medications and Allergies Allergies Allergy/AdvReac Type Severity Reaction Status Date / Time nitroglycerin Allergy Swelling Verified 04/18/17 02:24 [From Nitroglyn] Home Medications Medication Instructions Recorded Confirmed Last Taken Type Carvedilol [Coreg] 25 mg PO BID #60 tablet 04/20/17 04/30/17 Unknown Rx Clonidine HCl [Catapres] 0.3 mg PO Q8H #60 tablet 04/20/17 04/30/17 Unknown Rx Losartan [Cozaar] 100 mg PO QDAY #30 tablet 04/20/17 04/30/17 Unknown Rx oxyCODONE /ACETAMINOPHEN [Percocet 1 tab PO DAILY PRN #5 tablet 04/20/17 Unknown Rx 5/325 mg] NIFEdipine XL [Procardia Xl] 90 mg PO QDAY #30 tablet 05/01/17 Unknown Rx hydrOXYzine HCL [Atarax] 25 mg PO Q6H PRN #10 tablet 05/01/17 Unknown Rx methOCARBAMOL [Robaxin TAB] 500 mg PO BID PRN #20 tab 05/01/17 Unknown Rx Active Meds: Active Medications Acetaminophen (Tylenol) 650 mg PO Q4H PRN PRN Reason: Pain MILD(1-3)/Fever >100.5/WOOD Bisacodyl (Dulcolax) 10 mg [place] QDAY PRN PRN Reason: Constipation unrelieved by MOM Carvedilol (Coreg) 25 mg PO BID [facility] Last Admin: 05/01/17 10:24 Dose: 25 mg Clonidine HCl (Catapres) 0.3 mg PO Q8HR [facility] Last Admin: 05/01/17 06:05 Dose: Not Given Diphenhydramine HCl (Benadryl) 25 mg PO Q6H PRN PRN Reason: Itching Last Admin: 05/01/17 06:03 Dose: 25 mg Heparin Sodium (Porcine) (Heparin) 5,000 unit SUB-Q Q12HR [facility] Last Admin: 05/01/17 10:33 Dose: Not Given Hydralazine HCl (Apresoline) 10 mg IV Q3H PRN PRN Reason: Hypertension Hydralazine HCl (Apresoline) 25 mg PO Q8HR [facility] Last Admin: 05/01/17 06:04 Dose: 25 mg Hydroxyzine HCl (Atarax) 25 mg PO Q6H PRN PRN Reason: Itching Sodium Chloride (Nacl 0.9%) 100 mls @ 999 mls/hr IV SYLVAIN PRN PRN Reason: Hypotension Losartan Potassium (Cozaar) 100 mg PO QDAY [facility] Last Admin: 05/01/17 10:24 Dose: 100 mg Magnesium Hydroxide (Milk Of Magnesia) 30 ml PO Q4H PRN PRN Reason: Constipation Morphine Sulfate (Morphine) 2 mg IV Q4H PRN PRN Reason: Pain, Moderate (4-6) Last Admin: 05/01/17 11:52 Dose: 2 mg Nifedipine (Procardia Xl) 60 mg PO QDAY [facility] Last Admin: 05/01/17 10:24 Dose: 60 mg Ondansetron HCl (Zofran) 4 mg IV Q8H PRN PRN Reason: N/V unrelieved by Reglan Oxycodone/Acetaminophen (Percocet 5/325) 1 tab PO DAILY PRN PRN Reason: Pain Zolpidem Tartrate (Ambien) 5 mg PO QHS PRN PRN Reason: Insomnia Review of Systems All systems: negative (negative except as noted above) Exam - Vital Signs Vital signs: Vital Signs Pulse Resp Pulse Ox 79 19 100 04/30/17 10:42 04/30/17 10:42 04/30/17 10:42 - General Appearance General appearance: well-developed, well-nourished, appears stated age EENT: PERRL, mucous membranes moist Neck: Present: neck supple, trachea midline. Absent: JVD/HJR, [place] Respiratory: Clear to Ascultation Heart: regular, normal heart rate, S1S2, no murmurs Gastrointestinal: Present: normal, normoactive bowel sounds Integumentary: no rash, other (no edema. AV fistula in his left upper arm. Good bruit and thrill) Results - Lab Results 05/01/17 03:53 05/01/17 03:53 Most recent lab results Calcium 9.4 mg/dL (8.4-10.2) 05/01/17 03:53 Assessment and Plan Impression * End-stage renal disease on maintenance hemodialysis * Chest pain * Uncontrolled hypertension * Noncompliance * Anemia secondary to ESRD Recommendations * Shall arrange for hemodialysis today * His outpatient dialysis days are however Mondays, Wednesdays and Fridays * His blood pressure seems to be much better this morning * Administer Procrit with dialysis * Patient advised regarding compliance with meds and dialysis * Binders with diet * Thank you very much for the consultation. Shall follow along with you
[2017-05-01] MEDS ORDERED: NACL 0.9 (PRIMING MACHINE ONLY DIALYSIS) MC ONE (19:00)
[2017-05-02 01:03] VITALS: BP 139/84
== END 2017-05-01 22:55 | disposition home or self-care (01) | DRG 280 ==
LOC: ED 10:31 → 3A 19:08
PROVIDERS: ADMIT Internal Medicine; ATTEND Internal Medicine
PROC: 5A1D70Z Performance of Urinary Filtration, Intermittent, Less than 6 Hours Per Day (ICD-10-PCS; principal; 2017-05-01)
DX: I16.0 Hypertensive urgency (principal); I21.A1 Myocardial infarction type 2; N18.6 End stage renal disease; I12.0 Hypertensive chronic kidney disease with stage 5 chronic kidney disease or end stage renal disease; Z88.8 Allergy status to other drugs, medicaments and biological substances; J44.9 Chronic obstructive pulmonary disease, unspecified; Z99.2 Dependence on renal dialysis; D63.1 Anemia in chronic kidney disease; Z91.19 Patient's noncompliance with other medical treatment and regimen; F17.200 Nicotine dependence, unspecified, uncomplicated; Z91.14 Patient's other noncompliance with medication regimen
CPT/HCPCS: 36415; 71010; 80048; 80053; 80061; 82550; 82553; 84484; 85025; 93005; 93010; 94760; 96372; 96374; 96375; 96376; 99406; J0360; J1200; J1644; J2270; J2405; J3410; J7030; Q0162

== ENCOUNTER 2018-06-06 16:32 | Emergency (ER) | payer MEDICAID, SELFPAY ==
[2018-06-06] MEDS ORDERED: REGLAN IV ONE (17:00)
[2018-06-06] MEDS ORDERED: MORPHINE IV ONE ×2 (17:00→19:27)
--- NOTE | 2018-06-06 17:02 | Emergency Department Report ---
HPI - General Chief Complaint: Headache Time Seen by Provider: 06/06/18 16:53 - HPI HPI: 42-year-old -[place] male presents to the emergency department via EMS from his dialysis clinic with complaint of a headache, dizziness, nausea, vomiting. Patient has end-stage renal disease on hemodialysis on Wednesday/Wednesday/Wednesday and says that his symptoms started while getting dialysis and therefore he was unable to complete his dialysis session. His senior pl sql developer is Dr. Araujo. He does not have a primary care physician. He also has a history of hypertension, COPD on 2 L oxygen dependency at home. No recent travel or sick contacts at home. He has not taken anything for her symptoms prior to arrival. He is a tobacco smoker but denies any illicit drug use. ED Past Medical Hx - Past Medical History Hx Hypertension: Yes Hx Congestive Heart Failure: No Hx Diabetes: No Hx Renal Disease: Yes (Hemodialysis M,W,F) Hx Seizures: No Hx Asthma: No Hx COPD: Yes Hx HIV: No - Surgical History Additional Surgical History: Hernia, Fistula L upper arm - Social History Smoking Status: Former Smoker Substance Use Type: None - Medications Home Medications: Home Medications Medication Instructions Recorded Confirmed Last Taken Type RX: Carvedilol [Coreg] 25 mg PO BID #60 tablet 04/20/17 07/04/17 Unknown Rx RX: Clonidine HCl [Catapres] 0.3 mg PO Q8H #60 tablet 04/20/17 07/04/17 Unknown Rx RX: Losartan [Cozaar] 100 mg PO QDAY #30 tablet 04/20/17 07/04/17 Unknown Rx RX: NIFEdipine XL [Procardia Xl] 90 mg PO QDAY #30 tablet 05/01/17 07/04/17 Unknown Rx RX: hydrOXYzine HCL [Atarax] 25 mg PO Q6H PRN #10 tablet 05/01/17 07/04/17 Unknown Rx RX: methOCARBAMOL [Robaxin TAB] 500 mg PO BID PRN #20 tab 05/01/17 07/04/17 Unknown Rx RX: diphenhydrAMINE [Benadryl CAP] 25 mg PO Q8H PRN #15 capsule 06/30/17 07/04/17 Unknown Rx RX: oxyCODONE /ACETAMINOPHEN 1 tab PO BID PRN #10 tablet 06/30/17 07/04/17 Unknown Rx [Percocet 5/325 mg] RX: Acetaminophen [Acetaminophen 650 mg PO Q4H PRN #60 tablet 07/06/17 Unknown Rx TAB] ED Review of Systems ROS: Stated complaint: HYPERTENSION/NV,HEADACHE Other details as noted in HPI Comment: All other systems reviewed and negative Constitutional: denies: chills, fever Eyes: denies: eye pain, vision change ENT: denies: ear pain, throat pain Respiratory: denies: cough, orthopnea Gastrointestinal: nausea, vomiting Genitourinary: denies: dysuria, discharge Musculoskeletal: denies: back pain, arthralgia Skin: denies: rash, lesions Neurological: headache, other (dizzy). denies: numbness Physical Exam - Physical Exam Vital Signs: Vital Signs 06/06/18 16:36 Temperature 99.8 F H Pulse Rate 88 Respiratory 18 Rate Blood Pressure 190/116 O2 Sat by Pulse 99 Oximetry Physical Exam: GENERAL: The patient is well-developed well-nourished. HEENT: Normocephalic. Atraumatic. Patient has moist mucous membranes. EYES: Extraocular motions are intact. Pupils are equal and reactive to light bilaterally. No nystagmus. NECK: Supple. Trachea is midline. CHEST/LUNGS: Slightly coarse breath sound. No tachypnea or accessory muscle use. There is no respiratory distress noted. HEART/CARDIOVASCULAR: Regular. There is no tachycardia. There is no obvious murmur. ABDOMEN: Abdomen is soft, nontender. Patient has normal bowel sounds. There is no abdominal distention. SKIN: Skin is warm and dry. NEURO: The patient is awake, alert, and oriented. The patient is cooperative. The patient has no focal neurologic deficits. The patient has normal speech. Cranial nerves II through XII grossly intact. MUSCULOSKELETAL: There is no tenderness or deformity. There is no limitation range of motion. There is no evidence of acute injury. ED Course Vital Signs 06/06/18 16:36 Temperature 99.8 F H Pulse Rate 88 Respiratory 18 Rate Blood Pressure 190/116 O2 Sat by Pulse 99 Oximetry - Consultations Consultation #1: earlier in the evening I had a long conversation with the patient's senior pl sql developer, Dr. Araujo. Dr. Araujo is very familiar with this patient and jennifer arently the patient is very noncompliant with medications, consistent dialysis but especially with referrals for specialists that he has been given. Apparently the patient has discussed some concerns in the past with Dr. Araujo regarding coughing up blood and some other gastrointestinal complaints. There does not appear to be any recent consults from either pulmonology or gastroenterology or any procedures including any recent EGD. Dr. Araujo listened to the [place] presentation including the labs and feels that the patient appears safe for discharge home to follow up with the nephrology service and continue with his normal dialysis regiment. However Dr. Araujo asked for a chest x-ray to be done since the patient is a smoker to rule out any signs of focal consolidations or pulmonary masses. The chest x-ray shows a small amount of vascular congestion but otherwise no other acute process. 06/07/18 01:34 ED Medical Decision Making - Lab Data Result diagrams: 06/06/18 17:00 06/06/18 17:00 - EKG Data -: EKG Interpreted by Ms EKG shows normal: sinus rhythm, axis (left axis deviation), intervals (prolonged QTC), QRS complexes (left anterior fascicular block, LVH), ST-T waves Rate: normal - EKG Data When compared to previous EKG there are: no significant change Interpretation: unchanged when compared t (07/04/17) - Radiology Data Radiology results: report reviewed EXAM: XR CHEST ROUTINE 2V HISTORY: cough TECHNIQUE: Chest two views PA and lateral PRIORS: Comparison is dated July 03, 2017 FINDINGS: There is moderate cardiac enlargement. No focal pulmonary infiltrate identified. No pleural fluid collection seen. There is mild pulmonary vascular congestion. There is a stent noted in the left axillary and subclavian distribution. IMPRESSION: cardiomegaly Pulmonary vascular congestion suggestive of mild CHF Transcribed By: TERRANCE Dictated By: NIKOS PAEZ MD Electronically Authenticated By: NIKOS PAEZ MD Signed Date/Time: 06/06/18 5256 EXAM: CT HEAD/BRAIN WO CON HISTORY: Headache with hypertension, dizziness TECHNIQUE: CT head without contrast PRIORS: None. FINDINGS: No acute intra-axial or extra-axial hemorrhage is identified. There is no evidence of midline shift or mass effect. The ventricles and sulci are within normal limits. Ellis- white matter differentiation is intact. No acute parenchymal abnormalities seen. Bony calvarium is grossly intact. Visualized portions of the mastoids and paranasal sinuses are unremarkable. IMPRESSION: Negative CT head Transcribed By: JudahDK Dictated By: NIKOS PAEZ MD Electronically Authenticated By: NIKOS PAEZ MD Signed Date/Time: 06/06/181904 - Medical Decision Making Patient presents with a headache, nausea and vomiting while getting dialysis today. On examination there is no focal, motor or sensory deficits in the patient's cranial nerves are intact. A CT scan of the head without contrast was done that does not show any acute bleed, shift, mass, ischemia or any other acute process. Patient's labs were mostly unremarkable. He does have renal insufficiency but the patient is dialysis dependent. There was very mild hypokalemia. The patient did not have any complaints of shortness of breath or by mouth or in any respiratory distress or volume overloaded. As per the consultation section, I discussed the presentation with patient's senior pl sql developer who felt that the patient was safe for discharge home pending a chest x-ray. The chest x-ray showed some mild vascular congestion but otherwise there was no focal consolidation, pneumonia or any other acute process. Patient had borderline low fever but no focus of infection was found on physical examination with any of the patient's blood work or imaging. He was given a few doses of pa in medication and upon reevaluation he is feeling much improved. Patient has some hypertension but it came down to a more reasonable level prior to discharge. The patient feels and appears safe for discharge home. He has been encouraged to continue with his normal dialysis regiment, follow up with the senior pl sql developer and the other referrals that he has previously been given, but to return to the emergency department with any return or worsening of his symptoms or with any acute distress. - Differential Diagnosis electrolyte abnormalities, hyperkalemia, brain bleed, CHF, pneumonia Critical Care Time: No Critical care attestation.: If time is entered above; I have spent that time in minutes in the direct care of this critically ill patient, excluding procedure time. ED Disposition Clinical Impression: ESRD (end stage renal disease) Headache Qualifiers: Headache type: unspecified Headache chronicity pattern: acute headache Intractability: not intractable Qualified Code(s): R51 - Headache Nausea & vomiting Qualifiers: Vomiting type: unspecified Vomiting Intractability: non-intractable Qualified Code(s): R11.2 - Nausea with vomiting, unspecified Hypertension Qualifiers: Hypertension type: essential hypertension Qualified Code(s): I10 - Essential (primary) hypertension Disposition: TO HOME OR SELFCARE Is pt being admited?: No Condition: Stable Instructions: Chronic Kidney Disease (ED), Acute Headache (ED), Acute Nausea and Vomiting (ED), Hypertension (ED) Additional Instructions: Please follow-up with your primary care physician and your senior pl sql developer. Continue with your normal dialysis regiment. Try and stay away from foods that are high in salt and caffeinated products. Keep a blood pressure log. Return to the emergency Department with any worsening of your symptoms or any acute distress. Referrals: HEIDE ENAMORADO MD [Primary Care Provider] - 2-3 Days SHENG ARAUJO MD [Staff Physician] - 2-3 Days Time of Disposition: 22:10
[2018-06-06 17:13] LABS: Hematocrit 31.8 % (35.5-45.6); Hemoglobin 10.8 gm/dl (11.8-15.2); Mean Corpuscular HGB Conc 34 % (32-34); Mean Corpuscular Volume 96 fl (84-94); Platelet Count 166 K/mm3 (140-440); Red Blood Count 3.31 M/mm3 (3.65-5.03); Red Cell Distribution Width 18.9 % (13.2-15.2)
[2018-06-06 17:37] LABS: Albumin 4.5 g/dL (3.9-5); BUN/Creatinine Ratio 4; Bilirubin,Direct 0.2 mg/dL (0-0.2); Blood Urea Nitrogen 29 mg/dL (9-20); Calcium 9.3 mg/dL (8.4-10.2); Hemolysis Index 9
[2018-06-06 17:39] LABS: Alanine Aminotransferase < 5 units/L (7-56)
[2018-06-06] MEDS ORDERED: K-DUR PO ONE (18:58)
--- NOTE | 2018-06-06 19:05 | Cat Scan Report ---
FINAL REPORT EXAM: CT HEAD/BRAIN WO CON HISTORY: Headache with hypertension, dizziness TECHNIQUE: CT head without contrast PRIORS: None. FINDINGS: No acute intra-axial or extra-axial hemorrhage is identified. There is no evidence of midline shift or mass effect. The ventricles and sulci are within normal limits. Ellis-white matter differentiation is intact. No acute parenchymal abnormalities seen. Bony calvarium is grossly intact. Visualized portions of the mastoids and paranasal sinuses are unre markable. IMPRESSION: Negative CT head
[2018-06-06 20:47] LABS: Bilirubin,Urine NEG (Negative); Blood,Urine NEG (Negative); Color,Urine Yellow (Yellow); Urobilinogen,Urine < 2.0 mg/dL (<2.0)
[2018-06-06] MEDS ORDERED: NORMODYNE IV ONE (21:07)
--- NOTE | 2018-06-06 21:41 | XRay Report ---
FINAL REPORT EXAM: XR CHEST ROUTINE 2V HISTORY: cough TECHNIQUE: Chest two views PA and lateral PRIORS: Comparison is dated July 03, 2017 FINDINGS: There is moderate cardiac enlargement. No focal pulmonary infiltrate identified. No pleural fluid collection seen. There is mild pulmonary vascular congestion. There is a stent noted in the left axillary and subclavian distribution. IMPRESSION: cardiomegaly Pulmonary vascular congestion suggestive of mild CHF
[2018-06-06 22:48] VITALS: BP 181/90
== END 2018-06-06 22:50 | disposition home or self-care (01) ==
LOC: ED 16:32
DX: I10 Essential (primary) hypertension (principal); R11.2 Nausea with vomiting, unspecified; Z87.891 Personal history of nicotine dependence; Z88.8 Allergy status to other drugs, medicaments and biological substances
CPT/HCPCS: 36415; 70450; 71046; 80048; 80076; 81001; 83690; 85027; 93005; 93010; 96374; 96375; 96376; 99285; J2270; J2765

== ENCOUNTER 2020-03-21 15:11 | Inpatient (IN) | payer MEDICAID ==
[2020-03-21 16:28] LABS: Basophils % (Auto) 0.5 % (0.0-1.8); Eosinophils # (Auto) 0.3 K/mm3 (0.0-0.4); Hematocrit 29.9 % (35.5-45.6); Hemoglobin 9.8 gm/dl (11.8-15.2); Lymphocytes # (Auto) 0.5 K/mm3 (1.2-5.4); Mean Corpuscular HGB Conc 33 % (32-34); Mean Corpuscular Volume 96 fl (84-94); Monocytes # (Auto) 0.5 K/mm3 (0.0-0.8); Monocytes % (Auto) 6.5 % (0.0-7.3); Platelet Count 157 K/mm3 (140-440); Red Blood Count 3.13 M/mm3 (3.65-5.03); Red Cell Distribution Width 15.4 % (13.2-15.2)
[2020-03-21 16:38] LABS: Calcium 9.3 mg/dL (8.4-10.2)
--- NOTE | 2020-03-21 16:55 | XRay Report ---
CHEST 2 VIEWS INDICATION / CLINICAL INFORMATION: Chest Pain. COMPARISON: 06/06/18. FINDINGS: SUPPORT DEVICES: There is a left jugular CVL with the tip overlying the upper cavoatrial junction. HEART / MEDIASTINUM: There is mild cardiomegaly with a left ventricular configuration. Pulmonary vasc ulature is normal. The aorta is normal in caliber. LUNGS / PLEURA: Mild diffuse interstitial lung disease is similar to the prior exam. No pneumothorax. ADDITIONAL FINDINGS: There is a left subclavian/axillary stent graft. IMPRESSION: Mild diffuse interstitial lung disease is similar to the prior study and may be related t o chronic fibrosis or recurrent interstitial edema. Signer Name: Temo Ralph MD Signed: 03/21/2020 4:50 PM Workstation Name: [id number]
[2020-03-21 17:49] LABS: Chol/HDL Ratio 2.62 %
[2020-03-21] MEDS ORDERED: MORPHINE 4 MG/1 ML INJ IV ONE (23:51)
--- NOTE | 2020-03-21 23:55 | Emergency Department Report ---
ED Chest Pain HPI - General Chief Complaint: Chest Pain Stated Complaint: CHEST PAIN/HYPERTENSION PUI?: No Time Seen by Provider: 03/21/20 23:40 Source: patient, EMS Mode of arrival: Wheelchair Limitations: No Limitations - History of Present Illness Initial Comments: A 44-year-old male that presents emergency room with complaints of chest pain. Patient states the chest pain is in the center of his chest. Patient states the stabbing sharp pain. Patient states it started at 10 AM this morning. Patient states he went to dialysis and because of his chest pain the dialysis center sent him here to be evaluated. Patient also complains of shortness of breath and nausea and vomiting. Patient states that EMS gave him aspirin in route. Patient states his blood pressure is high because he missed dialysis. Patient states his last dialysis was last Wednesday. Patient states he has missed his last 2 treatments. Patient states his chest pain is better with rest and worse with exertion. Patient states his shortness of breath is better with rest and worse with exertion. Patient denies recent travel. Patient denies recent international travel. Patient denies exposure to the novel coronavirus. Patient denies sick contacts. Patient denies fever and chills. Patient denies cough. Patient denies diarrhea. Patient denies coming in contact with anybody with symptoms of the novel coronavirus. MD Complaint: chest pain -: Sudden Severity: severe Severity scale (0 -10): 10 Quality: sharp Consistency: constant Improves With: rest Worsens With: exertion re: nausea, vomting, dyspnea. denies: diaphoresis, sense of impending doom Other Symptoms: denies: cough, fever, syncope, rash, acid taste in mouth, leg swelling, palpitations, burping Treatments Prior to Arrival: aspirin Aspirin use within the Past 7 Days: (1) Yes - Related Data On Oral Contraceptives: No Previous Rx's Medication Instructions Recorded Last Taken Type Clonidine HCl [Catapres] 0.3 mg PO Q8H #60 tablet 04/20/17 Unknown Rx Losartan [Cozaar] 100 mg PO QDAY #30 tablet 04/20/17 Unknown Rx carvediloL [Coreg] 25 mg PO BID #60 tablet 04/20/17 Unknown Rx NIFEdipine XL [Procardia Xl] 90 mg PO QDAY #30 tablet 05/01/17 Unknown Rx hydrOXYzine HCL [Atarax] 25 mg PO Q6H PRN #10 tablet 12/02/17 Unknown Rx methOCARBAMOL [Robaxin TAB] 500 mg PO BID PRN #20 tab 05/01/17 Unknown Rx diphenhydrAMINE [Benadryl CAP] 25 mg PO Q8H PRN #15 capsule 06/30/17 Unknown Rx oxyCODONE /ACETAMINOPHEN [Percocet 1 tab PO BID PRN #10 tablet 06/30/17 Unknown Rx 5/325 mg] Acetaminophen [Acetaminophen TAB] 650 mg PO Q4H PRN #60 tablet 07/06/17 Unknown Rx Allergies Allergy/AdvReac Type Severity Reaction Status Date / Time nitroglycerin Allergy Swelling Verified 06/25/17 10:08 [From Nitroglyn] Heart Score - HEART Score History: Slightly suspicious EKG: Non-specific Age: < 45 Risk factors: > 3 risk factors or hx of atherosclerotic disease Troponin: > 3x normal limit HEART Score: 5 ED Review of Systems ROS: Stated complaint: CHEST PAIN/HYPERTENSION Other details as noted in HPI Constitutional: denies: chills, fever Eyes: denies: eye pain, eye discharge, vision change ENT: denies: ear pain, throat pain Respiratory: shortness of breath. denies: cough, wheezing Cardiovascular: chest pain. denies: palpitations Endocrine: no symptoms reported Gastrointestinal: denies: abdominal pain, nausea, diarrhea Genitourinary: denies: urgency, dysuria Musculoskeletal: denies: back pain, joint swelling, arthralgia Skin: denies: rash, lesions Neurological: denies: headache, weakness, paresthesias Psychiatric: denies: anxiety, depression Hematological/Lymphatic: denies: easy bleeding, easy bruising ED Past Medical Hx - Past Medical History Previous Medical History?: Yes Hx Hypertension: Yes Hx Congestive Heart Failure: No Hx Diabetes: No Hx Renal Disease: Yes (Hemodialysis Wednesday) Hx Seizures: No Hx Asthma: No Hx COPD: Yes Hx HIV: No - Surgical History Past Surgical History?: Yes Additional Surgical History: Hernia, Fistula L upper arm. vas cath left chest - Family History Family history: no significant - Social History Smoking Status: Former Smoker Substance Use Type: None - Medications Home Medications: Home Medications Medication Instructions Recorded Confirmed Last Taken Type Clonidine HCl [Catapres] 0.3 mg PO Q8H #60 tablet 04/20/17 03/22/20 Unknown Rx Losartan [Cozaar] 100 mg PO QDAY #30 tablet 04/20/17 03/22/20 Unknown Rx carvediloL [Coreg] 25 mg PO BID #60 tablet 04/20/17 03/22/20 Unknown Rx NIFEdipine XL [Procardia Xl] 90 mg PO QDAY #30 tablet 05/01/17 03/22/20 Unknown Rx hydrOXYzine HCL [Atarax] 25 mg PO Q6H PRN #10 tablet 05/01/17 03/22/20 Unknown Rx methOCARBAMOL [Robaxin TAB] 500 mg PO BID PRN #20 tab 05/01/17 03/22/20 Unknown Rx diphenhydrAMINE [Benadryl CAP] 25 mg PO Q8H PRN #15 capsule 06/30/17 03/22/20 Unknown Rx oxyCODONE /ACETAMINOPHEN [Percocet 1 tab PO BID PRN #10 tablet 06/30/17 03/22/20 Unknown Rx 5/325 mg] Acetaminophen [Acetaminophen TAB] 650 mg PO Q4H PRN #60 tablet 07/06/17 03/22/20 Unknown Rx ED Physical Exam - General Limitations: No Limitations General appearance: alert, in no apparent distress - Head Head exam: Present: atraumatic, normocephalic - Eye Eye exam: Present: normal appearance - ENT ENT exam: Present: mucous membranes moist - Neck Neck exam: Present: normal inspection - Respiratory Respiratory exam: Present: normal lung sounds bilaterally. Absent: respiratory distress, wheezes, chest wall tenderness - Cardiovascular Cardiovascular Exam: Present: regular rate, normal rhythm. Absent: systolic murmur, diastolic murmur, rubs, gallop - GI/Abdominal GI/Abdominal exam: Present: soft, normal bowel sounds - Rectal Rectal exam: Present: deferred - Extremities Exam Extremities exam: Present: normal inspection - Back Exam Back exam: Present: normal inspection - Neurological Exam Neurological exam: Present: alert, oriented X3 - Psychiatric Psychiatric exam: Present: normal affect, normal mood - Skin Skin exam: Present: warm, dry, intact, normal color. Absent: rash ED Course Vital Signs 03/21/20 03/22/20 03/22/20 15:41 00:12 00:15 Temperature 97.9 F Pulse Rate 72 65 Respiratory 18 20 16 Rate Blood Pressure 215/126 Blood Pressure 188/113 [Right] O2 Sat by Pulse 98 91 93 Oximetry 03/22/20 03/22/20 03/22/20 00:30 00:38 00:45 Temperature Pulse Rate 78 71 Respiratory 14 15 Rate Blood Pressure 201/119 201/100 199/119 Blood Pressure [Right] O2 Sat by Pulse 94 97 Oximetry 03/22/20 03/22/20 03/22/20 01:01 01:15 01:45 Temperature Pulse Rate 72 80 Respiratory 15 15 Rate Blood Pressure 184/106 198/121 191/126 Blood Pressure [Right] O2 Sat by Pulse 90 90 94 Oximetry 03/22/20 03/22/20 02:00 02:15 Temperature Pulse Rate Respiratory Rate Blood Pressure 191/120 179/98 Blood Pressure [Right] O2 Sat by Pulse 93 96 Oximetry - Reevaluation(s) Reevaluation #1: Initial evaluation done. Patient will be placed on a cardiac exercise specialist and her vital signs will be rechecked. 03/22/20 00:02 Reevaluation #2: Patient's blood pressure significantly elevated. Patient will be given clonidine 0.2 mg. 03/22/20 00:28 Reevaluation #3: I discussed all results with patient. I discussed plan of care with patient. Patient agrees with plan of care and admission. Patient to be admitted to the hospitalist service. 03/22/20 00:55 Reevaluation #4: Patient's blood pressure still elevated. Patient will be given hydralazine 03/22/20 01:30 Reevaluation #5: Patient's blood pressure has improved. 03/22/20 02:05 - Consultations Consultation #1: Hospitalist consulted for admission. Hospitalist to admit patient. 03/22/20 00:49 Consultation #2: Nephrology consult placed. 03/22/20 00:50 SANDEEP score - Sandeep Score Age > 65: (0) No Aspirin use within the Past 7 Days: (0) No 3 or more CAD Risk Factors: (0) No 2 or more Angina events in past 24 hrs: (0) No Known CAD with more than 50% Stenosis: (0) No Elevated Cardiac Markers: (0) No ST Deviation Greater than 0.5mm: (0) No SANDEEP Score: 0 ED Medical Decision Making - Lab Data Result diagrams: 03/22/20 02:25 03/21/20 15:54 - EKG Data -: EKG Interpreted by Me EKG shows normal: sinus rhythm, intervals, QRS complexes, ST-T waves Rate: normal - EKG Data Interpretation: LVH ([place] deviation), other - Radiology Data Radiology results: report reviewed CHEST 2 VIEWS INDICATION / CLINICAL INFORMATION: Chest Pain. COMPARISON: 06/06/18. FINDINGS: SUPPORT DEVICES: There is a left jugular CVL with the tip overlying the upper cavoatrial junction. HEART / MEDIASTINUM: There is mild cardiomegaly with a left ventricular configuration. Pulmonary vasculature is normal. The aorta is normal in caliber. LUNGS / PLEURA: Mild diffuse interstitial lung disease is similar to the prior exam. No pneumothorax. ADDITIONAL FINDINGS: There is a left subclavian/axillary stent graft. IMPRESSION: Mild diffuse interstitial lung disease is similar to the prior study and may be related to chronic fibrosis or recurrent interstitial edema. - Medical Decision Making Patient is a 44-year-old male that presents emergency room with complaints of chest pain. Patient also complains of missing his dialysis x2. Patient also found to have severely elevated blood pressure. Patient chest x-ray shows volume overload. Patient given clonidine and hydralazine in the ER. Patient blood pressure responded well. Patient's troponin elevated most likely secondary to renal disease however the patient will require further evaluation treatment and further troponin checks. Patient's labs are consistent with end- stage renal disease. Nephrology consulted. Patient admitted to the hospitalist service for further evaluation and treatment and rule out ACS. - Differential Diagnosis Chest pain, ACS, volume overload, hypertensive emergency, missed dialysis Critical Care Time: Yes Critical care time in (mins) excluding proc time.: 35 Critical care attestation.: If time is entered above; I have spent that time in minutes in the direct care of this critically ill patient, excluding procedure time. Critical Care Time: 35 minutes ED Disposition Clinical Impression: End-stage renal disease on hemodialysis, Anemia of chronic disease, ESRD (end stage renal disease) on dialysis, Missed dialysis, Hypertensive urgency Nausea & vomiting Qualifiers: Vomiting type: unspecified Vomiting Intractability: non-intractable Qualified Code(s): R11.2 - Nausea with vomiting, unspecified Dyspnea Qualifiers: Dyspnea type: unspecified Qualified Code(s): R06.00 - Dyspnea, unspecified Chest pain Qualifiers: Chest pain type: unspecified Qualified Code(s): R07.9 - Chest pain, unspecified Fluid overload Qualifiers: Hypervolemia type: unspecified Qualified Code(s): E87.70 - Fluid overload, unspecified Disposition: DC-09 OP ADMIT IP TO THIS HOSP Is pt being admited?: Yes Does the pt Need Aspirin: No Condition: Critical Time of Disposition: 00:50
[2020-03-21] MEDS ORDERED: ONDANSETRON 4 MG/2 ML INJ IV ONE (23:56)
[2020-03-22] MEDS ORDERED: cloNIDine 0.2 MG TAB PO ONE (00:27)
[2020-03-22] MEDS ORDERED: hydrALAZINE 100 MG TAB PO ONE (01:23)
[2020-03-22] MEDS ORDERED: NITROGLYCERIN 0.4 MG TAB SUBL SL PRN (01:40)
[2020-03-22] MEDS ORDERED: ACETAMINOPHEN 325 MG TAB PO PRN ×3 (01:40→08:00)
[2020-03-22] MEDS ORDERED: MAGNESIUM HYDROXIDE (MOM) ORAL LIQD UDC PO PRN (01:40)
[2020-03-22] MEDS ORDERED: ONDANSETRON 4 MG/2 ML INJ IV PRN (01:40)
--- NOTE | 2020-03-22 01:56 | History and Physical Report ---
History of Present Illness Date of examination: 03/22/20 Date of admission: 03/22/2020 Chief complaint: Chest pain Shortness of breath History of present illness: 44-year-old male with known history of hypertension, CHF, end-stage renal disease on dialysis presenting to the emergency room today complaining of chest pain and shortness of breath. Chest pain is said to be midsternal and stabbing in nature. He has had some nausea and vomiting but denies any abdominal pain. He went for dialysis and was sent to the emergency room for further evaluation. Chest pain is worse on exertion and gets better on resting. He admits that he has missed 2 dialysis so far. His last dialysis was on Wednesday. Work-up in the emergency room reveals recurrent interstitial edema on chest x- ray, troponin was also found to be elevated. Blood pressure was also found to be quite elevated upon arrival. Patient being admitted for chest pain, hypertensive urgency and end-stage renal disease requiring dialysis. Past History Past Medical History: COPD, dialysis, ESRD, hypertension Past Surgical History: hernia repair, Other (Vas cath placement, A-V fistula left upper extremity) Social history: smoking (Former smoker) Family history: no significant family history Medications and Allergies Allergies Allergy/AdvReac Type Severity Reaction Status Date / Time nitroglycerin Allergy Swelling Verified 06/25/17 10:08 [From Nitroglyn] Home Medications Medication Instructions Recorded Confirmed Last Taken Type Clonidine HCl [Catapres] 0.3 mg PO Q8H #60 tablet 04/20/17 03/22/20 Unknown Rx Losartan [Cozaar] 100 mg PO QDAY #30 tablet 04/20/17 03/22/20 Unknown Rx carvediloL [Coreg] 25 mg PO BID #60 tablet 04/20/17 03/22/20 Unknown Rx NIFEdipine XL [Procardia Xl] 90 mg PO QDAY #30 tablet 05/01/17 03/22/20 Unknown Rx hydrOXYzine HCL [Atarax] 25 mg PO Q6H PRN #10 tablet 05/01/17 03/22/20 Unknown Rx methOCARBAMOL [Robaxin TAB] 500 mg PO BID PRN #20 tab 05/01/17 03/22/20 Unknown Rx diphenhydrAMINE [Benadryl CAP] 25 mg PO Q8H PRN #15 capsule 06/30/17 03/22/20 Unknown Rx oxyCODONE /ACETAMINOPHEN [Percocet 1 tab PO BID PRN #10 tablet 06/30/17 03/22/20 Unknown Rx 5/325 mg] Acetaminophen [Acetaminophen TAB] 650 mg PO Q4H PRN #60 tablet 07/06/17 03/22/20 Unknown Rx Active Meds: Active Medications Acetaminophen (Tylenol) 650 mg PO Q4H PRN PRN Reason: Pain MILD(1-3)/Fever >100.5/WOOD Acetaminophen (Tylenol) 650 mg PO Q6H PRN PRN Reason: Pain, Mild (1-3) Aspirin (Ecotrin) 325 mg PO QDAY JOANN Magnesium Hydroxide (Milk Of Magnesia) 30 ml PO Q4H PRN PRN Reason: Constipation Morphine Sulfate (Morphine) 2 mg IV Q5MIN PRN PRN Reason: Chest Pain Nitroglycerin (Nitrostat) 0.4 mg SL Q5M PRN PRN Reason: Chest Pain Ondansetron HCl (Zofran) 4 mg IV Q8H PRN PRN Reason: Nausea And Vomiting Sodium Chloride (Sodium Chloride Flush Syringe 10 Ml) 10 ml IV BID JOANN Sodium Chloride (Sodium Chloride Flush Syringe 10 Ml) 10 ml IV PRN PRN PRN Reason: LINE FLUSH Review of Systems Constitutional: no fever, no chills Ears, nose, mouth and throat: no nasal congestion, no sore throat Cardiovascular: chest pain, no palpitations Respiratory: shortness of breath, no cough Gastrointestinal: nausea, vomiting, no abdominal pain Genitourinary Male: no dysuria, no hematuria, no flank pain, no nocturia Musculoskeletal: no neck pain, no low back pain Integumentary: no rash, no pruritis Neurological: no headaches, no confusion Psychiatric: no anxiety, no depression Exam - Constitutional Vitals: Temp Pulse Resp BP Pulse Ox 97.9 F 80 15 198/121 90 03/21/20 15:41 03/22/20 01:15 03/22/20 01:15 03/22/20 01:15 03/22/20 01:15 General appearance: Present: no acute distress, well-nourished, obese - EENT Eyes: Present: PERRL, EOM intact ENT: hearing intact, clear oral mucosa, dentition normal - Neck Neck: Present: supple, normal ROM - Respiratory Respiratory effort: normal, other (Vas cath left anterior chest wall.) Respiratory: bilateral: CTA - Cardiovascular Rhythm: regular Heart Sounds: Present: S1 & S2. Absent: gallop, systolic murmur, diastolic murmur, rub - Extremities Extremities: no ischemia, pulses intact, pulses symmetrical, No edema, Full ROM Peripheral Pulses: within normal limits - Abdominal General gastrointestinal: Present: soft, non-tender, non-distended, normal bowel sounds. Absent: mass - Integumentary Integumentary: Present: clear, warm, dry - Musculoskeletal Musculoskeletal: strength equal bilaterally - Psychiatric Psychiatric: appropriate mood/affect, intact judgment & insight, memory intact, cooperative - Neurologic Neurologic: CNII-XII intact, no focal deficits, moves all extremities HEART Score - HEART Score History: Moderately suspicious EKG: Non-specific Age: < 45 Risk factors: > 3 risk factors or hx of atherosclerotic disease Troponin: Troponin T 0.041 ng/mL (0.00-0.029) H 03/21/20 23:40 Troponin: > 3x normal limit HEART Score: 6 Results - Labs CBC & Chem 7: 03/22/20 02:25 03/22/20 02:25 Labs: Abnormal lab results 03/21/20 03/21/20 03/21/20 Range/Units 15:54 15:54 18:47 RBC 3.13 L (3.65-5.03) M/mm3 Hgb 9.8 L (11.8-15.2) gm/dl Hct 29.9 L (35.5-45.6) % MCV 96 H (84-94) fl RDW 15.4 H (13.2-15.2) % Lymph % (Auto) 7.0 L (13.4-35.0) % Lymph # (Auto) 0.5 L (1.2-5.4) K/mm3 Seg Neutrophils % 82.0 H (40.0-70.0) % Carbon Dioxide 18 L (22-30) mmol/L BUN 81 H (9-20) mg/dL Creatinine 17.6 H (0.8-1.3) mg/dL Troponin T 0.042 H 0.037 H (0.00-0.029) ng/mL LDL Cholesterol Direct 43 L (50-130) mg/dL HDL Cholesterol 37 L (40-59) mg/dL 03/21/20 Range/Units 23:40 RBC (3.65-5.03) M/mm3 Hgb (11.8-15.2) gm/dl Hct (35.5-45.6) % MCV (84-94) fl RDW (13.2-15.2) % Lymph % (Auto) (13.4-35.0) % Lymph # (Auto) (1.2-5.4) K/mm3 Seg Neutrophils % (40.0-70.0) % Carbon Dioxide (22-30) mmol/L BUN (9-20) mg/dL Creatinine (0.8-1.3) mg/dL Troponin T 0.041 H (0.00-0.029) ng/mL LDL Cholesterol Direct (50-130) mg/dL HDL Cholesterol (40-59) mg/dL Assessment and Plan - Patient Problems (1) Chest pain Current Visit: Yes Status: Chronic Qualifiers: Chest pain type: unspecified Qualified Code(s): R07.9 - Chest pain, unspecified Plan to address problem: We will check serial cardiac enzymes. Placed on aspirin and IV morphine as needed. We will request cardiology evaluation and recommendation. (2) ESRD (end stage renal disease) on dialysis Current Visit: Yes Status: Acute Plan to address problem: Consult has been placed to nephrology for evaluation of possible dialysis. (3) Hypertensive urgency Current Visit: Yes Status: Acute Plan to address problem: We will resume routine antihypertensive medications and monitor vital signs closely. (4) Anemia of chronic disease Onset Date: 09/04/15 Current Visit: Yes Status: Chronic Plan to address problem: We will monitor CBC. (5) DVT prophylaxis Current Visit: No Status: Acute Plan to address problem: Patient placed on sequential compression device. (6) Full code status Current Visit: Yes Status: Acute
[2020-03-22 02:41] LABS: Basophils # (Auto) 0.1 K/mm3 (0.0-0.1); Basophils % (Auto) 0.8 % (0.0-1.8); Eosinophils # (Auto) 0.3 K/mm3 (0.0-0.4); Hematocrit 23.3 % (35.5-45.6); Hemoglobin 7.5 gm/dl (11.8-15.2); Lymphocytes # (Auto) 0.5 K/mm3 (1.2-5.4); Lymphocytes % (Auto) 7.1 % (13.4-35.0); Mean Corpuscular HGB Conc 32 % (32-34); Mean Corpuscular Volume 98 fl (84-94); Monocytes # (Auto) 0.5 K/mm3 (0.0-0.8); Monocytes % (Auto) 7.2 % (0.0-7.3); Platelet Count 112 K/mm3 (140-440); Red Blood Count 2.38 M/mm3 (3.65-5.03); Red Cell Distribution Width 15.6 % (13.2-15.2)
[2020-03-22 03:07] LABS: Calcium 7.4 mg/dL (8.4-10.2)
[2020-03-22] MEDS: MORPHINE 4 MG/1 ML INJ IV PRN ×5 (03:26→21:06)
[2020-03-22] MEDS ORDERED: diphenhydrAMINE 50 MG/ML VIAL IV PRN (05:20)
--- NOTE | 2020-03-22 07:20 | Consultation ---
History of Present Illness - Reason for Consult Consult date: 03/22/20 end stage renal disease - History of Present Illness This is a 44-year-old man with history of end-stage renal disease on he modialysis, hypertension, congestive heart failure who presented with chest pain and shortness of breath. He described the chest pain as midsternal, stabbing in nature, worsened with exertion and alleviated on rest. He also notes missing 2 dialysis sessions consecutively. His last dialysis was on Wednesday. Workup upon presentation revealed edema on chest x-ray and elevated troponin on lab work. He was admitted for chest pain, hypertensive urgency and fluid overload. Nephrology was consulted for ESRD management. Past History Past Medical History: COPD, dialysis, ESRD, hypertension Past Surgical History: hernia repair, Other (Vas cath placement, A-V fistula left upper extremity) Social history: smoking (Former smoker) Family history: no significant family history Medications and Allergies Allergies Allergy/AdvReac Type Severity Reaction Status Date / Time nitroglycerin Allergy Swelling Verified 06/25/17 10:08 [From Nitroglyn] Home Medications Medication Instructions Recorded Confirmed Last Taken Type Clonidine HCl [Catapres] 0.3 mg PO Q8H #60 tablet 04/20/17 03/22/20 Unknown Rx Losartan [Cozaar] 100 mg PO QDAY #30 tablet 04/20/17 03/22/20 Unknown Rx carvediloL [Coreg] 25 mg PO BID #60 tablet 04/20/17 03/22/20 Unknown Rx NIFEdipine XL [Procardia Xl] 90 mg PO QDAY #30 tablet 05/01/17 03/22/20 Unknown Rx hydrOXYzine HCL [Atarax] 25 mg PO Q6H PRN #10 tablet 05/01/17 03/22/20 Unknown Rx methOCARBAMOL [Robaxin TAB] 500 mg PO BID PRN #20 tab 05/01/17 03/22/20 Unknown Rx diphenhydrAMINE [Benadryl CAP] 25 mg PO Q8H PRN #15 capsule 06/30/17 03/22/20 Unknown Rx oxyCODONE /ACETAMINOPHEN [Percocet 1 tab PO BID PRN #10 tablet 06/30/17 03/22/20 Unknown Rx 5/325 mg] Acetaminophen [Acetaminophen TAB] 650 mg PO Q4H PRN #60 tablet 07/06/17 03/22/20 Unknown Rx Active Meds: Active Medications Acetaminophen (Tylenol) 650 mg PO Q4H PRN PRN Reason: Pain MILD(1-3)/Fever >100.5/WOOD Aspirin (Ecotrin) 325 mg PO QDAY JOANN Diphenhydramine HCl (Benadryl) 25 mg IV Q6H PRN PRN Reason: Itching Last Admin: 03/22/20 05:48 Dose: 25 mg Documented by: Labetalol HCl (Labetalol) 10 mg IV Q4H PRN PRN Reason: SBP > 160 Last Admin: 03/22/20 03:35 Dose: 10 mg Documented by: Magnesium Hydroxide (Milk Of Magnesia) 30 ml PO Q4H PRN PRN Reason: Constipation Last Admin: 03/22/20 03:31 Dose: 30 ml Documented by: Morphine Sulfate (Morphine) 2 mg IV Q5MIN PRN PRN Reason: Chest Pain Last Admin: 03/22/20 05:44 Dose: 2 mg Documented by: Ondansetron HCl (Zofran) 4 mg IV Q8H PRN PRN Reason: Nausea And Vomiting Sodium Chloride (Sodium Chloride Flush Syringe 10 Ml) 10 ml IV BID JOANN Sodium Chloride (Sodium Chloride Flush Syringe 10 Ml) 10 ml IV PRN PRN PRN Reason: LINE FLUSH Last Admin: 03/22/20 05:51 Dose: 10 ml Documented by: Review of Systems Constitutional: other (no fever or chills) Eyes: bilateral: other (no irritation or itching) Ears, nose, mouth and throat: other (no congestion or discharge) Cardiovascular: chest pain, shortness of breath (no cough or wheezing) Gastrointestinal: other (no vomiting or diarrhea) Genitourinary Male: other (no dysuria or hematuria) Musculoskeletal: other (no muscle weakness or frequent falls) Integumentary: other (no rash or pruritus) Neurological: other (no numbness or paresthesia) Psychiatric: other (no anxiety or confusion) Endocrine: other (no polydipsia or flushing) Allergic/Immunologic: other (no urticaria or wheezing) Exam - Vital Signs Vital signs: Vital Signs Temp Pulse Resp BP Pulse Ox 97.9 F 72 18 188/113 98 03/21/20 15:41 03/21/20 15:41 03/21/20 15:41 03/21/20 15:41 03/21/20 15:41 - Physical Exam Narrative exam: Vitals: Reviewed General: No acute distress HEENT: Oral mucosa moist, no pharyngeal erythema, no evidence of epistaxis Neck: Supple, no evidence of any JVD, trachea midline, no thyromegaly Chest: Clear to auscultation, no crackles, rales or wheezes Heart: bibasilar decreased breath sounds Abdomen: Soft, nontender, no renal bruit, no suprapubic masses no CVA tenderness Extremity: No peripheral cyanosis, lower extremity edema Neurological: Alert, awake, no asterixis Dermatology; no skin rashes Back: Nontender thoracolumbar spine, no CVA tenderness Psych: No agitation and aggression Musculoskeletal: No joint effusion noted Results - Lab Results 03/22/20 02:25 03/22/20 02:25 Most recent lab results Calcium 7.4 mg/dL (8.4-10.2) L D 03/22/20 02:25 Assessment and Plan Assessment * end-stage renal disease on hemodialysis * Missed dialysis * Pulmonary edema * Chest pain. troponin was slightly elevated but stable. EKG without ST/T wave changes. * Acidosis * Hypertensive urgency * hyperparathyroidism * Hyperphosphatemia Recommendations * Hemodialysis today * continue home antihypertensives * continue binders with meals * Hold Epogen until blood pressure is better controlled * Renally dose medications * Avoid nephrotoxins * Cardiology note reviewed
[2020-03-22] MEDS ORDERED: NON-FORMULARY EACH (Clonidine Hcl [Catapres] 0.3 MG) PO SCH (07:30)
[2020-03-22] MEDS ORDERED: SODIUM CHLORIDE 0.9% 100 ML IV PRN (08:00)
[2020-03-22] MEDS ORDERED: hydrOXYzine HCL 25 MG TAB PO PRN (08:00)
[2020-03-22] MEDS ORDERED: diphenhydrAMINE 50 MG CAP PO ONE (09:45)
[2020-03-22 09:59] LABS: Hepatitis B Surface Antigen Non-Reactive (Negative); Hepatitis C Virus Antibody Non-Reactive (NonReactive)
[2020-03-22] MEDS ORDERED: oxyCODONE /ACETAMINOPHEN 5-325MG TAB PO PRN (10:00)
[2020-03-22] MEDS: cloNIDine 0.1 MG TAB PO SCH ×3 (10:30→21:06)
--- NOTE | 2020-03-22 10:44 | Consultation ---
History of Present Illness Consult date: 03/22/20 Consult reason: chest pain History of present illness: This is a 44-year old M with a history of hypertension and end-stage renal disease on hemodialysis. He was brought to this hospital and admitted with volume overload secondary to missed dialysis sessions. Patient reports he missed dialysis due to transportation issues. He currently denies chest pain and shortness of breath. His presention ECG is sinus rhythm, left axis deviation with LVH. No acute ischemic changes. His latest cardiac workup was done 2 years ago. He had a normal perfusion thallium stress test, LVEF 45-50% by echocardiogram. Past History Past Medical History: COPD, dialysis, ESRD, hypertension Past Surgical History: hernia repair, Other (Vas cath placement, A-V fistula left upper extremity) Social history: smoking (Former smoker) Family history: no significant family history Medications and Allergies Allergies Allergy/AdvReac Type Severity Reaction Status Date / Time nitroglycerin Allergy Swelling Verified 06/25/17 10:08 [From Nitroglyn] Home Medications Medication Instructions Recorded Confirmed Last Taken Type Clonidine HCl [Catapres] 0.3 mg PO Q8H #60 tablet 04/20/17 03/22/20 Unknown Rx Losartan [Cozaar] 100 mg PO QDAY #30 tablet 04/20/17 03/22/20 Unknown Rx carvediloL [Coreg] 25 mg PO BID #60 tablet 04/20/17 03/22/20 Unknown Rx NIFEdipine XL [Procardia Xl] 90 mg PO QDAY #30 tablet 05/01/17 03/22/20 Unknown Rx hydrOXYzine HCL [Atarax] 25 mg PO Q6H PRN #10 tablet 05/01/17 03/22/20 Unknown Rx methOCARBAMOL [Robaxin TAB] 500 mg PO BID PRN #20 tab 05/01/17 03/22/20 Unknown Rx diphenhydrAMINE [Benadryl CAP] 25 mg PO Q8H PRN #15 capsule 06/30/17 03/22/20 Unknown Rx oxyCODONE /ACETAMINOPHEN [Percocet 1 tab PO BID PRN #10 tablet 06/30/17 03/22/20 Unknown Rx 5/325 mg] Acetaminophen [Acetaminophen TAB] 650 mg PO Q4H PRN #60 tablet 07/06/17 03/22/20 Unknown Rx Active Meds: Active Medications Acetaminophen (Tylenol) 650 mg PO Q4H PRN PRN Reason: Pain MILD(1-3)/Fever >100.5/WOOD Aspirin (Ecotrin) 325 mg PO QDAY [facility] Carvedilol (Coreg) 25 mg PO BID [facility] Clonidine HCl (Catapres) 0.3 mg PO Q8HR JOANN Last Admin: 03/22/20 10:30 Dose: 0.3 mg Documented by: Diphenhydramine HCl (Benadryl) 25 mg PO Q8H PRN PRN Reason: Itching Hydroxyzine HCl (Atarax) 25 mg PO Q6H PRN PRN Reason: Itching Sodium Chloride (Nacl 0.9%) 100 mls @ 999 mls/hr IV SYLVAIN PRN PRN Reason: Hypotension Labetalol HCl (Labetalol) 10 mg IV Q4H PRN PRN Reason: SBP > 160 Last Admin: 03/22/20 03:35 Dose: 10 mg Documented by: Losartan Potassium (Cozaar) 100 mg PO QDAY [facility] Magnesium Hydroxide (Milk Of Magnesia) 30 ml PO Q4H PRN PRN Reason: Constipation Last Admin: 03/22/20 03:31 Dose: 30 ml Documented by: Methocarbamol (Robaxin) 500 mg PO BID PRN PRN Reason: Spasms Morphine Sulfate (Morphine) 2 mg IV Q5MIN PRN PRN Reason: Chest Pain Last Admin: 03/22/20 09:45 Dose: 2 mg Documented by: Nifedipine (Procardia Xl) 90 mg PO QDAY [facility] Ondansetron HCl (Zofran) 4 mg IV Q8H PRN PRN Reason: Nausea And Vomiting Oxycodone/Acetaminophen (Percocet 5/325) 1 tab PO BID PRN PRN Reason: Pain, Moderate (4-6) Sodium Chloride (Sodium Chloride Flush Syringe 10 Ml) 10 ml IV BID [facility] Sodium Chloride (Sodium Chloride Flush Syringe 10 Ml) 10 ml IV PRN PRN PRN Reason: LINE FLUSH Last Admin: 03/22/20 05:51 Dose: 10 ml Documented by: Physical Examination Vital Signs Temp Pulse Resp BP Pulse Ox 97.9 F 72 18 188/113 98 03/21/20 15:41 03/21/20 15:41 03/21/20 15:41 03/21/20 15:41 03/21/20 15:41 General appearance: no acute distress HEENT: Positive: PERRL Neck: Positive: trachea midline Cardiac: Positive: Reg Rate and Rhythm Neuro: Positive: Grossly Intact Results 03/22/20 02:25 03/22/20 02:25 Lipids 03/21/20 Range/Units 15:54 Triglycerides 119 (2-149) mg/dL Cholesterol 97 (50-199) mg/dL HDL Cholesterol 37 L (40-59) mg/dL Cholesterol/HDL Ratio 2.62 % CBC 03/21/20 03/22/20 Range/Units 15:54 02:25 WBC 7.3 6.4 (4.5-11.0) K/mm3 RBC 3.13 L 2.38 L (3.65-5.03) M/mm3 Hgb 9.8 L 7.5 L (11.8-15.2) gm/dl Hct 29.9 L 23.3 L D (35.5-45.6) % Plt Count 157 112 L (140-440) K/mm3 Lymph # (Auto) 0.5 L 0.5 L (1.2-5.4) K/mm3 [place] # (Auto) 0.5 0.5 (0.0-0.8) K/mm3 Eos # (Auto) 0.3 0.3 (0.0-0.4) K/mm3 Baso # (Auto) 0.0 0.1 (0.0-0.1) K/mm3 Comprehensive Metabolic Panel 03/21/20 03/22/20 Range/Units 15:54 02:25 Sodium 139 142 (137-145) mmol/L Potassium 4.9 3.9 D (3.6-5.0) mmol/L Chloride 99.6 106.9 (98-107) mmol/L Carbon Dioxide 18 L 13 L (22-30) mmol/L BUN 81 H 68 H (9-20) mg/dL Creatinine 17.6 H 15.1 H (0.8-1.3) mg/dL Glucose 98 102 H (75-100) mg/dL Calcium 9.3 7.4 L D (8.4-10.2) mg/dL Assessment and Plan Volume overload related to missed dialysis. ESRD on HD Anemia Hypertension Cardiac test 2018: normal perfusion MPI EF 45-50% on echo Recommendations: Dialysis for fluid removal. Otherwise, conservative cardiac management
[2020-03-22] MEDS: NIFEdipine XL 90 MG TAB PO SCH (11:21)
[2020-03-22] MEDS ORDERED: hydrALAZINE 25 MG TAB ONE (12:39)
[2020-03-22] MEDS: carvediloL 25 MG TAB PO SCH ×2 (12:48→21:06)
[2020-03-22] MEDS: LOSARTAN 50 MG TAB PO SCH (12:48)
[2020-03-22] MEDS: diphenhydrAMINE 25 MG CAP PO PRN ×2 (12:58→21:06)
[2020-03-22] MEDS ORDERED: hydrALAZINE 25 MG TAB PO ONE (14:00)
--- NOTE | 2020-03-22 15:19 | Progress Note ---
<ASYA LAVARES - Last Filed: 03/22/20 15:19> Hospitalist Physical - Constitutional Vitals: Temp Pulse Resp BP Pulse Ox 97.9 F 71 18 172/109 92 03/22/20 08:45 03/22/20 13:00 03/22/20 13:00 03/22/20 13:00 03/22/20 07:59 General appearance: Present: no acute distress HEART Score - HEART Score EKG: Non-specific Age: < 45 Risk factors: > 3 risk factors or hx of atherosclerotic disease Troponin: Troponin T 0.034 ng/mL (0.00-0.029) H 03/22/20 09:00 Troponin: > 3x normal limit Results - Labs CBC & Chem 7: 03/22/20 02:25 03/22/20 02:25 Labs: Laboratory Last Values WBC 6.4 K/mm3 (4.5-11.0) 03/22/20 02:25 RBC 2.38 M/mm3 (3.65-5.03) L 03/22/20 02:25 Hgb 7.5 gm/dl (11.8-15.2) L 03/22/20 02:25 Hct 23.3 % (35.5-45.6) L D 03/22/20 02:25 MCV 98 fl (84-94) H 03/22/20 02:25 MCH 32 pg (28-32) 03/22/20 02:25 MCHC 32 % (32-34) 03/22/20 02:25 RDW 15.6 % (13.2-15.2) H 03/22/20 02:25 Plt Count 112 K/mm3 (140-440) L 03/22/20 02:25 Lymph % (Auto) 7.1 % (13.4-35.0) L 03/22/20 02:25 [place] % (Auto) 7.2 % (0.0-7.3) 03/22/20 02:25 Eos % (Auto) 5.0 % (0.0-4.3) H 03/22/20 02:25 Baso % (Auto) 0.8 % (0.0-1.8) 03/22/20 02:25 Lymph # (Auto) 0.5 K/mm3 (1.2-5.4) L 03/22/20 02:25 [place] # (Auto) 0.5 K/mm3 (0.0-0.8) 03/22/20 02:25 Eos # (Auto) 0.3 K/mm3 (0.0-0.4) 03/22/20 02:25 Baso # (Auto) 0.1 K/mm3 (0.0-0.1) 03/22/20 02:25 Seg Neutrophils % 79.9 % (40.0-70.0) H 03/22/20 02:25 Seg Neutrophils # 5.1 K/mm3 (1.8-7.7) 03/22/20 02:25 Sodium 142 mmol/L (137-145) 03/22/20 02:25 Potassium 3.9 mmol/L (3.6-5.0) D 03/22/20 02:25 Chloride 106.9 mmol/L (98-107) 03/22/20 02:25 Carbon Dioxide 13 mmol/L (22-30) L 03/22/20 02:25 Anion Gap 26 mmol/L 03/22/20 02:25 BUN 68 mg/dL (9-20) H 03/22/20 02:25 Creatinine 15.1 mg/dL (0.8-1.3) H 03/22/20 02:25 Estimated GFR 4 ml/min 03/22/20 02:25 BUN/Creatinine Ratio 5 % 03/22/20 02:25 Glucose 102 mg/dL (75-100) H 03/22/20 02:25 Calcium 7.4 mg/dL (8.4-10.2) L D 03/22/20 02:25 Troponin T 0.034 ng/mL (0.00-0.029) H 03/22/20 09:00 Triglycerides 119 mg/dL (2-149) 03/21/20 15:54 Cholesterol 97 mg/dL (50-199) 03/21/20 15:54 LDL Cholesterol Direct 43 mg/dL (50-130) L 03/21/20 15:54 HDL Cholesterol 37 mg/dL (40-59) L 03/21/20 15:54 Cholesterol/HDL Ratio 2.62 % 03/21/20 15:54 Hepatitis A IgM Ab Non-reactive (NonReactive) 03/22/20 09:00 Hep Bs Antigen Non-reactive (Negative) 03/22/20 09:00 Hep B Core IgM Ab Non-reactive (NonReactive) 03/22/20 09:00 Hepatitis C Antibody Non-reactive (NonReactive) 03/22/20 09:00 Babcock/IV: IV Catheter Type [Right Peripheral IV Antecubital] Active Medications - Current Medications Current Medications: Generic Name Dose Route Start Last Admin Trade Name Freq PRN Reason Stop Dose Admin Acetaminophen 650 mg 03/22/20 08:00 Tylenol PO Q4H PRN Pain MILD(1-3)/Fever >100.5/WOOD Aspirin 325 mg 03/23/20 10:00 Ecotrin PO QDAY JOANN Carvedilol 25 mg 03/22/20 10:00 03/22/20 12:48 Coreg PO 25 mg BID JOANN Administration Clonidine HCl 0.3 mg 03/22/20 08:30 03/22/20 10:30 Catapres PO 0.3 mg Q8HR JOANN Administration Diphenhydramine HCl 25 mg 03/22/20 08:00 03/22/20 12:58 Benadryl PO 25 mg Q8H PRN Administration Itching Hydroxyzine HCl 25 mg 03/22/20 08:00 Atarax PO Q6H PRN Itching Sodium Chloride 100 mls @ 999 mls/hr 03/22/20 08:00 Nacl 0.9% IV SYLVAIN PRN Hypotension Labetalol HCl 10 mg 03/22/20 02:19 03/22/20 03:35 Labetalol IV 10 mg Q4H PRN Administration SBP > 160 Losartan Potassium 100 mg 03/22/20 10:00 03/22/20 12:48 Cozaar PO 100 mg QDAY JOANN Administration Magnesium Hydroxide 30 ml 03/22/20 01:40 03/22/20 03:31 Milk Of Magnesia PO 30 ml Q4H PRN Administration Constipation Methocarbamol 500 mg 03/22/20 10:00 Robaxin PO BID PRN Spasms Morphine Sulfate 2 mg 03/22/20 01:40 03/22/20 09:45 Morphine IV 2 mg Q5MIN PRN Administration Chest Pain Nifedipine 90 mg 03/22/20 10:00 03/22/20 11:21 Procardia Xl PO 90 mg QDAY JOANN Administration Ondansetron HCl 4 mg 10/23/20 01:40 Zofran IV Q8H PRN Nausea And Vomiting Oxycodone/Acetaminophen 1 tab 03/22/20 10:00 Percocet 5/325 PO BID PRN Pain, Moderate (4-6) Sodium Chloride 10 ml 03/22/20 10:00 03/22/20 12:49 Sodium Chloride Flush Syringe 10 Ml IV 10 ml BID JOANN Administration Sodium Chloride 10 ml 03/22/20 01:40 03/22/20 05:51 Sodium Chloride Flush Syringe 10 Ml IV 10 ml PRN PRN Administration LINE FLUSH <MERYNENASUZANNA H. - Last Filed: 03/22/20 17:42> Assessment and Plan - Patient Problems (1) Elevated troponin Current Visit: Yes Status: Acute Plan to address problem: Troponins 0.042-> 0.037->0.041-> 0.034 Presented to the hospital with chest pressure and multiple constitutional symptoms which followed after he missed 2 dialysis sessions. Cardiology consulted 05/2017 patient had a negative Lexiscan thallium stress test and echocardiogram that showed LVEF of 45 to 50% 03/21 ECG showed NSR with left axis deviation and LVH 03/21 CXR shows cardiomegaly with diffuse interstitial opacities 03/21 Lexiscan stress test canceled due to patient refusal and declines any further work-up 03/21 echocardiogram pending As needed nitroglycerin and morphine Serial EKGs Telemetry monitoring on a monitor ASA 325 daily started in the ED (2) Hypertensive urgency Current Visit: Yes Status: Acute Plan to address problem: Presented to the emergency department with a blood pressure of 188/113 which subsequently increased to 215/126 S/p clonidine and hydralazine in the ED Resume home antihypertensive regimen 03/22 patient had hypotension post HD session which removed 3 L 03/22 given one-time dose of hydralazine Blood pressure monitor per protocol As needed labetalol for SBP greater than 160 (3) Dyspnea Current Visit: Yes Status: Acute Qualifiers: Dyspnea type: unspecified Qualified Code(s): R06.00 - Dyspnea, unspecified Plan to address problem: Patient presented with shortness of breath on exertion after missed dialysis sessions 03/22 s/p HD Patient on room air at the time of my examination and does not appear to be in distress. (4) Fluid overload Current Visit: Yes Status: Acute Qualifiers: Hypervolemia type: unspecified Qualified Code(s): E87.70 - Fluid overload, unspecified Plan to address problem: Patient presented after missed HD sessions 03/22 patient received HD which removed 3 L Patient still exhibits mild edema on examination (5) Metabolic acidosis Current Visit: No Status: Acute Plan to address problem: Presented with a CO2 of 18 03/22 CO2 13 Nephrology consulted Trend BMP (6) ESRD (end stage renal disease) on dialysis Current Visit: Yes Status: Chronic Plan to address problem: Patient presented after missed HD sessions 03/22 patient received HD with removal of 3 L Nephrology consulted HD per renal team Avoid nephrotoxic medications Strict intake and output Daily weights Presenting BUN/CR 87/17.6 03/22 BUN/CR 68/15.1 Trend BMP Continue renal binders Epogen per renal team (7) Anemia of chronic disease Onset Date: 09/04/15 Current Visit: Yes Status: Chronic Plan to address problem: Admit H/H 9.8/29.9 03/22 H/H 7.5/23.3 Epogen held per nephrology until better hypertension control is obtained Transfuse for hemoglobin less than 7 Trend CBC (8) DVT prophylaxis Current Visit: No Status: Acute Plan to address problem: SCDs to bilateral extremities while in bed Heparin subcu History Interval history: 44-year-old male with hypertension, CHF, ESRD on HD, former smoker, s/p AVF removal and LUE and Vas-Cath placement presented to the emergency room on 03/21 complaining of mid sternal stabbing chest pain which worsens with exertion and is better with rest with nausea and vomiting and shortness of breath. He went for dialysis and was sent to the emergency room for further evaluation. He admitted to missing 2 dialysis appointments and his last HD session was on Friday 03/16. Work-up in the emergency department revealed recurrent interstitial edema on CXR, elevated troponin and elevated blood pressure. Patient was admitted to the hospital service for work-up for his chest pain, hypertensive emergency and ESRD requiring dialysis. This morning patient was scheduled for stress test however it was canceled by cardiology due to recent work-up. Patient received HD today and removed 3 L however patient was requesting treatment to be terminated. Patient presented to the floor after HD with a blood pressure of 199/138 and upon rechecking it was 231/146. Patient was given a one-time dose of 50 mg of hydralazine and received his scheduled blood pressure medication. Patient stated that he was shaking and he was seeing black spots and "nobody cared for him". Patient is displaying attention seeking behavior. Hospitalist Physical - Constitutional Vitals: Temp Pulse Resp BP Pulse Ox 98.2 F 71 18 172/109 92 03/22/20 12:00 03/22/20 13:00 03/22/20 13:00 03/22/20 13:00 03/22/20 07:59 General appearance: Present: severe distress - EENT Eyes: Present: PERRL, EOM intact ENT: hearing intact, hearing decreased, poor dentition - Neck Neck: Present: supple, normal ROM - Respiratory Respiratory effort: normal Respiratory: bilateral: CTA - Cardiovascular Rhythm: regular Heart Sounds: Present: S1 & S2. Absent: systolic murmur, diastolic murmur - Extremities Extremities: no ischemia, pulses intact, pulses symmetrical, normal temperature, normal color, Full ROM Extremity abnormal: edema (Trace edema to bilateral lower extremities) Peripheral Pulses: within normal limits - Abdominal General gastrointestinal: soft, non-tender, non-distended, normal bowel sounds - Integumentary Integumentary: Present: clear, warm, dry - Psychiatric Psychiatric: agitated - Neurologic Neurologic: CNII-XII intact, no focal deficits, moves all extremities HEART Score - HEART Score Troponin: Troponin T 0.034 ng/mL (0.00-0.029) H 03/22/20 09:00 Results - Labs CBC & Chem 7: 03/22/20 02:25 03/22/20 02:25 Labs: Laboratory Last Values WBC 6.4 K/mm3 (4.5-11.0) 03/22/20 02:25 RBC 2.38 M/mm3 (3.65-5.03) L 03/22/20 02:25 Hgb 7.5 gm/dl (11.8-15.2) L 03/22/20 02:25 Hct 23.3 % (35.5-45.6) L D 03/22/20 02:25 MCV 98 fl (84-94) H 03/22/20 02:25 MCH 32 pg (28-32) 03/22/20 02:25 MCHC 32 % (32-34) 03/22/20 02:25 RDW 15.6 % (13.2-15.2) H 03/22/20 02:25 Plt Count 112 K/mm3 (140-440) L 03/22/20 02:25 Lymph % (Auto) 7.1 % (13.4-35.0) L 03/22/20 02:25 [place] % (Auto) 7.2 % (0.0-7.3) 03/22/20 02:25 Eos % (Auto) 5.0 % (0.0-4.3) H 03/22/20 02:25 Baso % (Auto) 0.8 % (0.0-1.8) 03/22/20 02:25 Lymph # (Auto) 0.5 K/mm3 (1.2-5.4) L 03/22/20 02:25 [place] # (Auto) 0.5 K/mm3 (0.0-0.8) 03/22/20 02:25 Eos # (Auto) 0.3 K/mm3 (0.0-0.4) 03/22/20 02:25 Baso # (Auto) 0.1 K/mm3 (0.0-0.1) 03/22/20 02:25 Seg Neutrophils % 79.9 % (40.0-70.0) H 03/22/20 02:25 Seg Neutrophils # 5.1 K/mm3 (1.8-7.7) 03/22/20 02:25 Sodium 142 mmol/L (137-145) 03/22/20 02:25 Potassium 3.9 mmol/L (3.6-5.0) D 03/22/20 02:25 Chloride 106.9 mmol/L (98-107) 03/22/20 02:25 Carbon Dioxide 13 mmol/L (22-30) L 03/22/20 02:25 Anion Gap 26 mmol/L 03/22/20 02:25 BUN 68 mg/dL (9-20) H 03/22/20 02:25 Creatinine 15.1 mg/dL (0.8-1.3) H 03/22/20 02:25 Estimated GFR 4 ml/min 03/22/20 02:25 BUN/Creatinine Ratio 5 % 03/22/20 02:25 Glucose 102 mg/dL (75-100) H 03/22/20 02:25 Calcium 7.4 mg/dL (8.4-10.2) L D 03/22/20 02:25 Troponin T 0.034 ng/mL (0.00-0.029) H 03/22/20 09:00 Triglycerides 119 mg/dL (2-149) 03/21/20 15:54 Cholesterol 97 mg/dL (50-199) 03/21/20 15:54 LDL Cholesterol Direct 43 mg/dL (50-130) L 03/21/20 15:54 HDL Cholesterol 37 mg/dL (40-59) L 03/21/20 15:54 Cholesterol/HDL Ratio 2.62 % 03/21/20 15:54 Hepatitis A IgM Ab Non-reactive (NonReactive) 03/22/20 09:00 Hep Bs Antigen Non-reactive (Negative) 03/22/20 09:00 Hep B Core IgM Ab Non-reactive (NonReactive) 03/22/20 09:00 Hepatitis C Antibody Non-reactive (NonReactive) 03/22/20 09:00 Babcock/IV: IV Catheter Type [Right Peripheral IV Antecubital] Active Medications - Current Medications Current Medications: Generic Name Dose Route Start Last Admin Trade Name Freq PRN Reason Stop Dose Admin Acetaminophen 650 mg 03/22/20 08:00 Tylenol PO Q4H PRN Pain MILD(1-3)/Fever >100.5/WOOD Aspirin 325 mg 03/23/20 10:00 Ecotrin PO QDAY JOANN Carvedilol 25 mg 03/22/20 10:00 03/22/20 12:48 Coreg PO 25 mg BID JOANN Administration Clonidine HCl 0.3 mg 03/22/20 08:30 03/22/20 10:30 Catapres PO 0.3 mg Q8HR JOANN Administration Diphenhydramine HCl 25 mg 03/22/20 08:00 03/22/20 12:58 Benadryl PO 25 mg Q8H PRN Administration Itching Hydroxyzine HCl 25 mg 03/22/20 08:00 Atarax PO Q6H PRN Itching Sodium Chloride 100 mls @ 999 mls/hr 03/22/20 08:00 Nacl 0.9% IV SYLVAIN PRN Hypotension Labetalol HCl 10 mg 03/22/20 02:19 03/22/20 03:35 Labetalol IV 10 mg Q4H PRN Administration SBP > 160 Losartan Potassium 100 mg 03/22/20 10:00 03/22/20 12:48 Cozaar PO 100 mg QDAY JOANN Administration Magnesium Hydroxide 30 ml 03/22/20 01:40 03/22/20 03:31 Milk Of Magnesia PO 30 ml Q4H PRN Administration Constipation Methocarbamol 500 mg 03/22/20 10:00 Robaxin PO BID PRN Spasms Morphine Sulfate 2 mg 03/22/20 01:40 03/22/20 09:45 Morphine IV 2 mg Q5MIN PRN Administration Chest Pain Nifedipine 90 mg 03/22/20 10:00 03/22/20 11:21 Procardia Xl PO 90 mg QDAY JOANN Administration Ondansetron HCl 4 mg 03/22/20 01:40 Zofran IV Q8H PRN Nausea And Vomiting Oxycodone/Acetaminophen 1 tab 03/22/20 10:00 Percocet 5/325 PO BID PRN Pain, Moderate (4-6) Sodium Chloride 10 ml 03/22/20 10:00 03/22/20 12:49 Sodium Chloride Flush Syringe 10 Ml IV 10 ml BID JOANN Administration Sodium Chloride 10 ml 03/22/20 01:40 03/22/20 05:51 Sodium Chloride Flush Syringe 10 Ml IV 10 ml PRN PRN Administration LINE FLUSH
[2020-03-23] MEDS: MORPHINE 4 MG/1 ML INJ IV PRN (02:24)
[2020-03-23] MEDS: cloNIDine 0.1 MG TAB PO SCH ×3 (05:51→21:35)
--- NOTE | 2020-03-23 07:58 | Progress Note ---
Assessment and Plan Assessment and plan: --Atypical chest pain; Patient noncompliant with hemodialysis, probably secondary to fluid overload and congestion However patient has risk factors, patient refused stress test cardiology evaluation and recommendations noted and appreciated Follow echocardiogram --Positive troponins; non-ST elevation DC type II in the setting of end-stage renal disease Follow echocardiogram, patient refused stress test Cardiology evaluation noted and appreciated, no cardiac work-up recommended Continue medical management --Hypertensive emergency; present on admission/now well controlled Probably secondary to noncompliance Blood pressures are well controlled today We will continue current antihypertensives And as needed medications --Worsening shortness of breath; secondary to fluid overload Due to missed hemodialysis HD per schedule nephrology following Patient counseled importance of adhering to the treatment plan mainly dialysis --Metabolic acidosis; secondary to ESRD Nephrology following, HD per schedule --Anemia of chronic disease; Hemoglobin 7.5 on admission Closely monitor H&H transfuse as needed Procrit during hemodialysis --DVT prophylaxis; heparin subcu renal dose --Medical noncompliance; patient strongly advised to comply with medications diet Hemodialysis and follow-up visits Patient verbalized understanding. Monitor closely and adjust the management as needed Possible discharge home tomorrow if patient is stable . Brief history 44-year-old male with hypertension, CHF, ESRD on HD, former smoker, s/p AVF removal and LUE and Vas-Cath placement presented to the emergency room on 03/21 complaining of mid sternal stabbing chest pain which worsens with exertion and is better with rest with nausea and vomiting and shortness of breath. He went for dialysis and was sent to the emergency room for further evaluation. He admitted to missing 2 dialysis appointments and his last HD session was on Friday 03/16. Work-up in the emergency department revealed recurrent interstitial edema on CXR, elevated troponin and elevated blood pressure. Patient was admitted to the hospital service for work-up for his chest pain, hypertensive emergency and ESRD requiring dialysis. This morning patient was scheduled for stress test however it was canceled by cardiology due to recent work-up. Patient received HD today and removed 3 L however patient was requesting treatment to be terminated. Patient presented to the floor after HD with a blood pressure of 199/138 and upon rechecking it was 231/146. Patient was given a one-time dose of 50 mg of hydralazine and received his scheduled blood pressure medication. Cardiology and nephrology following History Interval history: I have seen and examined the patient at the bedside Patient's chart and medications reviewed Patient has elevated troponin No cardiac work-up recommended at this point Patient has no chest pain or shortness of breath Vital signs noted Scheduled for hemodialysis today Hospitalist Physical - Constitutional Vitals: Temp Pulse Resp BP Pulse Ox 97.5 F L 68 18 123/73 96 03/23/20 07:27 03/23/20 07:27 03/23/20 07:27 03/23/20 07:27 03/23/20 07:27 General appearance: Present: no acute distress, well-nourished - EENT Eyes: Present: PERRL, EOM intact - Neck Neck: Present: supple, normal ROM - Respiratory Respiratory effort: normal Respiratory: bilateral: diminished, negative: rales, rhonchi, wheezing - Cardiovascular Rhythm: regular Heart Sounds: Present: S1 & S2 - Extremities Extremities: no ischemia, No edema - Abdominal General gastrointestinal: soft, non-tender, non-distended, normal bowel sounds - Integumentary Integumentary: Present: clear, warm - Psychiatric Psychiatric: appropriate mood/affect, cooperative - Neurologic Neurologic: moves all extremities HEART Score - HEART Score EKG: Non-specific Age: < 45 Risk factors: > 3 risk factors or hx of atherosclerotic disease Troponin: Troponin T 0.034 ng/mL (0.00-0.029) H 03/22/20 09:00 Troponin: > 3x normal limit Results - Labs CBC & Chem 7: 03/23/20 15:50 03/23/20 15:50 Labs: Laboratory Last Values WBC 6.4 K/mm3 (4.5-11.0) 03/22/20 02:25 RBC 2.38 M/mm3 (3.65-5.03) L 03/22/20 02:25 Hgb 7.5 gm/dl (11.8-15.2) L 03/22/20 02:25 Hct 23.3 % (35.5-45.6) L D 03/22/20 02:25 MCV 98 fl (84-94) H 03/22/20 02:25 MCH 32 pg (28-32) 03/22/20 02:25 MCHC 32 % (32-34) 03/22/20 02:25 RDW 15.6 % (13.2-15.2) H 03/22/20 02:25 Plt Count 112 K/mm3 (140-440) L 03/22/20 02:25 Lymph % (Auto) 7.1 % (13.4-35.0) L 03/22/20 02:25 [place] % (Auto) 7.2 % (0.0-7.3) 03/22/20 02:25 Eos % (Auto) 5.0 % (0.0-4.3) H 03/22/20 02:25 Baso % (Auto) 0.8 % (0.0-1.8) 03/22/20 02:25 Lymph # (Auto) 0.5 K/mm3 (1.2-5.4) L 03/22/20 02:25 [place] # (Auto) 0.5 K/mm3 (0.0-0.8) 03/22/20 02:25 Eos # (Auto) 0.3 K/mm3 (0.0-0.4) 03/22/20 02:25 Baso # (Auto) 0.1 K/mm3 (0.0-0.1) 03/22/20 02:25 Seg Neutrophils % 79.9 % (40.0-70.0) H 03/22/20 02:25 Seg Neutrophils # 5.1 K/mm3 (1.8-7.7) 03/22/20 02:25 Sodium 142 mmol/L (137-145) 03/22/20 02:25 Potassium 3.9 mmol/L (3.6-5.0) D 03/22/20 02:25 Chloride 106.9 mmol/L (98-107) 03/22/20 02:25 Carbon Dioxide 13 mmol/L (22-30) L 03/22/20 02:25 Anion Gap 26 mmol/L 03/22/20 02:25 BUN 68 mg/dL (9-20) H 03/22/20 02:25 Creatinine 15.1 mg/dL (0.8-1.3) H 03/22/20 02:25 Estimated GFR 4 ml/min 03/22/20 02:25 BUN/Creatinine Ratio 5 % 03/22/20 02:25 Glucose 102 mg/dL (75-100) H 03/22/20 02:25 Calcium 7.4 mg/dL (8.4-10.2) L D 03/22/20 02:25 Troponin T 0.034 ng/mL (0.00-0.029) H 03/22/20 09:00 Triglycerides 119 mg/dL (2-149) 03/21/20 15:54 Cholesterol 97 mg/dL (50-199) 03/21/20 15:54 LDL Cholesterol Direct 43 mg/dL (50-130) L 03/21/20 15:54 HDL Cholesterol 37 mg/dL (40-59) L 03/21/20 15:54 Cholesterol/HDL Ratio 2.62 % 03/21/20 15:54 Hepatitis A IgM Ab Non-reactive (NonReactive) 03/22/20 09:00 Hep Bs Antigen Non-reactive (Negative) 03/22/20 09:00 Hep B Core IgM Ab Non-reactive (NonReactive) 03/22/20 09:00 Hepatitis C Antibody Non-reactive (NonReactive) 03/22/20 09:00 Babcock/IV: IV Catheter Type [Left VAS Cath Subclavian] IV Catheter Type [Right Peripheral IV Antecubital] Active Medications - Current Medications Current Medications: Generic Name Dose Route Start Last Admin Trade Name Freq PRN Reason Stop Dose Admin Acetaminophen 650 mg 03/22/20 08:00 Tylenol PO Q4H PRN Pain MILD(1-3)/Fever >100.5/WOOD Aspirin 325 mg 03/23/20 10:00 Ecotrin PO QDAY JOANN Carvedilol 25 mg 03/22/20 10:00 03/22/20 21:06 Coreg PO 25 mg BID JOANN Administration Clonidine HCl 0.3 mg 03/22/20 08:30 03/23/20 05:51 Catapres PO 0.3 mg Q8HR JOANN Administration Diphenhydramine HCl 25 mg 03/22/20 08:00 03/22/20 21:06 Benadryl PO 25 mg Q8H PRN Administration Itching Hydroxyzine HCl 25 mg 03/22/20 08:00 Atarax PO Q6H PRN Itching Sodium Chloride 100 mls @ 999 mls/hr 03/22/20 08:00 Nacl 0.9% IV SYLVAIN PRN Hypotension Labetalol HCl 10 mg 03/22/20 02:19 03/22/20 03:35 Labetalol IV 10 mg Q4H PRN Administration SBP > 160 Losartan Potassium 100 mg 03/22/20 10:00 03/22/20 12:48 Cozaar PO 100 mg QDAY JOANN Administration Magnesium Hydroxide 30 ml 03/22/20 01:40 03/22/20 03:31 Milk Of Magnesia PO 30 ml Q4H PRN Administration Constipation Methocarbamol 500 mg 03/22/20 10:00 03/22/20 21:06 Robaxin PO 500 mg BID PRN Administration Spasms Morphine Sulfate 2 mg 03/22/20 01:40 03/23/20 02:24 Morphine IV 2 mg Q5MIN PRN Administration Chest Pain Nifedipine 90 mg 03/22/20 10:00 03/22/20 11:21 Procardia Xl PO 90 mg QDAY JOANN Administration Ondansetron HCl 4 mg 03/22/20 01:40 Zofran IV Q8H PRN Nausea And Vomiting Oxycodone/Acetaminophen 1 tab 03/22/20 10:00 Percocet 5/325 PO BID PRN Pain, Moderate (4-6) Sodium Chloride 10 ml 03/22/20 10:00 03/22/20 21:11 Sodium Chloride Flush Syringe 10 Ml IV 10 ml BID JOANN Administration Sodium Chloride 10 ml 03/22/20 01:40 03/22/20 05:51 Sodium Chloride Flush Syringe 10 Ml IV 10 ml PRN PRN Administration LINE FLUSH
[2020-03-23] MEDS ORDERED: MORPHINE 4 MG/1 ML INJ IV PRN (08:06)
[2020-03-23] MEDS: diphenhydrAMINE 25 MG CAP PO PRN ×2 (09:14→21:34)
[2020-03-23] MEDS: ASPIRIN EC 325 MG TAB PO SCH (09:14)
[2020-03-23] MEDS: LOSARTAN 50 MG TAB PO SCH ×2 (09:14→14:47)
[2020-03-23] MEDS: NIFEdipine XL 90 MG TAB PO SCH ×3 (09:15→14:50)
[2020-03-23] MEDS: carvediloL 25 MG TAB PO SCH ×4 (09:15→21:35)
--- NOTE | 2020-03-23 12:41 | Progress Note ---
Assessment and Plan - Patient Problems (1) Missed dialysis Current Visit: Yes Status: Acute Plan to address problem: Patient presented to the hospital with constitutional symptoms resulting from serial missed dialysis sessions. Echocardiogram shows normal left ventricular systolic function, ejection fraction 55 to 60%, with moderate concentric left ventricle hypertrophy consistent with his chronic hypertension. Cardiac status is stable and asymptomatic, no further cardiac work-up is indicated. Subjective Date of service: 03/23/20 Interval history: Patient is comfortable, looks and feels better after resumption of hemodialysis treatments. No cardiac complaints. Objective Vital Signs Temp Pulse Resp BP BP Pulse Ox 03/23/20 12:33 98.6 F 03/23/20 12:06 64 96 03/23/20 12:05 64 18 155/98 96 03/23/20 07:54 98.6 F 65 20 107/57 94 03/23/20 07:27 97.5 F L 68 18 123/73 96 03/23/20 04:12 98.7 F 73 18 134/86 94 03/23/20 03:00 68 03/23/20 00:07 98.9 F 73 20 138/81 94 03/22/20 23:00 20 03/22/20 19:56 98.6 F 80 18 148/92 92 03/22/20 15:49 98.3 F 82 18 144/94 90 03/22/20 13:00 71 18 172/109 - Physical Examination General: No Apparent Distress HEENT: Positive: PERRL Neck: Positive: trachea midline Cardiac: Positive: Reg Rate and Rhythm Lungs: Positive: Decreased Breath Sounds Neuro: Positive: Grossly Intact Abdomen: Positive: Soft Skin: Positive: Clear Extremities: Absent: edema
[2020-03-23] MEDS: oxyCODONE /ACETAMINOPHEN 5-325MG TAB PO PRN ×2 (14:37→21:35)
[2020-03-23 16:33] LABS: Basophils % (Auto) 0.5 % (0.0-1.8); Eosinophils # (Auto) 0.4 K/mm3 (0.0-0.4); Eosinophils % (Auto) 6.6 % (0.0-4.3); Hematocrit 26.8 % (35.5-45.6); Hemoglobin 9.1 gm/dl (11.8-15.2); Lymphocytes # (Auto) 0.5 K/mm3 (1.2-5.4); Lymphocytes % (Auto) 7.5 % (13.4-35.0); Mean Corpuscular HGB Conc 34 % (32-34); Mean Corpuscular Volume 94 fl (84-94); Monocytes # (Auto) 0.5 K/mm3 (0.0-0.8); Monocytes % (Auto) 8.7 % (0.0-7.3); Platelet Count 131 K/mm3 (140-440); Red Blood Count 2.85 M/mm3 (3.65-5.03); Red Cell Distribution Width 15.1 % (13.2-15.2)
[2020-03-23 16:39] LABS: INR 1.11 (0.87-1.13)
[2020-03-23 16:51] LABS: Calcium 9.2 mg/dL (8.4-10.2)
--- NOTE | 2020-03-23 18:48 | Progress Note ---
Assessment and Plan Assessment * end-stage renal disease on hemodialysis * Missed dialysis * Pulmonary edema * Chest pain. troponin was slightly elevated but stable. EKG without ST/T wave changes. * Acidosis * Hypertensive urgency * hyperparathyroidism * Hyperphosphatemia Recommendations * Labs and volume status acceptable today with no immediate need for dialysis, plan for next session tomorrow * continue home antihypertensives * continue binders with meals * Hold Epogen until blood pressure is better controlled * Renally dose medications * Avoid nephrotoxins * Cardiology note reviewed Subjective Date of service: 03/23/20 Principal diagnosis: chest pain Interval history: Patient was seen for his renal issues Nursing, interdisciplinary and consult notes were reviewed Vitals, input and output, medications and labs were reviewed He is still experiencing chest pain but states that it has decreased in intensity Objective - Exam Narrative Exam: Vitals: Reviewed General: No acute distress HEENT: Oral mucosa moist, no pharyngeal erythema, no evidence of epistaxis Neck: Supple, no evidence of any JVD, trachea midline, no thyromegaly Chest: Clear to auscultation, no crackles, rales or wheezes Heart: bibasilar decreased breath sounds Abdomen: Soft, nontender, no renal bruit, no suprapubic masses no CVA tenderness Extremity: No peripheral cyanosis, lower extremity edema Neurological: Alert, awake, no asterixis Dermatology; no skin rashes Back: Nontender thoracolumbar spine, no CVA tenderness Psych: No agitation and aggression Musculoskeletal: No joint effusion noted - Vital Signs Vital signs: Vital Signs - 12hr 03/23/20 03/23/20 03/23/20 07:27 07:54 11:00 Temperature 97.5 F L 98.6 F Pulse Rate 68 65 68 Respiratory 18 20 18 Rate Blood Pressure 123/73 107/57 O2 Sat by Pulse 96 94 96 Oximetry 03/23/20 03/23/20 03/23/20 12:05 12:06 12:33 Temperature 98.6 F Pulse Rate 64 64 Respiratory 18 Rate Blood Pressure 155/98 O2 Sat by Pulse 96 96 Oximetry 03/23/20 16:31 Temperature 98.7 F Pulse Rate 56 L Respiratory 18 Rate Blood Pressure 167/109 O2 Sat by Pulse 90 Oximetry - Lab 03/23/20 15:50 03/23/20 15:50 Most recent lab results Calcium 9.2 mg/dL (8.4-10.2) D 03/23/20 15:50 Medications & Allergies - Medications Allergies/Adverse Reactions: Allergies nitroglycerin [From Nitroglyn] Allergy (Verified 06/25/17 10:08) Swelling Home Medications: Home Medications Medication Instructions Recorded Confirmed Last Taken Type RX: Clonidine HCl [Catapres] 0.3 mg PO Q8H #60 tablet 04/20/17 03/22/20 Unknown Rx RX: Losartan [Cozaar] 100 mg PO QDAY #30 tablet 04/20/17 03/22/20 Unknown Rx RX: carvediloL [Coreg] 25 mg PO BID #60 tablet 04/20/17 03/22/20 Unknown Rx RX: NIFEdipine XL [Procardia Xl] 90 mg PO QDAY #30 tablet 05/01/17 03/22/20 Unknown Rx RX: hydrOXYzine HCL [Atarax] 25 mg PO Q6H PRN #10 tablet 05/01/17 03/22/20 Unknown Rx RX: methOCARBAMOL [Robaxin TAB] 500 mg PO BID PRN #20 tab 05/01/17 03/22/20 Unknown Rx RX: diphenhydrAMINE [Benadryl CAP] 25 mg PO Q8H PRN #15 capsule 06/30/1703/22 Unknown Rx RX: oxyCODONE /ACETAMINOPHEN 1 tab PO BID PRN #10 tablet 06/30/17 03/22/20 Unknown Rx [Percocet 5/325 mg] RX: Acetaminophen [Acetaminophen 650 mg PO Q4H PRN #60 tablet 07/06/17 03/22/20 Unknown Rx TAB] Active Medications: Generic Name Dose Route Start Last Admin Trade Name Polly PRN Reason Stop Dose Admin Acetaminophen 650 mg 03/22/20 08:00 Tylenol PO Q4H PRN Pain MILD(1-3)/Fever >100.5/WOOD Aspirin 325 mg 03/23/20 10:00 03/23/20 09:14 Ecotrin PO 325 mg QDAY JOANN Administration Carvedilol 25 mg 03/22/20 10:00 03/23/20 14:41 Coreg PO 25 mg BID JOANN Administration Clonidine HCl 0.3 mg 03/22/20 08:30 03/23/20 14:36 Catapres PO 0.3 mg Q8HR JOANN Administration Diphenhydramine HCl 25 mg 03/22/20 08:00 03/23/20 09:14 Benadryl PO 25 mg Q8H PRN Administration Itching Hydroxyzine HCl 25 mg 03/22/20 08:00 Atarax PO Q6H PRN Itching Sodium Chloride 100 mls @ 999 mls/hr 03/22/20 08:00 Nacl 0.9% IV SYLVAIN PRN Hypotension Labetalol HCl 10 mg 03/22/20 02:19 03/22/20 03:35 Labetalol IV 10 mg Q4H PRN Administration SBP > 160 Losartan Potassium 100 mg 03/22/20 10:00 03/23/20 14:47 Cozaar PO Not Given QDAY JOANN Magnesium Hydroxide 30 ml 03/22/20 01:40 03/22/20 03:31 Milk Of Magnesia PO 30 ml Q4H PRN Administration Constipation Methocarbamol 500 mg 03/22/20 10:00 03/22/20 21:06 Robaxin PO 500 mg BID PRN Administration Spasms Nifedipine 90 mg 03/22/20 10:00 03/23/20 14:50 Procardia Xl PO 90 mg QDAY JOANN Administration Ondansetron HCl 4 mg 03/22/20 01:40 Zofran IV Q8H PRN Nausea And Vomiting Oxycodone/Acetaminophen 1 tab 03/23/20 10:29 03/23/20 14:37 Percocet 5/325 PO 1 tab Q6H PRN Administration Pain, Moderate (4-6) Sodium Chloride 10 ml 03/22/20 10:00 03/23/20 09:16 Sodium Chloride Flush Syringe 10 Ml IV 10 ml BID JOANN Administration Sodium Chloride 10 ml 03/22/20 01:40 03/22/20 05:51 Sodium Chloride Flush Syringe 10 Ml IV 10 ml PRN PRN Administration LINE FLUSH
[2020-03-24] MEDS: oxyCODONE /ACETAMINOPHEN 5-325MG TAB PO PRN ×2 (03:18→10:24)
[2020-03-24] MEDS: cloNIDine 0.1 MG TAB PO SCH ×2 (05:53→14:09)
[2020-03-24] MEDS: ASPIRIN EC 325 MG TAB PO SCH (10:24)
[2020-03-24] MEDS: diphenhydrAMINE 25 MG CAP PO PRN (10:27)
--- NOTE | 2020-03-24 11:51 | Discharge Summary ---
Providers - Providers Date of Admission: 03/22/20 15:16 Date of discharge: 03/24/20 Attending physician: ASYA ALVARES 03/22/20 Consult to Cardiac Rehabilitation [CONS] Routine Reason For Exam: Phase I 03/22/20 00:48 Consult to Physician [CONS] Routine Comment: Consulting Provider: SHENG CHERRY Physician Instructions: Reason For Exam: esrd 03/22/20 01:41 Consult to Cardiology [CONS] Routine Consulting Provider: BERTHA ELY Reason For Exam: chest pain Primary care physician: [employer] Hospitalization Reason for admission: Midsternal chest pain Condition: Stable Pertinent studies: Chest x-ray Echocardiogram Hospital course: 44-year-old male with hypertension, CHF, ESRD on HD, former smoker, s/p AVF removal and LUE and Vas-Cath placement was admitted through the emergency room on 03/21 complaining of mid sternal stabbing chest pain which worsens with exertion and is better with rest with nausea and vomiting and shortness of breath. He went for dialysis and was sent to the emergency room for further evaluation. He admitted to missing 2 dialysis appointments and his last HD session was on Friday 03/16. Work-up in the emergency department revealed interstitial edema on CXR, elevated troponin and elevated blood pressure, hypertensive emergency. Patient was admitted to the hospital, appropriately managed evaluated by cardiology, recommend medical management no further work- up, blood pressures brought to reasonable level, nephrology evaluated and patient received hemodialysis per schedule. Patient symptoms slowly but gradually improved. Today patient is comfortable no new complaints vital signs stable physical examination prior to discharge is unremarkable. Cleared by consultants for discharge and follow-up per schedule. Patient is hemodynamically and clinically stable at discharge Discharge diagnosis --Atypical chest pain; Probably secondary to fluid overload and congestion. Patient noncompliant with dialysis, cardiology evaluated medical management --Positive troponins; non-ST elevation IA type II in the setting of end-stage r enal disease Follow echocardiogram, patient refused stress test Cardiology evaluation noted and appreciated, no cardiac work-up recommended Continue medical management --Hypertensive emergency; present on admission/now well controlled Probably secondary to noncompliance Blood pressures are well controlled today We will continue current antihypertensives And as needed medications --Worsening shortness of breath; secondary to fluid overload Due to missed hemodialysis HD per schedule nephrology following Patient counseled importance of adhering to the treatment plan mainly dialysis --Metabolic acidosis; secondary to ESRD Nephrology following, HD per schedule --Anemia of chronic disease; Hemoglobin 7.5 on admission Closely monitor H&H transfuse as needed Procrit during hemodialysis --DVT prophylaxis; heparin subcu renal dose --Medical noncompliance; patient strongly advised to comply with medications diet Hemodialysis and follow-up visits Patient verbalized understanding. Monitor closely and adjust the management as needed Possible discharge home tomorrow if patient is stable . Disposition: DC-01 TO HOME OR SELFCARE Time spent for discharge: 32 min Core Measure Documentation - Palliative Care Palliative Care/ Comfort Measures: Not Applicable - Core Measures Any of the following diagnoses?: none Exam - Constitutional Vitals: Temp Pulse Resp BP Pulse Ox 97.6 F 63 20 114/67 85 03/24/20 08:02 03/24/20 08:02 03/24/20 08:02 03/24/20 08:02 03/24/20 08:02 General appearance: Present: no acute distress, well-nourished - EENT Eyes: Present: PERRL, EOM intact - Neck Neck: Present: supple, normal ROM - Respiratory Respiratory effort: normal Respiratory: bilateral: diminished, negative: rales, rhonchi, wheezing - Cardiovascular Rhythm: regular Heart Sounds: Present: S1 & S2 - Extremities Extremities: no ischemia, No edema - Abdominal General gastrointestinal: Present: soft, non-tender, non-distended, normal bowel sounds - Integumentary Integumentary: Present: clear, warm - Musculoskeletal Musculoskeletal: strength equal bilaterally - Psychiatric Psychiatric: appropriate mood/affect, cooperative - Neurologic Neurologic: CNII-XII intact, moves all extremities Plan Activity: no restrictions Diet: renal Additional Instructions: Follow renal, HD per schedule MWF. Vies to comply with hemodialysis, medications, follow-up visits. If you have worsening symptoms contact MD or go to emergency room Follow up with: PRIMARY MD KELSEA [Primary Care Provider] - 3-5 Days BANDAR DIAL MD [Staff Physician] - 7 Days Prescriptions: oxyCODONE /ACETAMINOPHEN [Percocet 5/325 mg] 1 tab PO BID PRN #10 tablet PRN Reason: Pain, Moderate (4-6)
[2020-03-24 13:29] VITALS: BP 146/93
[2020-03-24] MEDS: carvediloL 25 MG TAB PO SCH (14:09)
[2020-03-24] MEDS: LOSARTAN 50 MG TAB PO SCH (14:10)
[2020-03-24] MEDS: NIFEdipine XL 90 MG TAB PO SCH (14:10)
--- NOTE | 2020-03-24 15:23 | Progress Note ---
Assessment and Plan - Patient Problems (1) Missed dialysis Status: Acute Plan to address problem: Patient presented to the hospital with constitutional symptoms resulting from serial missed dialysis sessions. Echocardiogram shows normal left ventricular systolic function, ejection fraction 55 to 60%, with moderate concentric left ventricle hypertrophy consistent with his chronic hypertension. Cardiac status is stable and asymptomatic, no further cardiac work-up is indicated. Subjective Date of service: 03/24/20 Principal diagnosis: chest pain Interval history: Patient is comfortable, looks and feels better after resumption of hemodialysis treatments. No cardiac complaints. Objective Vital Signs Temp Pulse Resp BP Pulse Ox 03/24/20 12:12 97.9 F 65 20 146/93 83 L 03/24/20 11:00 63 18 03/24/20 08:02 97.6 F 63 20 114/67 85 03/24/20 05:37 98.3 F 59 L 20 128/86 94 03/24/20 03:00 74 03/23/20 23:52 98.3 F 70 18 131/82 93 03/23/20 23:00 16 03/23/20 20:33 98.6 F 65 18 141/86 94 03/23/20 16:31 98.7 F 56 L 18 167/109 90 - Physical Examination General: No Apparent Distress HEENT: Positive: PERRL Neck: Positive: trachea midline Cardiac: Positive: Reg Rate and Rhythm Lungs: Positive: Decreased Breath Sounds Neuro: Positive: Grossly Intact Abdomen: Positive: Soft Skin: Positive: Clear Extremities: Absent: edema - Labs and Meds Coagulation 03/23/20 Range/Units 15:50 PT 14.4 (12.2-14.9) Sec. INR 1.11 (0.87-1.13) CBC 03/23/20 Range/Units 15:50 WBC 6.1 (4.5-11.0) K/mm3 RBC 2.85 L (3.65-5.03) M/mm3 Hgb 9.1 L (11.8-15.2) gm/dl Hct 26.8 L (35.5-45.6) % Plt Count 131 L (140-440) K/mm3 Lymph # (Auto) 0.5 L (1.2-5.4) K/mm3 [place] # (Auto) 0.5 (0.0-0.8) K/mm3 Eos # (Auto) 0.4 (0.0-0.4) K/mm3 Baso # (Auto) 0.0 (0.0-0.1) K/mm3 Comprehensive Metabolic Panel 03/23/20 Range/Units 15:50 Sodium 137 (137-145) mmol/L Potassium 4.8 D (3.6-5.0) mmol/L Chloride 96.2 L (98-107) mmol/L Carbon Dioxide 26 D (22-30) mmol/L BUN 54 H (9-20) mg/dL Creatinine 13.6 H (0.8-1.3) mg/dL Glucose 106 H (75-100) mg/dL Calcium 9.2 D (8.4-10.2) mg/dL
--- NOTE | 2020-03-24 19:26 | Progress Note ---
Assessment and Plan Assessment * end-stage renal disease on hemodialysis * Missed dialysis * Pulmonary edema * Chest pain. troponin was slightly elevated but stable. EKG without ST/T wave changes. * Acidosis * Hypertensive urgency * hyperparathyroidism * Hyperphosphatemia Recommendations * Labs and volume status acceptable today with no immediate need for dialysis today * continue home antihypertensives * continue binders with meals * Renally dose medications * Avoid nephrotoxins * Cardiology note reviewed Subjective Date of service: 03/24/20 Principal diagnosis: chest pain Interval history: Patient was seen for his renal issues Nursing, interdisciplinary and consult notes were reviewed Vitals, input and output, medications and labs were reviewed Chest pain improved, feels much better Objective - Exam Narrative Exam: Vitals: Reviewed General: No acute distress HEENT: Oral mucosa moist, no pharyngeal erythema, no evidence of epistaxis Neck: Supple, no evidence of any JVD, trachea midline, no thyromegaly Chest: Clear to auscultation, no crackles, rales or wheezes Heart: bibasilar decreased breath sounds Abdomen: Soft, nontender, no renal bruit, no suprapubic masses no CVA tenderness Extremity: No peripheral cyanosis, lower extremity edema Neurological: Alert, awake, no asterixis Dermatology; no skin rashes Back: Nontender thoracolumbar spine, no CVA tenderness Psych: No agitation and aggression Musculoskeletal: No joint effusion noted - Vital Signs Vital signs: Vital Signs - 12hr 03/24/20 03/24/20 03/24/20 08:02 11:00 12:12 Temperature 97.6 F 97.9 F Pulse Rate 63 63 65 Respiratory 20 18 20 Rate Blood Pressure 114/67 146/93 O2 Sat by Pulse 85 83 L Oximetry - Lab 03/23/20 15:50 03/23/20 15:50 Most recent lab results Calcium 9.2 mg/dL (8.4-10.2) D 03/23/20 15:50 Medications & Allergies - Medications Allergies/Adverse Reactions: Allergies nitroglycerin [From Nitroglyn] Allergy (Verified 06/25/17 10:08) Swelling Home Medications: Home Medications Medication Instructions Recorded Confirmed Last Taken Type Clonidine HCl [Catapres] 0.3 mg PO Q8H #60 tablet 04/20/17 03/22/20 Unknown Rx Losartan [Cozaar] 100 mg PO QDAY #30 tablet 04/20/17 03/22/20 Unknown Rx carvediloL [Coreg] 25 mg PO BID #60 tablet 04/20/17 03/22/20 Unknown Rx NIFEdipine XL [Procardia Xl] 90 mg PO QDAY #30 tablet 05/01/17 03/22/20 Unknown Rx hydrOXYzine HCL [Atarax] 25 mg PO Q6H PRN #10 tablet 05/01/17 03/22/20 Unknown Rx methOCARBAMOL [Robaxin TAB] 500 mg PO BID PRN #20 tab 05/01/17 03/22/20 Unknown Rx diphenhydrAMINE [Benadryl CAP] 25 mg PO Q8H PRN #15 capsule 06/30/17 03/22/20 Unknown Rx Acetaminophen [Acetaminophen TAB] 650 mg PO Q4H PRN #60 tablet 07/06/17 03/22/20 Unknown Rx oxyCODONE /ACETAMINOPHEN [Percocet 1 tab PO BID PRN #10 tablet 03/24/20 Unknown Rx 5/325 mg]
== END 2020-03-24 14:55 | disposition home or self-care (01) | DRG 640 ==
LOC: ED 15:11 → 4A 03-22 00:46 → OBSVTOIN 03-22 15:16
PROVIDERS: ADMIT Internal Medicine Geriatric Medicine; ATTEND Internal Medicine
PROC: 5A1D70Z Performance of Urinary Filtration, Intermittent, Less than 6 Hours Per Day (ICD-10-PCS; principal; 2020-03-22)
DX: E87.70 Fluid overload, unspecified (principal); N18.6 End stage renal disease; J81.1 Chronic pulmonary edema; E87.2 Acidosis; I16.1 Hypertensive emergency; I13.2 Hypertensive heart and chronic kidney disease with heart failure and with stage 5 chronic kidney disease, or end stage renal disease; E21.3 Hyperparathyroidism, unspecified; R07.89 Other chest pain; D63.8 Anemia in other chronic diseases classified elsewhere; I50.9 Heart failure, unspecified; J44.9 Chronic obstructive pulmonary disease, unspecified; Z99.2 Dependence on renal dialysis; Z79.899 Other long term (current) drug therapy; Z91.14 Patient's other noncompliance with medication regimen
CPT/HCPCS: 36415; 71046; 80048; 80061; 80074; 84484; 85025; 85610; 90471; 93005; 93306; 96372; G0378; J1200; J2270; J2405